=== PATIENT | female | born 2000 | race African-American/Black ===

== ENCOUNTER 2020-06-30 02:58 | Emergency (ER) | payer BC, SELFPAY ==
[2020-06-30 02:59] VITALS: BP 130/75; PULSE 71; RESP 16; TEMP 36.2; O2SAT 100; BMI 36.8
[2020-06-30] MEDS: Mag Hydrox/Al Hydrox/Simeth 30 ML UDC PO (03:33)
[2020-06-30 03:42] LABS: Absolute Lymphocyte Count 2.34 X10^3/uL (0.83-4.51); Absolute Neutrophil Count 4.6 X10^3/uL (2.0-7.7); Basophil# 0.05 X10^3/uL; Basophil% 0.6 % (0-1); Eosinophil# 0.24 X10^3/uL; Eosinophils% 3.1 % (0-5); Hematocrit 38.4 % (37-47); Hemoglobin 12.2 g/dL (12.0-15.0); Lymphocyte # 2.34 X10^3/ul (4.0); Mean Corp Hgb Conc 31.8 g/dL (32-36); Mean Corpuscular Hgb 29.3 pg (27.0-32.0); Mean Corpuscular Volume 92.1 fL (81-99); Mean Platelet Vol. 10.5 fl (6.2-12.0); Monocyte# 0.54 X10^3/uL; Monocyte% 6.9 % (0-10); NRBC Flagged by Analyzer 0 % (0-5); Neutrophil # 4.61 X10^3/uL (2.7-7.7); Platelet Count 250 K/mm3 (150-450); RBC Distribution Width CV 12.2 % (11.6-14.6); RBC Distribution Width SD 41.1 fl (35.1-43.9); Red Blood Count 4.17 M/mm3 (4.2-5.4); White Blood Count 7.8 K/mm3 (4.4-11.0)
[2020-06-30 03:50] LABS: Internal QC Validated? YES +Cl - CLEAR BKGD; Pregnancy, Serum, hCG Quali. NEGATIVE Negative
[2020-06-30 03:58] LABS: ALB/GLOB Ratio 0.8 RATIO (0.9-2.4); AST(SGOT) 10 U/L (15-37); Alanine Aminotransfer ALT/SGPT 16 U/L (13-56); Albumin, Serum 3.5 g/dL (3.2-5.0); Alkaline Phosphatase 60 U/L (45-117); Anion Gap 7 (5-15); BUN 11 mg/dL (7-18); BUN/Creat Ratio 15.4 RATIO (10-20); Calcium,Total 8.9 mg/dL (8.5-10.1); Chloride 105 mmol/L (98-107); Creatinine, Serum 0.72 mg/dL (0.55-1.02); EST Glomerular Filtration Rate 109 mL/min (>60); Est Glom Filt Rate - Afr Amer 132 mL/min (>60); Estimated Creatinine Clearance 88.78 ml/min; Globulin 4.2 g/dL (2.2-4.2); Glucose 91 mg/dL (74-106); Lipase 144 U/L (73-393); Potassium 3.8 mmol/L (3.5-5.1); Protein, Total 7.7 g/dL (6.4-8.2); Sodium Level 137 mmol/L (136-145)
--- NOTE | 2020-06-30 04:14 | ED.DCSUM_ITS ---
- ER Visit Summary Date of Service: 06/30/20 Chief Complaint: Abdominal pain History of Present Illness: The patient is a 20 F presenting with abdominal pain. She states this started at 1 AM, 2 hours prior to arrival. She started having epigastric abdominal pain. She states she took ibuprofen earlier and then started having pain in the epigastric area. She denies nausea, vomiting, diarrhea. Denies fever. Denies possibility of . Denies urinary complaints. Physical Examination: Vitals are stable. Patient is afebrile. Alert no acute distress. HEENT exam is unremarkable. Neck is supple. Lungs are clear and equal bilaterally. Heart is regular rate and rhythm. Abdomen is soft nontender nondistended. No guarding or rebound Extremities are unremarkable. Skin is warm and dry. Remainder of exam is unremarkable. Emergency Department Course and Treatment: Patient was given GI cocktail. CBC, chemistries unremarkable. Liver lipase normal. hCG negative. On reevaluation, patient is feeling improved and is resting comfortably. She is given prescription for Pepcid. Advised to follow-up with her primary care physician. Advised return to ED for worsening complaints. Disposition: Discharge home Impression: Epigastric abdominal pain, resolved This note was generated with [employer] dictation software. It may contain incorrect words, spelling, and punctuation that were not noted in review of the chart prior to signing ED Disposition - Plan for ED Patient: Instructions: ED Abdominal Pain Unkn Cause Fem Prescriptions: Famotidine [Pepcid] 20 mg PO BID #28 tab Prescription Printed Referrals: Raisa Pacheco MD [Primary Care Provider] -
== END 2020-06-30 04:26 | disposition home or self-care (01) ==
LOC: ED 04:18
PROVIDERS: Emergency Provider Emergency Medicine
DX: R10.13 Epigastric pain (principal); Z72.0 Tobacco use
CPT/HCPCS: 80053; 83690; 84703; 85025; 99282; A4216

== ENCOUNTER 2021-03-02 06:49 | Emergency (ER) | payer BC, SELFPAY ==
[2021-03-02 06:50] VITALS: BP 129/74; PULSE 63; RESP 18; TEMP 37.1; O2SAT 100; BMI 36.0
--- NOTE | 2021-03-02 06:55 | NURSING ---
NO OLD EKGS
--- NOTE | 2021-03-02 07:00 | EKG12_ITS ---
Test Reason : CP Blood Pressure : / mmHG Vent. Rate : 083 BPM Atrial Rate : 083 BPM P-R Int : 138 ms QRS Dur : 074 ms QT Int : 382 ms P-R-T Axes : -14 043 030 degrees QTc Int : 448 ms Normal sinus rhythm with sinus arrhythmia Nonspecific T wave abnormality Abnormal ECG Confirmed by WILLEM PAIGE, DANIELA ([id number]), proposal editor WILMAR LOPEZ ([id number]) on 03/08/2021 1:15:18 PM Referred By: BB Confirmed By:DANILEA BANGURA MD
--- NOTE | 2021-03-02 07:01 | EDS_ITS ---
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 Nonexertional.) Relieved By: Remaining Still (And sitting up) Associated Symptoms: Positive for Dyspnea (A little); Negative for Nausea, Vomiting, Diaphoresis, Cough, Fever, Lightheadedness and Palpitations Narrative Narrative: Patient sent here from urgent care where she went because of chest discomfort that started earlier this morning. She states she was having some back discomfort yesterday, as well as some throat pain with odynophagia, states that all of that is worse when her discomfort started in her chest this morning. She denies any fevers or chills or coughing. As above she states it is worse with lots of things but mainly with lying supine. She also felt some tingling in her right upper extremity yesterday and this morning. Prior Similar Symptoms: No Recent Illness/Hospitalization: No CVD Risk Factors: Negative for Hypertension, Diabetes, Hypercholesterolemia, Family History 1' </=55 and Smoking PE Risk Factors: Negative for Recent Travel/Surgery, Recent Immobilization, Prior DVT or PE, Cancer and OCP + Smoking + >/=35 PFSH PFSH Medical History Asthma Home Medications albuterol sulfate 2 puff INHALATION Q6H PRN 03/02/21 [History Last Taken Unknown] Allergy/AdvReac Type Severity Reaction Status Date / Time No Known Allergies Allergy Verified 03/02/21 06:54 Social History Smoking Status: Current some day smoker tobacco type: cigarettes ROS ROS ED Constitutional Constitutional ED: Denies chills or fever(s) Eyes Eyes: Denies change in vision or diplopia ENT ENT ED: Denies rhinorrhea or sore throat Cardiovascular Cardiovascular: Reports chest pain; Denies palpitations Respiratory/Chest Respiratory/Chest: Reports as per HPI and dyspnea; Denies cough Gastrointestinal Gastrointestinal: Denies abdominal pain, diarrhea, nausea or vomiting Genitourinary Genitourinary ED: Denies dysuria or hematuria Musculoskeletal Musculoskeletal: Denies back pain or neck pain Integumentary Denies abscess or rash Neurologic Neurologic: Reports as per HPI and paresthesias; Denies headache(s) or weakness Psychiatric Psychiatric: Denies anxiety or suicidal thoughts EXAM Physical Exam Const Vital Signs: 03/02/21 06:50 03/02/21 06:55 Temperature 98.7 F Temperature Source Temporal Pulse Rate 63 Respiratory Rate 18 Respiratory Effort Normal Non-Labored Blood Pressure 129/74 H Blood Pressure Mean 92 Pulse Ox 100 Oxygen Delivery Method Room Air Positive well nourished and well developed Constitutional Narrative: Well-appearing, conversive in full sentences. Does not objectively appear dyspneic. General Appearance ED: well developed and NAD HEENT Reports moist mucous membranes normocephalic and atraumatic Eyes PERRL and EOMs intact bilaterally Neck full ROM and supple Resp normal respiratory effort and clear to auscultation bilaterally Cardio regular rate, regular rhythm and no murmurs Cardio Narrative: Blood/4 symmetric radial pulses GI non-tender and non-distended Auscultation: normoactive bowel sounds Palpation: soft Back/Spine no CVA tenderness General Back: other FROM Extremity normal to inspection, no calf tenderness and no pedal edema General Extremety ED: Negative for edema, pulses abnormal or tenderness General Extremity: Negative for edema or pulses abnormal Neuro oriented x3, CN's II-XII intact bilaterally and no sensory deficits noted Sensorium / Orientation: awake and alert Motor Exam: strength 5/5 throughout Skin no rashes or lesions noted and no wounds Heart Score History: Slightly/Non-Suspicious ECG: Normal Age: </= 45 years Risk Factors: No Risk Factors Troponin: </= Normal Limit Score: 0 MDM MDM MDM Narrative Medical decision making narrative: With 6+ hours of continuous discomfort and a negative EKG and troponin, this makes acute coronary syndrome at this time very unlikely. Furthermore her PERC score is 0, ruling out acute pulmonary embolus and contacts, especially with her pulse at 63 and pulse ox at 100% this was unlikely. She was given a GI cocktail considering GI possibilities, it helped a little. She has no posterior oropharyngeal erythema, exudates, asymmetry, or cervical lymphadenopathy to suggest she has a bacterial or streptococcal infection in her throat, but she again complained of her throat feeling funny on the right side when she swallows even after the GI cocktail. Pleurisy is also in the differential diagnosis here. She will be discharged after getting Toradol 30 mg, she has an appointment after the weekend with her doctor, she can be reevaluated then we discussed reasons to return over the weekend. If the anti-inflammatories help, advised using them as needed for this discomfort. We discussed reasons to return. Lab Data Attestation: I reviewed the patient's lab results. Labs: Laboratory Results - last 24 hr 03/02/21 03/02/21 07:03 07:03 WBC 8.1 RBC 4.10 L Hgb 12.2 Hct 37.0 MCV 90.2 MCH 29.8 MCHC 33.0 RDW Std Deviation 42.1 RDW Coeff of Jesus 12.7 Plt Count 250 MPV 10.6 Immature Gran % (Auto) 0.200 Neut % (Auto) 62.4 Lymph % (Auto) 28.3 [place] % (Auto) 6.4 Eos % (Auto) 2.2 Baso % (Auto) 0.5 Absolute Neuts (auto) 5.0 Absolute Lymphs (auto) 2.29 Nucleated RBC % 0 Sodium 138 Potassium 3.6 Chloride 108 H Carbon Dioxide 24.0 Anion Gap 6 BUN 8 Creatinine 0.76 Estim Creat Clear Calc 83.40 Est GFR (MDRD) Af Amer 122 Est GFR (MDRD) Non-Af 101 BUN/Creatinine Ratio 10.5 Glucose 99 Calcium 9.0 Troponin I High Sens 5.2 Radiography Chest X-Ray - ED: 1 View, Read by ED Physician, Normal and No Acute Disease EKG Initial EKG: Attestation: I personally reviewed and interpreted this EKG as follows: Interpretation: Sinus Rhythm and No Acute Injury Pattern Discharge Plan Triage Chief Complaint: Chest Pain ED Provider: David Landaverde Dx/Rx/DC Orders Clinical Impression: Chest pain, unspecified Instructions: ED Chest Pain, Uncertain Cause Prescriptions: No Action albuterol sulfate 90 mcg/actuation Hfa Aerosol Inhaler 2 puff INHALATION Q6H PRN (Reason: breathing) RF: 0 Primary Care Provider: Raisa Pacheco Referrals: Raisa Pacheco MD [Primary Care Provider] - Keep Ben appointment Disposition Disposition: Home, Self Care
[2021-03-02 07:06] LABS: Absolute Lymphocyte Count 2.29 X10^3/uL (0.83-4.51); Basophil# 0.04 X10^3/uL; Basophil% 0.5 % (0-1); Eosinophil# 0.18 X10^3/uL; Eosinophils% 2.2 % (0-5); Hemoglobin 12.2 g/dL (12.0-15.0); Lymphocyte # 2.29 X10^3/ul (0.83-4.51); Lymphocyte % 28.3 % (19-41); Mean Corpuscular Hgb 29.8 pg (27.0-32.0); Mean Corpuscular Volume 90.2 fL (81-99); Mean Platelet Vol. 10.6 fl (6.2-12.0); Monocyte# 0.52 X10^3/uL; Monocyte% 6.4 % (0-10); NRBC Flagged by Analyzer 0 % (0-5); Neutrophil # 5.04 X10^3/uL (2.7-7.7); Neutrophil % 62.4 % (47-70); Platelet Count 250 K/mm3 (150-450); RBC Distribution Width CV 12.7 % (11.6-14.6); RBC Distribution Width SD 42.1 fl (35.1-43.9); White Blood Count 8.1 K/mm3 (4.4-11.0)
[2021-03-02] MEDS: Mag Hydrox/Al Hydrox/Simeth 30 ML UDC PO (07:06)
--- NOTE | 2021-03-02 07:10 | RAD_ITS ---
STUDY: X-RAY CHEST REASON FOR EXAM: Female, 21 years old. Chest pain TECHNIQUE: Single AP portable view of the chest. COMPARISON: None. FINDINGS: EKG leads overlie the chest The lungs are clear and expanded. There is no demonstrated pleural abnormality. Normal size heart. Normal mediastinum and andree. Normal visualized pulmonary arteries. Normal visualized aortic arch and descending thoracic aorta. Normal visualized thoracic spine. Normal visualized ribs, clavicles, and shoulders. There is no demonstrated abnormality of the visualized soft tissue structures of the upper abdomen. RAD/Chest 1 View (Portable) IMPRESSION: Normal x-ray examination of the chest. Electronically Signed: Shakeel Whitfield MD at 7:43 EDT , Service support ,
[2021-03-02 07:25] LABS: Anion Gap 6 (5-15); BUN 8 mg/dL (7-18); BUN/Creat Ratio 10.5 RATIO (10-20); Chloride 108 mmol/L (98-107); Creatinine, Serum 0.76 mg/dL (0.55-1.02); EST Glomerular Filtration Rate 101 mL/min (>60); Est Glom Filt Rate - Afr Amer 122 mL/min (>60); Glucose 99 mg/dL (74-106); Potassium 3.6 mmol/L (3.5-5.1); Sodium Level 138 mmol/L (136-145); Troponin-I HS 5.2 pg/mL (3.0-53.7)
[2021-03-02] MEDS: Ketorolac 30 MG/ML Syringe IV (07:46)
[2021-03-02 07:49] VITALS: BP 108/68; PULSE 58; RESP 14
== END 2021-03-02 07:52 | disposition home or self-care (01) ==
PROVIDERS: Emergency Provider Emergency Medicine; PCP Internal Medicine
DX: R07.9 Chest pain, unspecified (principal); R06.00 Dyspnea, unspecified; R07.0 Pain in throat; R13.10 Dysphagia, unspecified; R20.2 Paresthesia of skin; J45.909 Unspecified asthma, uncomplicated; F17.210 Nicotine dependence, cigarettes, uncomplicated
CPT/HCPCS: 71045; 80048; 84484; 85025; 93005; 96374; 99284; A4216

== ENCOUNTER 2022-10-20 14:57 | Emergency (ER) | payer BC, SELFPAY ==
[2022-10-20 14:59] VITALS: BP 137/80; PULSE 93; RESP 18; TEMP 36; O2SAT 100; BMI 36.6
--- NOTE | 2022-10-20 15:11 | EKG12_ITS ---
Test Reason : CP Blood Pressure : / mmHG Vent. Rate : 090 BPM Atrial Rate : 090 BPM P-R Int : 142 ms QRS Dur : 078 ms QT Int : 360 ms P-R-T Axes : 020 039 021 degrees QTc Int : 440 ms Normal sinus rhythm Nonspecific T wave abnormality Abnormal ECG Confirmed by AARON PAIGE, ONESIMO ([id number]), slot editor WILMAR LOPEZ ([id number]) on 10/21/2022 12:47:55 PM Referred By: Confirmed By:ONESIMO WALKER MD
--- NOTE | 2022-10-20 15:12 | ED.VIS.CHEST ---
HPI History of Present Illness Chief Complaint: Chest Pain Narrative Narrative: 22-year-old female with past medical history of asthma presenting with chest pain. She describes it as retrosternal. She states it is burning in nature and she has a history of acid reflux. She is not on any thing for acid reflux. She reports that she has been studying a lot last week in college and has not been eating well and notes that this burning sensation has been increasing. No nausea or vomiting. No chest pressure. No sharp pleuritic pain no pain with deep inspiration. No history of cardiac disease. PE Risk Factors: Negative for Recent Travel/Surgery, Recent Immobilization, Prior DVT or PE, Cancer or OCP + Smoking + >/=35 PFSH PFSH Medical History Asthma Home Medications albuterol sulfate 90 mcg/actuation aerosol inhaler 2 puff inhalation Q6H PRN breathing 03/02/21 [History Last Taken Unknown] omeprazole 20 mg capsule,delayed release 20 mg PO DAILY #30 CAPSULES 10/20/22 [Rx Last Taken Unknown] Allergy/AdvReac Type Severity Reaction Status Date / Time No Known Allergies Allergy Verified 10/20/22 14:58 Social History Smoking Status: Current some day smoker tobacco type: cigarettes ROS ROS ED Review of Systems ROS Unobtainable: Denies due to encephalopathy Constitutional Constitutional ED: Denies chills or fever(s) Eyes Eyes: Denies change in vision or diplopia ENT ENT ED: Denies rhinorrhea or sore throat Cardiovascular Cardiovascular: Reports as per HPI Respiratory/Chest Respiratory/Chest: Denies cough or dyspnea Gastrointestinal Gastrointestinal: Denies abdominal pain, nausea or vomiting Genitourinary Genitourinary ED: Denies dysuria Musculoskeletal Musculoskeletal: Denies arthralgias or back pain Integumentary Denies abscess or Abrasions Neurologic Neurologic: Denies headache(s) or paresthesias EXAM Physical Exam Const Vital Signs: 10/20/22 14:59 Temperature 96.8 F L Temperature Source Temporal Pulse Rate 93 Respiratory Rate 18 Blood Pressure 137/80 H Blood Pressure Mean 99 Pulse Ox 100 Oxygen Delivery Method Room Air Positive well nourished General Appearance ED: NAD HEENT Reports moist mucous membranes normocephalic Eyes PERRL and EOMs intact bilaterally Chest Wall inspection of chest normal and palpation of chest normal Resp normal respiratory effort and clear to auscultation bilaterally Cardio regular rate and regular rhythm Neuro oriented x3 and CN's II-XII intact bilaterally Sensorium / Orientation: awake and alert Skin no rashes or lesions noted MDM MDM MDM Narrative Medical decision making narrative: 21-year-old female with history of GERD that is untreated presenting with retrosternal burning and dyspepsia symptoms. Patient states has been eating poorly while studying this last week for tests. Low suspicion for ACS or PE. She is PERC negative. Will obtain EKG to ensure there is no dysrhythmia/ischemia. Chest x-ray will be obtained as well. Patient will be treated with GI cocktail. She will be reevaluated after this. EKG on my interpretation shows normal sinus rhythm with a ventricular rate of 90 bpm without sign of ischemic change or dysrhythmia. Chest x-ray on my interpretation shows no acute process. Radiologist interpretation agrees. After GI cocktail was given the patient felt much better. Given this I will start her on omeprazole outpatient. She is counseled to watch trigger foods that would upset her stomach. She is to follow-up with a PCP to ensure resolution. Impression: 1. Atypical chest pain 2. GERD Radiography Diagnostic Testing: Clinical Impression(s) from Imaging Studies Chest X-Ray 10/20/22 15:43 IMPRESSION: No radiographic evidence of acute cardiopulmonary disease. Electronically Signed: Gordon Guillory MD at 15:55 EDT Reading Location ID and State: [facility] / [place] , Service support , Discharge Plan Triage Chief Complaint: Chest Pain ED Provider: Breezy Castillo Dx/Rx/DC Orders Instructions: ED Chest Pain, Noncardiac, ED GERD (Adult) Prescriptions: New omeprazole 20 mg capsule,delayed release(DR/EC) 20 mg PO DAILY Qty: 30 0RF No Action albuterol sulfate 90 mcg/actuation Hfa Aerosol Inhaler 2 puff INHALATION Q6H PRN (Reason: breathing) Primary Care Provider: Raisa Pacheco Referrals: Raisa Pacheco MD [Primary Care Provider] - Disposition Disposition: Home, Self Care Discharge Date/Time: 10/20/22 16:08
[2022-10-20] MEDS: Mag Hydrox/Al Hydrox/Simeth 30 ML UDC PO (15:36)
--- NOTE | 2022-10-20 15:43 | RAD_ITS ---
EXAM: XR CHEST, 2 VIEWS CLINICAL INDICATION: chest pain TECHNIQUE: Frontal and lateral views of the chest. This report was created using [employer] report generation technology. COMPARISON: 03.02.21 FINDINGS: LUNGS AND PLEURAL SPACES: Unremarkable. No consolidation or edema. No pneumothorax. No effusion. HEART: Unremarkable. Cardiac silhouette not enlarged. MEDIASTINUM: Central airways and mediastinal contour are unremarkable. BONES/JOINTS: Unremarkable. SOFT TISSUES: Unremarkable. RAD/Chest PA and Lateral IMPRESSION: No radiographic evidence of acute cardiopulmonary disease. Electronically Signed: Gordon Guillory MD at 15:55 EDT ,
== END 2022-10-20 16:08 | disposition home or self-care (01) ==
PROVIDERS: Emergency Provider Student in an Organized Health Care Education/Training Program; PCP Internal Medicine; Visit Provider Student in an Organized Health Care Education/Training Program
DX: K21.9 Gastro-esophageal reflux disease without esophagitis (principal); R07.89 Other chest pain; J45.909 Unspecified asthma, uncomplicated; F17.210 Nicotine dependence, cigarettes, uncomplicated
CPT/HCPCS: 71046; 93005; 99282

== ENCOUNTER 2024-07-23 17:56 | Emergency (ER) | payer BC, SELFPAY ==
[2024-07-23 17:58] VITALS: BP 113/93; PULSE 117; RESP 16; TEMP 37.3; O2SAT 100; BMI 32.0
[2024-07-23 19:32] VITALS: BP 112/70; PULSE 100; RESP 15; TEMP 38.3; O2SAT 98
[2024-07-23 19:37] LABS: Absolute Lymphocyte Count 0.61 X10^3/uL (0.83-4.51); Absolute Neutrophil Count 9.2 X10^3/uL (2.0-7.7); Basophil# 0.02 X10^3/uL; Basophil% 0.2 % (0-1); Hematocrit 40.1 % (37-47); Hemoglobin 12.4 g/dL (12.0-15.0); Lymphocyte # 0.61 X10^3/ul (0.83-4.51); Mean Corp Hgb Conc 30.9 g/dL (32-36); Mean Corpuscular Hgb 26.4 pg (27.0-32.0); Mean Corpuscular Volume 85.3 fL (81-99); Mean Platelet Vol. 10.6 fl (6.2-12.0); Monocyte# 0.25 X10^3/uL; Monocyte% 2.5 % (0-10); NRBC Flagged by Analyzer 0 % (0-5); Neutrophil # 9.17 X10^3/uL (2.7-7.7); Neutrophil % 90.8 % (47-70); Platelet Count 260 K/mm3 (150-450); RBC Distribution Width CV 14.5 % (11.6-14.6); RBC Distribution Width SD 45.3 fl (35.1-43.9); White Blood Count 10.1 K/mm3 (4.4-11.0)
[2024-07-23] MEDS: Ondansetron 4 MG/2 ML Vial IV (19:37)
[2024-07-23] MEDS: Ketorolac 15 MG/ML Vial IV (19:37)
--- NOTE | 2024-07-23 19:37 | EDS_ITS ---
HPI <DANNY Rick - Last Filed: 07/23/24 22:17> History of Present Illness Chief Complaint: Nausea/Vomiting/Diarrhea Narrative Narrative: Patient presenting today with fevers, nausea, vomiting, and diarrhea that started last night/early this morning. She reports concerns for food poisoning and states that yesterday she ate at a [employer] potluck at school where food had been sitting out. She reports generalized abdominal pain, especially with vomiting. No previous history of abdominal surgeries. She went with her mom today to her PCPs office, mom does have a history of Graves' disease and became concerned that this could be related to patient's thyroid. Her PCP did not have any recent thyroid labs and because she could not rule this out, recommended that patient come to the emergency department for evaluation. Patient reports that she is healthy otherwise. She denies hematemesis, melena, hematochezia, and urinary symptoms. PFSH <DANNY Rick - Last Filed: 07/23/24 22:17> [facility] Medical History Asthma Home Medications ?Medication ?Instructions ?Recorded ?Last Taken ?Type albuterol sulfate 90 mcg/actuation 2 puff inhalation Q6H PRN breathing 03/02/21 Unknown History aerosol inhaler omeprazole 20 mg capsule,delayed 20 mg PO DAILY #30 CAPSULES 10/20/22 Unknown Rx release ciprofloxacin HCl 500 mg tablet 500 mg PO BID 4 days #8 tabs 07/23/24 Unknown Rx (Cipro) ondansetron 4 mg disintegrating 4 mg PO Q8H PRN PRN Nausea #10 tabs 07/23/24 Unknown Rx tablet Allergy/AdvReac Type Severity Reaction Status Date / Time No Known Allergies Allergy Verified 07/23/24 17:57 Social History Smoking Status: Current some day smoker tobacco type: cigarettes ROS <DANNY Rick - Last Filed: 07/23/24 22:17> ROS ED Constitutional Constitutional ED: Reports fever(s) Cardiovascular Cardiovascular: Denies chest pain Respiratory/Chest Respiratory/Chest: Denies cough or dyspnea Gastrointestinal Gastrointestinal: Reports abdominal pain, diarrhea, nausea and vomiting; Denies constipation or melena Genitourinary Genitourinary ED: Denies dysuria, hematuria or urinary urgency Musculoskeletal Musculoskeletal: Denies arthralgias or myalgias Integumentary Denies rash Neurologic Neurologic: Denies weakness EXAM <DANNY Rcik - Last Filed: 07/23/24 22:17> Physical Exam Const Vital Signs: 07/23/24 17:58 07/23/24 19:32 07/23/24 20:00 Temperature 99.2 F H 100.9 F H 101.6 F H Temperature Source Oral Oral Oral Pulse Rate 117 H 100 98 Respiratory Rate 16 15 16 Blood Pressure 113/93 H 112/70 108/66 Blood Pressure Mean 99 84 80 Pulse Ox 100 98 100 Oxygen Delivery Method Room Air Room Air Room Air 07/23/24 21:00 07/23/24 21:54 Temperature 99.9 F H Temperature Source Oral Pulse Rate 100 Respiratory Rate 15 Blood Pressure Blood Pressure Mean Pulse Ox 98 Oxygen Delivery Method Room Air Positive well nourished, well developed and no apparent distress General Appearance ED: well developed HEENT Reports normocephalic and head/scalp atraumatic Mouth ED: Yes moist mucous membranes normal Eyes PERRL and EOMs intact bilaterally Neck full ROM and supple Chest Wall inspection of chest normal Resp normal respiratory effort and clear to auscultation bilaterally Cardio regular rate and regular rhythm GI soft to palpation, non-tender, non-distended and no masses Back/Spine normal ROM and normal to inspection Extremity normal to inspection and full ROM Neuro oriented x3, CN's II-XII intact bilaterally, moves all extremities, no focal m otor deficits and no sensory deficits noted Sensorium / Orientation: awake and alert Psych mental status grossly normal and thought process normal Skin no rashes or lesions noted and no wounds <Dr. Abimael Castellanos DO - Last Filed: 07/24/24 00:27> Physical Exam Const Vital Signs: 07/23/24 17:58 07/23/24 19:32 07/23/24 20:00 Temperature 99.2 F H 100.9 F H 101.6 F H Temperature Source Oral Oral Oral Pulse Rate 117 H 100 98 Respiratory Rate 16 15 16 Blood Pressure 113/93 H 112/70 108/66 Blood Pressure Mean 99 84 80 Pulse Ox 100 98 100 Oxygen Delivery Method Room Air Room Air Room Air 07/23/24 21:00 07/23/24 21:54 Temperature 99.9 F H Temperature Source Oral Pulse Rate 100 Respiratory Rate 15 Blood Pressure Blood Pressure Mean Pulse Ox 98 Oxygen Delivery Method Room Air [facility] <DANNY Rick - Last Filed: 07/23/24 22:17> [facility] Narrative Medical decision making narrative: Patient presenting with nausea, vomiting, diarrhea that started last night. She did eat a [employer] buffet at school and has concerns for food poisoning. She also has concerns for thyroid storm given her mom's history of Graves' disease and saw her PCP today who was not able to rule this out. Patient has no personal history of thyroid disease. She is nontoxic-appearing. She is additionally slightly tachycardic and febrile. Patient given IV fluids, Toradol, Zofran and labs obtained. Her CBC is unremarkable, sodium is 134, potassium 3.4, no JONATHAN, no transaminitis. Her TSH is 0.199, T4 is normal at 1.33, free T3 slightly low at 1.6. Labs do not indicate thyroid storm. COVID/influenza/RSV is negative, chest x-ray negative. She does report improvement of her symptoms on reexamination. She is tolerating p.o. fluids. We will start her on Cipro due to concerns for food poisoning and fevers. She will be discharged home in stable condition. Lab Data Attestation: I reviewed the patient's lab results. Labs: Laboratory Results - last 24 hr 07/23/24 07/23/24 19:24 19:25 WBC 10.1 RBC 4.70 Hgb 12.4 Hct 40.1 MCV 85.3 MCH 26.4 L MCHC 30.9 L RDW Std Deviation 45.3 H RDW Coeff of Jesus 14.5 Plt Count 260 MPV 10.6 Immature Gran % (Auto) 0.500 Neut % (Auto) 90.8 H Lymph % (Auto) 6.0 L Hernando % (Auto) 2.5 Eos % (Auto) 0.0 Baso % (Auto) 0.2 Absolute Neuts (auto) 9.2 H Absolute Lymphs (auto) 0.61 L Nucleated RBC % 0 Sodium 134 L Potassium 3.4 L Chloride 104 Carbon Dioxide 23.0 Anion Gap 7 BUN 9 Creatinine 0.83 Estim Creat Clear Calc 93.33 Est GFR (MDRD) Af Amer 108 Est GFR (MDRD) Non-Af 89 BUN/Creatinine Ratio 10.9 Glucose 90 Calcium 8.9 Total Bilirubin 0.90 AST 19 ALT 16 Alkaline Phosphatase 63 Total Protein 8.6 H Albumin 3.6 Globulin 5.0 H Albumin/Globulin Ratio 0.7 L Lipase 24 TSH 0.199 L Free T4 1.33 Free T3 pg/dL 1.6 L Serum , Qual NEGATIVE Urine Color Yellow Urine Clarity Sl. Cloudy Urine pH 5.0 Ur Specific [place] 1.025 Urine Protein 30 H Urine Glucose (UA) Normal Urine Ketones 150 A* Urine Occult Blood 10 H Urine Nitrite Negative Urine Bilirubin 1 H Urine Urobilinogen 1 H Ur Leukocyte Esterase 100 H Urine RBC 0-5 SEEN Urine WBC 5-10 SEEN Ur Squamous Epith Cells 5-10 SEEN Urine Bacteria 1+ Urine Mucus 1+ Radiography X-Ray: Read by ED Physician Diagnostic Testing: Clinical Impression(s) from Imaging Studies Chest X-Ray 07/23/24 21:02 IMPRESSION: Normal x-ray examination of the chest. Electronically Signed: Mo Patel MD at 21:17 EST Reading Location ID and State: [facility] / [place] Tel , Service support , <Dr. Abimael Castellanos, DO - Last Filed: 07/24/24 00:27> [facility] Narrative Medical decision making narrative: Patient presenting with nausea, vomiting, diarrhea that started last night. She did eat a [employer] buffet at school and has concerns for food poisoning. She also has concerns for thyroid storm given her mom's history of Graves' disease a nd saw her PCP today who was not able to rule this out. Patient has no personal history of thyroid disease. She is nontoxic-appearing. She is additionally slightly tachycardic and febrile. Patient given IV fluids, Toradol, Zofran and labs obtained. Her CBC is unremarkable, sodium is 134, potassium 3.4, no JONATHAN, no transaminitis. Her TSH is 0.199, T4 is normal at 1.33, free T3 slightly low at 1.6. Labs do not indicate thyroid storm. COVID/influenza/RSV is negative, chest x-ray negative. She does report improvement of her symptoms on reexamination. She is tolerating p.o. fluids. We will start her on Cipro due to concerns for food poisoning and fevers. She will be discharged home in stable condition. I have personally performed a face to face assessment of the patient and have reviewed the [facility] Note. I performed a substantive portion of the visit including all aspects of the following. My nelson findings include: History is patient is an 7 had a school buffet last evening about 5 hours later developed diarrhea. She noted tachycardia today primary care was concerned about thyroid storm wrote her for some propranolol which she has not yet taken. Here in the department she was noted to be febrile. She describes the stool that is nonbloody and brown liquid. No mucus. Exam is tachycardic. The patient does however clinically appear well. The exam is rather nonfocal Medical Decison Making I do not feel her laboratory workup is consistent with thyroid storm. Her heart rate is down with antipyretics. She was unable to give us a stool specimen. We talked about whether or not to treat with antibiotics. Using shared decision making I can write her a short course of ciprofloxacin. Would recommend fever control and oral hydration. Follow-up as needed return if worsening History & Record Review Discussion w/independent historian: Patient and Family Lab Data Labs: Laboratory Results - last 24 hr 07/23/24 07/23/24 19:24 19:25 WBC 10.1 RBC 4.70 Hgb 12.4 Hct 40.1 MCV 85.3 MCH 26.4 L MCHC 30.9 L RDW Std Deviation 45.3 H RDW Coeff of Jesus 14.5 Plt Count 260 MPV 10.6 Immature Gran % (Auto) 0.500 Neut % (Auto) 90.8 H Lymph % (Auto) 6.0 L Hernando % (Auto) 2.5 Eos % (Auto) 0.0 Baso % (Auto) 0.2 Absolute Neuts (auto) 9.2 H Absolute Lymphs (auto) 0.61 L Nucleated RBC % 0 Sodium 134 L Potassium 3.4 L Chloride 104 Carbon Dioxide 23.0 Anion Gap 7 BUN 9 Creatinine 0.83 Estim Creat Clear Calc 93.33 Est GFR (MDRD) Af Amer 108 Est GFR (MDRD) Non-Af 89 BUN/Creatinine Ratio 10.9 Glucose 90 Calcium 8.9 Total Bilirubin 0.90 AST 19 ALT 16 Alkaline Phosphatase 63 Total Protein 8.6 H Albumin 3.6 Globulin 5.0 H Albumin/Globulin Ratio 0.7 L Lipase 24 TSH 0.199 L Free T4 1.33 Free T3 pg/dL 1.6 L Serum , Qual NEGATIVE Urine Color Yellow Urine Clarity Sl. Cloudy Urine pH 5.0 Ur Specific [place] 1.025 Urine Protein 30 H Urine Glucose (UA) Normal Urine Ketones 150 A* Urine Occult Blood 10 H Urine Nitrite Negative Urine Bilirubin 1 H Urine Urobilinogen 1 H Ur Leukocyte Esterase 100 H Urine RBC 0-5 SEEN Urine WBC 5-10 SEEN Ur Squamous Epith Cells 5-10 SEEN Urine Bacteria 1+ Urine Mucus 1+ Radiography Diagnostic Testing: Clinical Impression(s) from Imaging Studies Chest X-Ray 07/23/24 21:02 IMPRESSION: Normal x-ray examination of the chest. Electronically Signed: Mo Patel MD at 21:17 EST Reading Location ID and State: [address] [place] [address] Tel , Service support , Discharge Plan Triage Chief Complaint: Nausea/Vomiting/Diarrhea ED Midlevel Provider: Anjali Horn ED Provider: Abimael Castellanos Dx/Rx/DC Orders Clinical Impression: Food poisoning Instructions: ED Food Poisoning (Adult) Prescriptions: New ondansetron 4 mg tablet,disintegrating 4 mg PO Q8H PRN PRN (Reason: Nausea) Qty: 10 0RF ciprofloxacin HCl [Cipro] 500 mg tablet 500 mg PO BID 4 Days Qty: 8 0RF No Action albuterol sulfate 90 mcg/actuation Hfa Aerosol Inhaler 2 puff INHALATION Q6H PRN (Reason: breathing) omeprazole 20 mg capsule,delayed release(DR/EC) 20 mg PO DAILY Qty: 30 0RF Primary Care Provider: Raisa Pacheco Referrals: Raisa Pacheco MD [Primary Care Provider] - Activity Restrictions/Additional Instructions: Follow-up with your PCP and return for any other concerns. Print Language: Vietnamese Disposition Disposition: Home, Self Care Discharge Date/Time: 07/23/24 22:22
[2024-07-23 19:38] LABS: Color, Urine Yellow (Yellow); Glucose, Dipstick Normal (Normal); Leukocyte Esterase-Dipstick 100 /ul (Negative); Nitrite-Dipstick Negative (Negative); Occult Blood-Urine 10 /ul (Negative); Protein-Dipstick 30 mg/dl (Negative); Specific Gravity, Urine 1.025 (1.002-1.030); Urine Clarity Sl. Cloudy (Clear); Urine Urobilinogen 1 mg/dl (Normal)
[2024-07-23] MEDS: 0.9% Normal Saline (1000mL) 1,000 ML 999 ML IV (19:38)
[2024-07-23 19:41] LABS: Ketone-Dipstick 150 mg/dl (Negative); Urine Bilirubin Dipstick 1 mg/dL (Negative)
[2024-07-23 19:49] LABS: Internal QC Validated? YES +Cl - CLEAR BKGD; Pregnancy, Serum, hCG Quali. NEGATIVE Negative
[2024-07-23 19:50] LABS: Bacteria 1+ /hpf (None Seen); Mucous, Urine 1+ /hpf (<or=2+); Red Blood Cells-Urine 0-5 SEEN /hpf (0-5); Squamous Epithelial Cells - UA 5-10 SEEN /hpf (5-10); White Blood Cells 5-10 SEEN /hpf (0-5)
[2024-07-23 20:00] VITALS: BP 108/66; PULSE 98; RESP 16; TEMP 38.7; O2SAT 100
[2024-07-23 20:05] LABS: ALB/GLOB Ratio 0.7 RATIO (0.9-2.4); AST(SGOT) 19 U/L (15-37); Alanine Aminotransfer ALT/SGPT 16 U/L (13-56); Albumin, Serum 3.6 g/dL (3.2-5.0); Alkaline Phosphatase 63 U/L (45-117); Anion Gap 7 (5-15); BUN 9 mg/dL (7-18); BUN/Creat Ratio 10.9 RATIO (10-20); Calcium,Total 8.9 mg/dL (8.5-10.1); Chloride 104 mmol/L (98-107); Creatinine, Serum 0.83 mg/dL (0.55-1.02); EST Glomerular Filtration Rate 89 mL/min (>60); Est Glom Filt Rate - Afr Amer 108 mL/min (>60); Estimated Creatinine Clearance 93.33 ml/min; Glucose 90 mg/dL (74-106); Lipase 24 U/L (13-75); Potassium 3.4 mmol/L (3.5-5.1); Protein, Total 8.6 g/dL (6.4-8.2); Sodium Level 134 mmol/L (136-145); Thyroid Stim Hormone (TSH) 0.199 uIU/mL (0.358-3.740)
[2024-07-23 21:00] VITALS: PULSE 100; RESP 15; O2SAT 98
--- NOTE | 2024-07-23 21:02 | RAD_ITS ---
STUDY: X-RAY CHEST REASON FOR EXAM: Female, 24 years old. fever TECHNIQUE: AP portable COMPARISON: October 20, 2022 FINDINGS: The lungs are clear and expanded. There is no demonstrated pleural abnormality. Normal size heart. Normal mediastinum and andree. Normal visualized pulmonary arteries. Normal visualized aortic arch and descending thoracic aorta. Normal visualized thoracic spine. Normal visualized ribs, clavicles, and shoulders. There is no demonstrated abnormality of the visualized soft tissue structures of the upper abdomen. RAD/Chest 1 View (Portable) IMPRESSION: Normal x-ray examination of the chest. Electronically Signed: Mo Patel MD at 21:17 [facility] ,
[2024-07-23 21:15] LABS: Free T3 1.6 pg/mL (2.18-3.98); T4 Free Direct 1.33 ng/dL (0.76-1.46)
[2024-07-23] MEDS: Acetaminophen 325 MG Tablet 650 MG PO (21:20)
[2024-07-23 21:54] VITALS: TEMP 37.7
[2024-07-23] MEDS: Ciprofloxacin 500 MG Tablet PO (22:18)
== END 2024-07-23 22:22 | disposition home or self-care (01) ==
PROVIDERS: Physician Assistant; Emergency Provider Emergency Medicine; PCP Internal Medicine; Visit Provider Emergency Medicine
DX: A05.9 Bacterial foodborne intoxication, unspecified (principal); J45.909 Unspecified asthma, uncomplicated; F17.210 Nicotine dependence, cigarettes, uncomplicated
CPT/HCPCS: 71045; 80053; 81001; 83690; 84439; 84443; 84481; 84703; 85025; 87631; 96361; 96374; 96375; 99283; A4216; J2405

== ENCOUNTER 2024-07-26 23:12 | Emergency (ER) | payer BC, SELFPAY ==
[2024-07-26 23:13] VITALS: BP 108/65; PULSE 65; RESP 18; TEMP 36.4; O2SAT 100; BMI 32.3
[2024-07-26] MEDS: 0.9% Normal Saline (1000mL) 1,000 ML 999 ML IV (23:39)
[2024-07-26] MEDS: Dicyclomine 10 MG Capsule 20 MG PO (23:39)
[2024-07-26 23:50] LABS: Absolute Lymphocyte Count 2.75 X10^3/uL (0.83-4.51); Absolute Neutrophil Count 4.1 X10^3/uL (2.0-7.7); Basophil# 0.03 X10^3/uL; Basophil% 0.4 % (0-1); Eosinophil# 0.13 X10^3/uL; Eosinophils% 1.7 % (0-5); Hematocrit 33.1 % (37-47); Hemoglobin 10.7 g/dL (12.0-15.0); Lymphocyte # 2.75 X10^3/ul (0.83-4.51); Lymphocyte % 36.5 % (19-41); Mean Corp Hgb Conc 32.3 g/dL (32-36); Mean Corpuscular Hgb 27.3 pg (27.0-32.0); Mean Corpuscular Volume 84.4 fL (81-99); Mean Platelet Vol. 10.9 fl (6.2-12.0); Monocyte# 0.55 X10^3/uL; Monocyte% 7.3 % (0-10); NRBC Flagged by Analyzer 0 % (0-5); Neutrophil # 4.05 X10^3/uL (2.7-7.7); Neutrophil % 53.8 % (47-70); Platelet Count 266 K/mm3 (150-450); RBC Distribution Width CV 13.9 % (11.6-14.6); RBC Distribution Width SD 42.6 fl (35.1-43.9); Red Blood Count 3.92 M/mm3 (4.2-5.4); White Blood Count 7.5 K/mm3 (4.4-11.0)
[2024-07-27] LABS: Internal QC Validated? YES +Cl - CLEAR BKGD; Pregnancy, Serum, hCG Quali. NEGATIVE Negative
--- NOTE | 2024-07-27 | EX.ED.DYSGE1 ---
HPI History of Present Illness Chief Complaint: Abd Pain Narrative Narrative: Patient is a 24-year-old female with past medical history of asthma who presents to the emergency department with a chief complaint of abdominal pain. States that on Friday she was seen here and evaluated was diagnosed with food poisoning and was started on ciprofloxacin. States that she stated that her symptoms returned and she became concerned therefore she came here for further evaluation management. Patient states that she has been taking the ciprofloxacin. Patient denies any previous abdominal surgeries. Patient denies any nausea vomiting diarrhea. [facility] Medical History Asthma Home Medications ?Medication ?Instructions ?Recorded ?Last Taken ?Type albuterol sulfate 90 mcg/actuation 2 puff inhalation Q6H PRN breathing 03/02/21 Unknown History aerosol inhaler omeprazole 20 mg capsule,delayed 20 mg PO DAILY #30 CAPSULES 10/20/22 Unknown Rx release ciprofloxacin HCl 500 mg tablet 500 mg PO BID 4 days #8 tabs 07/23/24 Unknown Rx (Cipro) ondansetron 4 mg disintegrating 4 mg PO Q8H PRN PRN Nausea #10 tabs 07/23/24 Unknown Rx tablet dicyclomine 20 mg tablet 20 mg PO TID PRN abdominal pain 07/27/24 Unknown Rx #30 tabs ondansetron 4 mg disintegrating 4 mg PO Q6H PRN nausea and 07/27/24 Unknown Rx tablet vomiting #20 tabs potassium chloride 20 mEq oral 20 meq PO BID 5 days #30 ea 07/27/24 Unknown Rx packet Allergy/AdvReac Type Severity Reaction Status Date / Time No Known Allergies Allergy Verified 07/26/24 23:13 Social History Smoking Status: Former smoker ROS ROS ED ROS Narrative Constitutional: Denies fevers, chills, headachesdizziness Abdomen: Complains of abdominal discomfort as noted above denies any vomiting or diarrhea : Denies any urinary symptoms Neurological: Denies any numbness, weakness, tingling Musculoskeletal: Denies back pain Skin: Denies rashes or lesions EXAM Physical Exam Narrative Exam Narrative: General: Patient lying in bed rest comfortably did not appear to be in acute distress Head: Atraumatic, normocephalic Eyes: PERRL body, EOMI biotic no conjunctival injection noted Neck: Soft, supple, trachea midline Cardiovascular: Regular rate and rhythm no murmurs gallops rubs noted Respiratory: Clear to auscultation bilaterally Abdomen: Soft, nondistended, no tenderness to palpation, bowel sounds present x 4 Extremities: +5/5 strength noted in the bilateral lower extremities, radial pulses +2/4 in the right upper extremities Neurological: Patient following commands knew that she was at [facility] years 2023 Skin: Warm, dry, intact Const Vital Signs: 07/26/24 23:13 Temperature 97.6 F L Temperature Source Temporal Pulse Rate 65 Respiratory Rate 18 Blood Pressure 108/65 Blood Pressure Mean 79 Pulse Ox 100 Oxygen Delivery Method Room Air MDM MDM MDM Narrative Medical decision making narrative: Patient is a 24-year-old female who presents to the emergency department chief complaint of abdominal pain and concern as her symptoms returned from being diagnosed with food poisoning on Friday. Once again the patient's abdominal exam is benign and nonsurgical in nature. We will repeat blood work and reevaluate. On the differential diagnose includes Melamin to viral gastroenteritis, . Patient CBC reviewed and was largely unremarkable no evidence leukocytosis white blood count normal at 7.5, hemoglobin 10.7, platelet count was noted to be normal at 266. Patient sodium normal 138, potassium was low indicating hypokalemia she was given 40 mill equivalents of supplementation here in the emergency department and she will be given a prescription for potassium replacement for the next few days. Patient's creatinine was noted to be normal at 0.84, AST and ALT were 11 and 17 respectively with a normal total bilirubin of 0.40. Patient lipase normal at 50, test negative. On reevaluation of the patient she is feeling significantly improved she would like to go home at this point time. Patient will be given prescriptions for potassium, Bentyl, Zofran. She is encouraged to follow-up with her primary care physician in the outpatient setting and return with worsening symptoms or other concerns. She is agreeable this plan as well as family members at bedside all question concerns answered she was discharged home in stable condition. Lab Data Labs: Laboratory Results - last 24 hr 07/26/24 23:36 WBC 7.5 RBC 3.92 L Hgb 10.7 L Hct 33.1 L MCV 84.4 MCH 27.3 MCHC 32.3 RDW Std Deviation 42.6 RDW Coeff of Jesus 13.9 Plt Count 266 MPV 10.9 Immature Gran % (Auto) 0.300 Neut % (Auto) 53.8 Lymph % (Auto) 36.5 Bowie % (Auto) 7.3 Eos % (Auto) 1.7 Baso % (Auto) 0.4 Absolute Neuts (auto) 4.1 Absolute Lymphs (auto) 2.75 Nucleated RBC % 0 Sodium 138 Potassium 3.0 L Chloride 106 Carbon Dioxide 27.0 Anion Gap 5 BUN 5 L Creatinine 0.84 Estim Creat Clear Calc 92.68 Est GFR (MDRD) Af Amer 106 Est GFR (MDRD) Non-Af 87 BUN/Creatinine Ratio 5.9 L Glucose 91 Calcium 8.6 Total Bilirubin 0.40 AST 11 L ALT 17 Alkaline Phosphatase 50 Total Protein 7.6 Albumin 3.4 Globulin 4.2 Albumin/Globulin Ratio 0.8 L Lipase 50 Serum , Qual NEGATIVE Discharge Plan Triage Chief Complaint: Abd Pain ED Provider: Pablo Torres Dx/Rx/DC Orders Clinical Impression: Abdominal pain, Hypokalemia Prescriptions: New potassium chloride 20 mEq packet 20 meq PO BID 5 Days Qty: 30 0RF dicyclomine 20 mg tablet 20 mg PO TID PRN (Reason: abdominal pain) Qty: 30 0RF ondansetron 4 mg tablet,disintegrating 4 mg PO Q6H PRN (Reason: nausea and vomiting) Qty: 20 0RF No Action albuterol sulfate 90 mcg/actuation Hfa Aerosol Inhaler 2 puff INHALATION Q6H PRN (Reason: breathing) omeprazole 20 mg capsule,delayed release(DR/EC) 20 mg PO DAILY Qty: 30 0RF ondansetron 4 mg tablet,disintegrating 4 mg PO Q8H PRN PRN (Reason: Nausea) Qty: 10 0RF ciprofloxacin HCl [Cipro] 500 mg tablet 500 mg PO BID 4 Days Qty: 8 0RF Primary Care Provider: Raisa Pacheco Referrals: Raisa Pacheco MD [Primary Care Provider] - Activity Restrictions/Additional Instructions: Take potassium as prescribed. As well as the other medication sent to your pharmacy. Return with worsening symptoms or any concerns. Follow-up with your primary care physician. Eat a bland diet and advance as tolerated. Print Language: Hebrew Disposition Disposition: Home, Self Care
[2024-07-27 00:08] LABS: ALB/GLOB Ratio 0.8 RATIO (0.9-2.4); AST(SGOT) 11 U/L (15-37); Alanine Aminotransfer ALT/SGPT 17 U/L (13-56); Albumin, Serum 3.4 g/dL (3.2-5.0); Alkaline Phosphatase 50 U/L (45-117); Anion Gap 5 (5-15); BUN 5 mg/dL (7-18); BUN/Creat Ratio 5.9 RATIO (10-20); Calcium,Total 8.6 mg/dL (8.5-10.1); Chloride 106 mmol/L (98-107); Creatinine, Serum 0.84 mg/dL (0.55-1.02); EST Glomerular Filtration Rate 87 mL/min (>60); Est Glom Filt Rate - Afr Amer 106 mL/min (>60); Estimated Creatinine Clearance 92.68 ml/min; Globulin 4.2 g/dL (2.2-4.2); Glucose 91 mg/dL (74-106); Lipase 50 U/L (13-75); Protein, Total 7.6 g/dL (6.4-8.2); Sodium Level 138 mmol/L (136-145)
[2024-07-27] MEDS: Potassium Chloride Oral Soln 20 MEQ/15 ML UDC 40 MEQ PO (00:23)
[2024-07-27 00:55] VITALS: BP 112/79; PULSE 73; RESP 16; TEMP 36.6; O2SAT 100
== END 2024-07-27 00:56 | disposition home or self-care (01) ==
PROVIDERS: Emergency Provider Emergency Medicine; PCP Internal Medicine; Visit Provider Emergency Medicine
DX: A05.9 Bacterial foodborne intoxication, unspecified (principal); E87.6 Hypokalemia; Z87.891 Personal history of nicotine dependence; J45.909 Unspecified asthma, uncomplicated
CPT/HCPCS: 80053; 83690; 84703; 85025; 96360; 99284; A4216

== ENCOUNTER 2024-09-04 20:34 | Emergency (ER) | payer BC, SELFPAY ==
[2024-09-04 20:36] VITALS: BP 126/78; PULSE 73; RESP 18; TEMP 36.6; O2SAT 100; BMI 31.5
--- NOTE | 2024-09-04 21:22 | EDS_ITS ---
HPI HPI - GI History of Present Illness Chief Complaint: Abd Pain Informant: patient and parent Narrative Narrative: Patient is a 24-year-old female with history of hidradenitis suppurativa presenting with ongoing and worsening upper abdominal pain. She has been presumptively diagnosed with GERD and has been on pantoprazole from her primary care doctor for the past year or so. She notes that she had food poisoning a little over a month ago and since then has been having worsening of her epigastric pain. She is never seen GI. Has never had an endoscopy. States that she is compliant with her pantoprazole recently increased to 40 mg a day. She states the pain is getting so bad that she is now having tears. She describes it as intense burning in her epigastric region that radiates into her chest and slightly to her back. She states that it is worse at night when she lays down. She states is especially bad if she eats shortly before going to bed. She states she fasted today and did not relieve her symptoms. Came with her mother for further evaluation. Denies any recent change in bowel movements. Does report feeling little constipated. Denies any black or blood in her stool. Denies any associated nausea or vomiting. Denies any history of any abdominal surgeries. No other complaints or concerns at this time. [facility] Medical History Anemia GERD (gastroesophageal reflux disease) Asthma Home Medications ?Medication ?Instructions ?Recorded ?Last Taken ?Type omeprazole 20 mg capsule,delayed 20 mg PO DAILY #30 CA PSULES 10/20/22 Unknown Rx release ondansetron 4 mg disintegrating 4 mg PO Q8H PRN PRN Na usea #10 tabs 07/23/24 Unknown Rx tablet ondansetron 4 mg disintegrating 4 mg PO Q6H PRN nausea and 07/27/24 Unknown Rx tablet vomiting #20 tabs potassium chloride 20 mEq oral 20 meq PO BID 5 days #3 0 ea 07/27/24 Unknown Rx packet pantoprazole 40 mg tablet,delayed 40 mg PO BID 14 days #28 tabs 09/04/24 Unknown Rx release sucralfate 1 gram tablet (Carafate) 1 g PO Q6H 2 weeks #56 tabs 09/04/24 Unknown Rx Allergy/AdvReac Type Severity Reaction Status Date / Time No Known Allergies Allergy Verified 09/04/24 20:36 Family History no significant family his Social History Smoking Status: Never smoker ROS ROS ED Constitutional Constitutional ED: Denies chills or fever(s) Respiratory/Chest Respiratory/Chest: Denies cough or dyspnea Gastrointestinal Gastrointestinal: Reports abdominal pain; Denies diarrhea, nausea or vomiting Musculoskeletal Musculoskeletal: Denies arthralgias or myalgias Integumentary Denies rash Psychiatric Psychiatric: Denies anxiety EXAM Physical Exam Const Vital Signs: 09/04/24 20:36 09/04/24 22:36 09/04/24 23:23 Temperature 98 F 98.1 F Temperature Source Temporal Pulse Rate 73 74 56 L Respiratory Rate 18 16 16 Blood Pressure 126/78 H 120/83 H 113/68 Blood Pressure Mean 94 95 83 Pulse Ox 100 100 99 Oxygen Delivery Method Room Air Room Air Positive well nourished and well developed General Appearance ED: well developed and NAD; Negative for pallor HEENT normocephalic and atraumatic Neck supple Resp normal respiratory effort and clear to auscultation bilaterally Cardio regular rate, regular rhythm and no murmurs GI non-tender, non-distended and no masses GI Narrative: Negative Mcdonald sign Auscultation: normoactive bowel sounds Palpation: soft; Negative for tender, guarding or rigid Extremity full ROM General Extremety ED: Negative for edema General Extremity: Negative for edema Neuro Sensorium / Orientation: alert Motor Exam: Negative for general weakness Psych mental status grossly normal and thought process normal Skin General Skin Exam: Negative for jaundice or pallor MDM MDM MDM Narrative Medical decision making narrative: Patient is evaluated for ongoing upper abdominal pain that radiates to her chest. Vital signs are normal. She overall is well-appearing. She is not have a peritoneal surgical abdominal exam. She is a negative Mcdonald sign. I suspect this is more of gastritis/GERD/peptic ulcer disease. Differential also includes symptomatic anemia, pancreatitis, cholecystitis and choledocholithiasis. Lab work is obtained which shows mild anemia with hemoglobin 11.4 However this is actually improved from her hemoglobin on 07/26 which was 10.7. Low suspicion for any acute bleeding. White blood cell count is normal suspicion for acute infectious etiology. She is mildly hypokalemic potassium of 3.2. Kidney function is normal and she is normal BUN. Urine is negative. Given stable labs with normal liver enzymes I do not think advanced imaging is indicated at this time. Patient is given a GI cocktail and IV Pepcid with some improvement of her symptoms. Will start her on Carafate increase her pantoprazole. Counseled at length on low acid diet and will give information for close outpatient GI follow-up with ID think patient would benefit from GI referral and endoscopy. Patient and mother agreeable plan of care. Patient discharged home in stable condition. Is given return precautions such as developing fever, worsening abdominal pain or signs of GI bleeding. Lab Data Attestation: I reviewed the patient's lab results. Labs: Laboratory Results - last 24 hr 09/04/24 09/04/24 20:51 21:45 WBC 9.6 RBC 4.09 L Hgb 11.4 L Hct 34.7 L MCV 84.8 MCH 27.9 MCHC 32.9 RDW Std Deviation 43.1 RDW Coeff of Jesus 13.9 Plt Count 310 MPV 11.0 Immature Gran % (Auto) 0.300 Neut % (Auto) 71.9 H Lymph % (Auto) 21.5 [place] % (Auto) 4.4 Eos % (Auto) 1.4 Baso % (Auto) 0.5 Absolute Neuts (auto) 6.9 Absolute Lymphs (auto) 2.06 Nucleated RBC % 0 Sodium 136 Potassium 3.2 L Chloride 103 Carbon Dioxide 24.0 Anion Gap 9 BUN 5 L Creatinine 0.75 Estim Creat Clear Calc 102.39 Est GFR (MDRD) Af Amer 121 Est GFR (MDRD) Non-Af 100 BUN/Creatinine Ratio 6.7 L Glucose 77 Calcium 9.3 Total Bilirubin 0.60 AST 10 L ALT 13 Alkaline Phosphatase 66 Total Protein 8.2 Albumin 3.7 Globulin 4.5 H Albumin/Globulin Ratio 0.8 L Lipase 25 Urine Test Negative Discharge Plan Triage Chief Complaint: Abd Pain ED Provider: Mariana Domingo Dx/Rx/DC Orders Clinical Impression: Intermittent upper abdominal pain Instructions: ED Epigastric Pain Uncertain Cause Prescriptions: New pantoprazole 40 mg tablet,delayed release (DR/EC) 40 mg PO BID 14 Days Qty: 28 0RF sucralfate [Carafate] 1 gram tablet 1 g PO Q6H 14 Days Qty: 56 0RF No Action omeprazole 20 mg capsule,delayed release(DR/EC) 20 mg PO DAILY Qty: 30 0RF ondansetron 4 mg tablet,disintegrating 4 mg PO Q8H PRN PRN (Reason: Nausea) Qty: 10 0RF potassium chloride 20 mEq packet 20 meq PO BID 5 Days Qty: 30 0RF ondansetron 4 mg tablet,disintegrating 4 mg PO Q6H PRN (Reason: nausea and vomiting) Qty: 20 0RF Primary Care Provider: Raisa Pacheco Referrals: Raisa Pacheco MD [Primary Care Provider] - Gabriel Larios DO [Med Staff - Active Staff] - Activity Restrictions/Additional Instructions: Your lab work was overall stable today. I suspect you do have some type of inflammation of your stomach which could be a gastritis, ulcer or even a special type of bacterial infection called H. pylori. You been given information of follow-up with her GI specialist, Dr. Larios. Please call the office on Friday to arrange close outpatient follow-up. Let them know you are seen in the ER and the ER doctor wanted you seen quickly. In the meantime follow acid diet, take medication as prescribed and avoid eating late in the evening/before bedtime as we discussed. Print Language: [place] Disposition Disposition: Home, Self Care Discharge Date/Time: 09/04/24 23:32
[2024-09-04] MEDS: Mag Hydrox/Al Hydrox/Simeth 30 ML UDC PO (21:29)
[2024-09-04] MEDS: Famotidine 200 MG/20 ML MDV 20 MG in 0.9% Normal Saline (Pres. free 8 ML 300 MG IV (21:29)
[2024-09-04] MEDS: Lidocaine 2% Viscous15 ML UDC 15 ML PO (21:29)
[2024-09-04 21:37] LABS: Absolute Lymphocyte Count 2.06 X10^3/uL (0.83-4.51); Absolute Neutrophil Count 6.9 X10^3/uL (2.0-7.7); Basophil# 0.05 X10^3/uL; Basophil% 0.5 % (0-1); Eosinophil# 0.13 X10^3/uL; Eosinophils% 1.4 % (0-5); Hematocrit 34.7 % (37-47); Hemoglobin 11.4 g/dL (12.0-15.0); Lymphocyte # 2.06 X10^3/ul (0.83-4.51); Lymphocyte % 21.5 % (19-41); Mean Corp Hgb Conc 32.9 g/dL (32-36); Mean Corpuscular Hgb 27.9 pg (27.0-32.0); Mean Corpuscular Volume 84.8 fL (81-99); Monocyte# 0.42 X10^3/uL; Monocyte% 4.4 % (0-10); NRBC Flagged by Analyzer 0 % (0-5); Neutrophil # 6.91 X10^3/uL (2.7-7.7); Neutrophil % 71.9 % (47-70); Platelet Count 310 K/mm3 (150-450); RBC Distribution Width CV 13.9 % (11.6-14.6); RBC Distribution Width SD 43.1 fl (35.1-43.9); Red Blood Count 4.09 M/mm3 (4.2-5.4); White Blood Count 9.6 K/mm3 (4.4-11.0)
[2024-09-04 21:52] LABS: ALB/GLOB Ratio 0.8 RATIO (0.9-2.4); AST(SGOT) 10 U/L (15-37); Alanine Aminotransfer ALT/SGPT 13 U/L (13-56); Albumin, Serum 3.7 g/dL (3.2-5.0); Alkaline Phosphatase 66 U/L (45-117); Anion Gap 9 (5-15); BUN 5 mg/dL (7-18); BUN/Creat Ratio 6.7 RATIO (10-20); Calcium,Total 9.3 mg/dL (8.5-10.1); Chloride 103 mmol/L (98-107); Creatinine, Serum 0.75 mg/dL (0.55-1.02); EST Glomerular Filtration Rate 100 mL/min (>60); Est Glom Filt Rate - Afr Amer 121 mL/min (>60); Estimated Creatinine Clearance 102.39 ml/min; Globulin 4.5 g/dL (2.2-4.2); Glucose 77 mg/dL (74-106); Lipase 25 U/L (13-75); Potassium 3.2 mmol/L (3.5-5.1); Protein, Total 8.2 g/dL (6.4-8.2); Sodium Level 136 mmol/L (136-145)
[2024-09-04 22:16] LABS: Internal QC Validated? YES +Cl - CLEAR BKGD; Pregnancy, Urine Negative Negative
[2024-09-04 22:36] VITALS: BP 120/83; PULSE 74; RESP 16; O2SAT 100
[2024-09-04 23:23] VITALS: BP 113/68; PULSE 56; RESP 16; TEMP 36.7; O2SAT 99
== END 2024-09-04 23:32 | disposition home or self-care (01) ==
PROVIDERS: Emergency Provider Emergency Medicine; PCP Internal Medicine; Referring Provider Emergency Medicine; Visit Provider Emergency Medicine
DX: R10.13 Epigastric pain (principal); E87.6 Hypokalemia; D64.9 Anemia, unspecified; K21.9 Gastro-esophageal reflux disease without esophagitis; J45.909 Unspecified asthma, uncomplicated; Z79.899 Other long term (current) drug therapy
CPT/HCPCS: 80053; 81025; 83690; 85025; 96374; 99284; A4216

== ENCOUNTER 2024-11-26 11:25 | Day surgery (SDC) | payer BC, SELFPAY ==
--- NOTE | 2024-11-23 08:42 | PAT.ANESEVAL ---
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 When Was Last Pacemaker Check QUESTION #4 FULL TEXT: You/Your Family Experience fever (hyperthermia) with Anesthesia Last Oral Intake Last Oral intake: Last Oral Intake NPO since Meds taken in AM with sips of water? 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 Female Yes 11/22/24 14:27 HX of Motion Sickness No 11/22/24 14:27 HX of N/V After Surgery No 11/22/24 14:27 Non-Smoker Yes 11/22/24 14:27 Duration of Surgery greater No 11/22/24 14:27 than 60 minutes Number of Risk Factors 2 11/22/24 14:27 PONV Score Moderate Risk 11/22/24 14:27 Height & Weight Height & Weight: Anesthesia: Height & Weight Height 5 ft 09/04/24 20:36 Respiratory Assessment Respiratory Assessment - co supervisor grounds and landscape: Respiratory Tract Infection Hx - co supervisor grounds and landscape Hx Respiratory Tract Infection No 11/22/24 14:27 STOP Sleep Apnea STOP Sleep Apnea - co supervisor grounds and landscape: STOP Sleep Apnea - co supervisor grounds and landscape Hx Hypertension No 11/22/24 14:27 Hx Sleep Apnea No 11/22/24 14:27 CPAP BIPAP Do you snore loudly (louder No 11/22/24 14:27 than talking or can be heard Do you often feel tired/ No 11/22/24 14:27 fatigued/ sleepy during daytime? Has anyone observed you stop No 11/22/24 14:27 breathing during sleep? STOP Results Negative 11/22/24 14:27 QUESTION #5 FULL TEXT : Do you snore loudly (louder than talking or can be heard through closed doors)? 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 Specify any problems Hx of Preganancy in last 3 No 11/22/24 14:27 Months Nurse Filling Out Transfusion VCHRISTIN 11/22/24 14:27 & Questions: Date: 11/22/24 11/22/24 14:27 Time: 14:11/22/24 14:27 Patient unable to answer at this time (ie. 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 landscape: /Reproductive Hx- co supervisor grounds and landscape Hx Now No 11/22/24 14:27 Gestational Age (in weeks): EDC: Hx Hx Para Hx Section SAB No 11/22/24 14:27 COUNT INCLUDES THE [facility] Medical History (Updated 11/22/24 @ 14:27 by Marybeth Hernandez) Wears glasses Hidradenitis Gastric reflux Non-smoker Chest pain Anemia GERD (gastroesophageal reflux disease) Asthma Home Medications ?Medication ?Instructions ?Recorded ?Last Taken ?Type albuterol sulfate 90 mcg/actuation 2 puff inhalation Q4H PRN PRN 11/22/24 Unknown History aerosol inhaler shortness of breath or wheezing ergocalciferol (vitamin D2) 1,250 1,250 mcg PO .TWICE WEEKLY 11/22/24 Unknown History mcg (50,000 unit) capsule ferrous sulfate 325 mg (65 mg 325 mg PO DAILY 11/22/24 Unknown History iron) tablet magnesium 250 mg tablet 250 mg PO DAILY 11/22/24 Unknown History pantoprazole 40 mg tablet,delayed 40 mg PO DAILY 11/22/24 Unknown History release Allergy/AdvReac Type Severity Reaction Status Date / Time No Known Allergies Allergy Verified 11/22/24 14:19 Social History Smoking Status: Former smoker alcohol intake: never substance use type: does not use Audit: Pertinent Findings Pertinent Findings EKG Perinent findings: October 20, 2022. Normal sinus rhythm. Nonspecific T wave abnormality. Recommendation Anesthesia Recommendation Anesthesia recommendation: OPTIMIZED for anesthesia
[2024-11-26] VITALS (8 sets, daily range): BP systolic 96–120; BP diastolic 63–85; PULSE 50–85; RESP 14–18; TEMP 36.1–37.1; O2SAT 99–100; BMI 31.4
[2024-11-26 11:54] LABS: Internal QC Validated? YES +Cl - CLEAR BKGD
[2024-11-26 11:55] LABS: Pregnancy, Urine Negative Negative
[2024-11-26] MEDS: Lactated Ringers 1,000 ML 15 ML IV (12:00)
--- NOTE | 2024-11-26 12:13 | PRE.ANES_ITS ---
ASA Classification* ASA Classification ASA Classification: 1 Assessment & Plan Anesthesia* Anesthesia Assessment Anesthesia Assessment: Discussed sedation and/or anesthesia options, risks, benefits, and alternatives with patient/parents/legal guardian/POA. Questions invited. The patient/parents/legal guardian/POA seems to understand and agrees to proceed with anesthesia plan. Reviewed the physical assessment, medical history, allergy history and patient home medications list prior to surgery/procedure/anesthetic and documented any changes. Performed airway and anesthesia risk assessments. Anesthesia Type Anesthesia Type: MAC History Source History Obtained from:: Patient and Chart Anesthesia Focused Assessment* Temperature: 98.8 F Pulse Rate: 50 Blood Pressure: 107/70 Respiratory Rate: 17 Pulse Ox: 100 Oxygen Delivery Method: Room Air Airway Assessment Mouth opens: >3 cm Mallampati Score: I Teeth Condition: Intact Neck Range of motion (ROM): Full ROM Focused Labs Anesthesia Preop lab: CBC WBC 9.6 K/mm3 (4.4-11.0) 09/04/24 20:09/04/24 RBC 4.09 M/mm3 (4.2-5.4) L 09/04/24 20:09/04/24 Hgb 11.4 g/dL (12.0-15.0) L 09/04/24 20: 5 Hct 34.7 % (37-47) L 09/04/24:09/04/24 Plt Count 310 K/mm3 (150-450) 09/04/24 20:51 09/04/24 CHEMISTRY Potassium 3.2 mmol/L (3.5-5.1) L 09/04/24:09/04/24 Sodium 136 mmol/L (136-145) 09/04/24 20:09/04/24 BUN 5 mg/dL (7-18) L 09/04/24:09/04/24 Creatinine 0.75 mg/dL (0.55-1.02) 09/04/24 20:09/04/24 Glucose 77 mg/dL (74-106) 09/04/24 20:51 09/04/24 TSH 0.199 uIU/mL (0.358-3.740) L 07/23/24 19:25 COAG Urine Test Negative Negative 11/26/24 23:59 11/26/24 Pre-Assessment Diagnosis/Proposed Procedure Planned Operative Procedure(s): EGD Anesthesia History 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 When Was Last Pacemaker Check QUESTION #4 FULL TEXT: You/Your Family Experience fever (hyperthermia) with Anesthesia Last Oral Intake Last Oral intake: Last Oral Intake NPO since 00:00 11/26/24 12:01 Meds taken in AM with sips of No 11/26/24 12:01 water? 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 Female Yes 11/22/24 14:27 HX of Motion Sickness No 11/22/24 14:27 HX of N/V After Surgery No 11/22/24 14:27 Non-Smoker Yes 11/22/24 14:27 Duration of Surgery greater No 11/22/24 14:27 than 60 minutes Number of Risk Factors 2 11/22/24 14:27 PONV Score Moderate Risk 11/22/24 14:27 Height & Weight Height & Weight: Anesthesia: Height & Weight Height 5 ft 11/26/24 12:01 Weight: 73 kg 11/26/24 12:01 Body Mass Index (BMI) 31.4 11/26/24 12:01 Respiratory Assessment Respiratory Assessment - electrical maintenance worker: Respiratory Tract Infection Hx - electrical maintenance worker Hx Respiratory Tract Infection No 11/22/24 14:27 STOP Sleep Apnea STOP Sleep Apnea - electrical maintenance worker: STOP Sleep Apnea - electrical maintenance worker Hx Hypertension No 11/22/24 14:27 Hx Sleep Apnea No 11/22/24 14:27 CPAP BIPAP Do you snore loudly (louder No 11/22/24 14:27 than talking or can be heard Do you often feel tired/ No 11/22/24 14:27 fatigued/ sleepy during daytime? Has anyone observed you stop No 11/22/24 14:27 breathing during sleep? STOP Results Negative 11/22/24 14:27 QUESTION #5 FULL TEXT : Do you snore loudly (louder than talking or can be heard through closed doors)? 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 Specify any problems Hx of Preganancy in last 3 No 11/22/24 14:27 Months Nurse Filling Out Transfusion VCHRISTIN 11/22/24 14:27 & Questions: Date: 11/22/24 11/22/24 14:27 Time: 14:28 11/22/24 14:27 Patient unable to answer at this time (ie. confused, unrespo /Reproduction History /Reproductive History - electrical maintenance worker: /Reproductive Hx- electrical maintenance worker Hx Now No 11/22/24 14:27 Gestational Age (in weeks): EDC: Hx Hx Para Hx Section SAB No 11/22/24 14:27 Active Medications Active Medications: Current Medications Generic Name Dose Route Start Last Admin Trade Name Freq PRN Reason Stop Dose Admin Lactated Ringer's 1,000 mls @ 15 mls/hr 11/26/24 11:45 11/26/24 12:00 IV 15 mls/hr .Q48H CHANEL Administration PFSH Medical History Wears glasses Hidradenitis Gastric reflux Non-smoker Chest pain Anemia GERD (gastroesophageal reflux disease) Asthma Home Medications ?Medication ?Instructions ?Recorded ?Last Taken ?Type albuterol sulfate 90 mcg/actuation 2 puff inhalation Q 4H PRN PRN 11/22/24 Unknown History aerosol inhaler shortness of breath or wheez ing ergocalciferol (vitamin D2) 1,250 1,250 mcg PO .TWICE WEEKLY 11/22/24 Unknown History mcg (50,000 unit) capsule ferrous sulfate 325 mg (65 mg 325 mg PO DAILY 11/22/24 11/25/24 History iron) tablet magnesium 250 mg tablet 250 mg PO DAILY 11/22/24 History pantoprazole 40 mg tablet,delayed 40 mg PO DAILY 11/2211/25/24 History release Allergy/AdvReac Type Severity Reaction Status Date / Time No Known Allergies Allergy Verified 11/26/24 11:34 Social History Smoking Status: Former smoker alcohol intake: never substance use type: does not use Review of Systems (Anesthesia) ROS Narrative System reviewed and no additional complaints, except as documented.
--- NOTE | 2024-11-26 12:30 | EGD_PTH ---
PATIENT: BALDOMERO WOOD LOC: EN U#:[id number] AGE/SX: 24/F ROOM: RE11/26/[address]: Dr. Gabriel Larios DO : 2000 BED: DIS: 11/26/2024 SPEC #: [id number] RECD: 11/26/24 16:24 STATUS: BESSIE JAHAIRA #: [id number] TERESA: 11/26/24 12:[address]: Gabriel Larios DEPT: SURGICAL PATHOLOGY RECD BY: Oneyda Frank ENTERED: 11/29/24 07:16 SP TYPE: EGD BIOPSY LYN DR: Dr. Raisa Pacheco MD Tissues: A - Duodenum, NOS B - Esophagus, NOS Procedures: Surgery Specimen Level IV HEADER OPERATION: EGD and biopsy PRE-OP DIAGNOSIS: GERD and gastritis TISSUE SUBMITTED: A- Duodenum biopsy, B- Distal esophagus biopsy MICROSCOPIC DIAGNOSIS A. Small bowel, duodenum, biopsy: Normal villous architecture with mildly increased intraepithelial lymphocytes - see note. Oxyntic mucosa with mild chronic inflammation. Note: This pattern of injury is etiologically nonspecific?and the differential diagnosis includes sensitivity to gluten and non-gluten proteins, small intestinal bacterial overgrowth, stasis related changes, infection, protein calorie malnutrition, tropical sprue, and medication injury (NSAIDs, Olmesartan / Benicar, Mycophenolic acid, Idelalisib, for example). If celiac disease is a clinical concern, additional clinical studies, such as tTG-IgA, are recommended. B. Esophagus, distal, biopsy: Squamous mucosa with reactive changes. Columnar mucosa negative for goblet cell metaplasia. MICROSCOPIC DESCRIPTION Slides are reviewed. GROSS DESCRIPTION A. Received in formalin in a container labeled with the patient's name, date of , and duodenum biopsy are multiple ware-pink fragments of mucosal tissue measuring 0.9 x 0.7 x 0.3 cm in aggregate. Submitted in toto in A1. B. Received in formalin in a container labeled with the patient's name, date of , and distal esophagus biopsy are multiple ware-pink fragments of mucosal tissue measuring 0.6 x 0.6 x 0.2 cm in aggregate. Submitted in toto in B1. [facility] 11-29-2024 CPT:[id number]
--- NOTE | 2024-11-26 13:11 | HP.PCM_ITS ---
HPI - General General Date of Admission: 11/26/24 Date of Service: 11/26/24 Chief Complaint: GERD and Abdominal pain HPI Narrative BALDOMERO WOOD, is a 24 F who presents to the office today for establishment with [facility] for complaints of treatment failure of GERD and possible stomach ulcer. She had ER visits:09/04/24-atibzyd27 qd to omepr20 qd+sucralfate q6h+KCL; gastritis GERD; 07/27/24-abd pain, KCL+dicyclomine+ondansetron 07/23/24-food po isoning, cipro+ondansetron; c/o constant reflux, water brash. PMHx:asthma, hidradenitis supurative, anemia, hypothroid, Grave's, fmr smkr, no etoh. Today, she reports some occasional difficulty with swallowing. She mentions that at night, she struggles to swallow her own saliva when lying flat. She continues to have reflux and heartburn, worse at bedtime. She has adjusted her eating times so that her last meal is at least an hour or two before bed and she avoids spicy foods and red sauces. She describes the heartburn as midsternal and epigastric that goes straight through to her back. She also has some abdominal bloating but is unsure of cause. She reports previous bouts of constipation but has increased her fiber and fluid intake so that she moves them daily without straining. She denies difficulty chewing, excessive gas, lower abdominal pain, cramping, diarrhea, hematochezia, and melena. She reports taking pantoprazole in the AM and at bedtime. She states that she finished her sucralfate and ciprofloxacin treatments from the ER visits. [facility] Medical History Wears glasses Hidradenitis Gastric reflux Non-smoker Chest pain Anemia GERD (gastroesophageal reflux disease) Asthma Home Medications ?Medication ?Instructions ?Recorded ?Last Taken ?Type albuterol sulfate 90 mcg/actuation 2 puff inhalation Q 4H PRN PRN 11/22/24 Unknown History aerosol inhaler shortness of breath or wheez ing ergocalciferol (vitamin D2) 1,250 1,250 mcg PO .TWICE WEEKLY 11/22/24 Unknown History mcg (50,000 unit) capsule ferrous sulfate 325 mg (65 mg 325 mg PO DAILY 11/22/24 11/25/24 History iron) tablet magnesium 250 mg tablet 250 mg PO DAILY 11/22/24 History pantoprazole 40 mg tablet,delayed 40 mg PO DAILY 11/2211/25/24 History release Allergy/AdvReac Type Severity Reaction Status Date / Time No Known Allergies Allergy Verified 11/26/24 11:34 Social History Smoking Status: Former smoker alcohol intake: never substance use type: does not use ROS Constitutional Constitutional: Denies fatigue, fever(s), poor appetite, weight gain or weight loss Gastrointestinal Gastrointestinal: Denies belching, bloating, change in bowel habits, change in stool character, chewing difficulty, coffee ground emesis, constipation, cramping, diarrhea, dyspepsia, dysphagia, early satiety, excessive flatus, fecal incontinence, heartburn, hematemesis, hematochezia, hemorrhoids, loose stools, melena, nausea, odynophagia, rectal bleeding, tenesmus, vomiting or weight changes Vital Signs Vital Signs Vital Signs: 11/26/24 12:01 11/26/24 12:01 11/26/24 12:22 Temperature 98.8 F 98.8 F Temperature Source Temporal Pulse Rate 50 L 50 L Respiratory Rate 17 17 Respiratory Pattern Normal Blood Pressure 107/70 107/70 Blood Pressure Mean 82 Blood Pressure Source Monitor Blood Pressure Position Semi-Fowlers Blood Pressure Location Left Arm Pulse Ox 100 100 Oxygen Delivery Method Room Air Room Air Weight Weight: 160 lb 14.999 oz Body Mass Index (BMI) 31.4 Physical Exam Const alert, oriented x3, no apparent distress and healthy appearing General Appearance: cooperative GI normal to inspection, nondistended, normoactive bowel sounds, soft to palpation, non-tender and non-distended Percussion: normal to percussion Rectal Exam: deferred Results Lab / Micro Data Labs: Laboratory Results - last 24 hr 11/26/24 : Urine Test Negative Assessment & Plan Assessment/Plan (1) Gastritis: QUALIFIERS: Gastritis type: superficial Chronicity: acute Gastritis bleeding: without bleeding Qualified Code(s): K29.00 - Acute g astritis without bleeding (2) Chest pain, unspecified: (3) GERD (gastroesophageal reflux disease): QUALIFIERS: Esophagitis presence: esophagitis presence not specified Qualified Code(s): K21.9 - Gastro-esophageal reflux disease without esophagitis PLAN: Assessment and Plan Assessment and Plan (1) Gastritis: Status: Acute Qualifiers: Gastritis type: superficial Chronicity: acute Gastritis bleeding: without bleeding Qualified Code(s): K29.00 - Acute gastritis without bleeding (2) GERD (gastroesophageal reflux disease): Status: Chronic Qualifiers: Esophagitis presence: esophagitis presence not specified Qualified Code(s): K21.9 - Gastro-esophageal reflux disease without esophagitis Medications: New famotidine 40 mg PO QHS 30 tabs 3RF vonoprazan 10 mg PO QDAY 30 tabs 3RF Discontinued omeprazole Discontinued Reason: Pt no longer taking 20 mg PO DAILY 30 CAPSULES 0RF ondansetron Discontinued Reason: Order Completed 4 mg PO Q8H PRN PRN 10 tabs 0RF Nausea potassium chloride Discontinued Reason: Pt no longer taking 20 mEq PO BID 5 days 30 ea 0RF ondansetron Discontinued Reason: Pt no longer taking 4 mg PO Q6H PRN 20 tabs 0RF nausea and vomiting sucralfate (Carafate) Discontinued Reason: Order Completed 1 g PO Q6H 2 weeks 56 tabs 0RF Plan HARVEY WOOD, is a 24 F who presents to the office today for establishment with [facility] for complaints of treatment failure of GERD and possible stomach ulcer. Differential diagnoses include: PUD, GERD with treatment failure on omeprazole and pantoprazole, erosive esophagitis, gastritis. Discussed care plan with her and her mother. Enforced taking PPI 30 minutes before breakfast and dinner and making last meal 3 hours before bedtime. * continue pantoprazole 40mg PO BID until vonoprazan approved * famotidine 40mg QHS * vonoprazan 10mg PO daily * schedule EGD to investigate esophageal/gastric mucosa * office FU with test results
--- NOTE | 2024-11-26 13:30 | PCM.POST.ANE ---
Anesthesia: Postop Eval I Current Vital Signs Temperature: 97 F Pulse Rate: 81 Blood Pressure: 120/85 Respiratory Rate: 16 Pulse Ox: 100 Oxygen Delivery Method: Room Air Assessment Airway patent: Yes Spontaneous unlabored respirations: Yes Mental status: Awake and Calm nausea: No Vomiting: No Anesthesia Complication: No Fluid Hydration Crystalloid volume administer (ml): 500 Total IV fluid infused: 500 Progress Note Anesthesia document: Postop Eval 1 completed: Yes
--- NOTE | 2024-11-26 13:38 | OP.EGD_ITS ---
Patient Name: Chicho Ellsworth Procedure Date: 11/26/2024 1:15 PM Date of : 2000 Age: 24 Procedure: Upper GI endoscopy Indications: Epigastric abdominal pain, Heartburn Providers: Gabriel Larios DO Referring MD: Raisa Pacheco Medicines: Monitored Anesthesia Care Patient Profile: This is a 24 year old female. Refer to note in patient chart for documentation of history and physical. Patient has symptoms of acute epigastric abdominal pain, chronic chest pain, chronic dyspepsia, acute heartburn and chronic nausea. Complications: No immediate complications. Procedure: Pre-Anesthesia Assessment: - Prior to the procedure, a History and Physical was performed, and patient medications and allergies were reviewed. The patient is competent. The risks and benefits of the procedure and the sedation options and risks were discussed with the patient. All questions were answered and informed consent was obtained. Patient identification and proposed procedure were verified by the physician in the pre-procedure area. Mental Status Examination: alert and oriented. Airway Examination: normal oropharyngeal airway and neck mobility. Respiratory Examination: clear to auscultation. CV Examination: normal. Prophylactic Antibiotics: The patient does not require prophylactic antibiotics. Prior Anticoagulants: The patient has taken no anticoagulant or antiplatelet agents except for NSAID medication. ASA Grade Assessment: II - A patient with mild systemic disease. After reviewing the risks and benefits, the patient was deemed in satisfactory condition to undergo the procedure. The anesthesia plan was to use monitored anesthesia care (MAC). Immediately prior to administration of medications, the patient was re-assessed for adequacy to receive sedatives. The heart rate, respiratory rate, oxygen saturations, blood pressure, adequacy of pulmonary ventilation, and response to care were monitored throughout the procedure. The physical status of the patient was re-assessed after the procedure. After obtaining informed consent, the endoscope was passed under direct vision. Throughout the procedure, the patient's blood pressure, pulse, and oxygen saturations were monitored continuously. The Endoscope was introduced through the mouth, and advanced to the second part of duodenum. The upper GI endoscopy was accomplished without difficulty. The patient tolerated the procedure well. Scope In: 1:26:22 PM Scope Out: 1:29:53 PM Total Procedure Duration Time 0 hours 3 minutes 31 seconds Findings: Non-severe esophagitis with no bleeding was found 36 to 39 cm from the incisors. Biopsies were taken with a cold forceps for histology. Verification of patient identification for the specimen was done. Estimated blood loss was minimal. No gross lesions were noted in the entire examined stomach. Biopsies were taken with a cold forceps for histology. Verification of patient identification for the specimen was done. Estimated blood loss was minimal. Biopsies were taken with a cold forceps for Helicobacter pylori testing. Verification of patient identification for the specimen was done. Estimated blood loss was minimal. No gross lesions were noted in the entire examined duodenum. Biopsies were taken with a cold forceps for histology. Verification of patient identification for the specimen was done. Estimated blood loss was minimal. Impression: - Non-severe reflux esophagitis with no bleeding. Biopsied. - No gross lesions in the entire stomach. Biopsied. - No gross lesions in the entire examined duodenum. Biopsied. Recommendation: - Discharge patient to home. - Resume previous diet. - Continue present medications. - Await pathology results. Procedure Code(s): --- Professional --- 12025, Esophagogastroduodenoscopy, flexible, transoral; with biopsy, single or multiple CPT copyright 2021 [employer]. All rights reserved. The codes documented in this report are preliminary and upon port crane operator review may be revised to meet current compliance requirements. Gabriel Larios DO 11/26/2024 1:37:29 PM This report has been signed electronically. Number of Addenda: 0 Note Initiated On: 11/26/2024 1:15 PM
--- NOTE | 2024-11-26 13:38 | OP.CCLET_ITS ---
11/26/2024 Raisa Pacheco [address] [place] [address] Re : Upper GI endoscopy procedure for Chicho Ellsworth Dear Dr. Pacheco This procedure was performed on Tuesday, November 26, 2024. My impressions and recommendations are as follows: Impressions : - Non-severe reflux esophagitis with no bleeding. Biopsied. - No gross lesions in the entire stomach. Biopsied. - No gross lesions in the entire examined duodenum. Biopsied. Recommendations : - Discharge patient to home. - Resume previous diet. - Continue present medications. - Await pathology results. My findings are described in the full procedure note, which is enclosed. If I can be of further assistance, please feel free to contact me at . Sincerely, Gabriel Larios, 11/26/2024 1:37:29 PM This report has been signed electronically.
--- NOTE | 2024-11-26 16:36 | POSTOPAN2_ITS ---
Anesthesia Postop Eval I Sum Postop Eval Completion status Anesthesia document: Postop Eval 1 completed: Yes Anesthesia Postop Eval I Summary Anesthesia Postop Eval I Summary: Anesthesia Postop Eval I: Assessment Summary Airway patent Yes 11/26/24 13:31 [email or web address] Spontaneous unlabored Yes 11/26/24 13:31 CAMP [email or web address] respirations Mental status Awake,Calm 11/26/24 13:31 CAMP [email or web address] nausea No 11/26/24 13:31 [email or web address] [email or web address] Vomiting No 11/26/24 13:31 [email or web address] Anesthesia Postop Eval I: Fluid Summary Crystalloid volume administer 500 11/26/24 13:31 CAMP [email or web address].MDOT (ml) Colloids volume administered ( ml) Blood Product volume administered (ml) Total IV fluid infused 500 11/26/24 13:31 [email or web address] [email or web address] Anesthesia Postop Eval I: Summary Notes Anesthesia Complication No 11/26/24 13:31 CAMP [email or web address] Anesthesia Complication Comment: Post-operative progress note Anesthesia: Postop Eval II Evaluation Mental status: Awake and Calm Pain Level: 0 nausea: No Vomiting: No Complications Anesthesia Complication: No
--- NOTE | 2024-11-26 16:36 | PCM.POSTANE2 ---
Anesthesia Postop Eval I Sum Postop Eval Completion status Anesthesia document: Postop Eval 1 completed: Yes Anesthesia Postop Eval I Summary Anesthesia Postop Eval I Summary: Anesthesia Postop Eval I: Assessment Summary Airway patent Yes 11/26/24 13:31 SPENT GRAIN [email or web address].[email or web address] Spontaneous unlabored Yes 11/26/24 13:31 SPENT GRAIN DRYER.MDOT respirations Mental status Awake,Calm 11/26/24 13:31 SPENT GRAIN DRYER.MDOT nausea No 11/26/24 13:31 SPENT GRAIN DRYER.MDOT Vomiting No 11/26/24 13:31 SPENT GRAIN DRYER.MDOT Anesthesia Postop Eval I: Fluid Summary Crystalloid volume administer 500 11/26/24 13:31 SPENT GRAIN DRYER.MDOT (ml) Colloids volume administered ( ml) Blood Product volume administered (ml) Total IV fluid infused 500 11/26/24 13:31 SPENT GRAIN DRYER.MDOT Anesthesia Postop Eval I: Summary Notes Anesthesia Complication No 11/26/24 13:31 SPENT GRAIN [email or web address].MDOT Anesthesia Complication Comment: Post-operative progress note Anesthesia: Postop Eval II Evaluation Mental status: Awake and Calm Pain Level: 0 nausea: No Vomiting: No Complications Anesthesia Complication: No
== END 2024-11-26 14:24 | disposition home or self-care (01) ==
LOC: EN 11:26 → AC 11:31
PROVIDERS: Anesthesiology; PCP Internal Medicine; Referring Provider Internal Medicine; Visit Provider Internal Medicine Gastroenterology
PROC: 0DJ08ZZ Inspection of Upper Intestinal Tract, Via Natural or Artificial Opening Endoscopic (ICD-10-PCS; CPT 43235; principal; 2024-11-26 12:25)
DX: K21.00 Gastro-esophageal reflux disease with esophagitis, without bleeding (principal); K29.80 Duodenitis without bleeding; K29.01 Acute gastritis with bleeding; R07.9 Chest pain, unspecified; R14.0 Abdominal distension (gaseous); D64.9 Anemia, unspecified; J45.909 Unspecified asthma, uncomplicated; Z79.899 Other long term (current) drug therapy; Z87.891 Personal history of nicotine dependence
CPT/HCPCS: 43239; 81025; 88305

== ENCOUNTER 2025-03-02 19:25 | Emergency (ER) | payer MEDICAID, SELFPAY ==
[2025-03-02 19:26] VITALS: BP 126/84; PULSE 64; RESP 18; TEMP 36.8; O2SAT 100; BMI 30.9
--- NOTE | 2025-03-02 20:11 | EDS_ITS ---
HPI History of Present Illness Chief Complaint: Allergic Reaction Informant: patient Onset/Context/Timing Onset: Today Context: Sudden Onset Timing: Continuous Quality: Numbness, tingling Location: Tongue and lips Worsened by: Nothing Relieved by: Nothing Narrative Narrative: Patient presents with numbness and tingling to her tongue and lips that occurred tonight. Patient states she drank coffee with almond milk in it earlier today. Patient states that she recently had testing for allergies and was deemed to be allergic to peanuts. Patient denies any difficulty breathing or difficulty swallowing. Patient denies any hives. Patient denies any itching. Patient denies any sore throat. Patient took Benadryl prior to arrival which did not help. [facility] Medical History Wears glasses Hidradenitis Gastric reflux Non-smoker Chest pain Anemia GERD (gastroesophageal reflux disease) Asthma Home Medications ?Medication ?Instructions ?Recorded ?Last Taken ?Type albuterol sulfate 90 mcg/actuation 2 puff inhalation Q 4H PRN PRN 11/22/24 Unknown History aerosol inhaler shortness of breath or wheez ing ergocalciferol (vitamin D2) 1,250 1,250 mcg PO .TWICE WEEKLY 11/22/24 Unknown History mcg (50,000 unit) capsule ferrous sulfate 325 mg (65 mg 325 mg PO DAILY 11/22/24 11/25/24 History iron) tablet magnesium 250 mg tablet 250 mg PO DAILY 11/22/24 History pantoprazole 40 mg tablet,delayed 40 mg PO DAILY 11/2211/25/24 History release Allergy/AdvReac Type Severity Reaction Status Date / Time peanut Allergy PT UNSURE Verified 03/02/25 19:28 OF REACTION Social History Smoking Status: Former smoker alcohol intake: never substance use type: does not use ROS ROS ED Constitutional Constitutional ED: Denies chills or fever(s) Eyes Eyes: Denies blurry vision or change in vision ENT ENT ED: Denies rhinorrhea or sore throat Cardiovascular Cardiovascular: Denies chest pain or palpitations Respiratory/Chest Respiratory/Chest: Denies cough or dyspnea Gastrointestinal Gastrointestinal: Denies nausea or vomiting Genitourinary Genitourinary ED: Denies dysuria or hematuria Musculoskeletal Musculoskeletal: Denies back pain or neck pain Integumentary Denies abscess or rash Neurologic Neurologic: Denies headache(s) or weakness Allergic/Immunologic Allergic/Immunologic ED: Denies mouth swelling or urticaria EXAM Physical Exam Const Vital Signs: 03/02/25 19:26 03/02/25 20:26 03/02/25 22:14 Temperature 98.3 F Temperature Source Oral Pulse Rate 64 57 L Respiratory Rate 18 18 16 Blood Pressure 126/84 H 110/76 Blood Pressure Mean 98 87 Pulse Ox 100 Oxygen Delivery Method Room Air Positive well nourished and well developed Constitutional Narrative: BMI is 30.9. General Appearance ED: well developed and NAD HEENT Reports moist mucous membranes Neck supple and no JVD Resp normal respiratory effort and clear to auscultation bilaterally Cardio regular rate and regular rhythm GI non-tender Palpation: soft Neuro oriented x3, CN's II-XII intact bilaterally and no sensory deficits noted Sensorium / Orientation: alert Motor Exam: strength 5/5 throughout Psych mental status grossly normal MDM MDM MDM Narrative Medical decision making narrative: Patient was given a dose of prednisone here. Patient was observed in the emergency department. Patient had no further swelling. Patient was instructed to follow-up with her primary care physician in 5 to 7 days. Patient and family understood and were agreeable with the plan. All questions were answered. Discharge Plan Triage Chief Complaint: Allergic Reaction ED Provider: Ramin Ny Dx/Rx/DC Orders Clinical Impression: Allergic reaction to food Instructions: ED Food Allergy Prescriptions: No Action ergocalciferol (vitamin D2) 1,250 mcg (50,000 unit) capsule 1,250 mcg PO .TWICE WEEKLY ferrous sulfate 325 mg (65 mg iron) tablet 325 mg PO DAILY magnesium 250 mg tablet 250 mg PO DAILY albuterol sulfate 90 mcg/actuation HFA aerosol inhaler 2 puff INHALATION Q4H PRN PRN (Reason: shortness of breath or wheezing) pantoprazole 40 mg tablet,delayed release (DR/EC) 40 mg PO DAILY Primary Care Provider: Raisa Pacheco Referrals: Raisa Pacheco MD [Primary Care Provider] - 5-7 Days Print Language: Mont[place]erratian Disposition Disposition: Home, Self Care
[2025-03-02 20:26] VITALS: RESP 18
[2025-03-02 22:14] VITALS: BP 110/76; PULSE 57; RESP 16
[2025-03-02 23:06] VITALS: BP 104/69; PULSE 56; RESP 18; TEMP 36.8; O2SAT 99
== END 2025-03-02 23:07 | disposition home or self-care (01) ==
PROVIDERS: Emergency Provider Emergency Medicine; PCP Internal Medicine; Visit Provider Emergency Medicine
DX: T78.1XXA Other adverse food reactions, not elsewhere classified, initial encounter (principal); Z87.891 Personal history of nicotine dependence; K21.9 Gastro-esophageal reflux disease without esophagitis; Z79.899 Other long term (current) drug therapy
CPT/HCPCS: 99282

== ENCOUNTER 2025-04-14 23:55 | Emergency (ER) | payer MEDICAID, SELFPAY ==
[2025-04-14 23:56] VITALS: BP 122/83; PULSE 66; RESP 16; TEMP 37.1; O2SAT 100; BMI 32.7
--- NOTE | 2025-04-15 00:02 | EDS_ITS ---
HPI History of Present Illness Chief Complaint: General Illness Informant: patient Narrative Narrative: Patient is a 25-year-old female with past medical history of GERD as well as hidradenitis suppurativa. She states that this evening after eating a rice bowl for dinner she started having upper abdominal discomfort which radiated into her chest. She states that there is no associated nausea vomiting diaphoresis or shortness of breath. She denies any recent sick symptoms such as nasal congestion drainage cough. She states that it feels similar nature to her previous bouts of gastritis. She does admit to eating a large pizza yesterday and having extra caffeine use today. However as she is unsure if this was truly gastritis or another disease process she presents for evaluation [facility] Medical History Wears glasses Hidradenitis Gastric reflux Non-smoker Chest pain Anemia GERD (gastroesophageal reflux disease) Asthma Home Medications ?Medication ?Instructions ?Recorded ?Last Taken ?Type albuterol sulfate 90 mcg/actuation 2 puff inhalation Q 4H PRN PRN 11/22/24 Unknown History aerosol inhaler shortness of breath or wheez ing ergocalciferol (vitamin D2) 1,250 1,250 mcg PO .TWICE WEEKLY 11/22/24 Unknown History mcg (50,000 unit) capsule ferrous sulfate 325 mg (65 mg 325 mg PO DAILY 11/22/24 11/25/24 History iron) tablet pantoprazole 40 mg tablet,delayed 40 mg PO DAILY 11/2211/25/24 History release cetirizine 10 mg tablet 10 mg PO DAILY 04/15/25 Unkn own History epinephrine 0.3 mg/0.3 mL 0.3 ml IM PRN PRN anaphylaxi s 04/15/25 Unknown History injection, auto-injector Allergy/AdvReac Type Severity Reaction Status Date / Time peanut Allergy PT UNSURE Verified 04/14/25 23:57 OF REACTION Social History Smoking Status: Former smoker alcohol intake: never substance use type: does not use ROS ROS ED Constitutional Constitutional ED: Denies chills or fever(s) Eyes Eyes: Denies blurry vision or change in vision ENT ENT ED: Denies sore throat Cardiovascular Cardiovascular: Reports chest pain; Denies palpitations or racing heartbeat Respiratory/Chest Respiratory/Chest: Denies cough or dyspnea Gastrointestinal Gastrointestinal: Reports abdominal pain; Denies diarrhea, nausea or vomiting Genitourinary Genitourinary ED: Denies dysuria Musculoskeletal Musculoskeletal: Denies back pain or myalgias Integumentary Denies rash Neurologic Neurologic: Denies headache(s) Hematologic/Lymphatic Hematologic/Lymphatic: Denies easy bleeding or easy bruising EXAM Physical Exam Const Vital Signs: 04/14/25 23:56 04/15/25 00:20 04/15/25 00:20 Temperature 98.8 F Temperature Source Oral Pulse Rate 66 Respiratory Rate 16 Respiratory Effort Normal Normal Respiratory Pattern Normal Blood Pressure 122/83 H Blood Pressure Mean 96 Pulse Ox 100 Oxygen Delivery Method Room Air 04/15/25 01:01 Temperature 97.3 F L Temperature Source Pulse Rate 66 Respiratory Rate 14 Respiratory Effort Respiratory Pattern Blood Pressure 110/80 Blood Pressure Mean 90 Pulse Ox 100 Oxygen Delivery Method Positive well nourished and well developed General Appearance ED: well developed; Negative for pallor HEENT Reports moist mucous membranes HEENT Narrative: Normocephalic atraumatic No tongue or lip swelling no oral lesions no airway edema or compromise; no secondary findings to suggest infection in the posterior pharynx Eyes PERRL and EOMs intact bilaterally General Eye ED: Negative for scleral icterus Neck supple Neck Narrative: No nuchal rigidity or meningeal signs Chest Wall palpation of chest normal Chest Narrative: No bony deformity or subcutaneous emphysema noted Resp normal respiratory effort and clear to auscultation bilaterally Cardio regular rate and regular rhythm Rate: other Other Details: Heart is regular rate and rhythm without murmurs rubs or gallops Radial and carotid pulses are equal and symmetric No carotid bruit GI normal to inspection, nondistended, normoactive bowel sounds, non-tender, non- distended and no masses GI Narrative: No voluntary guarding no rigidity or pulsatile mass No peritoneal signs Negative Mcdonald sign Auscultation: normoactive bowel sounds Palpation: soft Back/Spine no CVA tenderness Extremity normal to inspection Extremity Narrative: No asymmetric edema no pitting edema negative Homans' sign bilaterally Neuro oriented x3, CN's II-XII intact bilaterally and no sensory deficits noted Sensorium / Orientation: alert Motor Exam: strength 5/5 throughout Psych mental status grossly normal Skin General Skin Exam: Negative for jaundice or pallor MDM MDM MDM Narrative Medical decision making narrative: Patient arrived to the ER with stable vitals. She reported vague upper abdominal/lower chest discomfort. She is low risk for cardiovascular disease. There is no pleuritic chest pain she is not tachycardic she does not have asymmetric leg swelling or pain with calf palpation going against DVT/PE. Breath sounds are clear throughout and she is not coughing or short of breath going against lung pathology such as pneumonia. Heart is regular rate and rhythm going against cardiac dysrhythmia or ACS. I discussed with patient performing an EKG as well as potential basic abdominal enzymes while treating her for gastritis. She states that she does not feel there is a need for blood work or EKG at this time and simply asked if we could treat with a GI cocktail. Therefore 1 was provided and we discussed that if there is no improvement then we will perform the workup. On reevaluation the patient reports that GI cocktail has resolved her pain completely. Vitals remained stable. Therefore do not feel there is need for further intervention or workup and she is otherwise safe for discharge History & Record Review Discussion w/independent historian: Patient Discharge Plan Triage Chief Complaint: General Illness Other Complaint: Chest Pain Itching ED Provider: Pablito Quach Dx/Rx/DC Orders Clinical Impression: Gastritis, History of hidradenitis suppurativa Instructions: ED Gastritis (Adult) Prescriptions: No Action ergocalciferol (vitamin D2) 1,250 mcg (50,000 unit) capsule 1,250 mcg PO .TWICE WEEKLY ferrous sulfate 325 mg (65 mg iron) tablet 325 mg PO DAILY albuterol sulfate 90 mcg/actuation HFA aerosol inhaler 2 puff INHALATION Q4H PRN PRN (Reason: shortness of breath or wheezing) pantoprazole 40 mg tablet,delayed release (DR/EC) 40 mg PO DAILY cetirizine 10 mg tablet 10 mg PO DAILY epinephrine 0.3 mg/0.3 mL auto-injector 0.3 ml IM PRN PRN (Reason: anaphylaxis) Primary Care Provider: Raisa Pacheco Referrals: Raisa Pacheco MD [Primary Care Provider] - Activity Restrictions/Additional Instructions: Please continue your pantoprazole as previously directed to help control any further bouts of GERD/gastritis. Return to the ER should you have any further concerns or worsening of symptoms Print Language: British Disposition Disposition: Home, Self Care Discharge Date/Time: 04/15/25 01:02
[2025-04-15] MEDS: Lidocaine 2% Viscous15 ML UDC 15 ML PO (00:20)
--- OUTSIDE RECORDS SUMMARY | 2025-04-15 00:41 | XMS RPT_ITS | CCD ---
Author Organization [facility] Care Team Providers Care Community Liaison Name Role Phone Ce Conner MD Primary Care Provider [phone] Ce Conner MD Primary Care Provider Renetta Pickering PA-C Unavailable Older FOUNDER.FREIGHT BREAKER, Afia Unavailable Jacquelyn Coelho PA-C Unavailable SRINIVAS LINDSAY Attending Unavaila CE Shabazz Primary Care Unavailable OLIVIA LINDSAY Primary Care Unavailable GAB VÁSQUEZ Attending Unavailable Dr. Ce Conner MD Primary Care Provider Dr. Mariana Domingo DO Attending Provider Dr. Mariana Domingo DO Referring Provider Dr. Mariana Domingo DO Emergency Provider Dr. Ce Conner MD Referring Provider Lula Yan Attending Provider Dr. Gabriel Larios DO Attending Provider Dr. Gabriel Larios DO Other Provider Dr. Ce Conner MD Primary Care Provider Dr. Ce Conner MD Referring Provider Lula Yan Attending Provider Dr. Ramin Ny DO Emergency Provider Ce Conner Referring Unavailable Ganta, Ce Primary Care Unavailable Lula Hood Attending Unavailable Ganta, Ce Primary Care Unavailable Ganta, Ce Referring Unavailable Lula Hood Attending Unavailable Friend, Gabriel Attending Unavailable Friend, Gabriel Consulting Unavailable Ganta, Ce Primary Care Unavailable Ganta, Ce Referring Unavailable Ganta, Ce Referring Unavailable Ganta, Ce Primary Care Unavailable Lula Hood Attending Unavailable Friend, Gabriel Attending Unavailable Ganta, Ce Primary Care Unavailable Ganta, Ec Referring Unavailable Ganta, Ce Primary Care Unavailable Pablo Torres Attending Unavailable Ganta, Ce Primary Care Unavailable Abimael Castellanos Attending Unavailable Ganta, Ce Primary Care Unavailable Ramin Ny Attending Unavailable Godman, Mariana Referring Unavailable GodmanMariana Attending Unavailable Ganta, Ce Primary Care Unavailable ROCIO LONDONO Attending Unavailable GANTA, CE Referring Unavailable GANTA, CE Primary Care Unavailable GANTA, CE Referring Unavailable GANTA, CE Primary Care Unavailable GANTA, CE Primary Care Unavailable GANTA, CE Attending Unavailable GANTA, CE Primary Care Unavailable GANTA, CE Attending Unavailable GANTA, CE Primary Care Unavailable GANTA, CE Referring Unavailable GANTA, CE Primary Care Unavailable HEAVEN MACIEL Attending Unavailable SELF Referring Unavailable GANTA, CE Primary Care Unavailable GANTA, CE Attending Unavailable GANTA, CE Primary Care Unavailable GANTA, CE Referring Unavailable GANTA, CE Primary Care Unavailable GANTA, CE Primary Care Unavailable GANTA, CE Primary Care Unavailable DENI ADAMS Attending Unavailable GANTA, CE Primary Care Unavailable GANTA, CE Primary Care Unavailable CARMEN BHAKTA Attending Unavailable GANTA, CE Attending Unavailable GANTA, CE Primary Care Unavailable Allergies Allergy Classification Reported Allergen(s) Allergy Type Date of Onset Reaction(s) Facility (2 sources) Seasonal allergy; Translations: [SEASONAL ALLERGIES] Propensity to adverse reactions (disorder) 4 [facility] Repository (1 source) peanut allergenic extract Drug Allergy 5 PT UNSURE OF REACTION [facility] (1 source) peanut allergenic extract Drug Allergy 5 [facility] Repository Medications Current Medications Medication Drug Class(es) Dates Sig (Normalized) Sig (Original) [id number] 200 actuat albuterol 0.09 mg/actuat metered dose inhaler (20 sources) beta2-Adrenergic Agonist Start: 11-22-2024 Albuterol Sulfate 90 mcg/actuation HFA aerosol inhaler Active 2 NMA INHALATION EVERY 4 HOURS NEEDED as needed for shortness of breath or wheezing November 22, 2024 12:00am Start: 03-02-2021 End: 09-04-2024 Albuterol Sulfate 90 mcg/act uation Hfa Aerosol Inhaler Discontinued 2 NMA INHALATION EVERY 6 HOURS as needed for breathing March 02, 2021 12:00am September 04, 2024 9:47pm Start: 03-02-2021 take 1 puff(s) by in halation every six hours Albuterol Sulfate Active 2 PUFF INHALATION EVERY 6 HOURS March 02, 2021 12:00am Start: 02-03-2021 End: 03-07-2025 take 2 puff(s) by inhalation every four hours as needed albuterol HFA (PROVENTIL HFA, VENTOLIN HFA) 90 mcg/actuation inhaler Indications: Mild intermittent asthma without complication (HCC) Inhale 2 puffs as instructed every 4 hours as needed. 1 each 4 03/07/2025 Active Comment on above: Inhale 2 Puffs as in structed every 4 hours as needed. aluminum hydroxide 40 mg/ml / magnesium hydroxide 40 mg/ml / simethicone 4 mg/ml oral suspension (2 sources) Start: 5 End: 5 take 10 mL by mouth at bedtime as needed aluminum-magnesium hydroxide-simethico ne 200-200-20 mg/5 mL suspension Take 10 mL by mouth between meals and at bedtime as needed for up to 7 days. 354 mL 10/07/2024 10/17/2024 Active benzonatate 100 mg oral capsule (3 sources) Non-narcotic Antitussive Start: 4 End: 4 take 1 capsule by mouth every eight hours as needed benzonatate (TESSALON PERLE) 100 mg capsule Take 1 capsule by mouth three times a day as needed for cough for up to 7 days. 21 capsule 0 02/04/2024 02/11/2024 Active cetirizine hydrochloride 10 mg oral tablet (2 sources) Histamine-1 Receptor Antagonist Start: take 1 tablet by mouth once daily cetirizine (ZYRTEC) 10 mg tablet Indications: Seasonal allergic rhinitis due to pollen Take 1 tablet by mouth once daily. 90 tablet 3 04/07/2025 Active Start: 04-24-2022 End: 05-01-2022 take 1 tablet by mouth once daily cetirizine (ZYRTEC) 10 mg tablet Take 1 tablet by mouth once daily for 7 days. 7 tablet 0 04/24/2022 05/01/2022 Active Comment on above: Take 1 tablet by estrella once daily for 7 days. doxycycline monohydrate 100 mg oral capsule (10 sources) Tetracycline-cla ss Drug Start: 09-13-2024 End: 12-12-2024 take 1 capsule by mouth twice daily doxycycline monohydrate (MONODOX) 100 mg capsule Indications: Hydradenitis Take 1 capsule by mouth two times a day. 60 capsule 2 09/13/2024 12/12/2024 Active Start: 04-02-2024 End: 07-01-2024 take 1 tablet by mouth twice daily doxycycline (VIBRA-TABS) 100 mg tablet Take 1 tablet by mouth two times a day. 60 tablet 2 04/02/2024 07/01/2024 Active [id number] 0.3 ml EPINEPHrine 1 mg/ml auto-injector (1 source) alpha-Adrenergic Agonist, beta-Adrenergic Agonist, Catecholamine Start: 04-07-2025 EPINEPHrine (EPIPEN 2-WILY) 0.3 mg/0.3 mL auto-injector Indications: anaphylaxis Inject 0.3 mL intramuscularly as needed (Inject in thigh as needed for anaphylaxis and call 911). GENERIC OKAY 2 each 3 04/07/2025 Active ergocalciferol 1.25 mg oral capsule (20 sources) Provitamin D2 Compound Start: 05-03-2024 End: 10-07-2024 take 1 capsule by mouth two times weekly, then take 1 capsule by mouth two times weekly, then take 1 capsule by mouth every week ergocalciferol 50,000 unit capsule (VITAMIN D2, DRISDOL) Indications: Vitamin D deficiency Take 1 capsule by mouth two times a week. TO BE TAKEN ORALLY DIRECTED. Take 1 tablet by mouth twice weekly [id number], then decrease to 1 tablet weekly. 24 capsule 2 10/07/2024 Active Start: 01-09-2023 End: 11-03-2023 take 1 capsule by mouth two times weekly, then take 1 capsule by mouth every week ergocalciferol 50,000 unit capsule (VITAMIN D2, DRISDOL) Indications: Vitamin D deficiency TAKE 1 CAPSULE BY MOUTH TWO TIMES A WEEK FOR ONE MONTH, THEN DECREASE TO 1 CAPSULE ONCE WEEKLY DIRECTED 16 capsule 2 01/09/2023 11/03/2023 Discontinued Start: 08-10-2021 End: 10-23-2022 take 1 capsule by mouth every week ergocalciferol 50,000 unit capsule (VITAMIN D2, DRISDOL) Indications: Vitamin D deficiency Take 1 capsule by mouth one time a week. 12 capsule 0 08/10/2021 10/23/2022 Discontinued (Discontinued by Patient) Comment on above: Take 1 capsule by mo uth one time a week. TAKE 1 CAPSULE BY MO UTH TWO TIMES A WEEK FOR ONE MONTH, THEN DECREASE TO 1 CAPSULE ONCE WEEKLY DIRECTED ferrous sulfate 325 mg oral tablet (20 sources) Start: 11-22-2024 take 1 tablet by mouth once daily Ferrous Sulfate 325 mg (65 mg iron) tablet Active 325 mg PO DAILY November 22, 2024 12:00am Start: 10-07-2024 End: 04-11-2025 take 1 tablet by mouth once daily ferrous sulfate 325 mg (65 mg iron) tablet Take 1 tablet by mouth once daily. 90 tablet 1 10/13/2024 04/11/2025 Active Start: 05-03-2024 End: 10-07-2024 take 1 tablet by mouth twice daily at mealtime ferrous sulfate 325 mg (65 mg iron) tablet Indications: Iron deficiency Take 1 tablet by mouth two times a day with meals. 60 tablet 5 05/03/2024 10/07/2024 Discontinued fluticasone propionate 0.05 mg/actuat metered dose nasal spray (1 source) Corticosteroid Start: 04-07-2025 take 2 spray(s) nasal route once daily fluticasone (FLONASE) 50 mcg/actuation nasal spray Indications: Seasonal allergic rhinitis due to pollen Use 2 sprays in each nostril once daily. 16 mL 3 04/07/2025 Active Magnesium (3 sources) Start: 11-22-2024 take 1 tablet by mouth once daily Magnesium 250 mg tablet Active 250 mg PO DAILY November 22, 2024 12:00am montelukast 10 mg oral tablet (20 sources) Leukotriene Receptor Antagonist Start: 12-17-2022 End: 03-07-2026 take 1 tablet by mouth once daily at bedtime montelukast (SINGULAIR) 10 mg tablet Take 1 tablet by mouth daily at bedtime. 90 tablet 3 03/07/2025 03/07/2026 Active Comment on above: Take 1 tablet by estrella th daily at bedtime. naproxen 500 mg oral tablet (5 sources) Nonsteroidal Anti-inflammatory Drug Start: 12-13-2021 End: 12-27-2021 take 1 tablet by mouth twice daily at mealtime naproxen (NAPROSYN) 500 mg tablet Take 1 tablet by mouth twice daily with meals for 14 days. Take with food. 28 tablet 0 12/13/2021 12/27/2021 Active Comment on above: Take 1 tablet by estrella twice daily with meals for 14 days. Take with food. pantoprazole 40 mg delayed release oral tablet (20 sources) Proton Pump Inhibitor Start: 09-04-2024 End: 11-22-2024 take 1 tablet by mouth twice daily Pantoprazole 40 mg tablet,delayed release (DR/EC) Discontinued 40 mg PO TWICE A DAY 28 14 0 September 04, 2024 1:00am November 22, 2024 2:22pm Start: 04-02-2024 End: 03-07-2025 take 1 tablet by mouth once daily pantoprazole DR (PROTONIX) 40 mg tablet Indications: Gastroesophageal reflux disease without esophagitis Take 1 tablet by mouth once daily. 90 tablet 1 03/07/2025 Active predniSONE 20 mg oral tablet (1 source) Start: 04-24-2022 End: 04-29-2022 take 2 tablets by mouth once daily predniSONE (DELTASONE) 20 mg tablet Take 2 tablets by mouth once daily for 5 days. 10 tablet 0 04/24/2022 04/29/2022 Active Comment on above: Take 2 tablets by mo ut once daily for 5 days. sulfamethoxazole 800 mg / trimethoprim 160 mg oral tablet (5 sources) Dihydrofolate Reductase Inhibitor Antibacterial, Sulfonamide Antimicrobial Start: 01-03-2025 End: 03-07-2025 take 1 tablet by mouth every twelve hours sulfamethoxazole- trimethoprim (BACTRIM DS) 800-160 mg per tablet Indications: Hydradenitis Take 1 tablet by mouth every 12 hours. 03/07/2025 Active Completed/Discontinued Medications Medication Drug Class(es) Dates Sig (Normalized) Sig (Original) Budesonide / formoterol (6 sources) Corticosteroid, beta2-Adrenergic Agonist Start: 10-13-2024 End: 03-07-2025 take 12 puff(s) by inhalation once daily as needed budesonide-formoter ol (SYMBICORT) 80-4.5 mcg/actuation inhaler 1-2 puffs every 4 hours as needed for cough, wheezing, chest tightness or shortness of breath. Use with spacer. Rinse mouth out after use. Maximum of 12 puffs per day 1 Each 10/13/2024 03/07/2025 Discontinued (Course of therapy completed) Start: 10-13-2024 take 12 puff(s) by inhalation once daily as needed budesonide-formoterol (SYMBICORT) 80-4.5 mcg/actuation inhaler 1-2 puffs every 4 hours as needed for cough, wheezing, chest tightness or shortness of breath. Use with spacer. Rinse mouth out after use. Maximum of 12 puffs per day 1 Each 10/13/2024 Active ciprofloxacin 500 mg oral tablet (3 sources) Quinolone Antimicrobial Start: 07-23-2024 End: 09-04-2024 take 1 tablet by mouth twice daily Ciprofloxacin Hcl (Cipro) 500 mg tablet Discontinued 500 mg PO TWICE A DAY 8 4 0 July 23, 2024 1:00am September 04, 2024 9:47pm clindamycin 300 mg oral capsule (20 sources) Lincosamide Antibacterial Start: 09-07-2021 End: 10-23-2022 Clindamycin Phosphate (CLEOCIN T) 1 % lotion APPLY A THIN LAYER TO AFFECTED AREA TWICE A DAY THEN NEEDED 0 09/07/2021 10/23/2022 Discontinued (Discontinued by Patient) Start: 09-07-2021 End: 10-23-2022 take 1 capsule by mouth twice daily clindamycin (CLEOCIN) 300 mg capsule Take 300 mg by mouth twice daily. 0 09/07/2021 10/23/2022 Discontinued (Discontinued by Patient) Comment on above: Take 300 mg by mouth twice daily. APPLY A THIN LAYER T O AFFECTED AREA TWICE A DAY THEN NEEDED dicyclomine hydrochloride 20 mg oral tablet (3 sources) Anticholinergic Start: 07-27-20 End: 09-04-19 take 1 tablet by mouth three times daily as needed for pain Dicyclomine 20 mg tablet Discontinued 20 mg PO THREE TIMES A DAY as needed for abdominal pain July 27, 2024 1:49am September 04, 2024 9:47pm DULoxetine 20 mg delayed release oral capsule (5 sources) Serotonin and Norepinephrine Reuptake Inhibitor Start: 11-20-19 End: 03-07-20 take 1 capsule by mouth once daily DULoxetine (CYMBALTA) 20 mg capsule Indications: Anxiety and depression Take 1 capsule by mouth once daily. 30 capsule 2 11/19/2024 03/07/2025 Discontinued (Course of therapy completed) famotidine 40 mg oral tablet (20 sources) Histamine-2 Receptor Antagonist Start: 10-01-19 End: 11-23-19 take 1 tablet by mouth at bedtime Famotidine 40 mg tablet Discontinued 40 mg PO AT BEDTIME 31 10October 01, 2024 1:00am November 22, 2024 2:19pm Start: 02-18-2024 End: 11-19-2024 take 1 tablet by mouth once daily at bedtime famotidine (PEPCID) 20 mg tablet Take 1 tablet by mouth daily at bedtime. 90 tablet 1 02/18/2024 11/19/2024 Discontinued (Discontinued by Patient) omeprazole 40 mg delayed release oral capsule (20 sources) Proton Pump Inhibitor Start: 02-18-2024 End: 04-26-2024 take 1 capsule by mouth once daily omeprazole (PRILOSEC) 40 mg capsule Take 1 capsule by mouth once daily. 90 capsule 1 02/18/2024 04/26/2024 Discontinued Start: 10-20-2022 End: 10-01-2024 take 1 capsule by mouth once daily Omeprazole 20 mg capsule,delayed release(DR/EC) Discontinued 20 mg PO DAILY October 20, 2022 12:00am October 01, 2024 8:51am Comment on above: Take 20 mg by mouth once daily. Take 1 capsule by [facility] once daily. ondansetron 4 mg disintegrating oral tablet (6 sources) Serotonin-3 Receptor Antagonist Start: 07-27-20 End: 10-01-19 take 1 tablet by mouth every six hours as needed for nausea and vomiting Ondansetron 4 mg tablet,disintegratin g Discontinued 4 mg PO EVERY 6 HOURS as needed for nausea and vomiting July 27, 2024 1:00am October 01, 2024 8:52am Start: 07-23-2024 End: 10-01-2024 take 1 tablet by mouth every eight hours as needed for nausea Ondansetron 4 mg tablet,disintegrating Discontinued 4 mg PO EVERY 8 HOURS NEEDED as needed for Nausea July 23, 2024 1:00am October 01, 2024 8:52am penicillin v potassium 500 mg oral tablet (8 sources) Start: 05-28-2024 End: 11-19-2024 penicillin V potassium 500 mg tablet Take 500 mg by mouth. 05/28/2024 11/19/2024 Discontinued (Course of therapy completed) potassium chloride 20 meq powder for oral solution (3 sources) Start: 07-27-2024 End: 10-01-2024 take 20 mEq by mouth twice daily Potassium Chloride 20 mEq packet Discontinued 20 meq PO TWICE A DAY 30 5 July 27, 2024 1:00am October 01, 2024 8:52am propranolol hydrochloride 40 mg oral tablet (8 sources) beta-Adrenergic Keturah Start: 07-23-2024 End: 11-19-2024 take 1 tablet by mouth three times daily propranolol (INDERAL) 40 mg tablet Indications: Tremors of nervous system , Weight loss , Palpitations Take 1 tablet by mouth three times a day. 90 tablet 1 07/23/2024 11/19/2024 Discontinued (Course of therapy completed) rifAMPin 300 mg oral capsule (14 sources) Rifamycin Antibacterial Start: 09-07-2021 End: 10-23-2022 take 2 capsules by mouth once daily rifAMPin (RIFADIN) 300 mg capsule Take 2 capsules by mouth once daily. 60 capsule 5 03/12/2022 10/23/2022 Discontinued (Discontinued by Patient) Comment on above: TAKE TWO BY MOUTH EV ASAD MORNING Take 2 capsules by m outh once daily. sucralfate 1000 mg oral tablet (7 sources) Aluminum Complex Start: 09-04-2024 End: 11-19-2024 take 1 tablet by mouth every six hours Sucralfate (Carafate) 1 gram tablet Discontinued 1 g PO EVERY 6 HOURS 56 14 0 September 05, 2024 12:30am October 01, 2024 8:52am tretinoin 1 mg/ml topical cream (19 sources) Retinoid Start: 04-02-2024 End: 03-07-2025 tretinoin (RETIN-A) 0.1 % cream Apply to affected area daily at bedtime. 45 g 1 04/02/2024 03/07/2025 Discontinued (Course of therapy completed) Vonoprazan 10 mg tablet (3 sources) Start: 10-01-2024 End: 11-22-2024 take 1 tablet by mouth once daily Vonoprazan 10 mg tablet Discontinued 10 mg PO daily 30 October 01, 2024 1:00am November 22, 2024 2:20pm Start: 10-01-2024 End: 11-22-2024 take 1 tablet by mouth once daily Vonoprazan 10 mg tablet Discontinued 10 mg PO daily October 01, 2024 1:00am November 22, 2024 2:20pm Problems Active Problems Problem Classification Problem Date Documented Da te Episodic/Chronic Allergic reactions (12 sources) Adverse reaction to food; Translations: [Other adverse food reactions, not elsewhere classified, initial encounter] Onset: 5 10-13-2024 Episodic Anxiety disorders (2 sources) Mixed anxiety and depressive disorder; Translations: [Anxiety disorder, unspecified] Onset: 5 11-19-2024 Chronic Asthma (11 sources) Asthma; Translations: [Unspecified asthma, uncomplicated] Onset: Chronic Deficiency and other anemia (2 sources) Iron deficiency anemia; Translations: [Iron deficiency anemia, unspecified] 04-02-2024 Episodic Deficiency and other anemia (2 sources) Anemia; Translations: [Anemia, unspecified] 09-13-2024 Episodic Diseases of white blood cells (1 source) Leukocytosis; Translations: [Elevated white blood cell count, unspecified] 02-18-2024 Chronic Esophageal disorders (20 sources) Gastroesophageal reflux disease without esophagitis; Translations: [Gastro-esophageal reflux disease without esophagitis] Onset: Chronic Fluid and electrolyte disorders (3 sources) Hypokalemia; Translations: [Hypokalemia] 08-04-2024 Episodic Gastritis and duodenitis (13 sources) Gastritis; Translations: [Gastritis, unspecified, without bleeding] Onset: 5 10-01-2024 Episodic Genitourinary symptoms and ill-defined conditions (3 sources) Increased frequency of urination; Translations: [Frequency of micturition] Episodic Immunizations and screening for infectious disease (1 source) Encounter for immunization; Translations: [Encounter for immunization] Onset: Episodic Malaise and fatigue (1 source) Fatigue; Translations: [Other fatigue] 11-03-2023 Episodic Menstrual disorders (1 source) Dysmenorrhea; Translations: [Dysmenorrhea, unspecified] 11-03-2023 Chronic Mood disorders (1 source) Mood disorders; Translations: [Anxiety and depression] Onset: Nonmalignant breast conditions (4 sources) Pain of breast; Translations: [Mastodynia] 02-18-2024 Episodic Nutritional deficiencies (7 sources) Vitamin D deficiency; Translations: [Vitamin D deficiency, unspecified] Onset: 4 04-02-2024 Chronic Other aftercare (1 source) Other terminal makeup operator (current) drug therapy; Translations: [Other nursing home (current) drug therapy] Onset: Episodic Other disorders of stomach and duodenum (1 source) Indigestion; Translations: [Functional dyspepsia] 09-13-2024 Episodic Other female genital disorders (1 source) Vaginal discharge; Translations: [Other specified noninflammatory disorders of vagina] Episodic Other gastrointestinal disorders (1 source) Constipation; Translations: [Constipation, unspecified] 11-03-2023 Episodic Other gastrointestinal disorders (1 source) Abdominal bloating; Translations: [Abdominal distension (gaseous)] 11-03-2023 Episodic Other lower respiratory disease (1 source) Snoring; Translations: [Snoring] 11-03-2023 Episodic Other nervous system disorders (1 source) Tremor; Translations: [Tremor, unspecified] 07-23-2024 Episodic Other nutritional; endocrine; and metabolic disorders (1 source) Obesity; Translations: [Obesity, unspecified] Chronic Other nutritional; endocrine; and metabolic disorders (1 source) Hypomagnesemia; Translations: [Hypomagnesemia] 11-19-2024 Chronic Other nutritional; endocrine; and metabolic disorders (1 source) Hypomagnesemia; Translations: [Hypomagnesemia] Onset: 5 Chronic Other nutritional; endocrine; and metabolic disorders (1 source) Weight gain; Translations: [Abnormal weight gain] 11-03-2023 Episodic Other nutritional; endocrine; and metabolic disorders (1 source) Weight loss; Translations: [Abnormal weight loss] 07-23-2024 Episodic Other nutritional; endocrine; and metabolic disorders (1 source) History of Graves' disease; Translations: [Personal history of other endocrine, nutritional and metabolic disease] 09-13-2024 Episodic Other screening for suspected conditions (not mental disorders or infectious disease) (1 source) Cancer cervix screening status; Translations: [Encounter for screening for malignant neoplasm of cervix] Episodic Other skin disorders (1 source) Eruption; Translations: [Rash and other nonspecific skin eruption] Episodic Other skin disorders (3 sources) Cystic acne; Translations: [Acne vulgaris] 04-02-2024 Episodic Other skin disorders (3 sources) Hidradenitis suppurativa; Translations: [Hidradenitis suppurativa] Onset: 8 Episodic Other skin disorders (2 sources) Acne vulgaris; Translations: [Acne vulgaris] Onset: 5 Episodic Other upper respiratory disease (20 sources) Allergic rhinitis; Translations: [Allergic rhinitis, unspecified] Onset: 3 12-04-2017 Chronic Other upper respiratory disease (1 source) Allergic rhinitis due to pollen; Translations: [Allergic rhinitis due to pollen] 04-07-2025 Chronic Other upper respiratory disease (1 source) Chronic rhinitis; Translations: [Chronic rhinitis] 04-07-2025 Chronic Other upper respiratory disease (1 source) Chronic rhinitis; Translations: [Chronic rhinitis] Onset: 5 Chronic Other upper respiratory disease (1 source) Allergic rhinitis due to pollen; Translations: [Seasonal allergic rhinitis due to pollen] Onset: 8 Chronic Other upper respiratory infections (3 sources) Viral upper respiratory tract infection; Translations: [Acute upper respiratory infection, unspecified] Onset: 5 02-04-2024 Episodic Residual codes; unclassified (1 source) Obstructive sleep apnea syndrome; Translations: [Obstructive sleep apnea (adult) (pediatric)] 03-07-2025 Chronic Residual codes; unclassified (1 source) Obstructive sleep apnea (adult) (pediatric); Translations: [Obstructive sleep apnea syndrome] Onset: Chronic Residual codes; unclassified (1 source) Insomnia; Translations: [Insomnia, unspecified] 11-03-2023 Episodic Spondylosis; intervertebral disc disorders; other back problems (1 source) Low back pain; Translations: [Bilateral low back pain without sciatica, unspecified chronicity] Episodic Thyroid disorders (2 sources) Hyperthyroidism; Translations: [Thyrotoxicosis, unspecified without thyrotoxic crisis or storm] Onset: 09-13-2024 Chronic Viral infection (1 source) Disease caused by 2019-nCoV; Translations: [COVID-19] Episodic Past or Other Problems Problem Classification Problem Date Documented Da te Episodic/Chronic Abdominal pain (10 sources) Left lower quadrant pain; Translations: [Left lower quadrant pain] Onset: 07-23-2024 11-03-2023 Episodic Cardiac dysrhythmias (2 sources) Palpitations; Translations: [Palpitations] Onset: 07-23-2024 07-23-2024 Episodic Deficiency and other anemia (1 source) Anemia, unspecified; Translations: [Anemia, unspecified type] Onset: 10-04-2024 Episodic Deficiency and other anemia (1 source) Iron deficiency anemia, unspecified; Translations: [Iron deficiency anemia, unspecified iron deficiency anemia type] Onset: 04-29-2024 Episodic Fever of unknown origin (2 sources) Fever with chills; Translations: [Fever, unspecified] Onset: 07-23-2024 07-23-2024 Episodic Intestinal infection (5 sources) Food poisoning; Translations: [Bacterial foodborne intoxication, unspecified] Onset: 07-23-2024 07-23-2024 Episodic Nausea and vomiting (2 sources) Nausea; Translations: [Nausea] Onset: 08-14-2024 02-18-2024 Episodic Nonspecific chest pain (8 sources) Chest pain; Translations: [Chest pain, unspecified] Onset: 12-08-2024 03-02-2021 Episodic Nutritional deficiencies (4 sources) Iron deficiency; Translations: [Iron deficiency] Onset: 10-04-2024 05-03-2024 Episodic Other disorders of stomach and duodenum (1 source) Functional dyspepsia; Translations: [Indigestion] Onset: 10-04-2024 Episodic Other nervous system disorders (1 source) Tremor, unspecified; Translations: [Tremors of nervous system] Onset: 07-23-2024 Episodic Other nutritional; endocrine; and metabolic disorders (1 source) Abnormal weight loss; Translations: [Weight loss] Onset: 07-23-2024 Episodic Other skin disorders (20 sources) Hidradenitis; Translations: [Hidradenitis suppurativa] Onset: 12-04-2017 12-04-2017 Episodic Other skin disorders (20 sources) Acne; Translations: [Other acne] Onset: 12-04-2017 12-04-2017 Episodic Screening and history of mental health and substance abuse codes (5 sources) Patient encounter status; Translations: [Encounter for screening for depression] Onset: 11-19-2024 11-19-2024 Episodic Results Test Name Value Interpretation Reference Range Facility ALLERGEN SKIN TEST-FOODon FOOD ALLERGEN PERCUTANEOUS SKIN TESTING Mean Wheal & Flare Diameter ( mm) Patient has been identified by name and date of : Yes . Skin test applied by : Radha Rosenberg Interpreted By: Dr. Rocio Londono D.O. * Clinical significant reactions are regarded as a wheal diameter greater than or equal to 3 mm with a flare diameter greater or equal to 6mm. ALLERGENS: Control Wheal Flare Negative: 50% GLYCERIN/50% cocas; P: W = 0 mm F = 3 mm HISTAMINE, POSITIVE CONTROL (HISTAMINE BASE 6MG/ML) P: W = 7 mm F = 20 mm ALLERGENS: LEGUME Time applied: 905* Time read: 920 Peanut 1:20 P: W = 5 mm F = 9 mm ALLERGENS: OTHER Time applied: 905 Time read: 920 Cinnamon 1:20 P: W = 0 mm F = 3 mm [facility] ALLERGEN SKIN TEST-INHALANT 40on 04-07-2025 INHALANT 40 PERCUTANEOUS & INTRADERMAL TESTING/ Mean Wheal & Flare Diameter (mm) Patient has been identified by name and date of : Yes . Skin test applied by : Radha Rosenberg Interpreted By: Dr. Rocio Londono D.O. * Clinical significant reactions are regarded as a wheal diameter greater than or equal to 3 mm with a flare diameter greater or equal to 6mm. ALLERGENS Time applied: 905 Time read: 920 Negative Control: 50%Glycerin/50%Cocas P: W = 0mm F = 0 mm Cat Hair 10,000 BAU/ml P: W = 0 mm F = 0 mm UF Dog 1:650 P: W = 0 mm F = 0 mm Cockroach Mix 1:20 P: W = 0 mm F = 3 mm Mite Df 10,000 AU/ml P: W = 3 mm F = 10 mm Mite Dp 10,000AU/ml P: W = 4 mm F = 10 mm Alternaria Alternata 1:20 P: W = 4 mm F = 10 mm Aspergillus Fumigatus 1:20 P: W = 0 mm F = 0 mm Cladosporium sphearospermum 1:20 P: W = 0 mm F = 0 mm Epicoccum Nigrum 1:10 P: W = 6 mm F = 10 mm Fusarium Solani 1:40 P: W = 0 mm F = 5 mm Bipolaris Sorokiniana 1:20 P: W = 0 mm F = 4 mm Penicillium Mix 1:20 P: W = 0 mm F = 4 mm Jeff, White 1:20 P: W = 6 mm F = 10 mm Beech, [place]ican 1:20 P: W = 9 mm F = 18 mm Birch Mix 1:20 P: W = 11 mm F = 25 mm Maple Mix 1:20 P: W = 4 mm F = 20 mm [place] ,Eastern 1:20 P: W = 4 mm F = 10 mm Burnet, Shagbark 1:20 P: W = 9 mm F = 17 mm [place] Tree, Red 1:20 P: W = 3 mm F = 6 mm [place], Red 1:20 P: W = 12 mm F = 20 mm Se[place], [place]ican/Eastern 1:20 P: W = 0 mm F = 0 mm [place] Pollen, Black 1:20 P: W = 6 mm F = 10 mm [place], Black 1:20 P: W = 0 mm F = 0 mm Bermuda Grass 10,000 BAU/ml P : W = 3 mm F = 10 mm [place], Blue/Rosemary 100,000 BAU/ml P: W = 15 mm F = 20 mm Fescue, [place]rett 100,000 BAU/ml P: W = 12 mm F = 20 mm Jonathan Grass 1:20 P: W = 0 mm F = 10 mm Orchard Grass 100,000 BAU/ml P: W = 11 mm F = 23 mm Perennial [place], 100,000 BAU/ml P: W = 11 mm F = 25 mm Adam 100,000 BAU/ml P: W = 10 mm F = 20 mm Cocklebur 1:20 P: W = 4 mm F = 7 mm Arbela, sheep 1:20 P: W = 3 mm F = 6 mm Plantain, Malawian 1:20 P: W = 0 mm F = 3 mm Lambs Quarters 1:20 P: W = 3 mm F = 6 mm Cisneros Elder, Burweed 1:20 P: W = 0 mm F = 5 mm Mugwort, Common 1:20 P: W = 0 mm F = 5 mm Pigweed, Rough 1:20 P: W = 3 mm F = 7 mm Ragweed, Mix 1:20 P: W = 0 mm F = 3 mm HISTAMINE, positive control(Histamine base 6mg/ml) P: W = 7 mm F = 20 mm INTRADERMAL MIXES Negative Control - HSA ID: W = 0 mm F= 0 mm Cat Hair 100 BAU/ml ID: W = 0 mm F= 0 mm Ragweed Mix, 1:500 ID: W = 12 mm F= 35 mm [facility] CNOVon 04-07-2025 CNOV Office Visit ([facility] ) CHICHO WOOD ([id number]) 2000 F Date Time Provider Department 04/07/25 8:30 AM ROCIO LONDONO [facility] During your visit today, we recorded the following information about you: Temperature Pulse Respiration Blood pressure 97.6 degrees 56/minute 16/minute 106/74 Weight Height 73 kg 1.524 m Rocio Londono DO 04/07/2025 11:23 AM Signed ALLERGY AND IMMUNOLOGY CONSULT 04/07/2025 Recording using [employer] software for draft documentation of the visit was discussed with the patient/authorized scheduling representative; all questions welcomed and answered. Patient/authorized scheduling representative agreed to proceed Patient Name: Chicho Wood PRIMARY CARE PHYSICIAN: Ce Conner MD REASON FOR CONSULT: Concern for tree nut allergy REQUESTING PHYSICIAN: Ce Conner MD My final recommendations will be communicated to the requesting health care provider by way of the shared medical record for internal providers or letter via the [employer] for external providers. CHIEF COMPLAINT: Tingling sensation in throat after [employer] latte with almond milk HISTORY OF PRESENT ILLNESS: The patient is a 25-year-old female with a history of GERD and mild asthma, presenting for evaluation of a possible tree nut allergy. Approximately one month ago, the patient experienced a tingling and numbing sensation in her throat after consuming a drink containing almond milk, brown sugar syrup, and cinnamon powder from [employer]. She had previously consumed all these ingredients without issues. The sensation persisted for over 8 hours. She sought medical attention at a clinic and was referred to the ER, where she was monitored for potential throat swelling and given a liquid medication, she cannot recall the name of medication. She denies any prior episodes of throat tingling, as well as any full-body rash, dyspnea, emesis, lip, eye, or tongue swelling, or lightheadedness during this incident. She has since avoided almond milk and tree nuts and has not experienced similar symptoms. She denies issues with other tree nuts, including cashews, pistachios, walnuts, pecans, and hazelnuts, and has consumed peanut products without issues, though she does not like peanuts. However, it has been several months since her last peanut exposure. A recent food panel showed a peanut IgE level of 0.53, with all other tree nuts and foods negative. She has avoided all tree nuts and peanut products since episode and would like to verify that she does not have a peanut allergy as well. She reports seasonal allergies, particularly during the spring to summer transition, with symptoms not well-controlled by as needed OTC medications. She has mild asthma, primarily triggered by outdoor allergens such as tree pollen and grass, and uses an albuterol inhaler as needed for wheezing. She denies frequent use of inhalers, oral steroids, or recent ER visits for asthma exacerbations. She also reports GERD and experiences throat irritation when eating certain foods, such as bananas and apples, despite taking medications for her gastrointestinal issues. She denies issues with egg, cow milk, or soy products. She lives in a home with both solid surfaces and carpet, with a forced air heating and AC system. She has used nasal sprays in the past with minimal relief of nasal symptoms but cannot recall the name of the nasal spray. PAST MEDICAL HISTORY Diagnosis Date Asthma ([facility]) ACTIVE PROBLEM LIST Allergic Rhinitis Hydradenitis Other Acne PAST SURGICAL HISTORY Procedure Laterality Date NONE FAMILY HISTORY Problem Relation Age of Onset Asthma Mother Allergic Rhinitis Mother Thyroid Mother Hypertension Mother Eczema Father Allergic Rhinitis Father Hyperlipidemia Father Allergic Rhinitis Brother Asthma Maternal Grandmother Allergic Rhinitis Maternal Grandmother Kidney Disease Maternal Grandmother Hypertension Maternal Grandmother Thyroid Maternal Grandmother Allergic Rhinitis Maternal Grandfather Kidney Disease Maternal Grandfather failure Allergic Rhinitis Paternal Grandmother Hyperlipidemia Paternal Grandmother Allergic Rhinitis Paternal Grandfather Hyperlipidemia Paternal Grandfather SOCIAL HISTORY[1] Patient Entered Data ALLERGIES: ALLERGIES Allergen Reactions Seasonal Allergies Unknown CURRENT OUTPATIENT MEDICATIONS: albuterol HFA (PROVENTIL HFA, VENTOLIN HFA) 90 mcg/actuation inhaler Inhale 2 puffs as instructed every 4 hours as needed. montelukast (SINGULAIR) 10 mg tablet Take 1 tablet by mouth daily at bedtime. pantoprazole DR (PROTONIX) 40 mg tablet Take 1 tablet by mouth once daily. sulfamethoxazole-trime thoprim (BACTRIM DS) 800-160 mg per tablet Take 1 tablet by mouth every 12 hours. ferrous sulfate 325 mg (65 mg iron) tablet Take 1 tablet by mouth o (more content not included)... Normal [facility] Panel InformationOrdered By: Radha Rosenberg on 04-07-2025 [facility] CNOVon 03-07-2025 CNOV Office Visit ([facility] ) CHICHO WOOD ([id number]) 2000 F Date Time Provider Department 03/07/25 2:20 PM CE CONNER During your visit today, we recorded the following information about you: Pulse Respiration Blood pressure Weight 68/minute 12/minute 116/78 72.6 kg Ce Conner MD 03/07/2025 3:09 PM Signed We discussed your peanut allergy and possible tree nut allergy: - Your recent blood work showed an allergy to peanuts. You experienced throat tingling and numbness after consuming almond milk, which led to an ER visit. Although peanuts and tree nuts are different, you may need further testing to determine if you have a tree nut allergy. - I recommend scheduling an appointment with an ball maker for comprehensive allergy testing, including tree nuts. We discussed your hidradenitis suppurativa (HS): - You are currently on sulfamethoxazole (Bactrim) twice daily, which has helped reduce flare-ups. Please continue taking this medication as prescribed. - You are on the waitlist for laser surgery with your current provider. Unfortunately, the wait time may exceed a year due to limited availability. If your symptoms worsen or you need additional support, let me know. We discussed your vitamin deficiencies: - Your recent blood work showed low levels of vitamin D and vitamin A. I recommend taking: - Vitamin D (5,000 IU) with vitamin K daily after a meal to improve absorption. You can purchase this over the counter. - Fish oil supplements, which may help with inflammation and improve vitamin D absorption. - You are already taking iron supplements. Continue these as directed. We discussed your sleep concerns: - You reported difficulty falling and staying asleep, inconsistent work schedules, and feeling exhausted during the day. You also have a family history of sleep apnea. - I recommend a home sleep study to evaluate for obstructive sleep apnea. This will help us determine if further treatment is needed. Additional instructions: - Take your vitamin D, fish oil, and other medications (including Bactrim) together after dinner to help establish a routine and improve adherence. - Follow up with an ball maker for allergy testing and with your accreditation specialist as needed for HS management. Please let me know if you have any new or worsening symptoms or if you need assistance scheduling appointments. Ce Conner MD 03/07/2025 5:36 PM Signed Reason for Visit Follow up HPI Chicho Wood is a 25-year-old female presenting for evaluation of a potential tree nut allergy, management of hidradenitis suppurativa (HS), and sleep disturbances. Chicho recently underwent a RAST food panel to evaluate for celiac disease, which returned normal results except for a positive peanut allergy. Following the test, she consumed a coffee with almond milk at work and experienced a tingling and numb sensation in her throat and part of her tongue, which persisted for hours. She sought medical attention at a clinic and was referred to the ER, where she was advised to undergo further testing for tree nut allergies. She expresses anxiety about this potential allergy, noting she has never had issues with almonds before. She also reports ongoing issues with HS, describing her condition as severe. She is currently on a waitlist for laser surgery, which she has been on for approximately 6 months. She is taking sulfamethoxazole (Bactrim) BID, which has reduced the frequency of flare-ups. Chicho reports difficulty maintaining a consistent sleep schedule due to her variable work hours at [employer]. She struggles with both falling asleep and staying asleep, often waking multiple times during the night. Despite varying sleep durations, she frequently feels exhausted during the day. She notes a cessation of snoring in recent years, which was previously observed by family members. She has a family history of obstructive sleep apnea, with her mother and two aunts affected. She reports a significant weight loss from 178 lbs to 160 lbs, attributing this to a lack of appetite and irregular eating habits, often consuming only one meal a day with snacks. She denies intentional dieting but mentions her mother's influence on her eating habits. She is currently taking [id number] iron supplements but often forgets to take her vitamin D supplements. Recent lab results indicate low levels of vitamin D and vitamin A. Social History Tobacco Use Smoking status: Former Types: Cigarettes Smokeless tobacco: Never Vaping Use Vaping status: Former Substance Use Topics Alcohol use: No Drug use: No Past medical history, appointments, medications, allergies reviewed. Pertinent Lab/Diagnostic Studies are reviewed and discussed today Current Outpatient Medications: ferrous sulfate 325 mg (65 mg iron) tablet (more content not included)... Normal [facility] CNOVon 03-02-2025 CNOV Office Visit ([facility]) CHICHO WOOD ([id number]) 2000 F Date Time Provider Department 03/02/25 7:15 PM CARMEN BHAKTA [facility] During your visit today, we recorded the following information about you: Carmen Bhakta PA 03/02/2025 7:20 PM Signed 25-year-old female presents for possible allergic reaction. Patient drank a latte at [employer] today that had almond milk in it and she felt a little bit of a tingling sensation in her throat. Symptoms are still present. She states that she did allergy test recently and did have an allergy to possibly peanuts. She has tolerated peanuts and almonds in the past. She denies any difficulty breathing or swallowing. No throat swelling. No tightness in the throat. No chest pain or shortness of breath. No vomiting or diarrhea. Airway is intact on exam. At this time, due to tingling, I did recommend evaluation in the emergency room. Patient is in no acute distress,, but would possibly benefit from some monitoring. Patient declines EMS, her mom will take her to the ER now. Allergies As of Date: 03/02/2025 Noted Allergy Reaction SEASONAL ALLERGIES 11/03/2023 16 - Unknown Date Reviewed: 02/16/2025 Reviewed by: Manda Lora MA - Fully Assessed Primary Visit Diagnosis:Allergic reaction, initial encounter [T78.40XA] Prescriptions as of 03/02/2025 - sulfamethoxazole-trime thoprim (BACTRIM DS) 800-160 mg per tablet Take 1 tablet by mouth every 12 hours. - pantoprazole DR (PROTONIX) 40 mg tablet Take 1 tablet by mouth once daily. - DULoxetine (CYMBALTA) 20 mg capsule Take 1 capsule by mouth once daily. - ferrous sulfate 325 mg (65 mg iron) tablet Take 1 tablet by mouth once daily. - budesonide-formoterol (SYMBICORT) 80-4.5 mcg/actuation inhaler 1-2 puffs every 4 hours as needed for cough, wheezing, chest tightness or shortness of breath. Use with spacer. Rinse mouth out after use. Maximum of 12 puffs per day - ergocalciferol 50,000 unit capsule (VITAMIN D2, DRISDOL) Take 1 capsule by mouth two times a week. TO BE TAKEN ORALLY DIRECTED. Take 1 tablet by mouth twice weekly [id number], then decrease to 1 tablet weekly. - tretinoin (RETIN-A) 0.1 % cream Apply to affected area daily at bedtime. - montelukast (SINGULAIR) 10 mg tablet Take 1 tablet by mouth daily at bedtime. - albuterol HFA (PROVENTIL HFA, VENTOLIN HFA) 90 mcg/actuation inhaler Inhale 2 Puffs as instructed every 4 hours as needed. Problem List As Of Date 03/02/2025 Noted Resolved Allergic rhinitis [J30.9] 12/21/2012 Hydradenitis [L73.2] 12/04/2017 Other acne [L70.8] 12/04/2017 Encounter Status:Closed by CARMEN BHAKTA on 03/02/25 [facility] Emergency Department Summary on 03-02-2025 Emergency Department Summary [facility] Medical Records Department [address] [place] [id number] Emergency Department Summary 03/02/25 MR#: [id number] Acct: [id number] Name: CHICHO WOOD Rep #: [id number] : 2000 25 From: Raimn Ny DO PCP: Dr. Ce Conner MD Status:DEP ER Location: ED HPI History of Present Illness Chief Complaint: Allergic Reaction Informant: patient Onset/Context/Timing Onset: Today Context: Sudden Onset Timing: Continuous Quality: Numbness, tingling Location: Tongue and lips Worsened by: Nothing Relieved by: Nothing Narrative Narrative: Patient presents with numbness and tingling to her tongue and lips that occurred tonight. Patient states she drank coffee with almond milk in it earlier today. Patient states that she recently had testing for allergies and was deemed to be allergic to peanuts. Patient denies any difficulty breathing or difficulty swallowing. Patient denies any hives. Patient denies any itching. Patient denies any sore throat. Patient took Benadryl prior to arrival which did not help. [facility] Medical History Wears glasses Hidradenitis Gastric reflux Non-smoker Chest pain Anemia GERD (gastroesophageal reflux disease) Asthma Home Medications ???Medication ???Instructions ???Recorded ???Last Taken ???Type albuterol sulfate 90 mcg/actuation 2 puff inhalation Q4H PRN PRN Unknown History aerosol inhaler shortness of breath or wheezing ergocalciferol (vitamin D2) 1,250 1,250 mcg PO .TWICE WEEKLY Unknown History mcg (50,000 unit) capsule ferrous sulfate 325 mg (65 mg 325 mg PO DAILY 11/22/24 11/25/24 History iron) tablet magnesium 250 mg tablet 250 mg PO DAILY 11/22/24 11/25/24 History pantoprazole 40 mg tablet,delayed 40 mg PO DAILY 11/22/24 11/25/24 History release Allergy/AdvReac Type Severity Reaction Status Date / Time peanut Allergy PT UNSURE Verified 03/02/25 19:28 OF REACTION Social History Smoking Status: Former smoker alcohol intake: never substance use type: does not use ROS ROS ED Constitutional Constitutional ED: Denies chills or fever(s) Eyes Eyes: Denies blurry vision or change in vision ENT ENT ED: Denies rhinorrhea or sore throat Cardiovascular Cardiovascular: Denies chest pain or palpitations Respiratory/Chest Respiratory/Chest: Denies cough or dyspnea Gastrointestinal Gastrointestinal: Denies nausea or vomiting Genitourinary Genitourinary ED: Denies dysuria or hematuria Musculoskeletal Musculoskeletal: Denies back pain or neck pain Integumentary Denies abscess or rash Neurologic Neurologic: Denies headache(s) or weakness Allergic/Immunologic Allergic/Immunologic ED: Denies mouth swelling or urticaria EXAM Physical Exam Const Vital Signs: 03/02/25 19:26 03/02/25 20:26 03/02/25 22:14 Temperature 98.3 F Temperature Source Oral Pulse Rate 64 57 L Respiratory Rate 18 18 16 Blood Pressure 126/84 H 110/76 Blood Pressure Mean 98 87 Pulse Ox 100 Oxygen Delivery Method Room Air Positive well nourished and well developed Constitutional Narrative: BMI is 30.9. General Appearance ED: well developed and NAD HEENT Reports moist mucous membranes Neck supple and no JVD Resp normal respiratory effort and clear to auscultation bilaterally Cardio regular rate and regular rhythm GI non-tender Palpation: soft Neuro oriented x3, CN's II-XII intact bilaterally and no sensory deficits noted Sensorium / Orientation: alert Motor Exam: strength 5/5 throughout Psych mental status grossly normal MDM MDM MDM Narrative Medical decision making narrative: Patient was given a dose of prednisone here. Patient was observed in the emergency department. Patient had no further swelling. Patient was instructed to follow-up with her primary care physician in 5 to 7 days. Patient and family understood and were agreeable with the plan. All questions were answered. Discharge Plan Triage Chief Complaint: Allergic Reaction ED Provider: Ramin Ny Dx/Rx/DC Orders Clinical Impression: Allergic reaction to food Instructions: ED Food Allergy Prescriptions: No Action ergocalciferol (vitamin D2) 1,250 mcg (50,000 unit) capsule 1,250 mcg PO .TWICE WEEKLY ferrous sulfate 325 mg (65 mg iron) tablet 325 mg PO DAILY magnesium 250 mg tablet 250 mg PO DAILY albuterol sulfate 90 mcg/actuation HFA aerosol inhaler 2 puff INHALATION Q4H PRN PRN (Reason: shortness of breath or wheezing) pantoprazole 40 mg tablet,delayed release (DR/EC) 40 mg PO DAILY Primary Care Provider: Ce Conner Referrals: Ce Conner MD [Primary Care Provider] - (more content not included)... Normal [facility] 25(OH)D3 [facility] 2024 25-hydroxyvitamin D3 [Mass/Vol] 17.8 ng/mL Low 31.0-80.0 [facility] Comment on above: Order Comment: Speci men Type: BLOOD SPECIMEN Ordering Facility: [facility] Address: [address] [place] [address] Result Comment: Clas sification of 25 [place] Vitamin D status: Deficiency/Insufficiency: < or = 30 ng/ml. Sufficiency/Optimal Levels: 31-80 ng/mL Toxicity: > 100 ng/mL. Test performed by chemiluminescent immunoassay. Performed By: #### 2 4323-8, 1987-12, 2132-04 #### [facility] CLIA [id number] [address] ALLERGEN FOOD PANEL RL1on [place] IgE Qn (S) <0.35 Normal <0.35 [facility] Comment on above: Order Comment: Speci men Type: BLOOD SPECIMENOrdering Facility: External Submitter Address: , , Performed By: #### L [id number] ####[facility] LABIA [id number] [address] [place] IgE RAST class (S) Class 0 Normal Class 0 [facility] Comment on above: Order Comment: Speci men Type: BLOOD SPECIMENOrdering Facility: External Submitter Address: , , Performed By: #### L [id number] ####[facility] LABCLIA [id number] [address] [place] IgE Qn (S) <0.35 Normal <0.35 [facility] Comment on above: Order Comment: Speci men Type: BLOOD SPECIMENOrdering Facility: External Submitter Address: , , Performed By: #### L [id number] ####[facility] LABCLIA [id number] [place] [id number] [facility] [place] IgE RAST class (S) Class 0 Normal Class 0 [facility] Comment on above: Order Comment: Speci men Type: BLOOD SPECIMENOrdering Facility: External Submitter Address: , , Performed By: #### L [id number] ####[facility] LABCLIA [id number] [address] Cow milk IgE Qn (S) <0.35 Normal <0.35 [facility] Comment on above: Order Comment: Speci men Type: BLOOD SPECIMENOrdering Facility: External Submitter Address: , , Performed By: #### L [id number] ####[facility] LABCLIA [id number] [address], [place] [id number] [place] [address] Cow milk IgE RAST class (S) Class 0 Normal Class 0 [facility] Comment on above: Order Comment: Speci men Type: BLOOD SPECIMENOrdering Facility: External Submitter Address: , , Performed By: #### L [id number] ####[facility] LABCLIA [id number] [address], [address] Egg white IgE Qn (S) <0.35 Normal <0.35 [facility] Comment on above: Order Comment: Speci men Type: BLOOD SPECIMENOrdering Facility: External Submitter Address: , , Performed By: #### L [id number] ####[facility] LABCLIA [id number] [address], [place] [address] [place] [address] Egg white IgE RAST class (S) Class 0 Normal Class 0 [facility] Comment on above: Order Comment: Speci men Type: BLOOD SPECIMENOrdering Facility: External Submitter Address: , , Performed By: #### L [id number] ####[facility] LABCLIA [id number] [address] [place] [address] [facility] Gluten IgE Qn (S) <0.35 Normal <0.35 [facility] Comment on above: Order Comment: Speci men Type: BLOOD SPECIMENOrdering Facility: External Submitter Address: , , Performed By: #### L [id number] ####[facility] LABCLIA [id number] [address] [place] [address] [facility] Gluten IgE RAST class (S) Class 0 Normal Class 0 [facility] Comment on above: Order Comment: Speci men Type: BLOOD SPECIMENOrdering Facility: External Submitter Address: , , Performed By: #### L [id number] ####[facility] LABCLIA [id number] [address], [address] Oat IgE Qn (S) <0.35 Normal <0.35 [facility] Comment on above: Order Comment: Speci men Type: BLOOD SPECIMENOrdering Facility: External Submitter Address: , , Performed By: #### L [id number] ####[facility] LABCLIA [id number] [address], [place] [address] [place] [address] Oat IgE RAST class (S) Class 0 Normal Class 0 [facility] Comment on above: Order Comment: Speci men Type: BLOOD SPECIMENOrdering Facility: External Submitter Address: , , Performed By: #### L [id number] ####[facility] LABCLIA [id number] [address], [address] Meeker IgE Qn (S) <0.35 Normal <0.35 [facility] Comment on above: Order Comment: Speci men Type: BLOOD SPECIMENOrdering Facility: External Submitter Address: , , Performed By: #### L [id number] ####[facility] LABCLIA [id number] [address], [address] Meeker IgE RAST class (S) Class 0 Normal Class 0 [facility] Comment on above: Order Comment: Speci men Type: BLOOD SPECIMENOrdering Facility: External Submitter Address: , , Performed By: #### L [id number] ####[facility] LABCLIA [id number] [address], [address] Peanut IgE Qn (S) 0.53 kU/l High <0.10 [facility] Comment on above: Order Comment: Speci men Type: BLOOD SPECIMENOrdering Facility: External Submitter Address: , , Performed By: #### L [id number] ####[facility] LABCLIA [id number] [address] [place] [address] [facility] Peanut IgE RAST class (S) Class 1 Abnormal Class 0 [facility] Comment on above: Order Comment: Speci men Type: BLOOD SPECIMENOrdering Facility: External Submitter Address: , , Performed By: #### L [id number] ####[facility] LABCLIA [id number] [facility] [address] [place] [address] [facility] Pork IgE Qn (S) <0.35 Normal <0.35 [facility] Comment on above: Order Comment: Speci men Type: BLOOD SPECIMENOrdering Facility: External Submitter Address: , , Performed By: #### L [id number] ####[facility] LABCLIA [id number] [address], [place] [id number] [place] [address] [place] Pork IgE RAST class (S) Class 0 Normal Class 0 [facility] Comment on above: Order Comment: Speci men Type: BLOOD SPECIMENOrdering Facility: External Submitter Address: , , Performed By: #### L [id number] ####[facility] LABCLIA [id number] [address] [facility] [address], [address] Potato IgE Qn (S) <0.35 Normal <0.35 [facility] Comment on above: Order Comment: Speci men Type: BLOOD SPECIMENOrdering Facility: External Submitter Address: , , Performed By: #### L [id number] ####[facility] LABCLIA [id number] [facility] [address] [place] [address] [facility] Potato IgE RAST class (S) Class 0 Normal Class 0 [facility] Comment on above: Order Comment: Speci men Type: BLOOD SPECIMENOrdering Facility: External Submitter Address: , , Performed By: #### L [id number] ####[facility] LABCLIA [id number] [address] [facility] [address] [place] [address] [facility] Rice IgE Qn (S) <0.35 Normal <0.35 [facility] Comment on above: Order Comment: Speci men Type: BLOOD SPECIMENOrdering Facility: External Submitter Address: , , Performed By: #### L [id number] ####[facility] LABCLIA [id number] [address] [place] [address] [facility] Rice IgE RAST class (S) Class 0 Normal Class 0 [facility] Comment on above: Order Comment: Speci men Type: BLOOD SPECIMENOrdering Facility: External Submitter Address: , , Performed By: #### L [id number] ####[facility] LABIA [id number] [address], [address] [place]a IgE Qn (S) <0.35 Normal <0.35 [facility] Comment on above: Order Comment: Speci men Type: BLOOD SPECIMENOrdering Facility: External Submitter Address: , , Performed By: #### L [id number] ####[facility] LABIA [id number] [address], [place] [address] [place] [address] [place] IgE RAST class (S) Class 0 Normal Class 0 [facility] Comment on above: Order Comment: Speci men Type: BLOOD SPECIMENOrdering Facility: External Submitter Address: , , Performed By: #### L [id number] ####[facility] LABIA [id number] [address] [place] [address] [facility] Soybean IgE Qn (S) <0.35 Normal <0.35 [facility] Comment on above: Order Comment: Speci men Type: BLOOD SPECIMENOrdering Facility: External Submitter Address: , , Performed By: #### L [id number] ####[facility] LABIA [id number] [address] [place] [address] [facility] Soybean IgE RAST class (S) Class 0 Normal Class 0 [facility] Comment on above: Order Comment: Speci men Type: BLOOD SPECIMENOrdering Facility: External Submitter Address: , , Performed By: #### L [id number] ####[facility] LABCLIA [id number] [address], [address] Tomato IgE Qn (S) <0.35 Normal <0.35 [facility] Comment on above: Order Comment: Speci men Type: BLOOD SPECIMENOrdering Facility: External Submitter Address: , , Performed By: #### L [id number] ####[facility] LABCLIA [id number] [address], [address] [place] Tomato IgE RAST class (S) Class 0 Normal Class 0 [facility] Comment on above: Order Comment: Speci men Type: BLOOD SPECIMENOrdering Facility: External Submitter Address: , , Performed By: #### L [id number] ####[facility] LABCLIA [id number] [address] [place] Wheat IgE Qn (S) <0.35 Normal <0.35 [facility] Comment on above: Order Comment: Speci men Type: BLOOD SPECIMENOrdering Facility: External Submitter Address: , , Performed By: #### L [id number] ####[facility] LABCLIA [id number] [address] OF [facility] Wheat IgE RAST class (S) Class 0 Normal Class 0 [facility] Comment on above: Order Comment: Speci men Type: BLOOD SPECIMENOrdering Facility: External Submitter Address: , , Performed By: #### L [id number] ####[facility] LABCLIA [id number] [place] [id number] [facility] ALLERGEN FOOD PANEL RL2on Banana IgE Qn (S) <0.35 Normal <0.35 [facility] Comment on above: Order Comment: Speci men Type: BLOOD SPECIMEN Ordering Facility: [facility] Address: [address] [place] [address] Performed By: #### 2 4323-03, 2132-04 #### [facility] CLIA [id number] [address] [facility] Banana IgE RAST class (S) Class 0 Normal Class 0 [facility] Comment on above: Order Comment: Speci men Type: BLOOD SPECIMEN Ordering Facility: [facility] Address: [address] [place] [address] Performed By: #### 2 4323-03, 2132-04 #### [facility] CLIA [id number] [address] [place] Beef IgE Qn (S) <0.35 Normal <0.35 [facility] Comment on above: Order Comment: Speci men Type: BLOOD SPECIMEN Ordering Facility: [facility] Address: [address] [place] [address] Performed By: #### 2 4323-03, 2132-04 #### [facility] CLIA [id number] [address] Beef IgE RAST class (S) Class 0 Normal Class 0 [facility] Comment on above: Order Comment: Speci men Type: BLOOD SPECIMEN Ordering Facility: [facility] Address: [address] [place] [address] Performed By: #### 2 4323-03, 2132-04 #### [facility] CLIA [id number] [address] [place] [address] [place] Cheese cheddar type IgE Qn (S) <0.35 Normal <0.35 [facility] Comment on above: Order Comment: Speci men Type: BLOOD SPECIMEN Ordering Facility: [facility] Address: [address] [place] [address] Performed By: #### 2 4323-03, 2132-04 #### [facility] CLIA [id number] [address] [place] [address] [place] Cheese cheddar type IgE RAST class (S) Class 0 Normal Class 0 [facility] Comment on above: Order Comment: Speci men Type: BLOOD SPECIMEN Ordering Facility: [facility] Address: [address] [place] [id number] Performed By: #### 2 4323-03, 2132-04 #### [facility] CLIA [id number] [address] Chicken meat IgE Qn (S) <0.35 Normal <0.[address] [facility] Comment on above: Order Comment: Speci men Type: BLOOD SPECIMEN Ordering Facility: [facility] Address: [address] [place] [address] Performed By: #### 2 4323-03, 2132-04 #### [facility] CLIA [id number] [address] Chicken meat IgE RAST class (S) Class 0 Normal Class 0 [facility] Comment on above: Order Comment: Speci men Type: BLOOD SPECIMEN Ordering Facility: [facility] Address: [address] [place] [address] Performed By: #### 2 4323-03, 2132-04 #### [facility] CLIA [id number] [address] OF [facility] YEAST CLASS Class 0 Normal Class 0 [facility] Comment on above: Order Comment: Speci men Type: BLOOD SPECIMEN Ordering Facility: [facility] Address: [address] [place] [address] Performed By: #### 2 4323-03, 2132-04 #### [facility] CLIA [id number] [address] YEAST IGE <0.35 Normal <0.35 [facility] Comment on above: Order Comment: Speci men Type: BLOOD SPECIMEN Ordering Facility: [facility] Address: [address] [place], [place] [address] Performed By: #### 2 4323-03, 2132-04 #### [facility] CLIA [id number] [address] CELIAC SCREENon 03-01-2025 GLIAD DEAMIDATED IGA QUAL Negative Normal Negative, Test not Indicated [facility] Comment on above: Order Comment: Shruthi pyle Type: BLOOD SPECIMEN Ordering Facility: [facility] Address: [address] [place] [address] Result Comment: This is used as an aid in diagnosis of celiac disease. Clinical correlation is required. The following results were obtained with an [employer]ite Gliadin IgA JANE Gliadin. Gliadin IgA values obtained with different manufacturers' assay methods may not be used interchangeably. The magnitude of the reported IgA levels cannot be correlated to an endpoint titer. Performed By: #### 2 43210-09, 2132-04 #### [facility] CLIA [id number] [address] [place] [address] Gliadin peptide IgA Qn (S) 5 Units Normal <20 [facility] Comment on above: Order Comment: Shruthi pyle Type: BLOOD SPECIMEN Ordering Facility: [facility] Address: [address] [place] [address] Performed By: #### 2 4323-03, 2132-04 #### [facility] CLIA [id number] [address] INTERPRETATION No serological evidence of celiac disease, however, if celiac disease is clinically suspected and patient is not on gluten-free diet, histological diagnosis may be considered. HLA testing may help with risk assessment. Normal [facility] Comment on above: Order Comment: Shruthi pyle Type: BLOOD SPECIMEN Ordering Facility: [facility] Address: [address] [place] [address] Performed By: #### 2 43238, 2132-04 #### [facility] CLIA [id number] [address] TRANSGLUTAMINASE IGA ABS INTERPRETATION Negative Normal Negative [facility] Comment on above: Order Comment: Shruthi pyle Type: BLOOD SPECIMEN Ordering Facility: [facility] Address: [address] [place] [address] Result Comment: The following results were obtained with [employer] R h-tTG IgA JANE.???R h-tTG IgA values obtained with different manufacturers' assay methods may not be used interchangeably. The magnitude of the reported IgA levels cannot be corelated to an endpoint???concentration. This is used as an aid in diagnosis of celiac disease. Clinical correlation is required. Performed By: #### 2 4323-03, 2132-04 #### [employer] [facility] CLIA [id number] 1 [place] [address] [place] tTG IgA Qn (S) <2 Normal <4 [facility] Comment on above: Order Comment: Speci men Type: BLOOD SPECIMEN Ordering Facility: [facility] Address: [address] [place] [address] Performed By: #### 2 4323-03, 2132-04 #### [employer] [facility] CLIA [id number] 1 [place] [address] [place] CRP SerPl-mCncon 03-01-2025 CRP [Mass/Vol] mg/L Normal <0.9 [facility] Comment on above: Order Comment: Speci men Type: BLOOD SPECIMEN Ordering Facility: [facility] Address: [address] [place] [address] Performed By: #### 2 4323-03, 2132-04 #### [employer] [facility] CLIA [id number] 1 [place] [address] [place] IgA SerPl-mCncon 03-01-2025 IgA [Mass/Vol] 342 mg/dL Normal 70-400 [facility] Comment on above: Order Comment: Speci men Type: BLOOD SPECIMEN Ordering Facility: [facility] Address: [address] [place] [address] Performed By: #### 2 4323-03, 2132-04 #### [facility] CLIA [id number] 1 [place] [address] [place] Vit A SerPl-mCncon Retinol [Mass/Vol] 0.27 mg/L Low 0.30-1.20 [facility] Comment on above: Order Comment: Shruthi pyle Type: BLOOD SPECIMENOrdering Facility: External Submitter Address: , , Result Comment: This test was developed, and its performance characteristics determined by the [facility] Department of Pathology and Laboratory Medicine. It has not been cleared or approved by the FDA. The [facility] Department of Pathology and Laboratory Medicine is regulated under CLIA as qualified to perform high-complexity testing. This test is used for clinical purposes. It should not be regarded as investigational or for research. Performed By: #### 2 923-1 ####[facility] LABCLIA [id number] [place] [address] [place] Vit B12 [facility] 29-2 025 Cobalamin (Vitamin B12) [Mass/Vol] 638 pg/mL Normal 232-1245 [facility] Comment on above: Order Comment: Shruthi pyle Type: BLOOD SPECIMEN Ordering Facility: [facility] Address: [address] [place] [address] Performed By: #### 2 4323-8, 1987-12, 2132-04 #### [facility] CLIA [id number] [address] [place] CNOVon 02-16-2025 CNOV Office Visit ([facility]) CHICHO WOOD ([id number]) 2000 F Date Time Provider Department 02/16/25 6:15 PM DENI ADAMS During your visit today, we recorded the following information about you: Temperature Pulse Respiration Blood pressure 99.6 degrees 77/minute 18/minute 110/82 Weight 71.3 kg Deni Adams MD 02/16/2025 6:34 PM Signed [facility] Subjective Chicho Wood is a 25 year old female. Patient presents with: Sore Throat: X 2 days Patient presents with sore throat for 3 days. She is also developing rhinorrhea and cough. She has felt hot and cold but had no overt fevers. Denies nausea, vomiting, diarrhea. She has taken nothing for symptoms. She has a history of seasonal allergies. Sore Throat Review of Systems HENT: Positive for sore throat. Objective BP 110/82 Pulse 77 Temp 37.6 ?C (99.6 ?F) Resp 18 Wt 71.3 kg (157 lb 3 oz) LMP 10/22/2024 (Exact Date) SpO2 99% BMI 30.70 kg/m? Physical Exam Constitutional: General: She is not in acute distress. HENT: Right Ear: Tympanic membrane and ear canal normal. Left Ear: Tympanic membrane and ear canal normal. Nose: Congestion present. Right Sinus: No maxillary sinus tenderness or frontal sinus tenderness. Left Sinus: No maxillary sinus tenderness or frontal sinus tenderness. Mouth/Throat: Mouth: Mucous membranes are moist. Pharynx: Posterior oropharyngeal erythema present. No oropharyngeal exudate. Eyes: Extraocular Movements: Extraocular movements intact. Conjunctiva/sclera: Conjunctivae normal. Pupils: Pupils are equal, round, and reactive to light. Cardiovascular: Rate and Rhythm: Normal rate and regular rhythm. Heart sounds: No murmur heard. Pulmonary: Effort: No respiratory distress. Breath sounds: No wheezing, rhonchi or rales. Musculoskeletal: Cervical back: Neck supple. Lymphadenopathy: Cervical: No cervical adenopathy. Neurological: Mental Status: She is alert. {ASSESSMENT/PLAN: 1. Sore throat - ICD9: 462, ICD10: J02.9 - STREP A MOLECULAR (POC) - negative - suspect viral URI - Supportive care treatment with rest, cold medicine, and analgesia. - Viral URI contagiousness recommendations: avoid exposure to others until fever free for 24 hours without fever reducing medication. An additional 5 days of limiting contact can include covering coughs/masking, social distance, and hand hygiene. Deni Adams MD Differential Diagnoses - viral URI is more likely for the following reason(s): suggested by HANDP - seasonal allergies - streptococcal pharyngitis is less likely for the following reason(s): laboratory studies not suggestive Procedures Allergies As of Date: 02/16/2025 Noted Allergy Reaction SEASONAL ALLERGIES 11/03/2023 16 - Unknown Date Reviewed: 02/16/2025 Reviewed by: Manda Lora MA - Fully Assessed Reason for Visit: Sore Throat [200] Cmt: X 2 days Primary Visit Diagnosis:Sore throat [J02.9] Order(s):STREP A MOLECULAR (POC) [3326523] Order #: [id number] #:[id number] Prescriptions as of 02/16/2025 - sulfamethoxazole-trime thoprim (BACTRIM DS) 800-160 mg per tablet Take 1 tablet by mouth every 12 hours. - pantoprazole DR (PROTONIX) 40 mg tablet Take 1 tablet by mouth once daily. - DULoxetine (CYMBALTA) 20 mg capsule Take 1 capsule by mouth once daily. - ferrous sulfate 325 mg (65 mg iron) tablet Take 1 tablet by mouth once daily. - budesonide-formoterol (SYMBICORT) 80-4.5 mcg/actuation inhaler 1-2 puffs every 4 hours as needed for cough, wheezing, chest tightness or shortness of breath. Use with spacer. Rinse mouth out after use. Maximum of 12 puffs per day - ergocalciferol 50,000 unit capsule (VITAMIN D2, DRISDOL) Take 1 capsule by mouth two times a week. TO BE TAKEN ORALLY DIRECTED. Take 1 tablet by mouth twice weekly q3ehroz, then decrease to 1 tablet weekly. - tretinoin (RETIN-A) 0.1 % cream Apply to affected area daily at bedtime. - montelukast (SINGULAIR) 10 mg tablet Take 1 tablet by mouth daily at bedtime. - albuterol HFA (PROVENTIL HFA, VENTOLIN HFA) 90 mcg/actuation inhaler Inhale 2 Puffs as instructed every 4 hours as needed. Problem List As Of Date 02/16/2025 Noted Resolved Allergic rhinitis [J30.9] 12/21/2012 Hydradenitis [L73.2] 12/04/2017 Other acne [L70.8] 12/04/2017 Level of Service: OFFICE/OUTPATIENT ESTABLISHED LOW [facility] 20 MIN [70996] Letter Text Encounter Status:Closed by DENI ADAMS on 02/16/25 Normal [facility] STREP A MOLECULAR (POC)on Procedural Control Valid [facility] Strep A (POCT) Negative Negative [facility] Gastroenterology Visit Repor ton 02-07-2025 Gastroenterology Visit Report [facility] [address] [place] [address] OFFICE VISIT Date of Service: 02/07/25 MR#: [id number] Acct: [id number] Name: CHICHO WOOD Rep #: [id number] : 2000 Provider: BURTON estevez Age/Sex: 25/F Location[facility] Status: Signed Intake Vital Signs 11/26/24 12:01 Height 5 ft Intake Visit Reasons: DISCUSS MEDICATION PANTOPROZOLE Allergies No Known Allergies Allergy (Verified 02/07/25 15:42) Medications ???Medication ???Instructions ???Recorded ???Confirmed ???Type albuterol sulfate 90 mcg/actuation 2 puff inhalation Q4H PRN PRN 02/07/25 History aerosol inhaler shortness of breath or wheezing ergocalciferol (vitamin D2) 1,250 1,250 mcg PO .TWICE WEEKLY 02/07/25 History mcg (50,000 unit) capsule ferrous sulfate 325 mg (65 mg 325 mg PO DAILY 11/22/24 02/07/25 History iron) tablet magnesium 250 mg tablet 250 mg PO DAILY 11/22/24 02/07/25 History pantoprazole 40 mg tablet,delayed 40 mg PO DAILY 11/22/24 02/07/25 History release PFSH Medical History Wears glasses Hidradenitis Gastric reflux Non-smoker Chest pain Anemia GERD (gastroesophageal reflux disease) Asthma Social History Smoking Status: Former smoker alcohol intake: never substance use type: does not use HPI HPI Details: CHICHO WOOD, is a 25 F who presents to the office today for FU. PMHx:asthma, hidradenitis suppurative, anemia, hypothyroid, Grave's, former smoker, no etoh. 10.01.24 OV establishment with [facility] for complaints of treatment failure of GERD and possible stomach ulcer. She had ER visits:09/04/24-pantopr4 0 qd to omepr20 qd+sucralfate q6h+KCL; gastritis GERD; -abd pain, KCL+dicyclomine+ondans etron 07/23/24-food poisoning, cipro+ondansetron; c/o constant reflux, water brash. Today, she reports some occasional difficulty with swallowing. She mentions that at night, she struggles to swallow her own saliva when lying flat. She continues to have reflux and heartburn, worse at bedtime. She has adjusted her eating times so that her last meal is at least an hour or two before bed and she avoids spicy foods and red sauces. She describes the heartburn as midsternal and epigastric that goes straight through to her back. She also has some abdominal bloating but is unsure of cause. She reports previous bouts of constipation but has increased her fiber and fluid intake so that she moves them daily without straining. She denies difficulty chewing, excessive gas, lower abdominal pain, cramping, diarrhea, hematochezia, and melena. She reports taking pantoprazole in the AM and at bedtime. She states that she finished her sucralfate and ciprofloxacin treatments from the ER visits. Differential diagnoses include: PUD, GERD with treatment failure on omeprazole and pantoprazole, erosive esophagitis, gastritis. Discussed care plan with her and her mother. Enforced taking PPI 30 minutes before breakfast and dinner and making last meal 3 hours before bedtime. Continue pantoprazole 40mg PO BID, take famotidine 40mg QHS; schedule EGD to investigate esophageal/gastric mucosa. 11.26.24 EGD: - Non-severe reflux esophagitis with no bleeding. Biopsied.- No gross lesions in the entire stomach. Biopsied.- No gross lesions in the entire examined duodenum. Biopsied. PATHOLOGY Small bowel biopsy: Normal villous architecture with mildly increased intraepithelial lymphocytes - recommended celiac work-up. Oxyntic mucosa with mild chronic inflammation. Esophagus biopsy: Squamous mucosa with reactive changes. Columnar mucosa negative for goblet cell metaplasia. 12.28.24 OV Reports heartburn is much improved. Continues taking PPI and H2a as prescribed. Discussed pathology report with her and her mother. Reviewed testing for food allergies and celiac disease. Discussed gluten avoidance and gluten-free options. 02.07.25 OV Reports continued improvement to HB symptoms while taking pantoprazole 40mg daily. She states that if she does eat 30minutes after taking the PPI, she will have worsening symptoms. She has been working hard to eliminate gluten from her diet, but does notice if she misses a food ingredient and accidentally ingests gluten, she will get bloated and have abdominal pains. She has tried multiple times to get celiac labs drawn at [facility] satellite lab, but they tell her that have not received our orders via fax. ROS Const Constitutional: Positive for fatigue; No fever(s) or weight change ENT ENT: Positive for difficulty swallowing Gastro GI: Positive for abdominal pain, bloating, difficulty swallowing and excessive flatus; No belching, change in bowel habits, change in stool character, coffee ground (more content not included)... Normal [facility] BLOOD TB SCREENon 01-17-2025 M. tuberculosis tuberculin stim IFN-g Ql (Bld) Negative Normal [facility] Comment on above: Order Comment: Speci men Type: BLOOD SPECIMEN Ordering Facility: [facility] Address: [facility] [place] [address] Performed By: #### 3 05227, #### [facility] CLIA [id number] [address] [place] [address] [place] MITOGEN MINUS NIL >9.99 Normal >=0.50 [facility] Comment on above: Order Comment: Speci men Type: BLOOD SPECIMEN Ordering Facility: [facility] Address: [place] [address] Performed By: #### 3 227, #### [facility] CLIA [id number] [address] [place] [address] [place] TB GAMMA INTERPRETATION Infection with M . tuberculosis complex is unlikely. If latent tuberculosis infection is highly suspected, a negative result does not rule out the infection. Specimens from immunocompromised patients and those <5 years of age may show false negative results. In case of a contact investigation, please repeat 8-12 weeks after a known exposure. Normal [facility] Comment on above: Order Comment: Speci men Type: BLOOD SPECIMEN Ordering Facility: [facility] Address: [address] [place] [address] Performed By: #### 3 522-02, 1987-12, #### [facility] CLIA [id number] [address] [place] [address] [place] TB NIL 0.01 IU/mL Normal <=8.00 [facility] Comment on above: Order Comment: Speci men Type: BLOOD SPECIMEN Ordering Facility: [facility] Address: [address] [place] [address] Performed By: #### 3 522-02, 1987-12, #### [facility] CLIA [id number] [address] [place] [address] [place] TB1 AG MINUS NIL 0.00 IU/mL Normal <0.35 [facility] Comment on above: Order Comment: Speci men Type: BLOOD SPECIMEN Ordering Facility: [facility] Address: [address] [place] [address] Performed By: #### 3 522-02, 1987-12, #### [facility] CLIA [id number] [address] [place] [address] [place] TB2 AG MINUS NIL 0.00 IU/mL Normal <0.35 [facility] Comment on above: Order Comment: Speci men Type: BLOOD SPECIMEN Ordering Facility: [facility] Address: [address] [place] [address] Performed By: #### 3 22, 1987-12, #### [facility] CLIA [id number] [address] [id number] [address] [place] Basic metabolic 2000 panelon 01-17-2025 Anion gap [Moles/Vol] 14 mmol/L Normal 8-[address] [facility] Comment on above: Order Comment: Speci men Type: BLOOD SPECIMENOrdering Facility: [facility] Address: [address] [place] [address] Performed By: #### 2 4320-, 1987-12, 54101-1, 76046-9 ####[facility] [id number] [address] [address] [place] Calcium [Mass/Vol] 9.4 mg/dL Normal 8.5-10.2 [facility] Comment on above: Order Comment: Speci men Type: BLOOD SPECIMENOrdering Facility: [facility] Address: [address] [place] [address] Performed By: #### 2 4320-, 1987-12, , ####[facility] [id number] [place] [id number] [place] Chloride [Moles/Vol] 103 mmol/L Normal 98-107 [facility] Comment on above: Order Comment: Speci men Type: BLOOD SPECIMENOrdering Facility: [facility] Address: [address] [place] [address] Performed By: #### 2 4320-2, 1987-12, 22517-5, 98920-8 ####[facility] [id number] [address] [address] [place] CO2 [Moles/Vol] 20 mmol/L Low 22-30 [facility] Comment on above: Order Comment: Speci men Type: BLOOD SPECIMENOrdering Facility: [facility] Address: [address] [place] [address] Performed By: #### 2 4320-2, 1987-12, 12726-8, 71865-7 ####[facility] [id number] [address] [address] [place] Creatinine [Mass/Vol] 0.71 mg/dL Normal 0.58-0.[address] [facility] Comment on above: Order Comment: Shruthi pyle Type: BLOOD SPECIMENOrdering Facility: [facility] Address: [address], [place] [address] Performed By: #### 2 4320-, 1987-12, , ####[facility] [id number] [address] [address] [place] Creatinine and Glomerular filtration rate.predicted panel (S/P/Bld) 120 mL/min/1.73m??? Normal >=60 [facility] Comment on above: Order Comment: Shruthi pyle Type: BLOOD SPECIMENOrdering Facility: [facility] Address: [facility] [address], [place] [address] Result Comment: Daylin mated Glomerular Filtration Rate (eGFR) is calculated using the 2020 CKD-EPI creatinine equation. This equation utilizes serum creatinine, sex, and age as parameters. The creatinine assay has traceable calibration to isotope dilution-mass spectrometry. Refer to KDIGO guidelines for clinical interpretation. In patients with unstable renal function, e.g. those with acute kidney injury, the eGFR may not accurately reflect actual GFR. Performed By: #### 2 4320-, 1987-12, , ####[facility] [id number] [address] [address] [place] Glucose [Mass/Vol] 86 mg/dL Normal 74-99 [facility] Comment on above: Order Comment: Shruthi pyle Type: BLOOD SPECIMENOrdering Facility: [facility] Address: [address], [place] [address] Result Comment: The [place] Diabetes Association (ADA) provides guidance for cutoff values for fasting glucose and random glucose. The ADA defines fasting as no caloric intake for at least 8 hours. Fasting plasma glucose results between 100 to 125 mg/dL indicate increased risk for diabetes (prediabetes). Fasting plasma glucose results greater than or equal to 126 mg/dL meet the criteria for diagnosis of diabetes. In the absence of unequivocal hyperglycemia, results should be confirmed by repeat testing. In a patient with classic symptoms of hyperglycemia or hyperglycemic crisis, random plasma glucose results greater than or equal to 200 mg/dL meet the criteria for diagnosis of diabetes. Reference: Standards of Medical Care in Diabetes 2016, [place] [employer] Association. Diabetes Care. 2016.39(Suppl 1). Performed By: #### 2 4320-09, 1987-12, , ####[facility] [id number] [address] [address] [place] Potassium [Moles/Vol] 3.9 mmol/L Normal 3.7-5.[address] [facility] Comment on above: Order Comment: Speci men Type: BLOOD SPECIMENOrdering Facility: [facility] Address: [address] [place] [address] Performed By: #### 2 4320-09, 1987-12, , ####[facility] [id number] [address] [address] [place] Sodium [Moles/Vol] 137 mmol/L Normal 136-144 [facility] Comment on above: Order Comment: Speci men Type: BLOOD SPECIMENOrdering Facility: [facility] Address: [address] [place] [address] Performed By: #### 2 4320-09, 1987-12, , ####[facility] [id number] [address] [address] [place] Urea nitrogen [Mass/Vol] 10 mg/dL Normal 7-21 [facility] Comment on above: Order Comment: Speci men Type: BLOOD SPECIMENOrdering Facility: [facility] Address: [address] [place] [address] Performed By: #### 2 4320-09, 1987-12, , ####[facility]IA [id number] [place] [address] [place] CBC W Auto Differential pane l (Bld)on 01-17-2025 Basophils (Bld) [#/Vol] 0.08 10*3/uL Normal <0.11 [facility] Comment on above: Order Comment: Speci men Type: BLOOD SPECIMEN Ordering Facility: [facility] Address: [address] [place] [address] Performed By: #### 3 227, 1987-12, #### [facility] CLIA [id number] [address] [place] [address] [place] Basophils/100 WBC (Bld) 0.9 % Normal [facility] Comment on above: Order Comment: Speci men Type: BLOOD SPECIMEN Ordering Facility: [facility] Address: [address] [place] [address] Performed By: #### 3 7, 1987-12, #### [facility] CLIA [id number] [address] [place] [address] [place] Differential cell count method Nom (Bld) Auto Normal [facility] Comment on above: Order Comment: Speci men Type: BLOOD SPECIMEN Ordering Facility: [facility] Address: [address] [place] [address] Performed By: #### 3 227, 1987-12, #### [facility] CLIA [id number] [address] [place] [address] [place] Eosinophils (Bld) [#/Vol] 0.20 10*3/uL Normal <0.46 [facility] Comment on above: Order Comment: Speci men Type: BLOOD SPECIMEN Ordering Facility: [facility] Address: [address] [place] [address] Performed By: #### 3 227, 1987-12, #### [facility] CLIA [id number] [address] [address] [place] Eosinophils/100 WBC (Bld) 2.2 % Normal [facility] Comment on above: Order Comment: Speci men Type: BLOOD SPECIMEN Ordering Facility: [facility] Address: [address] [place] [address] Performed By: #### 3 7, 1987-12, #### [facility] CLIA [id number] [address] [address] [place] Erythrocyte distribution width (RBC) [Ratio] 14.3 % Normal 11.5-15.0 [facility] Comment on above: Order Comment: Speci men Type: BLOOD SPECIMEN Ordering Facility: [facility] Address: [address] [place] [address] Performed By: #### 3 522-02, 1987-12, #### [facility] CLIA [id number] [address] [place] [address] [place] Hematocrit (Bld) [Volume fraction] 36.4 % Normal 36.0-46.0 [facility] Comment on above: Order Comment: Speci men Type: BLOOD SPECIMEN Ordering Facility: [facility] Address: [address] [place] [address] Performed By: #### 3 522-02, 1987-12, #### [facility] CLIA [id number] [address] [place] [address] [place] Hemoglobin (Bld) [Mass/Vol] 11.3 g/dL Low 11.5-15.5 [facility] Comment on above: Order Comment: Speci men Type: BLOOD SPECIMEN Ordering Facility: [facility] Address: [address] [place] [address] Performed By: #### 3 227, 1987-12, #### [facility] CLIA [id number] [address] [address] [place] Immature granulocytes (Bld) [#/Vol] 0.08 10*3/uL Normal <0.10 [facility] Comment on above: Order Comment: Speci men Type: BLOOD SPECIMEN Ordering Facility: [facility] Address: [address] [place] [address] Performed By: #### 3 227, 1987-12, #### [facility] CLIA [id number] [address] [address] [place] Immature granulocytes/100 WBC (Bld) 0.9 % Normal [facility] Comment on above: Order Comment: Speci men Type: BLOOD SPECIMEN Ordering Facility: [facility] Address: [address] [place] [address] Performed By: #### 3 227, 1987-12, #### [facility] CLIA [id number] [address] [address] [place] Lymphocytes (Bld) [#/Vol] 2.08 10*3/uL Normal 1.00-4.00 [facility] Comment on above: Order Comment: Speci men Type: BLOOD SPECIMEN Ordering Facility: [facility] Address: [address] [place], [place] [address] [address] Performed By: #### 3 22, 1987-12, #### [facility] CLIA [id number] [address] [address] [place] Lymphocytes/100 WBC (Bld) 23.0 % Normal [facility] Comment on above: Order Comment: Speci men Type: BLOOD SPECIMEN Ordering Facility: [facility] Address: [address] [place] [address] Performed By: #### 3 05227, 1987-12, #### [facility] CLIA [id number] [address] [place] [address] [place] MCH (RBC) [Entitic mass] 26.3 pg Normal 26.0-34.0 [facility] Comment on above: Order Comment: Speci men Type: BLOOD SPECIMEN Ordering Facility: [facility] Address: [address] [place] [address] Performed By: #### 3 7, 1987-12, #### [facility] CLIA [id number] [address] [place] [address] [place] MCHC (RBC) [Mass/Vol] 31.0 g/dL Normal 30.5-36.[address] [facility] Comment on above: Order Comment: Speci men Type: BLOOD SPECIMEN Ordering Facility: [facility] Address: [address] [place] [address] Performed By: #### 3 522-02, 1987-12, #### [facility] CLIA [id number] [address] [place] [address] [place] MCV (RBC) [Entitic vol] 84.8 fL Normal 80.0-100.[address] [facility] Comment on above: Order Comment: Speci men Type: BLOOD SPECIMEN Ordering Facility: [facility] Address: [address] [place] [address] Performed By: #### 3 522-02, 1987-12, #### [facility] CLIA [id number] [address] [place] [address] [place] Monocytes (Bld) [#/Vol] 0.44 10*3/uL Normal <0.87 [facility] Comment on above: Order Comment: Speci men Type: BLOOD SPECIMEN Ordering Facility: [facility] Address: [address] [place] [address] Performed By: #### 3 227, 1987-12, #### [facility] CLIA [id number] [address] [address] [place] Monocytes/100 WBC (Bld) 4.9 % Normal [facility] Comment on above: Order Comment: Speci men Type: BLOOD SPECIMEN Ordering Facility: [facility] Address: [address] [place] [address] Performed By: #### 3 7, 1987-12, #### [facility] CLIA [id number] [address] [address] [place] Neutrophils (Bld) [#/Vol] 6.15 10*3/uL Normal 1.45-7.50 [facility] Comment on above: Order Comment: Speci men Type: BLOOD SPECIMEN Ordering Facility: [facility] Address: [address] [place] [address] Performed By: #### 3 522-02, 1987-12, #### [facility] CLIA [id number] [address] [address] [place] Neutrophils/100 WBC (Bld) 68.1 % Normal [facility] Comment on above: Order Comment: Speci men Type: BLOOD SPECIMEN [facility]ing Facility: [facility] Address: [address] [place] [address] Performed By: #### 3 227, 1987-12, #### [facility] CLIA [id number] [address] [address] [place] Nucleated RBC (Bld) [#/Vol] 10*3/uL Normal <0.01 [facility] Comment on above: Order Comment: Speci men Type: BLOOD SPECIMEN Ordering Facility: [facility] Address: [address] [place], [place] [address] Performed By: #### 3 05227, 1987-12, #### [facility] CLIA [id number] [address] [place] [address] [place] Nucleated RBC/100 WBC (Bld) [Ratio] 0.0 /100 WBC Normal [facility] Comment on above: Order Comment: Speci men Type: BLOOD SPECIMEN Ordering Facility: [facility] Address: [address] [place] [address] Performed By: #### 3 0522-7, 1987-12, #### [facility] CLIA [id number] [address] [place] [address] [place] Platelet mean volume (Bld) [Entitic vol] 11.5 fL Normal 9.0-12.7 [facility] Comment on above: Order Comment: Speci men Type: BLOOD SPECIMEN Ordering Facility: [facility] Address: [address] [place] [address] Performed By: #### 3 05227, 1987-12, #### [facility] CLIA [id number] [address] [place], [place] [address] [place] Platelets (Bld) [#/Vol] 349 10*3/uL Normal 150-400 [facility] Comment on above: Order Comment: Speci men Type: BLOOD SPECIMEN Ordering Facility: [facility] Address: [address] [place] [address] Performed By: #### 3 05227, 1987-12, #### [facility] CLIA [id number] [address] [place] [address] [place] RBC (Bld) [#/Vol] 4.29 10*6/uL Normal 3.90-5.20 [facility] Comment on above: Order Comment: Speci men Type: BLOOD SPECIMEN Ordering Facility: [facility] Address: [address] [place] [address] Performed By: #### 3 0522-7, 1987-12, #### [facility] CLIA [id number] [address] [address] [place] WBC (Bld) [#/Vol] 9.03 10*3/uL Normal 3.70-11.00 [facility] Comment on above: Order Comment: Speci men Type: BLOOD SPECIMEN Ordering Facility: [facility] Address: [facility] [place] [address] Performed By: #### 3 0522-7, 1987-12, #### [facility] CLIA [id number] [address] [place] [id number] [place] CRP SerPl HS-mCncon 01-18-20 CRP High sensitivity method [Mass/Vol] 5.3 mg/L High <3.1 [facility] Comment on above: Order Comment: Speci men Type: BLOOD SPECIMENOrdering Facility: [facility] Address: [facility] [address], [place] [id number] Result Comment: hsCR P < 1.0 mg/L, relative risk is low hsCRP 1.0-3.0 mg/L, relative risk is average hsCRP > 3.0 mg/L, relative risk is high Reference: Lux TA, Denise GA, Armen RW, et al. Markers of Inflammation and Cardiovascular Disease. Application to Clinical and Public Health Practice. A Statement for Healthcare Professionals from the Centers for Disease Control and Prevention and the [place] [employer]. Circulation 2003;107:499-511. Performed By: #### 2 432-2, 1987-12, , ####[facility] [id number] [address] [address] [place] CRP SerPl-mCncon 01-17-2025 CRP [Mass/Vol] 0.6 mg/dL Normal <0.9 [facility] Comment on above: Order Comment: Speci men Type: BLOOD SPECIMENOrdering Facility: [facility] Address: [facility] [address] [place] [id number] Performed By: #### 2 4320-09, 1987-12, , ####[facility] [id number] [place] [address] [place] ESR Westergren method (Bld) [Velocity]on 01-17-2025 ESR (Bld) [Velocity] 48 mm/h High 0-[address] [facility] Comment on above: Order Comment: Speci edenilson Type: BLOOD SPECIMEN Ordering Facility: [facility] Address: [address] [place] [address] Performed By: #### 3 0522-7, 1987-12, #### [facility] CLIA [id number] [address] [place] [address] [place] HBV DNA Qn (S)on 01-17-2025 HBV DNA SHERMAN+probe Ql Not detected Normal Not detected [facility] Comment on above: Order Comment: Shruthi pyle Type: BLOOD SPECIMEN [facility]ing Facility: [facility] Address: [address] [place] [address] Performed By: #### 2 8, 1987-12, 2132-04 #### [facility] CLIA [id number] [address] [place] [facility] HBV surface Ab Ql (S)on 01-02 HBV surface Ab Qn (S) 13.12 mIU/mL Normal [facility] Comment on above: Order Comment: Shruthi pyle Type: BLOOD SPECIMEN Ordering Facility: [facility] Address: [address] [place] [address] Result Comment: <8 m IU/mL: No serological evidence of immunity to Hepatitis B Virus. >/= 8 to <12 mIU/mL: No serological evidence of immunity to Hepatitis B Virus. >/= 12 mIU/mL: Consistent with serological evidence of immunity to Hepatitis B Virus. Performed By: #### 2 4328, 1987-12, 2132-04 #### [facility] CLIA [id number] [address] [place] HBV surface Ab Ser Qlon 01-02 HBV surface Ab Ql (S) Positive Normal [facility] Comment on above: Order Comment: Speci edenilson Type: BLOOD SPECIMEN Ordering Facility: [facility] Address: [address] [place] [address] Result Comment: Cons istent with serological evidence of immunity to Hepatitis B Virus. Performed By: #### 2 4328, 1987-12, 2132-04 #### [facility] CLIA [id number] [address] [place] HBV surface Ag Ser Qlon 01-02 HBV surface Ag Ql (S) Negative Normal Negative [facility] Comment on above: Order Comment: Shruthi pyle Type: BLOOD SPECIMEN Ordering Facility: [facility] Address: [address] [place] [address] Performed By: #### 2 4328, 1987-12, 2132-04 #### [facility] CLIA [id number] [address] [place] HCV Ab Ser Qlon 01-17-2025 HCV Ab Ql (S) Negative Normal Negative [facility] Comment on above: Order Comment: Shruthi pyle Type: BLOOD SPECIMEN Ordering Facility: [facility] Address: [facility] [address], [place] [address] Result Comment: The result suggests no evidence of infection with Hepatitis C virus. Should recent infection be suspected, repeat testing may be considered 4-6 weeks after this draw. Performed By: #### 3 05227, 1987-12, #### [facility] CLIA [id number] [address] [place], [place] [address] [address] [place] Hepatic function 2000 panelo n 01-17-2025 Albumin [Mass/Vol] 4.3 g/dL Normal 3.9-4.9 [facility] Comment on above: Order Comment: Shruthi pyle Type: BLOOD SPECIMENOrdering Facility: [facility] Address: [address], [place] [address] Performed By: #### 2 43208-05, 1987-12, 02085-9, ####[facility] [id number] [address] [address] [place] ALP [Catalytic activity/Vol] 68 U/L Normal 34-123 [facility] Comment on above: Order Comment: Speci men Type: BLOOD SPECIMENOrdering Facility: [facility] Address: [address] [place], [place] [address] [address] Performed By: #### 2 4320-, 1987-12, 37305-2, ####[facility]IA [id number] [address] [address] [place] ALT [Catalytic activity/Vol] 10 U/L Normal 7-38 [facility] Comment on above: Order Comment: Speci men Type: BLOOD SPECIMENOrdering Facility: [facility] Address: [address] [place], [place] [address] [address] Performed By: #### 2 4320-09, 1987-12, 41322-9, ####[facility] LABIA [id number] [address] [address] [place] AST [Catalytic activity/Vol] 16 U/L Normal 13-35 [facility] Comment on above: Order Comment: Speci men Type: BLOOD SPECIMENOrdering Facility: [facility] Address: [facility] [place] [address] Performed By: #### 2 4320-09, 1987-12, 65405-9, ####[facility] LABIA [id number] [address] [address] [place] Bilirubin [Mass/Vol] 0.3 mg/dL Normal 0.2-1.3 [facility] Comment on above: Order Comment: Speci men Type: BLOOD SPECIMENOrdering Facility: [facility] Address: [address] [place], [place] [address] [address] Performed By: #### 2 4320-09, 1987-12, 51845-6, 20914-3 ####[facility] LABCLIA [id number] [address] [address] [place] Bilirubin.conjugated [Mass/Vol] 0.1 mg/dL Normal <0.3 [facility] Comment on above: Order Comment: Speci men Type: BLOOD SPECIMENOrdering Facility: [facility] Address: [address] [place] [address] Performed By: #### 2 432-2, 1987-12, 86730-9, 83520-6 ####[facility] LABIA [id number] [address] [address] [place] Protein [Mass/Vol] 8.4 g/dL High 6.3-8.0 [facility] Comment on above: Order Comment: Speci men Type: BLOOD SPECIMENOrdering Facility: [facility] Address: [address] [place], [place] [address] [id number] Performed By: #### 2 43208-05, 1987-12, , ####[facility] LABIA [id number] [address] [address] [place] Gastroenterology Visit Repor ton 12-28-2024 Gastroenterology Visit Report [facility] [address] [place] [address] OFFICE VISIT Date of Service: 12/28/24 MR#: [id number] Acct: [id number] Name: CHICHO WOOD Rep #: [id number] : 2000 Provider: BURTON estevez Age/Sex: 24/F Location: [email or web address] Status: Signed Intake Vital Signs 11/26/24 12:01 Height 5 ft Intake Visit Reasons: FU Chief Complaint: f/u ER, GERD Allergies No Known Allergies Allergy (Verified 12/28/24 14:42) Medications ???Medication ???Instructions ???Recorded ???Confirmed ???Type albuterol sulfate 90 mcg/actuation 2 puff inhalation Q4H PRN PRN 12/28/24 History aerosol inhaler shortness of breath or wheezing ergocalciferol (vitamin D2) 1,250 1,250 mcg PO .TWICE WEEKLY 12/28/24 History mcg (50,000 unit) capsule ferrous sulfate 325 mg (65 mg 325 mg PO DAILY 11/22/24 12/28/24 History iron) tablet magnesium 250 mg tablet 250 mg PO DAILY 11/22/24 12/28/24 History pantoprazole 40 mg tablet,delayed 40 mg PO DAILY 11/22/24 12/28/24 History release Nurse's Note: Patient is here for a ER f/u. She was having a lot of issues with her stomach and was being treated for a stomach ulcer. Then she had a upper scope the 26 of November. She states her symptoms with her gut aren't as intense. Has some soreness and issues with the arm her IV was in. No nausea, vomiting. Wondering if she should be taking pantoprazole nursing home or if she should switch to something else. Has not had results yet. [facility] Medical History Wears glasses Hidradenitis Gastric reflux Non-smoker Chest pain Anemia GERD (gastroesophageal reflux disease) Asthma Social History Smoking Status: Former smoker alcohol intake: never substance use type: does not use HPI HPI Chief Complaint: f/u ER, GERD Details: CHICHO WOOD, is a 24 F who presents to the office today for FU. PMHx:asthma, hidradenitis supurative, anemia, hypothyroid, Grave's, fmr smkr, no etoh. 10.01.24 OV establishment with [facility] for complaints of treatment failure of GERD and possible stomach ulcer. She had ER visits:09/04/24-pantopr4 0 qd to omepr20 qd+sucralfate q6h+KCL; gastritis GERD; 07/27/24-abd pain, KCL+dicyclomine+ondans etron 07/23/24-food poisoning, cipro+ondansetron; c/o constant reflux, water brash. Today, she reports some occasional difficulty with swallowing. She mentions that at night, she struggles to swallow her own saliva when lying flat. She continues to have reflux and heartburn, worse at bedtime. She has adjusted her eating times so that her last meal is at least an hour or two before bed and she avoids spicy foods and red sauces. She describes the heartburn as midsternal and epigastric that goes straight through to her back. She also has some abdominal bloating but is unsure of cause. She reports previous bouts of constipation but has increased her fiber and fluid intake so that she moves them daily without straining. She denies difficulty chewing, excessive gas, lower abdominal pain, cramping, diarrhea, hematochezia, and melena. She reports taking pantoprazole in the AM and at bedtime. She states that she finished her sucralfate and ciprofloxacin treatments from the ER visits. Differential diagnoses include: PUD, GERD with treatment failure on omeprazole and pantoprazole, erosive esophagitis, gastritis. Discussed care plan with her and her mother. Enforced taking PPI 30 minutes before breakfast and dinner and making last meal 3 hours before bedtime. Continue pantoprazole 40mg PO BID, take famotidine 40mg QHS; schedule EGD to investigate esophageal/gastric mucosa. 11.26.24 EGD: - Non-severe reflux esophagitis with no bleeding. Biopsied.- No gross lesions in the entire stomach. Biopsied.- No gross lesions in the entire examined duodenum. Biopsied. PATHOLOGY Small bowel biopsy: Normal villous architecture with mildly increased intraepithelial lymphocytes - recommended celiac work-up. Oxyntic mucosa with mild chronic inflammation. Esophagus biopsy: Squamous mucosa with reactive changes. Columnar mucosa negative for goblet cell metaplasia. 12.28.24 OV Reports heartburn is much improved. Continues taking PPI and H2a as prescribed. Discussed pathology report with her and her mother. Reviewed testing for food allergies and celiac disease. Discussed gluten avoidance and gluten-free options. ROS Const Constitutional: Positive for headache(s); No chills, fatigue, fever(s) or weight change Eyes Eyes: No blurry vision or change in vision ENT ENT: Positive for headache(s) and difficulty swallowing; No abnormal hearing Resp Respiratory: No cough Cardio Cardiology: No chest pain at rest, chest pain with exertion or leg pain with (more content not included)... Normal [facility] EGD Reporton 11-26-2024 EGD Report [facility] Medical Records Department [address] [place] [address] EGD Report MR#: [id number] Acct: [id number] Name: CHICHO WOOD Rep #: [id number] : 2000 24 From: Gabriel Larios DO PCP: Dr. Ce Conner MD Status:REG [facility] Patient Name: Chicho Wood Procedure Date: 11/26/2024 1:15 PM Date of : 2000 Age: 24 Procedure: Upper GI endoscopy Indications: Epigastric abdominal pain, Heartburn Providers: Gabriel Larios DO Referring MD: Ce Conner Medicines: Monitored Anesthesia Care Patient Profile: This is a 24 year old female. Refer to note in patient chart for documentation of history and physical. Patient has symptoms of acute epigastric abdominal pain, chronic chest pain, chronic dyspepsia, acute heartburn and chronic nausea. Complications: No immediate complications. Procedure: Pre-Anesthesia Assessment: - Prior to the procedure, a History and Physical was performed, and patient medications and allergies were reviewed. The patient is competent. The risks and benefits of the procedure and the sedation options and risks were discussed with the patient. All questions were answered and informed consent was obtained. Patient identification and proposed procedure were verified by the physician in the pre-procedure area. Mental Status Examination: alert and oriented. Airway Examination: normal oropharyngeal airway and neck mobility. Respiratory Examination: clear to auscultation. CV Examination: normal. Prophylactic Antibiotics: The patient does not require prophylactic antibiotics. Prior Anticoagulants: The patient has taken no anticoagulant or antiplatelet agents except for NSAID medication. ASA Grade Assessment: II - A patient with mild systemic disease. After reviewing the risks and benefits, the patient was deemed in satisfactory condition to undergo the procedure. The anesthesia plan was to use monitored anesthesia care (MAC). Immediately prior to administration of medications, the patient was re-assessed for adequacy to receive sedatives. The heart rate, respiratory rate, oxygen saturations, blood pressure, adequacy of pulmonary ventilation, and response to care were monitored throughout the procedure. The physical status of the patient was re-assessed after the procedure. After obtaining informed consent, the endoscope was passed under direct vision. Throughout the procedure, the patient's blood pressure, pulse, and oxygen saturations were monitored continuously. The Endoscope was introduced through the mouth, and advanced to the second part of duodenum. The upper GI endoscopy was accomplished without difficulty. The patient tolerated the procedure well. Scope In: 1:26:22 PM Scope Out: 1:29:53 PM Total Procedure Duration Time 0 hours 3 minutes 31 seconds Findings: Non-severe esophagitis with no bleeding was found 36 to 39 cm from the incisors. Biopsies were taken with a cold forceps for histology. Verification of patient identification for the specimen was done. Estimated blood loss was minimal. No gross lesions were noted in the entire examined stomach. Biopsies were taken with a cold forceps for histology. Verification of patient identification for the specimen was done. Estimated blood loss was minimal. Biopsies were taken with a cold forceps for Helicobacter pylori testing. Verification of patient identification for the specimen was done. Estimated blood loss was minimal. No gross lesions were noted in the entire examined duodenum. Biopsies were taken with a cold forceps for histology. Verification of patient identification for the specimen was done. Estimated blood loss was minimal. Impression: - Non-severe reflux esophagitis with no bleeding. Biopsied. - No gross lesions in the entire stomach. Biopsied. - No gross lesions in the entire examined duodenum. Biopsied. Recommendation: - Discharge patient to home. - Resume previous diet. - Continue present medications. - Await pathology results. Procedure Code(s): --- Professional --- 10012, Esophagogastroduodenos copy, flexible, transoral; with biopsy, single or multiple CPT copyright 2021 [employer]. All rights reserved. The codes documented in this report are preliminary and upon medical records coder review may be revised to meet current compliance requirements. Gabriel Larios DO 11/26/2024 1:37:29 PM This report has been signed electronically. Number of Addenda: 0 Note Initiated On: 11/26/2024 1:15 PM 11/26/24 1337 Date Gabriel Larios DO Cosigner Signature: Date (if indicated) CC: Dr. Ce Conner MD; Gabriel aLrios DO Date Dictated: 11/26/24 1315 Date Transcribed: Gum Machine Operator: PATSY Signed [facility] MR/POSTOP.ANEon 11-26-2024 MR/POSTOP.[facility] Medical Records Department [address] [place] [address] Anesthesia Postop Eval I 11/26/24 1330 MR#: [id number] Acct: [id number] Name: CHICHO WOOD Rep #: [id number] : 2000 From: Renny Paiz PCP: Dr. Ce Conner MD Status:REG [facility] Y Race: AA Location: [place] [address] Anesthesia: Postop Eval I Current Vital Signs Temperature: 97 F Pulse Rate: 81 Blood Pressure: 120/85 Respiratory Rate: 16 Pulse Ox: 100 Oxygen Delivery Method: Room Air Assessment Airway patent: Yes Spontaneous unlabored respirations: Yes Mental status: Awake and Calm nausea: No Vomiting: No Anesthesia Complication: No Fluid Hydration Crystalloid volume administer (ml): 500 Total IV fluid infused: 500 Progress Note Anesthesia document: Postop Eval 1 completed: Yes 11/26/241330 Date Renny Murdock Signature: Date CC: Signed [facility] MR/[id number] 11-26-2024 [facility] Medical Records Department [address] [place] [address] Anesthesia Postop Eval II 11/26/24 1636 MR#: [id number] Acct: [id number] Name: CHICHO WOOD Rep #: [id number] : 2000 From: Naif Chandra MD PCP: Dr. Ce Conner MD Status:DEP [facility] Y Race: AA Location: [place] Anesthesia Postop Eval I Sum Postop Eval Completion status Anesthesia document: Postop Eval 1 completed: Yes Anesthesia Postop Eval I Summary Anesthesia Postop Eval I Summary: Anesthesia Postop Eval I: Assessment Summary Airway patent Yes 11/26/24 13:31 [employer].MDOT Spontaneous unlabored Yes 11/26/24 13:31 [employer].MDOT respirations Mental status Awake,Calm 11/26/24 13:31 [employer].MDOT nausea No 11/26/24 13:31 [employer].MDOT Vomiting No 11/26/24 13:31 [employer].MDOT Anesthesia Postop Eval I: Fluid Summary Crystalloid volume administer 500 11/26/24 13:31 [employer]EL [employer].MDOT (ml) Colloids volume administered ( ml) Blood Product volume administered (ml) Total IV fluid infused 500 11/26/24 13:31 [employer].MDOT Anesthesia Postop Eval I: Summary Notes Anesthesia Complication No 11/26/24 13:31 [employer].MDOT Anesthesia Complication Comment: Post-operative progress note Anesthesia: Postop Eval II Evaluation Mental status: Awake and Calm Pain Level: 0 nausea: No Vomiting: No Complications Anesthesia Complication: No 11/26/24 1636 Date Naif Chandra MD Cosigner Signature: Date CC: Signed Normal [facility] ,Urineon 11-26-2024 Beta HCG ( test) Ql (U) Negative Normal [facility] Comment on above: Result Comment: Very dilute urine specimens, as indicated by a low specific gravity, may not contain scheduling representative levels of hCG. If is still suspected, a first morning urine specimen should be collected 48 hours later and tested. Performed By: #### L 400.7600 ####[facility] [address] [place], [address] Surgery Specimen Level Antonio 11-26-2024 Surgery Specimen Level IV ---- Patient Age/Sex Location Account Attending Physician ---- CHICHO WOOD EN [id number] Gabriel Larios DO ---- Specimen: [id number] Received: 11/26/24 Status: BESSIE Muniz Num: [id number] Spec Type: EGD BIOPSY Subm Dr: Gabriel Larios DO HEADER OPERATION: EGD and biopsy PRE-OP DIAGNOSIS: GERD and gastritis TISSUE SUBMITTED: A- Duodenum biopsy, B- Distal esophagus biopsy ---- MICROSCOPIC DIAGNOSIS A. Small bowel, duodenum, biopsy: Normal villous architecture with mildly increased intraepithelial lymphocytes - see note. Oxyntic mucosa with mild chronic inflammation. Note: This pattern of injury is etiologically nonspecific???and the differential diagnosis includes sensitivity to gluten and non-gluten proteins, small intestinal bacterial overgrowth, stasis related changes, infection, protein calorie malnutrition, tropical sprue, and medication injury (NSAIDs, Olmesartan / Benicar, Mycophenolic acid, Idelalisib, for example). If celiac disease is a clinical concern, additional clinical studies, such as tTG-IgA, are recommended. B. Esophagus, distal, biopsy: Squamous mucosa with reactive changes. Columnar mucosa negative for goblet cell metaplasia. MICROSCOPIC DESCRIPTION Slides are reviewed. GROSS DESCRIPTION A. Received in formalin in a container labeled with the patient's name, date of , and duodenum biopsy are multiple ware-pink fragments of mucosal tissue measuring 0.9 x 0.7 x 0.3 cm in aggregate. Submitted in toto in A1. B. Received in formalin in a container labeled with the patient's name, date of , and distal esophagus biopsy are multiple ware-pink fragments of mucosal tissue measuring 0.6 x 0.6 x 0.2 cm in aggregate. Submitted in toto in B1. [facility] 11-29-2024 [facility]:[id number] ---- Patient Age/Sex Location Account Attending Physician ---- CHICHO WOOD / EN [id number] Gabriel Friend, DO ---- Signed (signature on file) Dr. Keeley Will MD 12/03/24 1742 ---- Normal [facility] Comment on above: Performed By: #### P SUIV ####[facility] [address] [place], [place], [id number] Urine testOrdered By: George Saldana on 11-26-2024 HCG ( test) Ql (U) Negative [facility] Comment on above: Very dilute urine sp ecimens, as indicated by a low specificgravity, may not contain scheduling representative levels of hCG. If is still suspected, a first morning urinespecimen should be collected 48 hours later and tested. MR/PATMeg 11-23-2024 MR/PAT.[facility] Medical Records Department [address] [place] [address] PAT - Anesthesia 11/23/24 0842 MR#: [id number] Acct: [id number] Name: CHICHO WOOD Rep #: [id number] : 2000 From: Naif Chandra MD PCP: Dr. 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 When Was Last Pacemaker Check QUESTION #4 FULL TEXT: You/Your Family Experience fever (hyperthermia) with Anesthesia Last Oral Intake Last Oral intake: Last Oral Intake NPO since Meds taken in AM with sips of water? Meds patient instructed to take am of surgery PONV PONV - master pilot: PONV - master pilot Female Yes 11/22/24 14:27 HX of Motion Sickness No 11/22/24 14:27 HX of N/V After Surgery No 11/22/24 14:27 Non-Smoker Yes 11/22/24 14:27 Duration of Surgery greater No 11/22/24 14:27 than 60 minutes Number of Risk Factors 2 11/22/24 14:27 PONV Score Moderate Risk 11/22/24 14:27 Height Weight Height Weight: Anesthesia: Height Weight Height 5 ft 09/04/24 20:36 Respiratory Assessment Respiratory Assessment - master pilot: Respiratory Tract Infection Hx - master pilot Hx Respiratory Tract Infection No 11/22/24 14:27 STOP Sleep Apnea STOP Sleep Apnea - master pilot: STOP Sleep Apnea - master pilot Hx Hypertension No 11/22/24 14:27 Hx Sleep Apnea No 11/22/24 14:27 CPAP BIPAP Do you snore loudly (louder No 11/22/24 14:27 than talking or can be heard Do you often feel tired/ No 11/22/24 14:27 fatigued/ sleepy during daytime? Has anyone observed you stop No 11/22/24 14:27 breathing during sleep? STOP Results Negative 11/22/24 14:27 QUESTION #5 FULL TEXT : Do you snore loudly (louder than talking or can be heard through closed doors)? 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 Specify any problems Hx of Preganancy in last 3 No 11/22/24 14:27 Months Nurse Filling Out Transfusion VCHRISTIN 11/22/24 14:27 Questions: Date: 11/22/24 11/22/24 14:27 Time: 14:11/22/24 14:27 Patient unable to answer at this time (ie. confused, unrespo /Reproduction History /Reproductive History - master pilot: /Reproductive Hx- master pilot Hx Now No 11/22/24 14:27 Gestational Age (in weeks): EDC: Hx Hx Para Hx Section SAB No 11/22/24 14:27 [facility] Medical History (Updated 11/22/24 @ 14:27 by Marybeth Hernandez) Wears glasses Hidradenitis Gastric reflux Non-smoker Chest pain Anemia GERD (gastroesophageal reflux disease) Asthma Home Medications ???Medication ???Instructions ???Recorded ???Last Taken ???Type albuterol sulfate 90 mcg/actuation 2 puff inhalation Q4H PRN PRN Unknown History aerosol inhaler shortness of breath or wheezing ergocalciferol (vitamin D2) 1,250 1,250 mcg PO .TWICE WEEKLY Unknown History mcg (50,000 unit) capsule ferrous sulfate 325 mg (65 mg 325 mg PO DAILY 11/22/24 Unknown H istory iron) tablet magnesium 250 mg tablet 250 mg PO DAILY 11/22/24 Unknown H istory pantoprazole 40 mg tablet,delayed 40 mg PO DAILY 11/22/24 Unknown H istory release Allergy/AdvReac Type Severity Reaction Status Date / Time No Known Allergies Allergy Verified 11/22/24 14:19 Social History (Reviewed 02 (more content not included)... Normal [facility] CBC W Auto Differential pane l (Bld)on 11-19-2024 Basophils (Bld) [#/Vol] 0.1 10*3/uL [facility] Basophils/100 WBC (Bld) 1.1 % C [facility] Differential cell count method Nom (Bld) Auto [facility] Eosinophils (Bld) [#/Vol] 0.18 10*3/uL [facility] Eosinophils/100 WBC (Bld) 1.9 % [facility] Erythrocyte distribution width (RBC) [Ratio] 13.5 % 11.5 - 15.0 % [facility] Hematocrit (Bld) [Volume fraction] 34.7 % Low 36.0 - 46.0 % [facility] Hemoglobin (Bld) [Mass/Vol] 10.9 g/dL Low 11.5 - 15.5 g/dL [facility] Immature granulocytes (Bld) [#/Vol] 0.03 10*3/uL [facility] Immature granulocytes/100 WBC (Bld) 0.3 % [facility] Interpretation and review of laboratory results Abnormal [facility] Lymphocytes (Bld) [#/Vol] 1.98 10*3/uL [facility] Lymphocytes/100 WBC (Bld) 20.9 % [facility] MCH (RBC) [Entitic mass] 26.6 pg 26. 0 - 34.0 pg [facility] MCHC (RBC) [Mass/Vol] 31.4 g/dL 30.5 - 36.0 g/dL [facility] MCV (RBC) [Entitic vol] 84.6 fL 80.0 - 100.0 fL [facility] Monocytes (Bld) [#/Vol] 0.49 10*3/uL [facility] Monocytes/100 WBC (Bld) 5.2 % C [facility] Neutrophils (Bld) [#/Vol] 6.69 10*3/uL [facility] Neutrophils/100 WBC (Bld) 70.6 % [facility] Nucleated RBC (Bld) [#/Vol] [facility] Nucleated RBC/100 WBC (Bld) [Ratio] 0 % /100 WBC [facility] Platelet mean volume (Bld) [Entitic vol] 11.2 fL 9.0 - 12.7 fL [facility] Platelets (Bld) [#/Vol] 323 10*3/uL [facility] RBC (Bld) [#/Vol] 4.1 10*6/uL 3.90 - 5.2 0 m/uL [facility] WBC (Bld) [#/Vol] 9.47 10*3/uL [facility] Basophils (Bld) [#/Vol] 0.10 10*3/uL Normal <0.11 [facility] Comment on above: Order Comment: Speci men Type: BLOOD SPECIMEN Ordering Facility: [facility] Address: [address] [place] [address] Performed By: #### 3 0522-7, 1987-12, #### [facility] CLIA [id number] [address] [place] [address] [place] Basophils/100 WBC (Bld) 1.1 % Normal C [facility] Comment on above: Order Comment: Speci men Type: BLOOD SPECIMEN Ordering Facility: [facility] Address: [place] [address] Performed By: #### 3 05227, 1987-12, #### [facility] CLIA [id number] [address] [place] [address] [place] Differential cell count method Nom (Bld) Auto Normal [facility] Comment on above: Order Comment: Speci men Type: BLOOD SPECIMEN Ordering Facility: [facility] Address: [address] [place] [address] Performed By: #### 3 0522-7, 1987-12, #### [facility] CLIA [id number] [address] [place] [address] [place] Eosinophils (Bld) [#/Vol] 0.18 10*3/uL Normal <0.46 [facility] Comment on above: Order Comment: Speci men Type: BLOOD SPECIMEN Ordering Facility: [facility] Address: [address] [place] [address] Performed By: #### 3 0522-7, 1987-12, #### [facility] CLIA [id number] [address] [place] [address] [place] Eosinophils/100 WBC (Bld) 1.9 % Normal [facility] Comment on above: Order Comment: Speci men Type: BLOOD SPECIMEN Ordering Facility: [facility] Address: [facility] [place] [address] Performed By: #### 3 0522-7, 1987-12, #### [facility] CLIA [id number] [address] [place] [address] [place] Erythrocyte distribution width (RBC) [Ratio] 13.5 % Normal 11.5-15.0 [facility] Comment on above: Order Comment: Speci men Type: BLOOD SPECIMEN Ordering Facility: [facility] Address: [facility] [place] [address] Performed By: #### 3 05227, 1987-12, #### [facility] CLIA [id number] [address] [place] [address] [place] Hematocrit (Bld) [Volume fraction] 34.7 % Low 36.0-46.0 [facility] Comment on above: Order Comment: Speci men Type: BLOOD SPECIMEN Ordering Facility: [facility] Address: [facility] [place] [address] Performed By: #### 3 0522-7, 1987-12, #### [facility] CLIA [id number] [address] [place], [place] [id number] [place] Hemoglobin (Bld) [Mass/Vol] 10.9 g/dL Low 11.5-15.5 [facility] Comment on above: Order Comment: Speci men Type: BLOOD SPECIMEN Ordering Facility: [facility] Address: [facility] [place] [address] Performed By: #### 3 522-02, 1987-12, #### [facility] CLIA [id number] [address] [address] [place] Immature granulocytes (Bld) [#/Vol] 0.03 10*3/uL Normal <0.10 [facility] Comment on above: Order Comment: Speci men Type: BLOOD SPECIMEN Ordering Facility: [facility] Address: [facility] [place] [address] Performed By: #### 3 522-02, 1987-12, #### [facility] CLIA [id number] [address] [place] [address] [place] Immature granulocytes/100 WBC (Bld) 0.3 % Normal [facility] Comment on above: Order Comment: Speci men Type: BLOOD SPECIMEN Ordering Facility: [facility] Address: [facility] [place] [address] Performed By: #### 3 522-02, 1987-12, #### [facility] CLIA [id number] [address] [place] [address] [place] Lymphocytes (Bld) [#/Vol] 1.98 10*3/uL Normal 1.00-4.00 [facility] Comment on above: Order Comment: Speci men Type: BLOOD SPECIMEN Ordering Facility: [facility] Address: [facility] [place] [address] Performed By: #### 3 522-02, 1987-12, #### [facility] CLIA [id number] [address] [place] [address] [place] Lymphocytes/100 WBC (Bld) 20.9 % Normal [facility] Comment on above: Order Comment: Speci men Type: BLOOD SPECIMEN Ordering Facility: [facility] Address: [facility] [place] [address] Performed By: #### 3 522-02, #### [facility] CLIA [id number] [address] [place] [address] [place] MCH (RBC) [Entitic mass] 26.6 pg Normal 26.0-34.0 [facility] Comment on above: Order Comment: Speci men Type: BLOOD SPECIMEN Ordering Facility: [facility] Address: [facility] [place] [address] Performed By: #### 3 7, 1987-12, #### [facility] CLIA [id number] [address] [place] [address] [place] MCHC (RBC) [Mass/Vol] 31.4 g/dL Normal 30.5-36.[address] [facility] Comment on above: Order Comment: Speci men Type: BLOOD SPECIMEN Ordering Facility: [facility] Address: [facility] [place] [address] Performed By: #### 3 22, #### [facility] CLIA [id number] [address] [place] [address] [place] MCV (RBC) [Entitic vol] 84.6 fL Normal 80.0-100.[address] [facility] Comment on above: Order Comment: Speci men Type: BLOOD SPECIMEN Ordering Facility: [facility] Address: [facility] [place] [address] Performed By: #### 3 227, #### [facility] CLIA [id number] [address] [place] [address] [place] Monocytes (Bld) [#/Vol] 0.49 10*3/uL Normal <0.87 [facility] Comment on above: Order Comment: Speci men Type: BLOOD SPECIMEN Ordering Facility: [facility] Address: [facility] [place] [address] Performed By: #### 3 5217, 1987-12, #### [facility] CLIA [id number] [address] [address] [place] Monocytes/100 WBC (Bld) 5.2 % Normal [facility] Comment on above: Order Comment: Speci men Type: BLOOD SPECIMEN Ordering Facility: [facility] Address: [facility] [place] [address] Performed By: #### 3 522-02, 1987-12, #### [facility] CLIA [id number] [address] [address] [place] Neutrophils (Bld) [#/Vol] 6.69 10*3/uL Normal 1.45-7.50 [facility] Comment on above: Order Comment: Speci men Type: BLOOD SPECIMEN [facility]ing Facility: [facility] Address: [facility] [place] [address] Performed By: #### 3 227, 1987-12, #### [facility] CLIA [id number] [address] [place] [address] [place] Neutrophils/100 WBC (Bld) 70.6 % Normal [facility] Comment on above: Order Comment: Speci men Type: BLOOD SPECIMEN Ordering Facility: [facility] Address: [facility] [place] [address] Performed By: #### 3 7, 1987-12, #### [facility] CLIA [id number] [address] [address] [place] Nucleated RBC (Bld) [#/Vol] 10*3/uL Normal <0.01 [facility] Comment on above: Order Comment: Speci men Type: BLOOD SPECIMEN Ordering Facility: [facility] Address: [facility] [place] [address] Performed By: #### 3 0522, 1987-12, #### [facility] CLIA [id number] [address] [address] [place] Nucleated RBC/100 WBC (Bld) [Ratio] 0.0 /100 WBC Normal [facility] Comment on above: Order Comment: Speci men Type: BLOOD SPECIMEN Ordering Facility: [facility] Address: [facility] [place] [address] Performed By: #### 3 522-02, 1987-12, #### [facility] CLIA [id number] [address] [address] [place] Platelet mean volume (Bld) [Entitic vol] 11.2 fL Normal 9.0-12.7 [facility] Comment on above: Order Comment: Speci men Type: BLOOD SPECIMEN Ordering Facility: [facility] Address: [facility] [place] [address] Performed By: #### 3 522-02, 1987-12, #### [facility] CLIA [id number] [address] [place] [id number] [place] Platelets (Bld) [#/Vol] 323 10*3/uL Normal 150-400 [facility] Comment on above: Order Comment: Speci men Type: BLOOD SPECIMEN Ordering Facility: [facility] Address: [facility] [place] [address] Performed By: #### 3 522-02, 1987-12, #### [facility] CLIA [id number] [address] [address] [place] RBC (Bld) [#/Vol] 4.10 10*6/uL Normal 3.90-5.20 [facility] Comment on above: Order Comment: Speci men Type: BLOOD SPECIMEN Ordering Facility: [facility] Address: [facility] [place] [address] Performed By: #### 3 522-02, 1987-12, #### [facility] CLIA [id number] [address] [place] [id number] [place] WBC (Bld) [#/Vol] 9.47 10*3/uL Normal 3.70-11.00 [facility] Comment on above: Order Comment: Speci men Type: BLOOD SPECIMEN [facility]ing Facility: [facility] Address: [address] [place] [address] Performed By: #### 3 0522-7, 1987-12, #### [facility] CLIA [id number] [address] [place] [id number] [place] CNOVon 11-19-2024 CNOV Office Visit (INTMWS ) CHICHO WOOD ([id number]) 2000 F Date Time Provider Department 11/19/24 1:20 PM CE CONNER INTMWS During your visit today, we recorded the following information about you: Pulse Respiration Blood pressure Weight 65/minute 16/minute 97/65 72.8 kg Last Period 10/22/24 Ce Conner MD 11/19/2024 2:07 PM Signed We discussed your anemia and vitamin deficiencies: - You are mildly anemic, which may be contributing to your fatigue. Please continue incorporating iron-rich foods like spinach and salmon into your diet. If you prefer not to take iron pills, you can try an hloh-pwk-wuwypjd iron syrup. Take it with food to improve absorption. - Your vitamin D levels are very low. Please switch to taking 2,000 IU of vitamin D daily as a supplement. Take it with food for better absorption. - You may also try magnesium glycinate (available over the counter) to help with energy, focus, and sleep. This preparation is gentler on the stomach compared to other forms of magnesium. We discussed your hiatal hernia and reflux: - Continue taking pantoprazole as prescribed. I have sent in a refill for six months. You can take it as a 30-day or 90-day supply, depending on your preference. - Avoid greasy foods and pork, as they may worsen your symptoms. A plant-based diet with vegetables, fruits, chicken, and fish is recommended. Your current diet, including rice bowls with vegetables and light cheese, sounds appropriate. We discussed your hidradenitis suppurativa (HS) and skin concerns: - Your HS symptoms, including drainage and pain, are likely due to inflammation. I recommend scheduling an appointment with a accreditation specialist to address your HS and acne. [facility] or [facility] in [place] are options. If they require a referral, let us know, and we will send it. - For pain management, you can take Tylenol (1,000 mg twice daily) as needed. Avoid NSAIDs like Motrin, as they may worsen your reflux. - Keep using bandages for drainage as needed. We discussed your anxiety and fatigue: - Anxiety and stress may be contributing to your symptoms, including HS flares. If you are open to it, I recommend trying Cymbalta, which can help with anxiety, depression, and some types of pain. Start with a small dose and take it in the morning or evening, depending on how it affects you. If it does not help or causes side effects, you can stop it. - Continue your current efforts to manage stress, including maintaining a healthy diet and journaling. Follow-up and next steps: - You have an upper endoscopy scheduled for the . Please follow up with the nurse practitioner who prescribed pantoprazole to confirm whether you should continue it long-term. - Consider checking your magnesium levels if fatigue persists, though you can safely take magnesium glycinate even if your levels are normal. - Focus on scheduling a dermatology appointment to address your HS and acne. This is a nelson step in managing your symptoms. Please let me know if you have any questions or if your symptoms worsen. Ce Conner MD 11/19/2024 4:21 PM Signed Reason for Visit Follow up. JEFF Valentino is a 24-year-old female, with a history of hidradenitis suppurativa, GERD, and iron deficiency anemia, presenting for follow-up. Chicho reports severe hidradenitis suppurativa flare-ups since the start of the semester, which she attributes to increased stress from returning to school after a gap year and working two jobs. She experiences painful flare-ups under her arms, groin, and occasionally in the crease of her back, which have become so severe that they affect her mobility and ability to attend in-person classes. She notes that the drainage from the affected areas has worsened, necessitating the use of bandages every night, which has led to skin discoloration. She has not seen her accreditation specialist, Dr. Ibanez, in a while due to difficulty scheduling appointments. She also reports experiencing hormonal acne, particularly around her menstrual cycle, and is considering contraceptive pills to manage it. She has been trying to manage her symptoms through dietary changes, including eliminating certain foods and keeping a food journal since September, but has not noticed significant improvement. Chicho reports fatigue, poor focus, and disrupted sleep patterns, including waking up in the middle of the night and waking up very early after going to bed late. She has been taking vitamin D supplements irregularly, sometimes once a week instead of the prescribed twice a week, and has not been taking her iron supplements due to a dislike of taking multiple pills. She has been trying to incorporate iron-rich foods into her diet instead. She also reports experiencing anxiety and is considering medication for it. (more content not included)... Normal [facility] [Mass/Vol] 2.0 mg/dL Normal 1.7-2.3 [facility] Comment on above: Order Comment: Speci men Type: BLOOD SPECIMEN [facility]ing Facility: [facility] Address: [address] [place] [address] Performed By: #### 3 0522-7, 1987-12, 59318-9 #### [facility] CLIA [id number] [address] [place] [address] [place] CNOVon 10-13-2024 CNOV Office Visit (ALLMED ) CHICHO WOOD ([id number]) 2000 F Date Time Provider Department 10/13/24 1:15 PM HEAVEN MACIEL ALLMED During your visit today, we recorded the following information about you: Pulse Blood pressure Weight 63/minute 112/75 73 kg Steph Crandall, JACLYN 10/16/2024 8:17 PM Signed Patient states that she noticed that when she ingests dairy she feels like she needs to clear her throat more. Patient also states that she believes she has seasonal allergies, but that it happens every time that the seasons change. Patient also reports skin flare ups, she believes that this could either be related to food or stress. Patient has hidradenitis and GERD. Heaven Maciel MD 10/16/2024 8:17 PM Signed ASSESSMENT/PLAN: -Adverse reaction food: Patient was reassured that her symptoms are not consistent with IgE-mediated food allergies. She should continue to follow-up with gastroenterology for management of her GERD. She should continue to follow-up with dermatology for management of hidradenitis suppurativa. -Chronic rhinitis, investigation into allergic component of her symptoms: Depending on patient's preference, allergy skin tests may be completed to inhalant allergens at a future visit. Start fluticasone nasal spray/generic Flonase 2 sprays to each nostril once daily The patient may also take utdh-wcj-isczyfu loratidine (Claritin) 10 mg, cetirizine (Zyrtec) 10 mg, levocetirizine (xyzal) 5 mg OR fexofenadine (Bell) 180 mg once daily as needed for itching, sneezing or runny nose. She may use laqp-nof-rgxynkh olopatadine eyedrops as needed -Intermittent asthma: Start Symbicort 80-4.5 1 to 2 puffs every 4 hours as needed. Use with spacer and rinse mouth out after use. Maximum of 12 puffs/day. AeroChamber spacer provided at today's visit and proper use was reviewed with the patient. - Discussed medication dosage, usage, side effects, and goals of treatment in detail. - Follow-up at patient's convenience for the completion of allergy skin tests to inhalant allergens (20 or 34) and spirometry- patient will return sooner should new symptoms or problems arise. Heaven Maciel MD Allergy AND Immunology _ This is a consultation requested by Ce Conner MD for an allergy and immunology evaluation. My final recommendations will be communicated back to the requesting healthcare provider(s) by way of shared medical record or via [place] mail. Chicho Wood is a 24 year old female who presents for further evaluation of possible food allergies. She complains of frequent heartburn symptoms which awaken her from sleep. Takes famotidine 20 mg at bedtime. Recently started Protonix 40 mg daily. To have an EGD completed under the supervision of gastroenterology. She is concerned that food allergies may be contributing to her symptoms. Notes thickened secretions and increased GERD symptoms associated with cows milk ingestion. Has a history of hidradenitis suppurativa for which she sees dermatology. Questions whether or not allergies may be contributing to this skin condition. Complains of nasal congestion, sneezing, rhinorrhea and itching and watery eyes. Associated symptoms include facial pressure. Symptoms are perennial with exacerbation in the spring and fall. Symptoms have been present for several years but have worsened since she moved 1 year ago. Dust exposure is a trigger for symptoms. Had allergy testing completed in childhood. No prior subcutaneous allergy immunotherapy. History of intermittent asthma. Primary triggers are exercise and upper respiratory infection. Notes occasional wheezing, chest tightness and shortness of breath. Last used albuterol for acute symptoms 1 month ago. Previously on Singulair. Denies prior use of a daily controller inhaler. Last treated with systemic steroids for an asthma exacerbation as a child. Denies emergency room visits or hospitalizations for asthma. REVIEW OF SYSTEMS: All other review of systems negative except for those listed above. PAST MEDICAL HISTORY Diagnosis Date Asthma MEDICATIONS: aluminum-magnesium hydroxide-simethicone 200-200-20 mg/5 mL suspension Take 10 mL by mouth between meals and at bedtime as needed for up to 7 days. ferrous sulfate 325 mg (65 mg iron) tablet Take 1 tablet by mouth once daily. ergocalciferol 50,000 unit capsule (VITAMIN D2, DRISDOL) Take 1 capsule by mouth two times a week. TO BE TAKEN ORALLY DIRECTED. Take 1 tablet by mouth twice weekly [id number], then decrease to 1 tablet weekly. sucralfate (CARAFATE) 1 gram tablet Take 1 g by mouth every 6 hours. For 2 weeks doxycycline monohydrate (MONODOX) 100 mg capsule Take 1 capsule by mouth two times a day. penicillin V potassium 500 mg tablet Take 500 mg by mouth. (Patient not taking: Reported on (more content not included)... Normal [facility] Basic metabolic 2000 panelon 10-07-2024 Anion gap [Moles/Vol] 11 mmol/L Normal 8-15 [facility] Comment on above: Order Comment: Speci edenilson Type: BLOOD SPECIMEN Ordering Facility: [facility] Address: [address] [place] [address] Performed By: #### 2 4321-2, 3040-3 #### [facility] CLIA [id number] 1 [place] [address] [place] Calcium [Mass/Vol] 9.2 mg/dL Normal 8.5-10.2 [facility] Comment on above: Order Comment: Shruthi pyle Type: BLOOD SPECIMEN Ordering Facility: [facility] Address: [address] [place] [address] Performed By: #### 2 4321-2, 3040-3 #### [facility] CLIA [id number] 1 [place] [address] [place] Chloride [Moles/Vol] 102 mmol/L Normal 98-107 [facility] Comment on above: Order Comment: Iselai edenilson Type: BLOOD SPECIMEN Ordering Facility: [facility] Address: [facility] [place] [address] Performed By: #### 2 4321-2, 3040-3 #### [facility] CLIA [id number] 1 [place] [address] [place] CO2 [Moles/Vol] 24 mmol/L Normal 22-30 [facility] Comment on above: Order Comment: Speci men Type: BLOOD SPECIMEN Ordering Facility: [facility] Address: [address] [place] [address] Performed By: #### 2 4321-2, 3040-3 #### [facility] CLIA [id number] [address] STATES OF [facility] Creatinine [Mass/Vol] 0.70 mg/dL Normal 0.58-0.96 [facility] Comment on above: Order Comment: Speci men Type: BLOOD SPECIMEN Ordering Facility: [facility] Address: [address] [place] [address] Performed By: #### 2 4321-2, 0-3 #### [facility] CLIA [id number] [address] Creatinine and Glomerular filtration rate.predicted panel (S/P/Bld) 123 mL/min/1.73m??? Normal >=60 [facility] Comment on above: Order Comment: Speci men Type: BLOOD SPECIMEN Ordering Facility: [facility] Address: [address] [place] [address] Result Comment: Daylin mated Glomerular Filtration Rate (eGFR) is calculated using the 2020 CKD-EPI creatinine equation. This equation utilizes serum creatinine, sex, and age as parameters. The creatinine assay has traceable calibration to isotope dilution-mass spectrometry. Refer to KDIGO guidelines for clinical interpretation. In patients with unstable renal function, e.g. those with acute kidney injury, the eGFR may not accurately reflect actual GFR. Performed By: #### 2 4321-2, 3040-3 #### [facility] CLIA [id number] [address] [place] Glucose [Mass/Vol] 93 mg/dL Normal 74-99 [facility] Comment on above: Order Comment: Speci men Type: BLOOD SPECIMEN Ordering Facility: [facility] Address: [address] [place] [address] Result Comment: The [place] Diabetes Association (ADA) provides guidance for cutoff values for fasting glucose and random glucose. The ADA defines fasting as no caloric intake for at least 8 hours. Fasting plasma glucose results between 100 to 125 mg/dL indicate increased risk for diabetes (prediabetes). Fasting plasma glucose results greater than or equal to 126 mg/dL meet the criteria for diagnosis of diabetes. In the absence of unequivocal hyperglycemia, results should be confirmed by repeat testing. In a patient with classic symptoms of hyperglycemia or hyperglycemic crisis, random plasma glucose results greater than or equal to 200 mg/dL meet the criteria for diagnosis of diabetes. Reference: Standards of Medical Care in Diabetes 2016, [place] Diabetes Association. Diabetes Care. 2016.39(Suppl 1). Performed By: #### 2 4321-2, 3040-3 #### [facility] CLIA [id number] 1 [place] [address] [place] Potassium [Moles/Vol] 3.9 mmol/L Normal 3.7-5.1 [facility] Comment on above: Order Comment: Shruthi pyle Type: BLOOD SPECIMEN Ordering Facility: [facility] Address: [address] [place] [address] Performed By: #### 2 4320-2, 3039-3 #### [facility] CLIA [id number] [address] [place] [address] [place] [facility] Sodium [Moles/Vol] 137 mmol/L Normal 136-144 [facility] Comment on above: Order Comment: Shruthi pyle Type: BLOOD SPECIMEN Ordering Facility: [facility] Address: [address] [place] [address] Performed By: #### 2 4320-2, 0-3 #### [facility] CLIA [id number] [address] [place] [address] [place] Urea nitrogen [Mass/Vol] 7 mg/dL Normal 7-21 [facility] Comment on above: Order Comment: Shruthi pyle Type: BLOOD SPECIMEN Ordering Facility: [facility] Address: [address] [place] [address] Performed By: #### 2 4321-2, 3040-3 #### [facility] CLIA [id number] 1 [place] [address] [place] CBC W Auto Differential pane l (Bld)on 10-07-2024 Basophils (Bld) [#/Vol] 0.04 10*3/uL Normal <0.11 [facility] Comment on above: Order Comment: Speci men Type: BLOOD SPECIMEN Ordering Facility: [facility] Address: [address] [place] [address] Performed By: #### 5 7021-8 #### [facility] CLIA [id number] [address] [place] Basophils/100 WBC (Bld) 0.5 % Normal [facility] Comment on above: Order Comment: Speci men Type: BLOOD SPECIMEN Ordering Facility: [facility] Address: [address] [place] [address] Performed By: #### 5 7021-8 #### [facility] CLIA [id number] [address] OF [facility] Differential cell count method Nom (Bld) Auto Normal [facility] Comment on above: Order Comment: Speci men Type: BLOOD SPECIMEN Ordering Facility: [facility] Address: [address] [place] [address] Performed By: #### 5 7021-8 #### [facility] CLIA [id number] [address] [place] Eosinophils (Bld) [#/Vol] 0.32 10*3/uL Normal <0.46 [facility] Comment on above: Order Comment: Speci men Type: BLOOD SPECIMEN Ordering Facility: [facility] Address: [address] [place] [address] Performed By: #### 5 7021-8 #### [facility] CLIA [id number] [address] [place] Eosinophils/100 WBC (Bld) 4.0 % Normal [facility] Comment on above: Order Comment: Speci men Type: BLOOD SPECIMEN Ordering Facility: [facility] Address: [address] [place] [address] Performed By: #### 5 7021-8 #### [facility] CLIA [id number] [address] OF [facility] Erythrocyte distribution width (RBC) [Ratio] 13.7 % Normal 11.5-15.0 [facility] Comment on above: Order Comment: Speci men Type: BLOOD SPECIMEN Ordering Facility: [facility] Address: [address] [place] [address] Performed By: #### 5 7021-8 #### [facility] CLIA [id number] [address] [place] Hematocrit (Bld) [Volume fraction] 34.0 % Low 36.0-46.0 [facility] Comment on above: Order Comment: Speci men Type: BLOOD SPECIMEN Ordering Facility: [facility] Address: [address] [place] [address] Performed By: #### 5 7021-8 #### [facility] CLIA [id number] [address] [place] Hemoglobin (Bld) [Mass/Vol] 10.9 g/dL Low 11.5-15.5 [facility] Comment on above: Order Comment: Speci men Type: BLOOD SPECIMEN Ordering Facility: [facility] Address: [address] [place] [address] Performed By: #### 5 7021-8 #### [facility] CLIA [id number] [address] OF [facility] Immature granulocytes (Bld) [#/Vol] 0.03 10*3/uL Normal <0.10 [facility] Comment on above: Order Comment: Speci men Type: BLOOD SPECIMEN Ordering Facility: [facility] Address: [address] [place] [address] Performed By: #### 5 7021-8 #### [facility] CLIA [id number] [address] Immature granulocytes/100 WBC (Bld) 0.4 % Normal [facility] Comment on above: Order Comment: Speci men Type: BLOOD SPECIMEN Ordering Facility: [facility] Address: [address] [place] [address] Performed By: #### 5 7021-8 #### [facility] CLIA [id number] [address] Lymphocytes (Bld) [#/Vol] 2.16 10*3/uL Normal 1.00-4.00 [facility] Comment on above: Order Comment: Speci men Type: BLOOD SPECIMEN Ordering Facility: [facility] Address: [address] [place] [address] Performed By: #### 5 7021-8 #### [facility] CLIA [id number] [address] Lymphocytes/100 WBC (Bld) 27.1 % Normal [facility] Comment on above: Order Comment: Speci men Type: BLOOD SPECIMEN Ordering Facility: [facility] Address: [address] [place] [address] Performed By: #### 5 7021-8 #### [facility] CLIA [id number] [address] MCH (RBC) [Entitic mass] 27.5 pg Normal 26.0-34.0 [facility] Comment on above: Order Comment: Speci men Type: BLOOD SPECIMEN Ordering Facility: [facility] Address: [address] [place] [address] Performed By: #### 5 7021-8 #### [facility] CLIA [id number] [address] MCHC (RBC) [Mass/Vol] 32.1 g/dL Normal 30.5-36.0 [facility] Comment on above: Order Comment: Speci men Type: BLOOD SPECIMEN Ordering Facility: [facility] Address: [address] [place] [address] Performed By: #### 5 7021-8 #### [facility] CLIA [id number] [address] MCV (RBC) [Entitic vol] 85.6 fL Normal 80.0-100.0 [facility] Comment on above: Order Comment: Speci men Type: BLOOD SPECIMEN Ordering Facility: [facility] Address: [address] [place] [address] Performed By: #### 5 7021-8 #### [facility] CLIA [id number] [address] [place] Monocytes (Bld) [#/Vol] 0.40 10*3/uL Normal <0.87 [facility] Comment on above: Order Comment: Speci men Type: BLOOD SPECIMEN Ordering Facility: [facility] Address: [address] [place] [address] Performed By: #### 5 7021-8 #### [facility] CLIA [id number] [address] [place] Monocytes/100 WBC (Bld) 5.0 % Normal [facility] Comment on above: Order Comment: Speci men Type: BLOOD SPECIMEN Ordering Facility: [facility] Address: [address] [place] [address] Performed By: #### 5 7021-8 #### [facility] CLIA [id number] [address] [place] Neutrophils (Bld) [#/Vol] 5.02 10*3/uL Normal 1.45-7.50 [facility] Comment on above: Order Comment: Speci men Type: BLOOD SPECIMEN Ordering Facility: [facility] Address: [address] [place] [address] Performed By: #### 5 7021-8 #### [facility] CLIA [id number] [address] [place] Neutrophils/100 WBC (Bld) 63.0 % Normal [facility] Comment on above: Order Comment: Speci men Type: BLOOD SPECIMEN Ordering Facility: [facility] Address: [address] [place] [address] Performed By: #### 5 7021-8 #### [facility] CLIA [id number] 1 [place] [address] [place] Nucleated RBC (Bld) [#/Vol] 10*3/uL Normal <0.01 [facility] Comment on above: Order Comment: Speci men Type: BLOOD SPECIMEN Ordering Facility: [facility] Address: [address] [place] [address] Performed By: #### 5 7021-8 #### [facility] CLIA [id number] [address] [place] Nucleated RBC/100 WBC (Bld) [Ratio] 0.0 /[address] [facility] Comment on above: Order Comment: Speci men Type: BLOOD SPECIMEN Ordering Facility: [facility] Address: [address] [place] [address] Performed By: #### 5 7021-8 #### [facility] CLIA [id number] [address] [place] Platelet mean volume (Bld) [Entitic vol] 10.5 fL Normal 9.0-12.7 [facility] Comment on above: Order Comment: Speci men Type: BLOOD SPECIMEN Ordering Facility: [facility] Address: [address] [place] [address] Performed By: #### 5 7021-8 #### [facility] CLIA [id number] [address] [place] Platelets (Bld) [#/Vol] 274 10*3/uL Normal 150-400 [facility] Comment on above: Order Comment: Speci men Type: BLOOD SPECIMEN Ordering Facility: [facility] Address: [address] [place] [address] Performed By: #### 5 7021-8 #### [facility] CLIA [id number] [address] [place] RBC (Bld) [#/Vol] 3.97 10*6/uL Normal 3.90-5.20 [facility] Comment on above: Order Comment: Speci men Type: BLOOD SPECIMEN Ordering Facility: [facility] Address: [address] [place] [address] Performed By: #### 5 7021-8 #### [facility] CLIA [id number] 1 [place] [address] [place] WBC (Bld) [#/Vol] 7.97 10*3/uL Normal 3.70-11.00 [facility] Comment on above: Order Comment: Speci men Type: BLOOD SPECIMEN Ordering Facility: [facility] Address: [address] [place] [id number] Performed By: #### 5 7021-8 #### [facility] CLIA [id number] [address] [place] ECG COMPLETEon 10-07-2024 ECG COMPLETE Ventricular Rate : 5 6 BPM Atrial Rate : 56 BPM P-R Interval : 146 ms QRS Duration : 82 ms Q-T Interval : 430 ms QTC Calculation(Bazett) : 414 ms Calculated P Yolyn : 14 degrees Calculated R Yolyn : 42 degrees Calculated T Yolyn : 21 degrees SINUS BRADYCARDIA WITH SINUS ARRHYTHMIA NONSPECIFIC T WAVE ABNORMALITY ABNORMAL ECG NO PREVIOUS ECGS AVAILABLE Confirmed by MD LINDSAY CAROL ([id number]) on 10/07/2024 11:11:22 AM NAME : CHICHO WOOD PID : [id number] : 2000 Gender : Female Race : ORD : [id number] Procedure Date : Oct 07 2024 06:10:39 Edit Date : Oct 07 2024 11:11:24 Diagnosis: SINUS BRADYCARDIA WITH SINUS ARRHYTHMIA NONSPECIFIC T WAVE ABNORMALITY ABNORMAL ECG NO PREVIOUS ECGS AVAILABLE Confirmed by MD LINDSAY CAROL ([id number]) on 10/07/2024 11:11:22 AM Test Reason : Chest Pain Location : 4 : [facility] Overread By : MD LINDSAY CAROL Edited By : MD LINDSAY CAROL Referred By : , Acquired by : MERLIN VALE [facility] ED PROV NOTEon 10-07-2024 ED PROV NOTE HNO ID: [id number] Author: SRINIVAS LINDSAY MD Service: Emergency Medicine Author Type: Physician Type: ED Provider Notes Filed: 10/07/2024 11:40 Note Text: The patient presents to the Emergency Department with intermittent burning in her chest. She is scheduled to see miter cutter for endoscopy in November, but reports here today because she seemed to be getting more symptomatic. She denies any hemoptysis, shortness of breath, abdominal pain, melena, or hematochezia. She also denies any dysuria or hematuria. The patient presents with stable vital signs and a room air pulse ox of 90%. She is afebrile. She is alert nontoxic-appearing. She appears to be well-hydrated. There is an S1-S2 with a regular rate and rhythm. Her lung murray are clear, respirations are unlabored. Her chest wall is nontender with no subcutaneous air or flail. Her abdomen has active bowel sounds. It is nondistended. It is soft and nontender without rebound or guarding. She has a nonfocal exam with neurovascular status intact. Patient had laboratory studies ordered through triage. Her CBC was essentially within normal limits as well as her BMP, and serial high-sensitivity troponins. Her EKG is a sinus rhythm with noes of acuteischemic changes. I added on a lipase which was normal. She received milk magnesia and viscous lidocaine orally. This improves her symptoms. She will be discharged in stable condition with instructions to take a PPI and to return to the emergency department if worse. She has also been advised to avoid eating 2 hours before bedtime and elevating her head while sleeping. In addition, she has been advised to let her gastroenterology office know that if there is a cancellation, she is welcome to be seen at an earlier date. She will be discharged in stable condition. SRINIVAS LINDSAY 10/07/[address] [facility] ED PROV NOTE HNO ID: [id number] Author: SRINIVAS LINDSAY MD Service: Emergency Medicine Author Type: Physician Type: ED Provider Notes Filed: 10/09/2024 14:57 Note Text: ED Provider Note Patient Name: Chicho Wood : 2000 SERVICE DATE: 10/07/24 History Patient presents with: Abdominal Pain: Pt has been getting treated for GERD and r/o ulcer for the last couple of months. Pt is to have a scope in November, in the meantime it is being maintained by meds. Pt went to [facility] today d/t the burning sensation in her chest that radiated to her back HPI The patient is a 24-year-old female with a past medical history of asthma and GERD presenting to the emergency department for evaluation of burning sensation in her chest/abdomen. The patient states this started yesterday for a few hours. She went to [facility] and was referred here for further evaluation. She states that the burning sensation was into her chest. She denies any chest pain, pleuritic chest pain, shortness of breath, paresthesias, or radiating symptoms. She denies any nausea or vomiting. She states that she is already on PPI at home and has an endoscopy scheduled in November. She has no previous history of gastric ulcers or alcohol use. Currently, she endorses burning. She denies any abdominal pain, vomiting, dysuria, or hematuria. PAST MEDICAL HISTORY Diagnosis Date Asthma PAST SURGICAL HISTORY Procedure Laterality Date NONE FAMILY HISTORY Problem Relation Age of Onset Thyroid Mother Hypertension Mother Hyperlipidemia Father Kidney Disease Maternal Grandmother Hypertension Maternal Grandmother Thyroid Maternal Grandmother Kidney Disease Maternal Grandfather failure Hyperlipidemia Paternal Grandmother Hyperlipidemia Paternal Grandfather Social History Tobacco Use Smoking status: Former Types: Cigarettes Smokeless tobacco: Never Vaping Use Vaping status: Former Substance and Sexual Activity Alcohol use: No Drug use: No Sexual activity: Never ALLERGIES Allergen Reactions Seasonal Allergies Unknown Review of Systems Constitutional: Negative for chills and fever. Respiratory: Negative for cough and shortness of breath. Cardiovascular: Negative for chest pain and leg swelling. Gastrointestinal: Negative for abdominal pain, nausea and vomiting. Neurological: Negative for syncope, weakness and headaches. Physical Exam Vitals [10/07/24 0604] BP Pulse Temp Temp src Resp SpO2 Weight Height 104/75 61 36.7 ?C (98.1 ?F) Oral 18 99 % 73 kg (161 lb) 1.524 m (5') Physical Exam Vitals and nursing note reviewed. Constitutional: General: She is not in acute distress. Appearance: Normal appearance. She is not ill-appearing. HENT: Head: Normocephalic and atraumatic. Nose: Nose normal. No congestion or rhinorrhea. Eyes: General: Right eye: No discharge. Left eye: No discharge. Extraocular Movements: Extraocular movements intact. Pupils: Pupils are equal, round, and reactive to light. Cardiovascular: Rate and Rhythm: Normal rate and regular rhythm. Pulses: Normal pulses. Heart sounds: Normal heart sounds. No murmur heard. No gallop. Pulmonary: Effort: Pulmonary effort is normal. No respiratory distress. Breath sounds: No stridor. No wheezing. Abdominal: General: Abdomen is flat. There is no distension. Palpations: Abdomen is soft. Tenderness: There is no abdominal tenderness. Musculoskeletal: General: Normal range of motion. Right lower leg: No edema. Left lower leg: No edema. Skin: General: Skin is warm. Coloration: Skin is not jaundiced or pale. Neurological: Mental Status: She is alert and oriented to person, place, and time. Mental status is at baseline. Psychiatric: Mood and Affect: Mood normal. Behavior: Behavior normal. Diagnostic Testing ED Labs Ordered and Reviewed COMPLETE BLOOD COUNT AND DIFFERENTIAL - Abnormal; Notable for the following components: Result Value Ref Range Hemoglobin 10.9 (*) 11.5 - 15.5 g/dL Hematocrit 34.0 (*) 36.0 - 46.0 % All other components within normal limits BASIC METABOLIC PANEL - Normal HIGH SENSITIVITY TROPONIN T (INITIAL) - Normal HIGH SENSITIVITY TROPONIN T (SECOND) - Normal Procedures ED Course / Clinical Impression Clinical Impressions as of 10/07/24 1145 Gastroesophageal reflux disease, unspecified whether esophagitis present MDM / Disposition / Plan The patient is a 24-year-old female presenting to the emergency department for evaluation of a burning sensation in her chest and abdomen. She is well-appearing and is hemodynamically stable. Her cardiopulmonary exa is s unremarkable. Her abdomen soft, nontender, and nondistended. Her pulses are equal and symmetric in all 4 extremities. She has no lower extremity edema or asymmetric calf swelling or tenderness concerning for DVT. The patient is currently PERC negative making it less likely that a PE (more content not included)... Normal [facility] ED Provider Progress Noteon 10-07-2024 Md Pediatric Allergist Authentication Interface Message Text Chief Complaint Patient presents with Chest Pain HPI 24 year old female presenting with her mother for chest pain. 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 Describes it as a burning sensation in stomach and central chest. No shortness of breath or fevers. Mom reports has GI history, going to get scoped soon. Currently taking Pepcid and Prilosec. BP 104/58 (Patient Position: Sitting) Pulse 53 Temp 36.3 C (97.3 F) Resp 16 Wt 73.1 kg SpO2 100% Physical exam: General alert, well appearing, no acute distress, Cardiovascular RRR, no murmur, Chest clear lungs, nonlabored, and Neurologic AAO X 3 Assessment/Plan: 24 year old female with chest pain. Seems more GI in nature than cardiac. EKG done here shows sinus bradycardia otherwise no acute changes. Mom present here in ED and willing to drive her across street at [facility] ED. I spoke with Dr. Arguelles there to give ED to ED report. After medical screening exam was performed it was determined that the patient does not have an emergency medical condition but does require transport by Car (with family/friend) to receive further care at [facility]SH. Gab Vásquez DO Pediatric Emergency Medicine 10/07/2024 5:19 AM Normal [facility] HIGH SENSITIVITY TROPONIN T (INITIAL)on 10-07-2024 Troponin T.cardiac High sensitivity method [Mass/Vol] <6 Normal <12 [facility] Comment on above: Order Comment: Shruthi pyle Type: BLOOD SPECIMEN Ordering Facility: [facility] Address: [address] [place] [address] Performed By: #### L [id number] #### [facility] CLIA [id number] [address] OF [facility] HIGH SENSITIVITY TROPONIN T (SECOND)on 10-07-2024 Troponin T.cardiac High sensitivity method [Mass/Vol] <6 Normal <12 [facility] Comment on above: Order Comment: Shruthi pyle Type: BLOOD SPECIMEN Ordering Facility: [facility] Address: [address] [place] [address] Performed By: #### L [id number] #### [facility] [facility] CLIA [id number] 1 [place] [address] [place] Lipase SerPl-cCncon 10-08-19 25 Lipase [Catalytic activity/Vol] 30 U/L Normal 16-61 [facility] Comment on above: Order Comment: Shruthi pyle Type: BLOOD SPECIMEN Ordering Facility: [facility] Address: [address] [place] [address] Performed By: #### 2 4321-2, 3040-3 #### [facility] CLIA [id number] 1 [place] [address] [place] 25(OH)D3 SerPl-mCncon 2024 25-hydroxyvitamin D3 [Mass/Vol] 14.3 ng/mL Low 31.0-80.0 [facility] [place] Comment on above: Order Comment: Shruthi pyle Type: BLOOD SPECIMEN Ordering Facility: [facility] Address: [address], [place] [address] Result Comment: Clas sification of 25 [place] Vitamin D status: Deficiency/Insufficiency: < or = 30 ng/ml. Sufficiency/Optimal Levels: 31-80 ng/mL Toxicity: > 100 ng/mL. Test performed by chemiluminescent immunoassay. Performed By: #### 3 0522-7, 1987-12, 95700-3 #### [facility] CLIA [id number] [address] [facility] [place] [address] [place] CBC W Auto Differential pane l (Bld)on 10-04-2024 Basophils (Bld) [#/Vol] 0.07 10*3/uL Normal <0.11 [facility] [place] Comment on above: Order Comment: Shruthi pyle Type: BLOOD SPECIMEN Ordering Facility: [facility] Address: [address] [place] [address] Performed By: #### 2 4323-03, 2132-04 #### [employer] CLIA [id number] [address] STATES OF [facility] Basophils/100 WBC (Bld) 0.8 % Normal C [facility] Comment on above: Order Comment: Shruthi pyle Type: BLOOD SPECIMEN Ordering Facility: [facility] Address: [address] [place] [address] Performed By: #### 2 4323-03, 2132-04 #### [facility] CLIA [id number] [address] [place] Differential cell count method Nom (Bld) Auto Normal [facility] [place] Comment on above: Order Comment: Shruthi men Type: BLOOD SPECIMEN Ordering Facility: [facility] Address: [address] [place] [address] Performed By: #### 2 8, 2132-04 #### [facility] CLIA [id number] [address] [place] Eosinophils (Bld) [#/Vol] 0.23 10*3/uL Normal <0.46 [facility] [place] Comment on above: Order Comment: Speci men Type: BLOOD SPECIMEN Ordering Facility: [facility] Address: [address] [place] [address] Performed By: #### 2 4323-03, 2132-04 #### [facility] CLIA [id number] [address] [place] Eosinophils/100 WBC (Bld) 2.5 % Normal [facility] [place] Comment on above: Order Comment: Speci men Type: BLOOD SPECIMEN Ordering Facility: [facility] Address: [address] [place] [address] Performed By: #### 2 4323-03, 2132-04 #### [facility] CLIA [id number] [address] [place] Erythrocyte distribution width (RBC) [Ratio] 14.1 % Normal 11.5-15.0 [facility] [place] Comment on above: Order Comment: Speci men Type: BLOOD SPECIMEN Ordering Facility: [facility] Address: [address] [place] [address] Performed By: #### 2 4323-03, 2132-04 #### [facility] CLIA [id number] [address] [place] Hematocrit (Bld) [Volume fraction] 38.0 % Normal 36.0-46.0 [facility] [place] Comment on above: Order Comment: Speci men Type: BLOOD SPECIMEN Ordering Facility: [facility] Address: [address] [place] [address] Performed By: #### 2 4323-03, 2132-04 #### [facility] CLIA [id number] [address] [place] Hemoglobin (Bld) [Mass/Vol] 11.6 g/dL Normal 11.5-15.5 [facility] [place] Comment on above: Order Comment: Speci men Type: BLOOD SPECIMEN Ordering Facility: [facility] Address: [address] [place] [address] Performed By: #### 2 4323-03, 2132-04 #### [employer] [facility] CLIA [id number] 1 [place] [address] [place] Immature granulocytes (Bld) [#/Vol] 0.03 10*3/uL Normal <0.10 [facility] [place] Comment on above: Order Comment: Speci men Type: BLOOD SPECIMEN Ordering Facility: [facility] Address: [address] [place] [address] Performed By: #### 2 4323-03, 2132-04 #### [employer] CLIA [id number] 1 [place] [address] [place] Immature granulocytes/100 WBC (Bld) 0.3 % Normal [facility] [place] Comment on above: Order Comment: Speci men Type: BLOOD SPECIMEN Ordering Facility: [facility] Address: [address] [place] [address] Performed By: #### 2 4323-03, 2132-04 #### [employer] [facility] CLIA [id number] 1 [place] [address] [place] Lymphocytes (Bld) [#/Vol] 1.80 10*3/uL Normal 1.00-4.00 [facility] [place] Comment on above: Order Comment: Speci men Type: BLOOD SPECIMEN Ordering Facility: [facility] Address: [address] [place] [address] Performed By: #### 2 4323-03, 2132-04 #### [facility] CLIA [id number] 1 [place] [address] [place] Lymphocytes/100 WBC (Bld) 19.6 % Normal [facility] [place] Comment on above: Order Comment: Speci men Type: BLOOD SPECIMEN Ordering Facility: [facility] Address: [address] [place] [address] Performed By: #### 2 4323-03, 2132-04 #### [facility] CLIA [id number] [address] STATES [facility] MCH (RBC) [Entitic mass] 26.9 pg Normal 26.0-34.0 [facility] [place] Comment on above: Order Comment: Speci men Type: BLOOD SPECIMEN Ordering Facility: [facility] Address: [address] [place] [address] Performed By: #### 2 4323-03, 2132-04 #### [facility] CLIA [id number] [address] MCHC (RBC) [Mass/Vol] 30.5 g/dL Normal 30.5-36.[address] [facility] Comment on above: Order Comment: Speci men Type: BLOOD SPECIMEN Ordering Facility: [facility] Address: [address] [place] [address] Performed By: #### 2 4323-03, 2132-04 #### [facility] CLIA [id number] [address] MCV (RBC) [Entitic vol] 88.0 fL Normal 80.0-100.[address] [facility] Comment on above: Order Comment: Speci men Type: BLOOD SPECIMEN Ordering Facility: [facility] Address: [address] [place] [address] Performed By: #### 2 4323-03, 2132-04 #### [facility] CLIA [id number] [address] Monocytes (Bld) [#/Vol] 0.66 10*3/uL Normal <0.87 [facility] [place] Comment on above: Order Comment: Speci men Type: BLOOD SPECIMEN Ordering Facility: [facility] Address: [address] [place] [address] Performed By: #### 2 4323-03, 2132-04 #### [facility] CLIA [id number] [address] Monocytes/100 WBC (Bld) 7.2 % Normal C [facility] Comment on above: Order Comment: Speci men Type: BLOOD SPECIMEN Ordering Facility: [facility] Address: [address] [place] [address] Performed By: #### 2 4323-03, 2132-04 #### [facility] CLIA [id number] 1 [place] [address] [place] Neutrophils (Bld) [#/Vol] 6.38 10*3/uL Normal 1.45-7.50 [facility] [place] Comment on above: Order Comment: Speci men Type: BLOOD SPECIMEN Ordering Facility: [facility] Address: [address] [place] [address] Performed By: #### 2 4323-03, 2132-04 #### [employer] [facility] CLIA [id number] 1 [place] [address] [place] Neutrophils/100 WBC (Bld) 69.6 % Normal [facility] [place] Comment on above: Order Comment: Speci men Type: BLOOD SPECIMEN Ordering Facility: [facility] Address: [address] [place] [address] Performed By: #### 2 4323-03, 2132-04 #### [facility] CLIA [id number] 1 [place] [address] [place] Nucleated RBC (Bld) [#/Vol] 10*3/uL Normal <0.01 [facility] [place] Comment on above: Order Comment: Speci men Type: BLOOD SPECIMEN Ordering Facility: [facility] Address: [address] [place] [address] Performed By: #### 2 4323-03, 2132-04 #### [facility] CLIA [id number] 1 [place] [address] [place] Nucleated RBC/100 WBC (Bld) [Ratio] 0.0 /100 WBC Normal [facility] [place] Comment on above: Order Comment: Speci men Type: BLOOD SPECIMEN Ordering Facility: [facility] Address: [address] [place] [address] Performed By: #### 2 4323-03, 2132-04 #### [facility] CLIA [id number] [address] [place] Platelet mean volume (Bld) [Entitic vol] 11.6 fL Normal 9.0-12.7 [facility] [place] Comment on above: Order Comment: Speci men Type: BLOOD SPECIMEN Ordering Facility: [facility] Address: [address] [place] [address] Performed By: #### 2 4323-03, 2132-04 #### [facility] CLIA [id number] [address] [place] Platelets (Bld) [#/Vol] 332 10*3/uL Normal 150-400 [facility] [place] Comment on above: Order Comment: Speci men Type: BLOOD SPECIMEN Ordering Facility: [facility] Address: [address] [place] [address] Performed By: #### 2 4323-03, 2132-04 #### [facility] CLIA [id number] [address] [place] RBC (Bld) [#/Vol] 4.32 10*6/uL Normal 3.90-5.20 [facility] Comment on above: Order Comment: Speci men Type: BLOOD SPECIMEN Ordering Facility: [facility] Address: [address] [place], [place] [address] Performed By: #### 2 4323-03, 2132-04 #### [facility] CLIA [id number] 1 [place] [address] [place] WBC (Bld) [#/Vol] 9.17 10*3/uL Normal 3.70-11.00 [facility] Comment on above: Order Comment: Speci men Type: BLOOD SPECIMEN Ordering Facility: [facility] Address: [address] [place] [address] Performed By: #### 2 4323-03, 2132-04 #### [facility] CLIA [id number] 1 [place] [address] [place] CRP SerPl-mCncon 10-04-2024 CRP [Mass/Vol] 2.5 mg/dL High <0.9 [facility] [place] Comment on above: Order Comment: Speci men Type: BLOOD SPECIMEN Ordering Facility: [facility] Address: [address] [place] [address] Performed By: #### 2 4323-03, 2132-04 #### [facility] CLIA [id number] [address] [place] Comprehensive metabolic 2000 panelon 10-04-2024 Albumin [Mass/Vol] 4.4 g/dL Normal 3.9-4.9 [facility] Comment on above: Order Comment: Speci men Type: BLOOD SPECIMEN Ordering Facility: [facility] Address: [address] [place] [address] Performed By: #### 2 4323-03, 2132-04 #### [facility] CLIA [id number] 1 [place] [address] [place] ALP [Catalytic activity/Vol] 84 U/L Normal 34-123 [facility] [place] Comment on above: Order Comment: Speci men Type: BLOOD SPECIMEN Ordering Facility: [facility] Address: [address] [place] [address] Performed By: #### 2 4323-03, 2132-04 #### [facility] CLIA [id number] [address] [place] ALT With P-5'-P [Catalytic activity/Vol] 7 U/L Normal 7-38 [facility] Comment on above: Order Comment: Speci men Type: BLOOD SPECIMEN Ordering Facility: [facility] Address: [address] [place] [address] Performed By: #### 2 8, 2132-04 #### [facility] CLIA [id number] [address] [place] [address] [place] Anion gap [Moles/Vol] 13 mmol/L Normal 8-[address] [facility] Comment on above: Order Comment: Speci men Type: BLOOD SPECIMEN Ordering Facility: [facility] Address: [address] [place] [address] Performed By: #### 2 4323-03, 2132-04 #### [facility] CLIA [id number] 1 [place] [address] [place] AST With P-5'-P [Catalytic activity/Vol] 13 U/L Normal 13-35 [facility] Comment on above: Order Comment: Speci men Type: BLOOD SPECIMEN Ordering Facility: [facility] Address: [address] [place] [address] Performed By: #### 2 4323-03, 2132-04 #### [facility] CLIA [id number] [address] [place] [address] [place] Bilirubin [Mass/Vol] 0.3 mg/dL Normal 0.2-1.3 [facility] Comment on above: Order Comment: Speci men Type: BLOOD SPECIMEN Ordering Facility: [facility] Address: [address] [place] [address] Performed By: #### 2 4323-03, 2132-04 #### [facility] CLIA [id number] 1 [place] [address] [place] Calcium [Mass/Vol] 9.5 mg/dL Normal 8.5-10.2 [facility] Comment on above: Order Comment: Speci men Type: BLOOD SPECIMEN Ordering Facility: [facility] Address: [address] [place] [address] Performed By: #### 2 4323-03, 2132-04 #### [facility] CLIA [id number] 1 [place] [address] [place] Chloride [Moles/Vol] 101 mmol/L Normal 98-107 [facility] Comment on above: Order Comment: Speci men Type: BLOOD SPECIMEN Ordering Facility: [facility] Address: [address] [place] [address] Performed By: #### 2 4323-03, 2132-04 #### [facility] CLIA [id number] 1 [place] [address] [place] CO2 [Moles/Vol] 24 mmol/L Normal 22-30 [facility] Comment on above: Order Comment: Speci men Type: BLOOD SPECIMEN Ordering Facility: [facility] Address: [address] [place] [address] Performed By: #### 2 4323-03, 2132-04 #### [employer] [facility] CLIA [id number] 1 [place] [address] [place] Creatinine [Mass/Vol] 0.78 mg/dL Normal 0.58-0.[address] [facility] Comment on above: Order Comment: Speci men Type: BLOOD SPECIMEN Ordering Facility: [facility] Address: [address] [place] [address] Performed By: #### 2 4323-03, 2132-04 #### [employer] [facility] CLIA [id number] 1 [place] [address] [place] Creatinine and Glomerular filtration rate.predicted panel (S/P/Bld) 108 mL/min/1.73m??? Normal >=60 [facility] Comment on above: Order Comment: Speci men Type: BLOOD SPECIMEN Ordering Facility: [facility] Address: [address] [place] [address] Result Comment: Daylin mated Glomerular Filtration Rate (eGFR) is calculated using the 2020 CKD-EPI creatinine equation. This equation utilizes serum creatinine, sex, and age as parameters. The creatinine assay has traceable calibration to isotope dilution-mass spectrometry. Refer to KDIGO guidelines for clinical interpretation. In patients with unstable renal function, e.g. those with acute kidney injury, the eGFR may not accurately reflect actual GFR. Performed By: #### 2 43238, 2132-04 #### [facility] CLIA [id number] 1 [place] [address] [place] Glucose [Mass/Vol] 101 mg/dL High 74-99 [facility] Comment on above: Order Comment: Speckojo pyle Type: BLOOD SPECIMEN Ordering Facility: [facility] Address: [address] [place] [address] Result Comment: The [place] Diabetes Association (ADA) provides guidance for cutoff values for fasting glucose and random glucose. The ADA defines fasting as no caloric intake for at least 8 hours. Fasting plasma glucose results between 100 to 125 mg/dL indicate increased risk for diabetes (prediabetes). Fasting plasma glucose results greater than or equal to 126 mg/dL meet the criteria for diagnosis of diabetes. In the absence of unequivocal hyperglycemia, results should be confirmed by repeat testing. In a patient with classic symptoms of hyperglycemia or hyperglycemic crisis, random plasma glucose results greater than or equal to 200 mg/dL meet the criteria for diagnosis of diabetes. Reference: Standards of Medical Care in Diabetes 2016, [place] [employer] Association. Diabetes Care. 2016.39(Suppl 1). Performed By: #### 2 4323-03, 2132-04 #### [employer] [facility] CLIA [id number] 1 [place] [address] [place] Potassium [Moles/Vol] 4.2 mmol/L Normal 3.7-5.[address] [facility] Comment on above: Order Comment: Shruthi pyle Type: BLOOD SPECIMEN Ordering Facility: [facility] Address: [address] [place] [address] Performed By: #### 2 4323-03, 2132-04 #### [facility] CLIA [id number] 1 [place] [address] [place] Protein [Mass/Vol] 8.4 g/dL High 6.3-8.0 [facility] Comment on above: Order Comment: Shruthi pyle Type: BLOOD SPECIMEN Ordering Facility: [facility] Address: [address] [place], [place] [address] Performed By: #### 2 4323-03, 2132-04 #### [facility] CLIA [id number] 1 [place] [address] [place] Sodium [Moles/Vol] 138 mmol/L Normal 136-144 [facility] Comment on above: Order Comment: Speci men Type: BLOOD SPECIMEN Ordering Facility: [facility] Address: [address] [place] [address] Performed By: #### 2 4323-8, 1987-12, 2132-04 #### [facility] CLIA [id number] 1 [place] [address] [place] Urea nitrogen [Mass/Vol] 5 mg/dL Low 7-21 [facility] Comment on above: Order Comment: Speci men Type: BLOOD SPECIMEN Ordering Facility: [facility] Address: [address] [place] [address] Performed By: #### 2 4328, 1987-12, 2132-04 #### [facility] CLIA [id number] 1 [place] [address] [place] ESR Westergren method (Bld) [Velocity]on 10-04-2024 ESR (Bld) [Velocity] 63 mm/h High 0-20 [facility] Comment on above: Order Comment: Speci men Type: BLOOD SPECIMEN Ordering Facility: [facility] Address: [address] [place] [address] Performed By: #### 2 4328, 1987-12, 2132-04 #### [facility] CLIA [id number] 1 [place] [address] [place] Ferritin SerPl-mCncon 2024 Ferritin [Mass/Vol] 30.3 ng/mL Normal 14.7-205.1 [facility] Comment on above: Order Comment: Speci men Type: BLOOD SPECIMEN Ordering Facility: [facility] Address: [address] [place] [address] Performed By: #### 3 0522-7, 1987-12, 02935-4 #### [facility] CLIA [id number] [address] [place], [place] [address] [place] [address] [place] H. pylori IgG IA Qlon 2024 H. PYLORI IGG, QUAL Negative Normal Negative [facility] Comment on above: Order Comment: Speci men Type: BLOOD SPECIMEN Ordering Facility: [facility] Address: [address] [place], [place] [address] [address] Result Comment: Matt ot exclude H. pylori infection if the specimen collected 3-4 weeks after onset of symptoms. Performed By: #### 3 227, 1987-12, #### [facility] CLIA [id number] [address] [place] [address] [place] Iron and Iron binding capaci ty panelon 10-04-2024 Iron [Mass/Vol] 20 ug/dL Low 41-186 [facility] Comment on above: Order Comment: Speci men Type: BLOOD SPECIMEN Ordering Facility: [facility] Address: [facility] [place] [address] Performed By: #### 3 7, 1987-12, #### [facility] CLIA [id number] [facility] [place] [address] [place] Iron binding capacity [Mass/Vol] 331 ug/dL Normal 232-386 [facility] Comment on above: Order Comment: Speci men Type: BLOOD SPECIMEN Ordering Facility: [facility] Address: [facility] [place] [address] Performed By: #### 3 227, 1987-12, #### [facility] CLIA [id number] [address] [place] [address] [place] Iron saturation [Mass fraction] 6.0 % Low 15.0-57.0 [facility] Comment on above: Order Comment: Speci men Type: BLOOD SPECIMEN [facility]ing Facility[facility] Address: [facility] [place] [address] Performed By: #### 3 227, 1987-12, #### [facility] CLIA [id number] [address] [place] [id number] [place] T4 Free SerPl-mCncon 025 Free T4 [Mass/Vol] 1.0 ng/dL Normal 0.9-1.7 [facility] Comment on above: Order Comment: Shruthi pyle Type: BLOOD SPECIMEN Ordering Facility: [facility] Address: [address] [place] [address] Performed By: #### 3 0522-7, 1987-12, 14288-9 #### [facility] CLIA [id number] [address] [place] [address] [place] THYROGLOBULIN ANTIBODYon Thyroglobulin Ab Qn [IU]/mL Normal <4.0 [facility] Comment on above: Order Comment: Shruthi pyle Type: BLOOD SPECIMEN Ordering Facility: [facility] Address: [address] [place] [address] Result Comment: The Thyroglobulin Antibody test was performed using the [employer] DXI paramagnetic particle chemiluminescent immunoassay method. Results obtained with different assay methods or kits cannot be used interchangeably. Performed By: #### 2 4323-8, 1987-12, 2132-04 #### [employer] [facility] CLIA [id number] [address] [place] THYROID PEROXIDASE ANTIBODYo n 10-04-2024 TPO Ab Qn [IU]/mL Normal <5.6 [facility] Comment on above: Order Comment: Shruthi pyle Type: BLOOD SPECIMEN Ordering Facility: [facility] Address: [address] [place] [address] Result Comment: Thyr oid Peroxidase Antibody test is used as an aid in diagnosis of autoimmune thyroid disease. Clinical correlation is required. Performed By: #### 2 4323-8, 2132-04 #### [facility] CLIA [id number] [address] [place] [address] [place] TSH SerPl-aCncon 10-04-2024 TSH Qn 0.892 m[IU]/L Normal 0.270-4.200 [facility] Comment on above: Order Comment: Shruthi pyle Type: BLOOD SPECIMEN Ordering Facility: [facility] Address: [address], [place] [address] Result Comment: If t he patient is , TSH reference range varies by gestational period: First Trimester (weeks 9-12): 0.180-2.990 mIU/L Second Trimester: 0.110-3.980 mIU/L Third Trimester: 0.480-4.710 mIU/L Rodney Vasquez et al. A Practical Approach for the Verifications and Determination of Site- and Trimester-Specific Reference Intervals for Thyroid Function tests in . Thyroid, 2019:29:3:412-420. Armen Paz, et al. 2017 Guidelines of the [place] [employer] for the Diagnosis and Management of Thyroid Disease during and the . Thyroid, 2017:27:3:315-389. Performed By: #### 3 0522-7, 1987-, 02503-9 #### [facility] CLIA [id number] [address] [place] [address] [place] Urinalysis complete panel (U )on 10-04-2024 Bacteria LM.HPF (Urine sed) [#/Area] Negative Normal Negative [facility] Comment on above: Order Comment: Speci men Type: URINE SPECIMENOrdering Facility: [facility] Address: [address] [place] [address] Performed By: #### 2 4356-8 ####[facility] LABCLIA [id number] [place] [address] [place] Bilirubin Ql (U) Negative Normal Negative [facility] Comment on above: Order Comment: Speci men Type: URINE SPECIMENOrdering Facility: [facility] Address: [address] [place] [address] Performed By: #### 2 4356-8 ####[facility] LABCLIA [id number] [place] [address] [place] Clarity (Unsp spec) Clear Normal Clear [facility] Comment on above: Order Comment: Speci men Type: URINE SPECIMENOrdering Facility: [facility] Address: [address] [place] [address] Performed By: #### 2 4356-8 ####[facility] LABCLIA [id number] [place] [address] [place] Color (U) Yellow Normal Yellow [facility] Comment on above: Order Comment: Speci men Type: URINE SPECIMENOrdering Facility: [facility] Address: [address] [place] [address] Performed By: #### 2 4356-8 ####[facility] LABCLIA [id number] [address], [place] [address] [place] Epithelial cells LM.HPF (Urine sed) [#/Area] None Seen Normal [facility] Comment on above: Order Comment: Speci men Type: URINE SPECIMENOrdering Facility: [facility] Address: [address] [place] [address] Performed By: #### 2 4356-8 ####[facility] LABCLIA [id number] [address] [place] Glucose Test strip (U) [Mass/Vol] Negative Normal Negative [facility] Comment on above: Order Comment: Speci men Type: URINE SPECIMENOrdering Facility: [facility] Address: [address] [place] [address] Performed By: #### 2 4356-8 ####[facility] LABCLIA [id number] [place] [address] [place] Hemoglobin Ql (U) Negative Normal Negative [facility] Comment on above: Order Comment: Speci men Type: URINE SPECIMENOrdering Facility: [facility] Address: [address] [place] [address] Performed By: #### 2 4356-8 ####[facility] LABCLIA [id number] [address], [facility] [place] Hyaline casts (Urine sed) [#/Area] 1-3 /LPF Abnormal 0 /LPF [facility] Comment on above: Order Comment: Speci men Type: URINE SPECIMENOrdering Facility: [facility] Address: [address] [place] [address] Performed By: #### 2 4356-8 ####[facility] LABCLIA [id number] [address] [place] [address] [place] Ketones Ql (U) Negative Normal Negative [facility] Comment on above: Order Comment: Speci men Type: URINE SPECIMENOrdering Facility: [facility] Address: [address] [place] [address] Performed By: #### 2 4356-8 ####[facility] LABCLIA [id number] [place] [address] [place] Leukocyte esterase Test strip Ql (U) Trace Abnormal Negative [facility] Comment on above: Order Comment: Speci men Type: URINE SPECIMENOrdering Facility: [facility] Address: [address] [place] [address] Performed By: #### 2 4356-8 ####[facility] LABCLIA [id number] [place] [id number] [place] Nitrite Ql (U) Negative Normal Negative [facility] Comment on above: Order Comment: Speci men Type: URINE SPECIMENOrdering Facility: [facility] Address: [address] [place] [address] Performed By: #### 2 4356-8 ####[facility] LABCLIA [id number] [place] [id number] [place] pH (U) 7.0 [pH] Normal <8.5 [facility] Comment on above: Order Comment: Speci men Type: URINE SPECIMENOrdering Facility: [facility] Address: [address] [place] [address] Performed By: #### 2 4356-8 ####[facility] LABCLIA [id number] [address], [facility] [place] Protein (U) [Mass/Vol] Negative Normal Negative [facility] Comment on above: Order Comment: Speci men Type: URINE SPECIMENOrdering Facility: [facility] Address: [address] [place] [address] Performed By: #### 2 4356-8 ####[facility] LABIA [id number] [place] [address] [place] RBC LM.HPF (Urine sed) [#/Area] 0-2 /HPF Normal 0-2 /HPF [facility] Comment on above: Order Comment: Speci men Type: URINE SPECIMENOrdering Facility: [facility] Address: [address] [place] [address] Performed By: #### 2 4356-8 ####[facility] [id number] [place] [address] [place] Specific gravity (U) [Rel density] 1.006 Normal 1.005-1.030 [facility] Comment on above: Order Comment: Speci men Type: URINE SPECIMENOrdering Facility: [facility] Address: [address] [place] [address] Performed By: #### 2 4356-8 ####[facility] [id number] [place] [address] [place] Urobilinogen Ql (U) 0.2 EU/dL Normal 0.2-1.0 EU/dL [facility] Comment on above: Order Comment: Speci men Type: URINE SPECIMENOrdering Facility: [facility] Address: [address] [place] [address] Performed By: #### 2 4356-8 ####[facility] [id number] [place] [address] [place] WBC LM.HPF (Urine sed) [#/Area] 0-5 /HPF Normal 0-5 /HPF [facility] Comment on above: Order Comment: Speci men Type: URINE SPECIMENOrdering Facility: [facility] Address: [address] [place], [place] [address] [id number] Performed By: #### 2 4356-8 ####[facility] LABCLIA [id number] [facility] ERMonty [id number] [place], [place] [id number] [place] Vit B12 SerPl-mCncon 025 Cobalamin (Vitamin B12) [Mass/Vol] 608 pg/mL Normal 232-1245 [facility] Comment on above: Order Comment: Speci men Type: BLOOD SPECIMEN Ordering Facility: [facility] Address: [address] [place], [place] [address] [address] Performed By: #### 2 4323-8, 1987-12, 2132-04 #### [facility] CLIA [id number] [address] [place] [id number] [facility] Gastroenterology Visit Repor ton 10-01-2024 Gastroenterology Visit Report [facility] Gastroenterology [address] [facility] [place] [id number] OFFICE VISIT Date of Service: 10/01/24 MR#: [id number] Acct: [id number] Name: CHICHO WOOD Rep #: [id number] : 2000 Provider: BURTON estevez Age/Sex: 24/F Location[facility] Status: Signed Intake Vital Signs 09/04/24 20:36 Height 5 ft Intake Visit Reasons: POSSIBLE ULCER Chief Complaint: f/u ER, GERD Application Integration Specialist Required: No Accompanied by: Mother Is patient in pain?: No Allergies No Known Allergies Allergy (Verified 09/04/24 20:36) Post menopausal: No Patient : No Have you fallen in the past year?: Yes Nurse's Note: OV 10.01.24 Pt here for f/u from ER and to establish care with [facility]. Pt reports having GERD sx for years and has been taking pantoprazole 40mg. No prior hx of EGD or colonoscopy. Denies bloody stools, n/v/d/c. Denies alcohol and drug use. Finished taking carafate and states she feels it did help. Continues pantoprazole daily. [facility] Medical History (Updated 10/01/24 @ 09:01 by BURTON Boateng) Anemia GERD (gastroesophageal reflux disease) Asthma Social History Smoking Status: Never smoker alcohol intake: never substance use type: does not use HPI HPI Chief Complaint: f/u ER, GERD Details: CHICHO WOOD, is a 24 F who presents to the office today for establishment with [facility] for complaints of treatment failure of GERD and possible stomach ulcer. She had ER visits:09/04/24-pantopr4 0 qd to omepr20 qd+sucralfate q6h+KCL; gastritis GERD; 07/27/24-abd pain, KCL+dicyclomine+ondans etron 07/23/24-food poisoning, cipro+ondansetron; c/o constant reflux, water brash. PMHx:asthma, hidradenitis supurative, anemia, hypothroid, Grave's, fmr smkr, no etoh. Today, she reports some occasional difficulty with swallowing. She mentions that at night, she struggles to swallow her own saliva when lying flat. She continues to have reflux and heartburn, worse at bedtime. She has adjusted her eating times so that her last meal is at least an hour or two before bed and she avoids spicy foods and red sauces. She describes the heartburn as midsternal and epigastric that goes straight through to her back. She also has some abdominal bloating but is unsure of cause. She reports previous bouts of constipation but has increased her fiber and fluid intake so that she moves them daily without straining. She denies difficulty chewing, excessive gas, lower abdominal pain, cramping, diarrhea, hematochezia, and melena. She reports taking pantoprazole in the AM and at bedtime. She states that she finished her sucralfate and ciprofloxacin treatments from the ER visits. ROS Const Constitutional: Positive for fatigue; No fever(s) or weight change ENT ENT: Positive for difficulty swallowing Gastro GI: Positive for abdominal pain, bloating, heartburn, difficulty swallowing and excessive flatus; No belching, change in bowel habits, change in stool character, coffee ground emesis, constipation, cramping, diarrhea, feeling full early, incontinent of stools, Vomiting blood/hematemesis, Blood in stool, loose stools, Black,tarry stools, nausea/dyspepsia, pain with swallowing, vomiting or other Musc Musculoskeletal: No joint pain Skin Skin: No yellowing of the eye or itchy eyes Psych Psychiatric: No anxiety and No depression Endo Endocrine: Positive for fatigue; No weight change Aller/Imm Allergy/Immunologic: No itchy eyes Cricket/Lymp Hematologic/Lymphatic: No easy bleeding or easy bruising Exam Const General: cooperative, healthy appearing, comfortable and no acute distress Nutritional Appearance: average body habitus Orientation: alert and oriented x3 HENMT Head: normal to inspection Ears: hearing grossly normal bilaterally Nose: external nose normal Face and sinus: normal facial exam and face symmetric Eyes General: appearance normal, both eyes and all related structures Sclera: sclerae normal Neck Neck: normal visual inspection and full ROM Chest Chest palpation inspection: normal inspection of the chest Resp Effort Inspection: normal respiratory effort, able to speak in complete sentences and symmetric chest movement GI Inspection: normal to inspection Auscultation: normal bowel sounds Palpation: soft and no hepatosplenomegaly Skin General: no rashes or lesions noted Neuro General: patient alert, patient oriented x3 and moves all extremities Cognition: normal cognition Speech: speech normal Gait: normal gait Extrem General: full ROM Psych Appearance: well kempt Mental Status: mental status grossly normal Assessment and Plan Assessment and Plan (1) Gastritis: Status: Acute Qualifiers: Gastritis type: superficial Chronicity: acute Gastritis bleeding: without bl (more content not included)... [facility] (INTM[facility] ) CHICHO WOOD ([id number]) 2000 F Date Time Provider Department 09/13/24 4:00 PM CE CONNER INTMWS During your visit today, we recorded the following information about you: Temperature Pulse Respiration Blood pressure 98.7 degrees 83/minute 16/minute 99/66 Weight Last Period 73.8 kg 08/26/24 Ce Conner MD 09/13/2024 5:41 PM Signed Reason for Visit Patient presents with: ER F/U: [facility] 07/23/24- N/V AND diarrhea, [facility] 07/27/24 abdominal pain; [facility] 09/04/24 abdominal pain Chicho Wood is a 24 year old female who presents here today for Above Complaints.. 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 She had fullness in the face and difficulty breathing, has a h/o asthma and used to have allergies before. A couple nights ago she had tight ness in the chest area. Her family moved recently near the [employer], since then she has developed cystic acne She has constant reflux, feels burn in her chest, water brash, she feels like food is coming up the symptoms are getting worse. She was increased from Prilosec at 20 mg to 40 mg and now in the 40 is not working well for her. 07/23/24: yesterday was the last day of work, and school, went for [employer] office green party, she ate a lot of food, vegetarian egg roll, sweet and sour meat balls, fruits. She was vomited a couple times and diarrhea. She has lose watery diarrhea. Mother almost going away and her mother reported that she has been having a little tremor for the past 2 or 3 months, patient is reporting 20 pound weight loss over the past 6 months and she is not trying to lose weight. She also has severe regurgitation and palpitations when she eats which is making her afraid to eat, she noticed she is having palpitations on and off and finds it hard to go up the stairs. Today her blood pressure is normal but her pulse is 132 and she has a fever of 100.2 dehydration with 2 episodes of diarrhea and some vomiting should not give a pulse rate of 132. This along with the tremors which are very fine and mother's history of Graves' disease diagnosis at the age of 25 is very concerning for her to have or would be developing some kind of a thyroid storm. Initially we wanted to do the workup here but we looked at the time and we are past 515 today, I do not think patient would be able to go and get her blood work done downstairs and we were not able to get the EKG so we decided to send her to the ER. 09/13/24: A couple weeks ago she was in the ER, for abdominal pain, dcd on Carafate, she took it for a week now, feel better but she still has burning in the night in the chest and the back. She was referred to GI. On the protonix currently along with the carafate. Notes increased eruptions of her HS with the carafate. Needs egd but was not able to get in with Dr Larios. Discussed basic foundations of health. No problem-specific Assessment AND Plan notes found for this encounter. PAST MEDICAL HISTORY Diagnosis Date Asthma PAST SURGICAL HISTORY Procedure Laterality Date NONE FAMILY HISTORY Problem Relation Age of Onset Thyroid Mother Hypertension Mother Hyperlipidemia Father Kidney Disease Maternal Grandmother Hypertension Maternal Grandmother Thyroid Maternal Grandmother Kidney Disease Maternal Grandfather failure Hyperlipidemia Paternal Grandmother Hyperlipidemia Paternal Grandfather Social History Tobacco Use Smoking status: Former Types: Cigarettes Smokeless tobacco: Never Vaping Use Vaping status: Former Substance Use Topics Alcohol use: No Drug use: No Past medical history, appointments, medications, allergies reviewed. Pertinent Lab/Diagnostic Studies are reviewed and discussed today Current Outpatient Medications: sucralfate (CARAFATE) [address] (PROTONIX) 40 mg tablet tretinoin (RETIN-A) 0.1 % cream albuterol HFA (PROVENTIL HFA, VENTOLIN HFA) 90 mcg/actuation inhaler penicillin V potassium 500 mg tablet propranolol (INDERAL) 40 mg tablet ergocalciferol 50,000 unit capsule (VITAMIN D2, DRISDOL) ferrous sulfate 325 mg (65 mg iron) tablet famotidine (PEPCID) 20 mg tablet montelukast (SINGULAIR) 10 mg tablet Review of Systems CONSTITUTIONAL: No fevers, chills night sweats, unintended weight loss CARDIOVASCULAR: No chest pain, dyspnea, palpitations, orthopnea, PND, ankle edema. PULM: No dyspnea, unexplained cough. GI: No dysphagia/odynophagia, problematic reflux, constipation, diarrhea, changes in stool habits, hematochezia, melena. : No new urinary complaints, including dysuria, (more content not included)... Normal [facility] Absolute lymphocyte countOrd ered By: Mariana Domingo on 09-04-2024 Lymphocytes Auto (Unsp spec) [#/Vol] 2.06 10*3/uL 0.83-4.51 [facility] Absolute neutrophil countOrd ered By: Mariana Domingo on 09-04-2024 Neutrophils (Bld) [#/Vol] 6.9 10*3/uL 2.0-7.7 [facility] Albumin to globulin ratioOrd ered By: Mariana Domingo on 09-04-2024 Albumin/Globulin [Mass ratio] 0.8 {ratio} Low 0.9-2.4 [facility] Automated lymphocyte count a s percentage of total leukocytesOrdered By: Mariana Domingo on 09-04-2024 Lymphocytes/100 WBC Auto (Unsp spec) 21.5 % 19-41 [facility] Basophil percentageOrdered B y: Mariana Domingo on 09-04-2024 Basophils/100 WBC (Bld) 0.5 % 0-1 [facility] Bilirubin, totalOrdered By: Mariana Domingo on 09-04-2024 Bilirubin [Mass/Vol] 0.60 mg/dL 0.20-1.00 [facility] [place] [facility] Comment on above: For patients on eltr ombopag therapy, use of Dimension Saxon TBIL is not recommended. Blood urea nitrogen (BUN)/cr eatinine ratioOrdered By: Mariana Domingo on 09-04-2024 Urea nitrogen/Creatinine [Mass ratio] 6.7 mg/mg Low 10-20 [facility] CBC W/Diff, Automatedon Absolute Lymph 2.06 X10 3/uL Normal 0.83-4.51 [facility] Comment on above: Performed By: #### L 100.0100, L501.2450, L500.4050 ####[facility] [address] [place], [place], [id number] Absolute Neut 6.9 X10 3/uL Normal 2.0-7.7 [facility] Comment on above: Performed By: #### L 100.0100, L501.2450, L500.4050 ####[facility] [address] [place], [address] Basophils/100 WBC (Bld) 0.5 % Normal 0-1 [facility] Comment on above: Performed By: #### L 100.0100, L501.2450, L500.4050 ####[facility] [address] [place], [address] Eosinophils/100 WBC (Bld) 1.4 % Normal 0-5 [facility] Comment on above: Performed By: #### L 100.0100, L501.2450, L500.4050 ####[facility] [address] [place], [address] Erythrocyte distribution width (RBC) [Ratio] 13.9 % Normal 11.6-14.6 [facility] Comment on above: Performed By: #### L 100.0100, L501.2450, L500.4050 ####[facility] [address] [place], [address] Hematocrit (Bld) [Volume fraction] 34.7 % Low 37-47 [facility] Comment on above: Performed By: #### L 100.0100, L501.2450, L500.4050 ####[facility] [address] [place], [address] Hemoglobin (Bld) [Mass/Vol] 11.4 g/dL Low 12.0-15.0 [facility] Comment on above: Performed By: #### L 100.0100, L501.2450, L500.4050 ####[facility] [address] [place], [address] IG% 0.300 Normal 0.0-0.9 [facility] Comment on above: Result Comment: IG% - Immature Granulocytes (promyelocytes, myelocytes and metamyelocytes) > 1% indicates that a LEFT SHIFT is Present. Performed By: #### L 100.0100, L501.2450, L500.4050 ####[facility] [address] [place], [address] Lymphocytes/100 WBC (Bld) 21.5 % Normal 19-41 [facility] Comment on above: Performed By: #### L 100.0100, L501.2450, L500.4050 ####[facility] [address] [place], [address] MCH (RBC) [Entitic mass] 27.9 pg Normal 27.0-32.0 [facility] Comment on above: Performed By: #### L 100.0100, L501.2450, L500.4050 ####[facility] [address] [place], [address] MCHC (RBC) [Mass/Vol] 32.9 g/dL Normal 32-36 [facility] Comment on above: Performed By: #### L 100.0100, L501.2450, L500.4050 ####[facility] [address] [place], [address] MCV (RBC) [Entitic vol] 84.8 fL Normal 81-99 [facility] Comment on above: Performed By: #### L 100.0100, L501.2450, L500.4050 ####[facility] [address] [place], [address] Monocytes/100 WBC (Bld) 4.4 % Normal 0-10 [facility] Comment on above: Performed By: #### L 100.0100, L501.2450, L500.4050 ####[facility] [address] [place], [address] Neutrophils/100 WBC (Bld) 71.9 % High 47-70 [facility] Comment on above: Performed By: #### L 100.0100, L501.2450, L500.4050 ####[facility] [address] [place], [address] Nucleated RBC (Bld) [#/Vol] 0 10*3/uL Normal 0-5 [facility] Comment on above: Performed By: #### L 100.0100, L501.2450, L500.4050 ####[facility] [address] [place], [address] Platelet mean volume (Bld) [Entitic vol] 11.0 fL Normal 6.2-12.0 [facility] Comment on above: Performed By: #### L 100.0100, L501.2450, L500.4050 ####[facility] [address] [place], [address] Platelets (Bld) [#/Vol] 310 10*3/uL Normal 150-450 [facility] Comment on above: Performed By: #### L 100.0100, L501.2450, L500.4050 ####[facility] [address] [place], [address] RBC (Bld) [#/Vol] 4.09 10*6/uL Low 4.2-5.4 [facility] Comment on above: Performed By: #### L 100.0100, L501.2450, L500.4050 ####[facility] [address] [place], [address] RDW SD 43.1 fl Normal 35.1-43.9 [facility] Comment on above: Performed By: #### L 100.0100, L501.2450, L500.4050 ####[facility] [address] [place], [address] WBC (Bld) [#/Vol] 9.6 10*3/uL Normal 4.4-11.0 [facility] Comment on above: Performed By: #### L 100.0100, L501.2450, L500.4050 ####[facility] [address] [place], [address] Carbon dioxide measurementOr dered By: Mariana Domingo on 09-04-2024 CO2 [Moles/Vol] 24.0 mmol/L 21.0-32.0 [facility] Chloride measurementOrdered By: Mariana Domingo on 09-04-2024 Chloride [Moles/Vol] 103 mmol/L 98-107 [facility] Comprehensive Metabolic Prof ilon 09-04-2024 Albumin [Mass/Vol] 3.7 g/dL Normal 3.2-5.0 [facility] Comment on above: Performed By: #### L 100.0100, L501.2450, L500.4050 ####[facility] [address] [place], [address] Albumin/Globulin [Mass ratio] 0.8 {ratio} Low 0.9-2.4 [facility] Comment on above: Performed By: #### L 100.0100, L501.2450, L500.4050 ####[facility] [address] [place], [address] ALK P 66 U/L Normal 45-117 [facility] Comment on above: Performed By: #### L 100.0100, L501.2450, L500.4050 ####[facility] [address] [place], [address] ALT [Catalytic activity/Vol] 13 U/L Normal 13-56 [facility] Comment on above: Performed By: #### L 100.0100, L501.2450, L500.4050 ####[facility] [address] [place], [address] AST [Catalytic activity/Vol] 10 U/L Low 15-37 [facility] Comment on above: Performed By: #### L 100.0100, L501.2450, L500.4050 ####[facility] [address] [place], [address] Bilirubin [Mass/Vol] 0.60 mg/dL Normal 0.20-1.00 [facility] Comment on above: Result Comment: For patients on eltrombopag therapy, use of Dimension Saxon TBIL is not recommended. Performed By: #### L 100.0100, L501.2450, L500.4050 ####[facility] [address] [place], [address] BUN/CRE 6.7 RATIO Low 10-20 [facility] Comment on above: Performed By: #### L 100.0100, L501.2450, L500.4050 ####[facility] [address] [place], [address] CA,Total 9.3 mg/dL Normal 8.5-10.1 [facility] Comment on above: Performed By: #### L 100.0100, L501.2450, L500.4050 ####[facility] [address] [place], [address] Chloride [Moles/Vol] 103 mmol/L Normal 98-107 [facility] Comment on above: Performed By: #### L 100.0100, L501.2450, L500.4050 ####[facility] [address] [place], [address] CO2 [Moles/Vol] 24.0 mmol/L Normal 21.0-32.0 [facility] Comment on above: Performed By: #### L 100.0100, L501.2450, L500.4050 ####[facility] [address] [place], [address] Creatinine [Mass/Vol] 0.75 mg/dL Normal 0.55-1.02 [facility] Comment on above: Result Comment: The validity of the calculated GFR GFRAA in patients over 70 years has not been determined. Clinical correlation is essential. Performed By: #### L 100.0100, L501.2450, L500.4050 ####[facility] [address] [place], [address] ECRCL 102.39 ml/min Normal [facility] Comment on above: Performed By: #### L 100.0100, L501.2450, L500.4050 ####[facility] [address] [place], [address] EST GFR - AA 121 mL/min Normal >60 [facility] Comment on above: Result Comment: Afri can [place] GFR Calc Performed By: #### L 100.0100, L501.2450, L500.4050 ####[facility] [address] [place], [address] GAP 9 Normal 5-15 [facility] Comment on above: Performed By: #### L 100.0100, L501.2450, L500.4050 ####[facility] [address] [place], [address] GFR/1.73 sq M.predicted among non-blacks MDRD (S/P/Bld) [Vol rate/Area] 100 mL/min/{1.73_m2} Normal >60 [facility] Comment on above: Result Comment: Non- GFR Calc Performed By: #### L 100.0100, L501.2450, L500.4050 ####[facility] [address] [place], [address] Globulin (S) [Mass/Vol] 4.5 g/dL High 2.2-4.2 [facility] Comment on above: Performed By: #### L 100.0100, L501.2450, L500.4050 ####[facility] [address] [place], [address] Glucose [Mass/Vol] 77 mg/dL Normal 74-106 [facility] Comment on above: Performed By: #### L 100.0100, L501.2450, L500.4050 ####[facility] [address] [place], [address] Potassium [Moles/Vol] 3.2 mmol/L Low 3.5-5.1 [facility] Comment on above: Performed By: #### L 100.0100, L501.2450, L500.4050 ####[facility] [address] [place], [address] Sodium [Moles/Vol] 136 mmol/L Normal 136-145 [facility] Comment on above: Performed By: #### L 100.0100, L501.2450, L500.4050 ####[facility] [address] [place], [address] T PROT 8.2 g/dL Normal 6.4-8.2 [facility] Comment on above: Performed By: #### L 100.0100, L501.2450, L500.4050 ####[facility] [address] [place], [address] Urea nitrogen [Mass/Vol] 5 mg/dL Low 7-18 [facility] Comment on above: Performed By: #### L 100.0100, L501.2450, L500.4050 ####[facility] [address] [place], [address] Emergency Department Summary on 09-04-2024 Emergency Department Summary [facility] Medical Records Department [address] [place] [address] Emergency Department Summary 09/04/24 MR#: [id number] Acct: [id number] Name: CHICHO WOOD Rep #: [id number] : 2000 24 From: Mariana Domingo DO PCP: Dr. Ce Conner MD Status:DEP ER Location: ED HPI HPI - GI History of Present Illness Chief Complaint: Abd Pain Informant: patient and parent Narrative Narrative: Patient is a 24-year-old female with history of hidradenitis suppurativa presenting with ongoing and worsening upper abdominal pain. She has been presumptively diagnosed with GERD and has been on pantoprazole from her primary care doctor for the past year or so. She notes that she had food poisoning a little over a month ago and since then has been having worsening of her epigastric pain. She is never seen GI. Has never had an endoscopy. States that she is compliant with her pantoprazole recently increased to 40 mg a day. She states the pain is getting so bad that she is now having tears. She describes it as intense burning in her epigastric region that radiates into her chest and slightly to her back. She states that it is worse at night when she lays down. She states is especially bad if she eats shortly before going to bed. She states she fasted today and did not relieve her symptoms. Came with her mother for further evaluation. Denies any recent change in bowel movements. Does report feeling little constipated. Denies any black or blood in her stool. Denies any associated nausea or vomiting. Denies any history of any abdominal surgeries. No other complaints or concerns at this time. [facility] Medical History Anemia GERD (gastroesophageal reflux disease) Asthma Home Medications ???Medication ???Instructions ???Recorded ???Last Taken ???Type omeprazole 20 mg capsule,delayed 20 mg PO DAILY #30 CAPSULES Unknown Rx release ondansetron 4 mg disintegrating 4 mg PO Q8H PRN PRN Nausea #10 tab s 07/23/24 Unknown Rx tablet ondansetron 4 mg disintegrating 4 mg PO Q6H PRN nausea and 4 Unknown Rx tablet vomiting #20 tabs potassium chloride 20 mEq oral 20 meq PO BID 5 days #30 ea Unknown Rx packet pantoprazole 40 mg tablet,delayed 40 mg PO BID 14 days #28 tabs 08/28 Unknown Rx release sucralfate 1 gram tablet (Carafate) 1 g PO Q6H 2 weeks #56 tabs 08/28 Unknown Rx Allergy/AdvReac Type Severity Reaction Status Date / Time No Known Allergies Allergy Verified 09/04/24 20:36 Family History no significant family his Social History Smoking Status: Never smoker ROS ROS ED Constitutional Constitutional ED: Denies chills or fever(s) Respiratory/Chest Respiratory/Chest: Denies cough or dyspnea Gastrointestinal Gastrointestinal: Reports abdominal pain; Denies diarrhea, nausea or vomiting Musculoskeletal Musculoskeletal: Denies arthralgias or myalgias Integumentary Denies rash Psychiatric Psychiatric: Denies anxiety EXAM Physical Exam Const Vital Signs: 09/04/24 20:36 09/04/24 22:36 09/04/24 23:23 Temperature 98 F 98.1 F Temperature Source Temporal Pulse Rate 73 74 56 L Respiratory Rate 18 16 16 Blood Pressure 126/78 H 120/83 H 113/68 Blood Pressure Mean 94 95 83 Pulse Ox 100 100 99 Oxygen Delivery Method Room Air Room Air Positive well nourished and well developed General Appearance ED: well developed and NAD; Negative for pallor HEENT normocephalic and atraumatic Neck supple Resp normal respiratory effort and clear to auscultation bilaterally Cardio regular rate, regular rhythm and no murmurs GI non-tender, non-distended and no masses GI Narrative: Negative Mcdonald sign Auscultation: normoactive bowel sounds Palpation: soft; Negative for tender, guarding or rigid Extremity full ROM General Extremety ED: Negative for edema General Extremity: Negative for edema Neuro Sensorium / Orientation: alert Motor Exam: Negative for general weakness Psych mental status grossly normal and thought process normal Skin General Skin Exam: Negative for jaundice or pallor MDM MDM MDM Narrative Medical decision making narrative: Patient is evaluated for ongoing upper abdominal pain that radiates to her chest. Vital signs are normal. She overall is well-appearing. She is not have a peritoneal surgical abdominal exam. She is a negative Mcdonald sign. I suspect this is more of gastritis/GERD/peptic ulcer disease. Differential also includes symptomatic anemia, pancreatitis, cholecystitis and choledocholithiasis. Lab work is obtained which shows mild anemia with hemoglobin 11.4 However this is actually improved from her hemo (more content not included)... Normal [facility] Eosinophil percentageOrdered By: Mariana Domingo on 09-04-2024 Eosinophils/100 WBC (Bld) 1.4 % 0-5 [facility] Erythrocyte distribution wid th ratioOrdered By: Mariana Domingo on 09-04-2024 Erythrocyte distribution width (RBC) [Ratio] 13.9 % 11.6-14.6 [facility] Erythrocyte distribution wid th standard deviationOrdered By: Mariana Domingo on 09-04-2024 Erythrocyte distribution width (RBC) [Ratio] 43.1 fl 35.1-43.9 [facility] Glomerular filtration rate ( GFR) estimationOrdered By: Mariana Domingo on 09-04-2024 GFR/1.73 sq M.predicted among non-blacks MDRD (S/P/Bld) [Vol rate/Area] 100 mL/min/{1.73_m2} >60 [facility] Comment on above: Non- GFR Calc Glucose measurementOrdered B y: Mariana Domingo on 09-04-2024 Glucose [Mass/Vol] 77 mg/dL 74-106 [facility] Hematocrit Auto (Bld) [Volum e fraction]Ordered By: Mariana Domingo on 09-04-2024 Hematocrit (Bld) [Volume fraction] 34.7 % Low 37-47 [facility] Hemoglobin measurementOrdere d By: Mariana Domingo on 09-04-2024 Hemoglobin (Bld) [Mass/Vol] 11.4 g/dL Low 12.0-15.0 [facility] Immature granulocytes/100 WB C Auto (Bld)Ordered By: Mariana Domingo on 09-04-2024 Immature granulocytes/100 WBC (Bld) 0.300 % 0.0-0.9 [facility] Comment on above: IG% - Immature Granu locytes (promyelocytes, myelocytes and metamyelocytes) > 1% indicates that a LEFT SHIFT is Present. Laboratory - Chemistry and C hemistry - challengeOrdered By: Mariana Domingo on 09-04-2024 AST [Catalytic activity/Vol] 10 U/L Low 15-37 [facility] Lipaseon 09-04-2024 Lipase [Catalytic activity/Vol] 25 U/L Normal 13-75 [facility] Comment on above: Result Comment: Rubens can note: LIPASE revised reference range effective 22. New Lipase methodology. Expected to produce lower values than the previous assay method. NEW Reference Range: 13 - 75 U/L Performed By: #### L 100.0100, L501.2450, L500.4050 ####[facility] [address] [place], [address] Lipase measurementOrdered By : Mariana Domingo on 09-04-2024 Lipase [Catalytic activity/Vol] 25 U/L 13-75 [facility] Comment on above: Please note:LIPASE r evised reference range effective 22. New Lipase methodology. Expected to produce lower values than the previous assay method. NEW Reference Range: 13 - 75 U/L MCV (mean corpuscular volume ) determinationOrdered By: Mariana Domingo on 09-04-2024 MCV (RBC) [Entitic vol] 84.8 fL 81-99 [facility] Mean corpuscular hemoglobin (MCH) determinationOrdered By: Mariana Domingo on 09-04-2024 MCH (RBC) [Entitic mass] 27.9 pg 27.0-32.0 [facility] Mean corpuscular hemoglobin concentration (MCHC) determinationOrdered By: Mariana Domingo on 09-04-2024 MCHC (RBC) [Mass/Vol] 32.9 g/dL 32-36 [facility] Mean platelet volume determi nationOrdered By: Mariana Domingo on 09-04-2024 Platelet mean volume (Bld) [Entitic vol] 11.0 fL 6.2-12.0 [facility] Monocyte percentageOrdered B y: Mariana Domingo on 09-04-2024 Monocytes/100 WBC (Bld) 4.4 % 0-10 [facility] Neutrophil percentageOrdered By: Mariana Domingo on 09-04-2024 Neutrophils/100 WBC (Bld) 71.9 % High 47-70 [facility] Nucleated red blood cell per centageOrdered By: Mariana Domingo on 09-04-2024 Nucleated RBC/100 WBC (Bld) [Ratio] 0 % 0-5 [facility] Platelet countOrdered By: Jorge Domingo on 09-04-2024 Platelets (Bld) [#/Vol] 310 10*3/uL 150-450 [facility] Potassium measurementOrdered By: Mariana Domingo on 09-04-2024 Potassium [Moles/Vol] 3.2 mmol/L Low 3.5-5.1 [facility] ,Urineon 09-04-2024 Beta HCG ( test) Ql (U) Negative Normal [facility] Comment on above: Result Comment: Very dilute urine specimens, as indicated by a low specific gravity, may not contain scheduling representative levels of hCG. If is still suspected, a first morning urine specimen should be collected 48 hours later and tested. Performed By: #### L 400.7600 #### [facility] [address] [place], [address] RBC Auto (Bld) [#/Vol]Ordere d By: Mariana Domingo on 09-04-2024 RBC (Bld) [#/Vol] 4.09 10*6/uL Low 4.2-5.4 [facility] Serum anion gap measurementO rdered By: Mariana Domingo on 09-04-2024 Anion gap [Moles/Vol] 9 mmol/L 5-15 [facility] Serum globulin measurementOr dered By: Mariana Domingo on 09-04-2024 Globulin (S) [Mass/Vol] 4.5 g/dL High 2.2-4.2 [facility] Serum or plasma alanine leigh otransferase (ALT) measurementOrdered By: Mariana Domingo on 09-04-2024 ALT [Catalytic activity/Vol] 13 U/L 13-56 [facility] Serum or plasma albumin rodolfo urement (mass/volume)Ordered By: Mariana Domingo on 09-04-2024 Albumin [Mass/Vol] 3.7 g/dL 3.2-5.0 [facility] Serum or plasma alkaline leonel sphatase measurementOrdered By: Mariana Domingo on 09-04-2024 ALP [Catalytic activity/Vol] 66 U/L 45-117 [facility] Serum or plasma calcium rodolfo urement (mass/volume)Ordered By: Mariana Domingo on 09-04-2024 Calcium [Mass/Vol] 9.3 mg/dL 8.5-10.1 [facility] Serum or plasma creatinine m easurement (mass/volume)Ordered By: Mariana Domingo on 09-04-2024 Creatinine [Mass/Vol] 0.75 mg/dL 0.55-1.02 [facility] Comment on above: The validity of the calculated GFR & GFRAA in patients over 70 years has not been determined. Clinical correlation is essential. Serum or plasma urea nitroge n measurement (mass/volume)Ordered By: Mariana Domingo on 09-04-2024 Urea nitrogen [Mass/Vol] 5 mg/dL Low 7-18 [facility] Sodium levelOrdered By: Emilee Domingo on 09-04-2024 Sodium [Moles/Vol] 136 mmol/L 136-145 [facility] Total proteinOrdered By: Ninoska Domingo on 09-04-2024 Protein [Mass/Vol] 8.2 g/dL 6.4-8.2 [facility] Urine testOrdered By: Mariana Domingo on 09-04-2024 HCG ( test) Ql (U) Negative [facility] Comment on above: Very dilute urine sp ecimens, as indicated by a low specificgravity, may not contain scheduling representative levels of hCG. If is still suspected, a first morning urinespecimen should be collected 48 hours later and tested. White blood cell (WBC) count Ordered By: Mariana Domingo on 09-04-2024 WBC (Bld) [#/Vol] 9.6 10*3/uL 4.4-11.0 [facility] CNPNon 08-11-2024 CNPN Telephone ([employer]) CHICHO WOOD ([id number]) 2000 F Date Time Provider Department 08/11/24 HEAVEN MACIEL ALLMED During your visit today, we recorded the following information about you: Heaven Maciel MD 08/11/2024 1:26 PM Signed [facility] allergy clerical pool: Please try to add patient on for a storm and FeNO prior to her appt with me tomorrow at 3 pm. (Orders previously placed.) MD Dereje Centeno Eve 08/11/2024 1:46 PM Signed LVM to call back and schedule testing. PSS: [facility] does not have any openings, but the [place] [facility] has availability for tomorrow prior to appointment. Thanks Fanny Farnsworth 08/13/2024 7:52 AM Signed Patient no showed appointment with Dr. Maciel so all of this can be scheduled together when she reschedules. Allergies As of Date: 08/11/2024 Noted Allergy Reaction SEASONAL ALLERGIES 11/03/2023 16 - Unknown Date Reviewed: 07/23/2024 Reviewed by: Le Montenegro LPN - Fully Assessed Reason for Visit: Appointment [186] Prescriptions as of 10/09/2024 - aluminum-magnesium hydroxide-simethicone 200-200-20 mg/5 mL suspension Take 10 mL by mouth between meals and at bedtime as needed for up to 7 days. - ferrous sulfate 325 mg (65 mg iron) tablet Take 1 tablet by mouth once daily. - ergocalciferol 50,000 unit capsule (VITAMIN D2, DRISDOL) Take 1 capsule by mouth two times a week. TO BE TAKEN ORALLY DIRECTED. Take 1 tablet by mouth twice weekly [id number], then decrease to 1 tablet weekly. - sucralfate (CARAFATE) 1 gram tablet Take 1 g by mouth every 6 hours. For 2 weeks - doxycycline monohydrate (MONODOX) 100 mg capsule Take 1 capsule by mouth two times a day. - penicillin V potassium 500 mg tablet Take 500 mg by mouth. - propranolol (INDERAL) 40 mg tablet Take 1 tablet by mouth three times a day. - pantoprazole DR (PROTONIX) 40 mg tablet TAKE 1 TABLET BY MOUTH DAILY BEFORE BREAKFAST ON EMPTY STOMACH, 1/2 HR BEFORE MEAL. - tretinoin (RETIN-A) 0.1 % cream Apply to affected area daily at bedtime. - famotidine (PEPCID) 20 mg tablet Take 1 tablet by mouth daily at bedtime. - montelukast (SINGULAIR) 10 mg tablet Take 1 tablet by mouth daily at bedtime. - albuterol HFA (PROVENTIL HFA, VENTOLIN HFA) 90 mcg/actuation inhaler Inhale 2 Puffs as instructed every 4 hours as needed. Problem List As Of Date 08/11/2024 Noted Resolved Allergic rhinitis [J30.9] 12/21/2012 Hydradenitis [L73.2] 12/04/2017 Other acne [L70.8] 12/04/2017 Encounter Status:Closed by HEAVEN MACIEL on 10/09/24 Normal [facility] Metabolic [facility] laurent 07-27-2024 Albumin [Mass/Vol] 3.4 g/dL Normal 3.2-5.0 [facility] Comment on above: Performed By: #### L 100.0100, L501.2450, L700.6800, L500.4050 ####[facility] [address] [place], [address] Albumin/Globulin [Mass ratio] 0.8 {ratio} Low 0.9-2.4 [facility] Comment on above: Performed By: #### L 100.0100, L501.2450, L700.6800, L500.4050 ####[facility] [address] [place], [address] ALK P 50 U/L Normal 45-117 [facility] Comment on above: Performed By: #### L 100.0100, L501.2450, L700.6800, L500.4050 ####[facility] [address] [place], [address] ALT [Catalytic activity/Vol] 17 U/L Normal 13-56 [facility] Comment on above: Performed By: #### L 100.0100, L501.2450, L700.6800, L500.4050 ####[facility] [address] [place], [address] AST [Catalytic activity/Vol] 11 U/L Low 15-37 [facility] Comment on above: Performed By: #### L 100.0100, L501.2450, L700.6800, L500.4050 ####[facility] [address] [place], [address] Bilirubin [Mass/Vol] 0.40 mg/dL Normal 0.20-1.00 [facility] Comment on above: Result Comment: For patients on eltrombopag therapy, use of Dimension Saxon TBIL is not recommended. Performed By: #### L 100.0100, L501.2450, L700.6800, L500.4050 ####[facility] [address] [place], [address] BUN/CRE 5.9 RATIO Low 10-20 [facility] Comment on above: Performed By: #### L 100.0100, L501.2450, L700.6800, L500.4050 ####[facility] [address] [place], [address] CA,Total 8.6 mg/dL Normal 8.5-10.1 [facility] Comment on above: Performed By: #### L 100.0100, L501.2450, L700.6800, L500.4050 ####[facility] [address] [place], [address] Chloride [Moles/Vol] 106 mmol/L Normal 98-107 [facility] Comment on above: Performed By: #### L 100.0100, L501.2450, L700.6800, L500.4050 ####[facility] [address] [place], [address] CO2 [Moles/Vol] 27.0 mmol/L Normal 21.0-32.0 [facility] Comment on above: Performed By: #### L 100.0100, L501.2450, L700.6800, L500.4050 ####[facility] [address] [place], [address] Creatinine [Mass/Vol] 0.84 mg/dL Normal 0.55-1.02 [facility] Comment on above: Result Comment: The validity of the calculated GFR GFRAA in patients over 70 years has not been determined. Clinical correlation is essential. Performed By: #### L 100.0100, L501.2450, L700.6800, L500.4050 ####[facility] [address] [place], [address] ECRCL 92.68 ml/min Normal [facility] Comment on above: Performed By: #### L 100.0100, L501.2450, L700.6800, L500.4050 ####[facility] [address] [place], [address] EST GFR - AA 106 mL/min Normal >60 [facility] Comment on above: Result Comment: Afri can [place] GFR Calc Performed By: #### L 100.0100, L501.2450, L700.6800, L500.4050 ####[facility] [address] [place], [address] GAP 5 Normal 5-15 [facility] Comment on above: Performed By: #### L 100.0100, L501.2450, L700.6800, L500.4050 ####[facility] [address] [place], [address] GFR/1.73 sq M.predicted among non-blacks MDRD (S/P/Bld) [Vol rate/Area] 87 mL/min/{1.73_m2} Normal >60 [facility] Comment on above: Result Comment: Non- GFR Calc Performed By: #### L 100.0100, L501.2450, L700.6800, L500.4050 ####[facility] [address] [place], [address] Globulin (S) [Mass/Vol] 4.2 g/dL Normal 2.2-4.2 [facility] Comment on above: Performed By: #### L 100.0100, L501.2450, L700.6800, L500.4050 ####[facility] [address] [place], [address] Glucose [Mass/Vol] 91 mg/dL Normal 74-106 [facility] Comment on above: Performed By: #### L 100.0100, L501.2450, L700.6800, L500.4050 ####[facility] [address] [place], [address] Potassium [Moles/Vol] 3.0 mmol/L Low 3.5-5.1 [facility] Comment on above: Performed By: #### L 100.0100, L501.2450, L700.6800, L500.4050 ####[facility] [address] [place], [address] Sodium [Moles/Vol] 138 mmol/L Normal 136-145 [facility] Comment on above: Performed By: #### L 100.0100, L501.2450, L700.6800, L500.4050 ####[facility] [address] [place], [address] T PROT 7.6 g/dL Normal 6.4-8.2 [facility] Comment on above: Performed By: #### L 100.0100, L501.2450, L700.6800, L500.4050 ####[facility] [address] [place], [address] Urea nitrogen [Mass/Vol] 5 mg/dL Low 7-18 [facility] Comment on above: Performed By: #### L 100.0100, L501.2450, L700.6800, L500.4050 ####[facility] [address] [place], [address] Emergency Department Summary on 07-27-2024 Emergency Department Summary [facility] Medical Records Department [address] [place] [address] Emergency Department Summary 07/27/24 MR#: [id number] Acct: [id number] Name: CHICHO WOOD Rep #: [id number] : 2000 24 From: Pablo Torres DO PCP: Dr. Ce Conner MD Status:REG ER Location: ED HPI History of Present Illness Chief Complaint: Abd Pain Narrative Narrative: Patient is a 24-year-old female with past medical history of asthma who presents to the emergency department with a chief complaint of abdominal pain. States that on Friday she was seen here and evaluated was diagnosed with food poisoning and was started on ciprofloxacin. States that she stated that her symptoms returned and she became concerned therefore she came here for further evaluation management. Patient states that she has been taking the ciprofloxacin. Patient denies any previous abdominal surgeries. Patient denies any nausea vomiting diarrhea. [facility] Medical History Asthma Home Medications ???Medication ???Instructions ???Recorded ???Last Taken ???Type albuterol sulfate 90 mcg/actuation 2 puff inhalation Q6H PRN breathing 03/02/21 Unknown History aerosol inhaler omeprazole 20 mg capsule,delayed 20 mg PO DAILY #30 CAPSULES 10/20/22 Unknown Rx release ciprofloxacin HCl 500 mg tablet 500 mg PO BID 4 days #8 tabs 07/23/24 Unknown Rx (Cipro) ondansetron 4 mg disintegrating 4 mg PO Q8H PRN PRN Nausea #10 tabs 07/23/24 Unknown Rx tablet dicyclomine 20 mg tablet 20 mg PO TID PRN abdominal pain 07/27/24 Unknown Rx #30 tabs ondansetron 4 mg disintegrating 4 mg PO Q6H PRN nausea and 07/27/24 Unknown Rx tablet vomiting #20 tabs potassium chloride 20 mEq oral 20 meq PO BID 5 days #30 ea 07/27/24 Unknown Rx packet Allergy/AdvReac Type Severity Reaction Status Date / Time No Known Allergies Allergy Verified 07/26/24 23:13 Social History Smoking Status: Former smoker ROS ROS ED ROS Narrative Constitutional: Denies fevers, chills, headachesdizziness Abdomen: Complains of abdominal discomfort as noted above denies any vomiting or diarrhea : Denies any urinary symptoms Neurological: Denies any numbness, weakness, tingling Musculoskeletal: Denies back pain Skin: Denies rashes or lesions EXAM Physical Exam Narrative Exam Narrative: General: Patient lying in bed rest comfortably did not appear to be in acute distress Head: Atraumatic, normocephalic Eyes: PERRL body, EOMI biotic no conjunctival injection noted Neck: Soft, supple, trachea midline Cardiovascular: Regular rate and rhythm no murmurs gallops rubs noted Respiratory: Clear to auscultation bilaterally Abdomen: Soft, nondistended, no tenderness to palpation, bowel sounds present x 4 Extremities: +5/5 strength noted in the bilateral lower extremities, radial pulses +2/4 in the right upper extremities Neurological: Patient following commands knew that she was at [facility] years 2023 Skin: Warm, dry, intact Const Vital Signs: 07/26/24 23:13 Temperature 97.6 F L Temperature Source Temporal Pulse Rate 65 Respiratory Rate 18 Blood Pressure 108/65 Blood Pressure Mean 79 Pulse Ox 100 Oxygen Delivery Method Room Air MDM MDM MDM Narrative Medical decision making narrative: Patient is a 24-year-old female who presents to the emergency department chief complaint of abdominal pain and concern as her symptoms returned from being diagnosed with food poisoning on Friday. Once again the patient's abdominal exam is benign and nonsurgical in nature. We will repeat blood work and reevaluate. On the differential diagnose includes Melamin to viral gastroenteritis, . Patient CBC reviewed and was largely unremarkable no evidence leukocytosis white blood count normal at 7.5, hemoglobin 10.7, platelet count was noted to be normal at 266. Patient sodium normal 138, potassium was low indicating hypokalemia she was given 40 mill equivalents of supplementation here in the emergency department and she will be given a prescription for potassium replacement for the next few days. Patient's creatinine was noted to be normal at 0.84, AST and ALT were 11 and 17 respectively with a normal total bilirubin of 0.40. Patient lipase normal at 50, test negative. On reevaluation of the patient she is feeling significantly improved she would like to go home at this point time. Patient will be given prescriptions for potassium, Bentyl, Zofran. She is encouraged to follow-up with her primary care physician in the outpatient setting and return with worsening symptoms or other concerns. She is agreeable this plan as well as family members at bedside all question concerns (more content not included)... Normal [facility] Lipaseon 07-27-2024 Lipase [Catalytic activity/Vol] 50 U/L Normal 13-75 [facility] Comment on above: Result Comment: Rubens can note: LIPASE revised reference range effective 22. New Lipase methodology. Expected to produce lower values than the previous assay method. NEW Reference Range: 13 - 75 U/L Performed By: #### L 100.0100, L501.2450, L700.6800, L500.4050 ####[facility] [address] [place], [place], [id number] ,Serum,hCG Quali.on 07-27-2024 HCG, SERUM QUAL Negative Normal [facility] Comment on above: Performed By: #### L 100.0100, L501.2450, L700.6800, L500.4050 ####[facility] [address] [place], [address] CBC W/Diff, Automatedon - Absolute Lymph 2.75 X10 3/uL Normal 0.83-4.51 [facility] Comment on above: Performed By: #### L 100.0100, L501.2450, L700.6800, L500.4050 ####[facility] [address] [place], [address] Absolute Neut 4.1 X10 3/uL Normal 2.0-7.7 [facility] Comment on above: Performed By: #### L 100.0100, L501.2450, L700.6800, L500.4050 ####[facility] [address] [place], [address] Basophils/100 WBC (Bld) 0.4 % Normal 0-1 [facility] Comment on above: Performed By: #### L 100.0100, L501.2450, L700.6800, L500.4050 ####[facility] [address] [place], [address] Eosinophils/100 WBC (Bld) 1.7 % Normal 0-5 [facility] Comment on above: Performed By: #### L 100.0100, L501.2450, L700.6800, L500.4050 ####[facility] [address] [place], [address] Erythrocyte distribution width (RBC) [Ratio] 13.9 % Normal 11.6-14.6 [facility] Comment on above: Performed By: #### L 100.0100, L501.2450, L700.6800, L500.4050 ####[facility] [address] [place], [address] Hematocrit (Bld) [Volume fraction] 33.1 % Low 37-47 [facility] Comment on above: Performed By: #### L 100.0100, L501.2450, L700.6800, L500.4050 ####[facility] [address] [place], [address] Hemoglobin (Bld) [Mass/Vol] 10.7 g/dL Low 12.0-15.0 [facility] Comment on above: Performed By: #### L 100.0100, L501.2450, L700.6800, L500.4050 ####[facility] [address] [place], [address] IG% 0.300 Normal 0.0-0.9 [facility] Comment on above: Result Comment: IG% - Immature Granulocytes (promyelocytes, myelocytes and metamyelocytes) > 1% indicates that a LEFT SHIFT is Present. Performed By: #### L 100.0100, L501.2450, L700.6800, L500.4050 ####[facility] [address] [place], [address] Lymphocytes/100 WBC (Bld) 36.5 % Normal 19-41 [facility] Comment on above: Performed By: #### L 100.0100, L501.2450, L700.6800, L500.4050 ####[facility] [address] [place], [address] MCH (RBC) [Entitic mass] 27.3 pg Normal 27.0-32.0 [facility] Comment on above: Performed By: #### L 100.0100, L501.2450, L700.6800, L500.4050 ####[facility] [address] [place], [address] MCHC (RBC) [Mass/Vol] 32.3 g/dL Normal 32-36 [facility] Comment on above: Performed By: #### L 100.0100, L501.2450, L700.6800, L500.4050 ####[facility] [address] [place], [address] MCV (RBC) [Entitic vol] 84.4 fL Normal 81-99 [facility] Comment on above: Performed By: #### L 100.0100, L501.2450, L700.6800, L500.4050 ####[facility] [address] [place], [address] Monocytes/100 WBC (Bld) 7.3 % Normal 0-10 [facility] Comment on above: Performed By: #### L 100.0100, L501.2450, L700.6800, L500.4050 ####[facility] [address] [place], [address] Neutrophils/100 WBC (Bld) 53.8 % Normal 47-70 [facility] Comment on above: Performed By: #### L 100.0100, L501.2450, L700.6800, L500.4050 ####[facility] [address] [place], [address] Nucleated RBC (Bld) [#/Vol] 0 10*3/uL Normal 0-5 [facility] Comment on above: Performed By: #### L 100.0100, L501.2450, L700.6800, L500.4050 ####[facility] [address] [place], [address] Platelet mean volume (Bld) [Entitic vol] 10.9 fL Normal 6.2-12.0 [facility] Comment on above: Performed By: #### L 100.0100, L501.2450, L700.6800, L500.4050 ####[facility] [address] [place], [address] Platelets (Bld) [#/Vol] 266 10*3/uL Normal 150-450 [facility] Comment on above: Performed By: #### L 100.0100, L501.2450, L700.6800, L500.4050 ####[facility] [address] [place], [address] RBC (Bld) [#/Vol] 3.92 10*6/uL Low 4.2-5.4 [facility] Comment on above: Performed By: #### L 100.0100, L501.2450, L700.6800, L500.4050 ####[facility] [address] [place], [address] RDW SD 42.6 fl Normal 35.1-43.9 [facility] Comment on above: Performed By: #### L 100.0100, L501.2450, L700.6800, L500.4050 ####[facility] [address] [place], [address] WBC (Bld) [#/Vol] 7.5 10*3/uL Normal 4.4-11.0 [facility] Comment on above: Performed By: #### L 100.0100, L501.2450, L700.6800, L500.4050 ####[facility] [address] [place], [address] CBC W/Diff, Automatedon 12-2 0-4 Absolute Lymph 0.61 X10 3/uL Low 0.83-4.51 [facility] Comment on above: Performed By: #### L 500.4050, L700.6800, L501.2450, L100.0100, L501.9520 #### [facility] [address] [place], [address] Absolute Neut 9.2 X10 3/uL High 2.0-7.7 [facility] Comment on above: Performed By: #### L 500.4050, L700.6800, L501.2450, L100.0100, L501.9520 #### [facility] [address] [place], [address] Basophils/100 WBC (Bld) 0.2 % Normal 0-1 [facility] Comment on above: Performed By: #### L 500.4050, L700.6800, L501.2450, L100.0100, L501.9520 #### [facility] [address] [place], [address] Eosinophils/100 WBC (Bld) 0.0 % Normal 0-5 [facility] Comment on above: Performed By: #### L 500.4050, L700.6800, L501.2450, L100.0100, L501.9520 #### [facility] [address] [place], [address] Erythrocyte distribution width (RBC) [Ratio] 14.5 % Normal 11.6-14.6 [facility] Comment on above: Performed By: #### L 500.4050, L700.6800, L501.2450, L100.0100, L501.9520 #### [facility] [address] [place], [address] Hematocrit (Bld) [Volume fraction] 40.1 % Normal 37-47 [facility] Comment on above: Performed By: #### L 500.4050, L700.6800, L501.2450, L100.0100, L501.9520 #### [facility] [address] [place], [address] Hemoglobin (Bld) [Mass/Vol] 12.4 g/dL Normal 12.0-15.0 [facility] Comment on above: Performed By: #### L 500.4050, L700.6800, L501.2450, L100.0100, L501.9520 #### [facility] [address] [place], [address] IG% 0.500 Normal 0.0-0.9 [facility] Comment on above: Result Comment: IG% - Immature Granulocytes (promyelocytes, myelocytes and metamyelocytes) > 1% indicates that a LEFT SHIFT is Present. Performed By: #### L 500.4050, L700.6800, L501.2450, L100.0100, L501.9520 #### [facility] [address] [place], [address] Lymphocytes/100 WBC (Bld) 6.0 % Low 19-41 [facility] Comment on above: Performed By: #### L 500.4050, L700.6800, L501.2450, L100.0100, L501.9520 #### [facility] [address] [place], [address] MCH (RBC) [Entitic mass] 26.4 pg Low 27.0-32.0 [facility] Comment on above: Performed By: #### L 500.4050, L700.6800, L501.2450, L100.0100, L501.9520 #### [facility] [address] [place], [address] MCHC (RBC) [Mass/Vol] 30.9 g/dL Low 32-36 [facility] Comment on above: Performed By: #### L 500.4050, L700.6800, L501.2450, L100.0100, L501.9520 #### [facility] [address] [place], [address] MCV (RBC) [Entitic vol] 85.3 fL Normal 81-99 [facility] Comment on above: Performed By: #### L 500.4050, L700.6800, L501.2450, L100.0100, L501.9520 #### [facility] [address] [place], [address] Monocytes/100 WBC (Bld) 2.5 % Normal 0-10 [facility] Comment on above: Performed By: #### L 500.4050, L700.6800, L501.2450, L100.0100, L501.9520 #### [facility] [address] [place], [address] Neutrophils/100 WBC (Bld) 90.8 % High 47-70 [facility] Comment on above: Performed By: #### L 500.4050, L700.6800, L501.2450, L100.0100, L501.9520 #### [facility] [address] [place], [address] Nucleated RBC (Bld) [#/Vol] 0 10*3/uL Normal 0-5 [facility] Comment on above: Performed By: #### L 500.4050, L700.6800, L501.2450, L100.0100, L501.9520 #### [facility] [address] [place], [address] Platelet mean volume (Bld) [Entitic vol] 10.6 fL Normal 6.2-12.0 [facility] Comment on above: Performed By: #### L 500.4050, L700.6800, L501.2450, L100.0100, L501.9520 #### [facility] [address] [place], [address] Platelets (Bld) [#/Vol] 260 10*3/uL Normal 150-450 [facility] Comment on above: Performed By: #### L 500.4050, L700.6800, L501.2450, L100.0100, L501.9520 #### [facility] [address] [place], [address] RBC (Bld) [#/Vol] 4.70 10*6/uL Normal 4.2-5.4 [facility] Comment on above: Performed By: #### L 500.4050, L700.6800, L501.2450, L100.0100, L501.9520 #### [facility] [address] [place], [address] RDW SD 45.3 fl High 35.1-43.9 [facility] Comment on above: Performed By: #### L 500.4050, L700.6800, L501.2450, L100.0100, L501.9520 #### [facility] [address] [place], [address] WBC (Bld) [#/Vol] 10.1 10*3/uL Normal 4.4-11.0 [facility] Comment on above: Performed By: #### L 500.4050, L700.6800, L501.2450, L100.0100, L501.9520 #### [facility] [address] [place], [address] CNOVon 07-23-2024 CNOV Office Visit (INTMWS ) CHICHO WOOD ([id number]) 2000 F Date Time Provider Department 07/23/24 4:20 PM CE CONNER INTASHU During your visit today, we recorded the following information about you: Temperature Pulse Blood pressure Weight 100.2 degrees 132/minute 102/78 74.7 kg Ce Conner MD 07/23/2024 5:34 PM Signed Reason for Visit Patient presents with: Abdominal Pain: Lower abdominal 1 day, pressure, n/v Chicho Vazquez Jodee is a 24 year old female who presents here today for Above Complaints.. 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 She had fullness in the face and difficulty breathing, has a h/o asthma and used to have allergies before. A couple nights ago she had tight ness in the chest area. Her family moved recently near the [employer], since then she has developed cystic acne She has constant reflux, feels burn in her chest, water brash, she feels like food is coming up the symptoms are getting worse. She was increased from Prilosec at 20 mg to 40 mg and now in the 40 is not working well for her. 07/23/24: yesterday was the last day of work, and school, went for [employer] office green party, she ate a lot of food, vegetarian egg roll, sweet and sour meat balls, fruits. She was vomited a couple times and diarrhea. She has lose watery diarrhea. Mother almost going away and her mother reported that she has been having a little tremor for the past 2 or 3 months, patient is reporting 20 pound weight loss over the past 6 months and she is not trying to lose weight. She also has severe regurgitation and palpitations when she eats which is making her afraid to eat, she noticed she is having palpitations on and off and finds it hard to go up the stairs. Today her blood pressure is normal but her pulse is 132 and she has a fever of 100.2 dehydration with 2 episodes of diarrhea and some vomiting should not give a pulse rate of 132. This along with the tremors which are very fine and mother's history of Graves' disease diagnosis at the age of 26 is very concerning for her to have or would be developing some kind of a thyroid storm. Initially we wanted to do the workup here but we looked at the time and we are past 515 today, I do not think patient would be able to go and get her blood work done downstairs and we were not able to get the EKG so we decided to send her to the ER. No problem-specific Assessment AND Plan notes found for this encounter. PAST MEDICAL HISTORY Diagnosis Date Asthma PAST SURGICAL HISTORY Procedure Laterality Date NONE FAMILY HISTORY Problem Relation Age of Onset Thyroid Mother Hypertension Mother Hyperlipidemia Father Kidney Disease Maternal Grandmother Hypertension Maternal Grandmother Thyroid Maternal Grandmother Kidney Disease Maternal Grandfather failure Hyperlipidemia Paternal Grandmother Hyperlipidemia Paternal Grandfather Social History Tobacco Use Smoking status: Former Types: Cigarettes Smokeless tobacco: Never Vaping Use Vaping status: Former Substance Use Topics Alcohol use: No Drug use: No Past medical history, appointments, medications, allergies reviewed. Pertinent Lab/Diagnostic Studies are reviewed and discussed today Current Outpatient Medications: penicillin V potassium 500 mg tablet ferrous sulfate 325 mg (65 mg iron) tablet pantoprazole DR (PROTONIX) 40 mg tablet tretinoin (RETIN-A) 0.1 % cream albuterol HFA (PROVENTIL HFA, VENTOLIN HFA) 90 mcg/actuation inhaler ergocalciferol 50,000 unit capsule (VITAMIN D2, DRISDOL) famotidine (PEPCID) 20 mg tablet montelukast (SINGULAIR) 10 mg tablet Review of Systems CONSTITUTIONAL: No fevers, chills night sweats, unintended weight loss CARDIOVASCULAR: No chest pain, dyspnea, palpitations, orthopnea, PND, ankle edema. PULM: No dyspnea, unexplained cough. GI: No dysphagia/odynophagia, problematic reflux, constipation, diarrhea, changes in stool habits, hematochezia, melena. : No new urinary complaints, including dysuria, gross hematuria or pyuria. NEURO: No new balance problems, peripheral weakness/paresthesias or numbness of concern. Physical Exam BP 102/78 (BP Site: Left Arm) Pulse (!) 132 Temp 37.9 ?C (100.2 ?F) Wt 74.7 kg (164 lb 9.6 oz) LMP 12/13/2021 SpO2 99% BMI 32.15 kg/m? General appearance: Well appearing, alert, in no acute distress, well nourished. Skin: lower part of the face is filled with acne which is cystic Head: Normocephalic, no masses, lesions, tenderness or abnormalities Eyes: Anicteric sclera. Pupils are equally round and reactive to light. Extr (more content not included)... Normal [facility] Chest 1 View (Portable)on Chest 1 View (Portable) [facility] Imaging Services [address], [place] [id number] Chest 1 View (Portable) MR#: [id number] Acct: [id number] Name: CHICHO WOOD Rep #: [id number] : 2000 F 24 From: Mo Patel MD PCP: Dr. Ce Conner MD Status: REG ER Study: Chest 1 View (Portable) Date of Exam: 07/23/24 Exam# [id number] Ordering Dr: Abimael Castellanos [place] [id number] STUDY: X-RAY CHEST REASON FOR EXAM: Female, 24 years old. fever TECHNIQUE: AP portable COMPARISON: October 20, 2022 FINDINGS: The lungs are clear and expanded. There is no demonstrated pleural abnormality. Normal size heart. Normal mediastinum and andree. Normal visualized pulmonary arteries. Normal visualized aortic arch and descending thoracic aorta. Normal visualized thoracic spine. Normal visualized ribs, clavicles, and shoulders. There is no demonstrated abnormality of the visualized soft tissue structures of the upper abdomen. RAD/Chest 1 View (Portable) IMPRESSION: Normal x-ray examination of the chest. Electronically Signed: Mo Patel MD at 21:17 [facility] Reading Location ID and State: [address] [place] [address] Tel , Service support , CC: Dr. Ce Conner MD; Dr. 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 [place], [place], [id number] Albumin/Globulin [Mass ratio] 0.7 {ratio} Low 0.9-2.4 [facility] Comment on above: Performed By: #### L 500.4050, L700.6800, L501.2450, L100.0100, L501.9520 #### [facility] [address] [place], [address] ALK P 63 U/L Normal 45-117 [facility] Comment on above: Performed By: #### L 500.4050, L700.6800, L501.2450, L100.0100, L501.9520 #### [facility] [address] [place], [address] ALT [Catalytic activity/Vol] 16 U/L Normal 13-56 [facility] Comment on above: Performed By: #### L 500.4050, L700.6800, L501.2450, L100.0100, L501.9520 #### [facility] [address] [place], [address] AST [Catalytic activity/Vol] 19 U/L Normal 15-37 [facility] Comment on above: Performed By: #### L 500.4050, L700.6800, L501.2450, L100.0100, L501.9520 #### [facility] [address] [place], [address] Bilirubin [Mass/Vol] 0.90 mg/dL Normal 0.20-1.00 [facility] Comment on above: Result Comment: For patients on eltrombopag therapy, use of Dimension Saxon TBIL is not recommended. Performed By: #### L 500.4050, L700.6800, L501.2450, L100.0100, L501.9520 #### [facility] [address] [place], [address] BUN/CRE 10.9 RATIO Normal 10-20 [facility] Comment on above: Performed By: #### L 500.4050, L700.6800, L501.2450, L100.0100, L501.9520 #### [facility] [address] [place], [address] CA,Total 8.9 mg/dL Normal 8.5-10.1 [facility] Comment on above: Performed By: #### L 500.4050, L700.6800, L501.2450, L100.0100, L501.9520 #### [facility] [address] [place], [address] Chloride [Moles/Vol] 104 mmol/L Normal 98-107 [facility] Comment on above: Performed By: #### L 500.4050, L700.6800, L501.2450, L100.0100, L501.9520 #### [facility] [address] [place], [address] CO2 [Moles/Vol] 23.0 mmol/L Normal 21.0-32.0 [facility] Comment on above: Performed By: #### L 500.4050, L700.6800, L501.2450, L100.0100, L501.9520 #### [facility] [address] [place], [address] Creatinine [Mass/Vol] 0.83 mg/dL Normal 0.55-1.02 [facility] Comment on above: Result Comment: The validity of the calculated GFR GFRAA in patients over 70 years has not been determined. Clinical correlation is essential. Performed By: #### L 500.4050, L700.6800, L501.2450, L100.0100, L501.9520 #### [facility] [address] [place], [address] ECRCL 93.33 ml/min Normal [facility] Comment on above: Performed By: #### L 500.4050, L700.6800, L501.2450, L100.0100, L501.9520 #### [facility] [address] [place], [address] EST GFR - AA 108 mL/min Normal >60 [facility] Comment on above: Result Comment: Afri can [place] GFR Calc Performed By: #### L 500.4050, L700.6800, L501.2450, L100.0100, L501.9520 #### [facility] [address] [place], [address] GAP 7 Normal 5-15 [facility] Comment on above: Performed By: #### L 500.4050, L700.6800, L501.2450, L100.0100, L501.9520 #### [facility] [address] [place], [address] GFR/1.73 sq M.predicted among non-blacks MDRD (S/P/Bld) [Vol rate/Area] 89 mL/min/{1.73_m2} Normal >60 [facility] Comment on above: Result Comment: Non- GFR Calc Performed By: #### L 500.4050, L700.6800, L501.2450, L100.0100, L501.9520 #### [facility] [address] [place], [address] Globulin (S) [Mass/Vol] 5.0 g/dL High 2.2-4.2 [facility] Comment on above: Performed By: #### L 500.4050, L700.6800, L501.2450, L100.0100, L501.9520 #### [facility] [address] [place], [address] Glucose [Mass/Vol] 90 mg/dL Normal 74-106 [facility] Comment on above: Performed By: #### L 500.4050, L700.6800, L501.2450, L100.0100, L501.9520 #### [facility] [address] [place], [address] Potassium [Moles/Vol] 3.4 mmol/L Low 3.5-5.1 [facility] Comment on above: Performed By: #### L 500.4050, L700.6800, L501.2450, L100.0100, L501.9520 #### [facility] [address], [address] Sodium [Moles/Vol] 134 mmol/L Low 136-145 [facility] Comment on above: Performed By: #### L 500.4050, L700.6800, L501.2450, L100.0100, L501.9520 #### [facility] [address] [place], [address] T PROT 8.6 g/dL High 6.4-8.2 [facility] Comment on above: Performed By: #### L 500.4050, L700.6800, L501.2450, L100.0100, L501.9520 #### [facility] [address] [place], [address] Urea nitrogen [Mass/Vol] 9 mg/dL Normal 7-18 [facility] Comment on above: Performed By: #### L 500.4050, L700.6800, L501.2450, L100.0100, L501.9520 #### [facility] [address] [place], [address] Emergency Department Summary on 07-23-2024 Emergency Department Summary [facility] Medical Records Department [address] [place] [address] Emergency Department Summary 07/23/24 MR#: [id number] Acct: [id number] Name: CHICHO WOOD Rep #: [id number] : 2000 24 From: Anjali DELGADO PCP: Dr. Ce Conner MD Status:DEP ER Location: ED HPI History of Present Illness Chief Complaint: Nausea/Vomiting/Diarrh ea Narrative Narrative: Patient presenting today with fevers, nausea, vomiting, and diarrhea that started last night/early this morning. She reports concerns for food poisoning and states that yesterday she ate at a [employer] potluck at school where food had been sitting out. She reports generalized abdominal pain, especially with vomiting. No previous history of abdominal surgeries. She went with her mom today to her PCPs office, mom does have a history of Graves' disease and became concerned that this could be related to patient's thyroid. Her PCP did not have any recent thyroid labs and because she could not rule this out, recommended that patient come to the emergency department for evaluation. Patient reports that she is healthy otherwise. She denies hematemesis, melena, hematochezia, and urinary symptoms. [facility] Medical History Asthma Home Medications ???Medication ???Instructions ???Recorded ???Last Taken ???Type albuterol sulfate 90 mcg/actuation 2 puff inhalation Q6H PRN breathing 03/02/21 Unknown History aerosol inhaler omeprazole 20 mg capsule,delayed 20 mg PO DAILY #30 CAPSULES 10/20/22 Unknown Rx release ciprofloxacin HCl 500 mg tablet 500 mg PO BID 4 days #8 tabs 07/23/24 Unknown Rx (Cipro) ondansetron 4 mg disintegrating 4 mg PO Q8H PRN PRN Nausea #10 tabs 07/23/24 Unknown Rx tablet Allergy/AdvReac Type Severity Reaction Status Date / Time No Known Allergies Allergy Verified 07/23/24 17:57 Social History Smoking Status: Current some day smoker tobacco type: cigarettes ROS ROS ED Constitutional Constitutional ED: Reports fever(s) Cardiovascular Cardiovascular: Denies chest pain Respiratory/Chest Respiratory/Chest: Denies cough or dyspnea Gastrointestinal Gastrointestinal: Reports abdominal pain, diarrhea, nausea and vomiting; Denies constipation or melena Genitourinary Genitourinary ED: Denies dysuria, hematuria or urinary urgency Musculoskeletal Musculoskeletal: Denies arthralgias or myalgias Integumentary Denies rash Neurologic Neurologic: Denies weakness EXAM Physical Exam Const Vital Signs: 07/23/24 17:58 07/23/24 19:32 07/23/24 20:00 Temperature 99.2 F H 100.9 F H 101.6 F H Temperature Source Oral Oral Oral Pulse Rate 117 H 100 98 Respiratory Rate 16 15 16 Blood Pressure 113/93 H 112/70 108/66 Blood Pressure Mean 99 84 80 Pulse Ox 100 98 100 Oxygen Delivery Method Room Air Room Air Room Air 07/23/24 21:00 07/23/24 21:54 Temperature 99.9 F H Temperature Source Oral Pulse Rate 100 Respiratory Rate 15 Blood Pressure Blood Pressure Mean Pulse Ox 98 Oxygen Delivery Method Room Air Positive well nourished, well developed and no apparent distress General Appearance ED: well developed HEENT Reports normocephalic and head/scalp atraumatic Mouth ED: Yes moist mucous membranes normal Eyes PERRL and EOMs intact bilaterally Neck full ROM and supple Chest Wall inspection of chest normal Resp normal respiratory effort and clear to auscultation bilaterally Cardio regular rate and regular rhythm GI soft to palpation, non-tender, non-distended and no masses Back/Spine normal ROM and normal to inspection Extremity normal to inspection and full ROM Neuro oriented x3, CN's II-XII intact bilaterally, moves all extremities, no focal motor deficits and no sensory deficits noted Sensorium / Orientation: awake and alert Psych mental status grossly normal and thought process normal Skin no rashes or lesions noted and no wounds Physical Exam Const Vital Signs: 07/23/24 17:58 07/23/24 19:32 07/23/24 20:00 Temperature 99.2 F H 100.9 F H 101.6 F H Temperature Source Oral Oral Oral Pulse Rate 117 H 100 98 Respiratory Rate 16 15 16 Blood Pressure 113/93 H 112/70 108/66 Blood Pressure Mean 99 84 80 Pulse Ox 100 98 100 Oxygen Delivery Method Room Air Room Air Room Air 07/23/24 21:00 07/23/24 21:54 Temperature 99.9 F H Temperature Source Oral Pulse Rate 100 Respiratory Rate 15 Blood Pressure Blood Pressure Mean Pulse Ox 98 Oxygen Delivery Method Room Air MDM MDM MDM Narrative Medical decision making narrative: Patient presenting with migel (more content not included)... Normal [facility] Free T3on 07-23-2024 Free T3 [Mass/Vol] 1.6 pg/mL Low 2.18-3.98 [facility] Comment on above: Performed By: #### L 506.0400, L501.30858 #### [facility] [address] [place], [address] Lipaseon 07-23-2024 Lipase [Catalytic activity/Vol] 24 U/L Normal 13-75 [facility] Comment on above: Result Comment: Rubens can note: LIPASE revised reference range effective 22. New Lipase methodology. Expected to produce lower values than the previous assay method. NEW Reference Range: 13 - 75 U/L Performed By: #### L 500.4050, L700.6800, L501.2450, L100.0100, L501.9520 #### [facility] [address] [place], [address] M100.678on 07-23-2024 M100.678 Pending SARS-CoV-2 (COVID 19) Negative INFLUENZA A Negative INFLUENZA B Negative RSV PCR Negative Normal [facility] Comment on above: Performed By: #### M 100.678 ####[facility] [address] [facility] [place], [address] ,Serum,hCG Quali.on 07-23-2024 HCG, SERUM QUAL Negative Normal [facility] Comment on above: Performed By: #### L 500.4050, L700.6800, L501.2450, L100.0100, L501.9520 #### [facility] [address] [place], [address] T4 Free Directon 07-23-2024 T4 FREE DIRECT 1.33 ng/dL Normal 0.76-1.46 [facility] Comment on above: Performed By: #### L 506.0400, L501.29608 #### [facility] [address] [place], [address] Thyroid Stim Hormone (TSH)on 07-23-2024 TSH 0.199 uIU/mL Low 0.358-3.740 [facility] Comment on above: Performed By: #### L 500.4050, L700.6800, L501.2450, L100.0100, L501.9520 ####[facility] [address] [place], [address] Urinalysis, Completeon 07-23 BACTERIA 1+ /hpf Normal None Seen [facility] Comment on above: Order Comment: CRITI MEKA VALUE [facility] TO [facility]07/23/241941 Yessica Lollo.RESULTS READ BACK BY SAME.CLEAN CATCH Performed By: #### L 400.0001 ####[facility] [address] [place], [address] EPI,SQUAMOUS 5-10 SEEN Normal 5-10 [facility] Comment on above: Order Comment: CRITI MEKA VALUE CALLED TO [facility]121941 Yessica Lollo.RESULTS READ BACK BY SAME.CLEAN CATCH Performed By: #### L 400.0001 ####[facility] [address] [place], [address] Mucus Ql (Urine sed) 1+ /hpf Normal [facility] Comment on above: Order Comment: CRITI MEKA VALUE CALLED TO [facility]121941 Yessica Lollo.RESULTS READ BACK BY SAME.CLEAN CATCH Performed By: #### L 400.0001 ####[facility] [address] [place], [address] RBC 0-5 SEEN Normal 0-5 [facility] Comment on above: Order Comment: CRITI MEKA VALUE CALLED TO [facility]121941 Yessica Lollo.RESULTS READ BACK BY SAME.CLEAN CATCH Performed By: #### L 400.0001 ####[facility] [address] [place], [address] WBC 5-10 SEEN Normal 0-5 [facility] Comment on above: Order Comment: CRITI MEKA VALUE CALLED TO [facility]07/23/241941 Yessica Lollo.RESULTS READ BACK BY SAME.CLEAN CATCH Performed By: #### L 400.0001 ####[facility] [address] [place], [address] BLOOD TB SCREENon 06-28-2024 M. tuberculosis tuberculin stim IFN-g Ql (Bld) Negative Normal [facility] Comment on above: Order Comment: Shruthi pyle Type: BLOOD SPECIMEN Ordering Facility: [facility] Address: [address] [place] [address] Performed By: #### 3 227, 1987-12, #### [facility] CLIA [id number] [address] [place] [address] [place] MITOGEN MINUS NIL 9.37 IU/mL Normal >=0.50 [facility] Comment on above: Order Comment: Shruthi pyle Type: BLOOD SPECIMEN Ordering Facility: [facility] Address: [address] [place], [place] [address] [address] Performed By: #### 3 227, 1987-12, #### [facility] CLIA [id number] [address] [place], [place] [address] [place] TB GAMMA INTERPRETATION Infection with M . tuberculosis complex is unlikely. If latent tuberculosis infection is highly suspected, a negative result does not rule out the infection. Specimens from immunocompromised patients and those <5 years of age may show false negative results. In case of a contact investigation, please repeat 8-12 weeks after a known exposure. Normal [facility] Comment on above: Order Comment: Shruthi pyle Type: BLOOD SPECIMEN Ordering Facility: [facility] Address: [facility] [place] [address] Performed By: #### 3 227, 1987-12, #### [facility] CLIA [id number] [address] [place], [place] [address] [place] TB NIL 0.02 IU/mL Normal <=8.00 [facility] Comment on above: Order Comment: Shruthi pyle Type: BLOOD SPECIMEN Ordering Facility: [facility] Address: [address] [place] [address] Performed By: #### 3 0522-7, 1987-12, #### [facility] CLIA [id number] [address] [place] [address] [place] TB1 AG MINUS NIL 0.00 IU/mL Normal <0.35 [facility] Comment on above: Order Comment: Speci men Type: BLOOD SPECIMEN Ordering Facility: [facility] Address: [address] [place] [address] Performed By: #### 3 0522-7, 1987-12, #### [facility] CLIA [id number] [address] [place] [address] [place] TB2 AG MINUS NIL 0.00 IU/mL Normal <0.35 [facility] Comment on above: Order Comment: Speci men Type: BLOOD SPECIMEN Ordering Facility: [facility] Address: [address] [place] [address] Performed By: #### 3 05227, 1987-12, #### [facility] CLIA [id number] [address] [place] [address] [place] CBC W Auto Differential pane l (Bld)on 06-28-2024 Basophils (Bld) [#/Vol] 0.07 10*3/uL Normal <0.11 [facility] Comment on above: Order Comment: Speci men Type: BLOOD SPECIMEN Ordering Facility: [facility] Address: [address] [place] [address] Performed By: #### 2 4323-8, 1987-12, 2132-04 #### [facility] CLIA [id number] [address] [place] [address] [place] Basophils/100 WBC (Bld) 0.8 % Normal [facility] Comment on above: Order Comment: Speci men Type: BLOOD SPECIMEN Ordering Facility: [facility] Address: [address] [place] [address] Performed By: #### 2 4323-03, 1987-12, 2132-04 #### [facility] CLIA [id number] [address] [place] Differential cell count method Nom (Bld) Auto Normal [facility] Comment on above: Order Comment: Speci men Type: BLOOD SPECIMEN Ordering Facility: [facility] Address: [address] [place] [address] Performed By: #### 2 4323-03, 2132-04 #### [facility] CLIA [id number] [address] [place] [address] [place] Eosinophils (Bld) [#/Vol] 0.13 10*3/uL Normal <0.46 [facility] Comment on above: Order Comment: Speci men Type: BLOOD SPECIMEN Ordering Facility: [facility] Address: [address] [place] [address] Performed By: #### 2 4323-03, 2132-04 #### [employer] [facility] CLIA [id number] [address] [place] Eosinophils/100 WBC (Bld) 1.4 % Normal [facility] Comment on above: Order Comment: Speci men Type: BLOOD SPECIMEN Ordering Facility: [facility] Address: [address] [place] [address] Performed By: #### 2 4323-03, 2132-04 #### [facility] CLIA [id number] [address] [place] Erythrocyte distribution width (RBC) [Ratio] 14.6 % Normal 11.5-15.0 [facility] Comment on above: Order Comment: Speci men Type: BLOOD SPECIMEN Ordering Facility: [facility] Address: [address] [place] [address] Performed By: #### 2 4323-03, 1987-12, 2132-04 #### [facility] CLIA [id number] [address] [place] Hematocrit (Bld) [Volume fraction] 38.3 % Normal 36.0-46.0 [facility] Comment on above: Order Comment: Speci men Type: BLOOD SPECIMEN Ordering Facility: [facility] Address: [address] [place] [address] Performed By: #### 2 4323-03, 2132-04 #### [facility] CLIA [id number] [address] [place] [address] [place] Hemoglobin (Bld) [Mass/Vol] 12.0 g/dL Normal 11.5-15.5 [facility] Comment on above: Order Comment: Speci men Type: BLOOD SPECIMEN Ordering Facility: [facility] Address: [address] [place] [address] Performed By: #### 2 4323-03, 2132-04 #### [employer] [facility] CLIA [id number] [address] [place] [address] [place] Immature granulocytes (Bld) [#/Vol] 0.05 10*3/uL Normal <0.10 [facility] Comment on above: Order Comment: Speci men Type: BLOOD SPECIMEN Ordering Facility: [facility] Address: [address] [place] [address] Performed By: #### 2 4323-03, 2132-04 #### [facility] CLIA [id number] [address] [place] [address] [place] Immature granulocytes/100 WBC (Bld) 0.6 % Normal [facility] Comment on above: Order Comment: Speci men Type: BLOOD SPECIMEN Ordering Facility: [facility] Address: [address] [place] [address] Performed By: #### 2 4323-03, 2132-04 #### [facility] CLIA [id number] [address] [place] [address] [place] Lymphocytes (Bld) [#/Vol] 2.08 10*3/uL Normal 1.00-4.00 [facility] Comment on above: Order Comment: Speci men Type: BLOOD SPECIMEN Ordering Facility: [facility] Address: [address] [place] [address] Performed By: #### 2 4323-03, 2132-04 #### [facility] CLIA [id number] [address] Lymphocytes/100 WBC (Bld) 23.1 % Normal [facility] Comment on above: Order Comment: Speci men Type: BLOOD SPECIMEN Ordering Facility: [facility] Address: [address] [place] [address] Performed By: #### 2 4323-03, 2132-04 #### [facility] CLIA [id number] [address] [place] MCH (RBC) [Entitic mass] 27.1 pg Normal 26.0-34.0 [facility] Comment on above: Order Comment: Speci men Type: BLOOD SPECIMEN Ordering Facility: [facility] Address: [address] [place] [address] Performed By: #### 2 4323-03, 2132-04 #### [facility] CLIA [id number] [address] MCHC (RBC) [Mass/Vol] 31.3 g/dL Normal 30.5-36.[address] [facility] Comment on above: Order Comment: Speci men Type: BLOOD SPECIMEN Ordering Facility: [facility] Address: [address] [place] [address] Performed By: #### 2 4323-03, 2132-04 #### [facility] CLIA [id number] [address] [place] MCV (RBC) [Entitic vol] 86.7 fL Normal 80.0-100.[address] [facility] Comment on above: Order Comment: Speci men Type: BLOOD SPECIMEN Ordering Facility: [facility] Address: [address] [place] [address] Performed By: #### 2 4323-03, 2132-04 #### [facility] CLIA [id number] [address] [place] [address] [place] Monocytes (Bld) [#/Vol] 0.45 10*3/uL Normal <0.87 [facility] Comment on above: Order Comment: Speci men Type: BLOOD SPECIMEN Ordering Facility: [facility] Address: [address] [place] [address] Performed By: #### 2 4323-03, 2132-04 #### [facility] CLIA [id number] [address] [place] Monocytes/100 WBC (Bld) 5.0 % Normal [facility] Comment on above: Order Comment: Speci men Type: BLOOD SPECIMEN Ordering Facility: [facility] Address: [address] [place] [address] Performed By: #### 2 4323-03, 2132-04 #### [facility] CLIA [id number] [address] [place] [address] [place] Neutrophils (Bld) [#/Vol] 6.23 10*3/uL Normal 1.45-7.50 [facility] Comment on above: Order Comment: Speci men Type: BLOOD SPECIMEN Ordering Facility: [facility] Address: [address] [place] [address] Performed By: #### 2 4323-03, 2132-04 #### [facility] CLIA [id number] [address] [place] Neutrophils/100 WBC (Bld) 69.1 % Normal [facility] Comment on above: Order Comment: Speci men Type: BLOOD SPECIMEN Ordering Facility: [facility] Address: [address] [place] [address] Performed By: #### 2 4323-03, 2132-04 #### [facility] CLIA [id number] [address] [place] [address] [place] Nucleated RBC (Bld) [#/Vol] 10*3/uL Normal <0.01 [facility] Comment on above: Order Comment: Speci men Type: BLOOD SPECIMEN Ordering Facility: [facility] Address: [address] [place] [address] Performed By: #### 2 4323-03, 1987-12, 2132-04 #### [employer] [facility] CLIA [id number] [address] [place] [address] [place] Nucleated RBC/100 WBC (Bld) [Ratio] 0.0 /100 WBC Normal [facility] Comment on above: Order Comment: Speci men Type: BLOOD SPECIMEN Ordering Facility: [facility] Address: [address] [place] [address] Performed By: #### 2 4323-03, 2132-04 #### [facility] CLIA [id number] [address] [place] [address] [place] Platelet mean volume (Bld) [Entitic vol] 11.2 fL Normal 9.0-12.7 [facility] Comment on above: Order Comment: Speci men Type: BLOOD SPECIMEN Ordering Facility: [facility] Address: [address] [place] [address] Performed By: #### 2 4323-03, 2132-04 #### [facility] CLIA [id number] [address] [place] [address] [place] Platelets (Bld) [#/Vol] 297 10*3/uL Normal 150-400 [facility] Comment on above: Order Comment: Speci men Type: BLOOD SPECIMEN Ordering Facility: [facility] Address: [address] [place] [address] Performed By: #### 2 4323-03, 1987-12, 2132-04 #### [employer] [facility] CLIA [id number] 1 [place] [address] [place] RBC (Bld) [#/Vol] 4.42 10*6/uL Normal 3.90-5.20 [facility] Comment on above: Order Comment: Speci men Type: BLOOD SPECIMEN Ordering Facility: [facility] Address: [address] [place] [address] Performed By: #### 2 4328, 1987-12, 2132-04 #### [facility] CLIA [id number] 1 [place] [address] [place] WBC (Bld) [#/Vol] 9.01 10*3/uL Normal 3.70-11.00 [facility] Comment on above: Order Comment: Speci men Type: BLOOD SPECIMEN Ordering Facility: [facility] Address: [address] [place] [address] Performed By: #### 2 4328, 1987-12, 2132-04 #### [facility] CLIA [id number] [address] CRP SerPl HS-mCncon 06-28-20 CRP High sensitivity method [Mass/Vol] 2.4 mg/L Normal <3.1 [facility] Comment on above: Order Comment: Speci men Type: BLOOD SPECIMEN Ordering Facility: [facility] Address: [address], [place] [address] Result Comment: hsCR P < 1.0 mg/L, relative risk is low hsCRP 1.0-3.0 mg/L, relative risk is average hsCRP > 3.0 mg/L, relative risk is high Reference: Lux TA, Denise GA, Armen RW, et al. Markers of Inflammation and Cardiovascular Disease. Application to Clinical and Public Health Practice. A Statement for Healthcare Professionals from the Centers for Disease Control and Prevention and the [place] [employer]. Circulation 2003;107:499-511. Performed By: #### 3 227, 1987-12, #### [facility] CLIA [id number] [address] [place], [place] [address] [place] [address] [place] CRP SerPl-mCncon 06-28-2024 CRP [Mass/Vol] mg/L Normal <0.9 [facility] Comment on above: Order Comment: Speci men Type: BLOOD SPECIMEN Ordering Facility: [facility] Address: [address], [place] [address] Performed By: #### 3 05227, 1987-12, #### [facility] CLIA [id number] [address] [facility] [id number] [id number] [place] ESR Westergren method (Bld) [Velocity]on 06-28-2024 ESR (Bld) [Velocity] 37 mm/h High 0-[address] [facility] Comment on above: Order Comment: Speci men Type: BLOOD SPECIMEN Ordering Facility: [facility] Address: [address] [place] [address] Performed By: #### 2 4323-03, 2132-04 #### [employer] [facility] CLIA [id number] 1 [place] [address] [place] HBV core Ab Ser Qlon 024 HBV core Ab Ql (S) Negative Normal Negative [facility] Comment on above: Order Comment: Speci men Type: BLOOD SPECIMEN Ordering Facility: [facility] Address: [address] [place] [address] Result Comment: No e vidence of current or past infection with Hepatitis B virus. Should recent infection be suspected, repeat testing may be considered 3-4 weeks after this draw. Performed By: #### 2 4323-03, 2132-04 #### [employer] [facility] CLIA [id number] [address] [place] HBV surface Ab Ql (S)on 06-05 HBV surface Ab Qn (S) 16.19 mIU/mL Normal C [facility] Comment on above: Order Comment: Speci men Type: BLOOD SPECIMEN Ordering Facility: [facility] Address: [address] [place] [address] Result Comment: <8 m IU/mL: No serological evidence of immunity to Hepatitis B Virus. >/= 8 to <12 mIU/mL: No serological evidence of immunity to Hepatitis B Virus. >/= 12 mIU/mL: Consistent with serological evidence of immunity to Hepatitis B Virus. Performed By: #### 2 4328, 2132-04 #### [employer] [facility] CLIA [id number] 1 [place] [address] [place] HBV surface Ab Ser Qlon 06-05 HBV surface Ab Ql (S) Positive Normal [facility] Comment on above: Order Comment: Speckojo pyle Type: BLOOD SPECIMEN Ordering Facility: [facility] Address: [address] [place] [address] Result Comment: Cons istent with serological evidence of immunity to Hepatitis B Virus. Performed By: #### 2 4328, 1987-12, 2132-04 #### [facility] CLIA [id number] 1 [place] [address] [place] HBV surface Ag Ser Qlon 06-05 HBV surface Ag Ql (S) Negative Normal Negative [facility] Comment on above: Order Comment: Shruthi pyle Type: BLOOD SPECIMEN Ordering Facility: [facility] Address: [address] [place] [address] Performed By: #### 2 4328, 1987-12, 2132-04 #### [facility] CLIA [id number] 1 [place] [address] [place] Hepatic function 2000 panelo n 06-28-2024 Albumin [Mass/Vol] 4.0 g/dL Normal 3.9-4.9 [facility] Comment on above: Order Comment: Shruthi pyle Type: BLOOD SPECIMEN Ordering Facility: [facility] Address: [address] [place] [address] Performed By: #### 3 05227, 1987-12, 41574-7 #### [facility] CLIA [id number] [address] [place] [address] [place] ALP [Catalytic activity/Vol] 66 U/L Normal 34-123 [facility] Comment on above: Order Comment: Shruthi pyle Type: BLOOD SPECIMEN Ordering Facility: [facility] Address: [address] [place] [address] Performed By: #### 3 05227, 1987-12, 52826-7 #### [facility] CLIA [id number] [address] [place] [address] [place] ALT [Catalytic activity/Vol] 9 U/L Normal 7-38 [facility] Comment on above: Order Comment: Speci men Type: BLOOD SPECIMEN Ordering Facility: [facility] Address: [address] [place] [address] Performed By: #### 3 7, 1987-12, #### [facility] CLIA [id number] [address] [place] [address] [place] AST [Catalytic activity/Vol] 16 U/L Normal 13-35 [facility] Comment on above: Order Comment: Speci men Type: BLOOD SPECIMEN Ordering Facility: [facility] Address: [address] [place], [place] [address] [address] Performed By: #### 3 227, 1987-12, #### [facility] CLIA [id number] [address] [place] [address] [place] Bilirubin [Mass/Vol] 0.2 mg/dL Normal 0.2-1.3 [facility] Comment on above: Order Comment: Speci men Type: BLOOD SPECIMEN Ordering Facility: [facility] Address: [address] [place] [address] Performed By: #### 3 7, 1987-12, #### [facility] CLIA [id number] [address] [place] [address] [place] Bilirubin.conjugated [Mass/Vol] mg/dL Normal <0.2 [facility] Comment on above: Order Comment: Speci men Type: BLOOD SPECIMEN Ordering Facility: [facility] Address: [address] [place] [address] Performed By: #### 3 227, 1987-12, #### [facility] CLIA [id number] [address] [place] [id number] [place] Protein [Mass/Vol] 8.2 g/dL High 6.3-8.0 [facility] Comment on above: Order Comment: Speci men Type: BLOOD SPECIMEN [facility]ing Facility: [facility] Address: [address], [place] [address] Performed By: #### 3 0522-7, 1987-, 80052-1 #### [facility] CLIA [id number] [address] [place] [address] [place] CNPNon 05-03-2024 CNPN Telephone (GERIWR) CHICHO WOOD ([id number]) 2000 F Date Time Provider Department 05/03/24 CE CONNER During your visit today, we recorded the following information about you: Ce Conner MD 05/03/2024 6:06 AM Signed Chicho, Both your vit di and iron are very low, I will send replacement doses for you please take each for at least 6 months Ce Craven MD, Jane, MA 05/03/2024 8:28 AM Signed Left message for return call. Shazia Ayala LPN 05/04/2024 12:43 PM Signed Patient returned call and went over results, notes from Dr Conner with understanding. Aware rx x 2 were sent to the pharmacy. Allergies As of Date: 05/03/2024 Noted Allergy Reaction SEASONAL ALLERGIES 11/03/2023 16 - Unknown Date Reviewed: 04/02/2024 Reviewed by: Le Montenegro LPN - Fully Assessed Reason for Visit: Results [95] Primary Visit Diagnosis:Iron deficiency [E61.1] Other Visit Diagnosis:Vitamin D deficiency [E55.9] Order(s):ergocalcifero l 50,000 unit capsule (VITAMIN D2, DRISDOL)Take 1 capsule by mouth two times a week. TO BE TAKEN ORALLY DIRECTED. Take 1 tablet by mouth twice weekly [id number], then decrease to 1 tablet weekly.Disp: 8 capsuleRfl: 5 ferrous sulfate 325 mg (65 mg iron) tabletTake 1 tablet by mouth two times a day with meals.Disp: 60 tabletRfl: 5 Prescriptions as of 05/04/2024 - ergocalciferol 50,000 unit capsule (VITAMIN D2, DRISDOL) Take 1 capsule by mouth two times a week. TO BE TAKEN ORALLY DIRECTED. Take 1 tablet by mouth twice weekly [id number], then decrease to 1 tablet weekly. - ferrous sulfate 325 mg (65 mg iron) tablet Take 1 tablet by mouth two times a day with meals. - pantoprazole DR (PROTONIX) 40 mg tablet TAKE 1 TABLET BY MOUTH DAILY BEFORE BREAKFAST ON EMPTY STOMACH, 1/2 HR BEFORE MEAL. - tretinoin (RETIN-A) 0.1 % cream Apply to affected area daily at bedtime. - doxycycline (VIBRA-TABS) 100 mg tablet Take 1 tablet by mouth two times a day. - famotidine (PEPCID) 20 mg tablet Take 1 tablet by mouth daily at bedtime. - montelukast (SINGULAIR) 10 mg tablet Take 1 tablet by mouth daily at bedtime. - albuterol HFA (PROVENTIL HFA, VENTOLIN HFA) 90 mcg/actuation inhaler Inhale 2 Puffs as instructed every 4 hours as needed. Problem List As Of Date 05/03/2024 Noted Resolved Allergic rhinitis [J30.9] 12/21/2012 Hydradenitis [L73.2] 12/04/2017 Other acne [L70.8] 12/04/2017 Prescriptions ordered this encounter Disp Refills Start End ERGOCALCIFEROL (VITAMIN D2) 1,250 MC* 8 ca* 5 05/03/2024 Route: ORAL Sig: Take 1 capsule by mouth two times a week. TO BE TAKEN ORALLY DIRECTED. Take 1 tablet by mouth twice weekly [id number], then decrease to 1 tablet weekly. FERROUS SULFATE 325 MG (65 MG IRON) * 60 t* 5 05/03/2024 Route: ORAL Sig: Take 1 tablet by mouth two times a day with meals. Encounter Status:Closed by SHAZIA AYALA on 05/04/24 Normal [facility] 25(OH)D3 [facility] 25-hydroxyvitamin D3 [Mass/Vol] 12.7 ng/mL Low 31.0-80.0 [facility] Comment on above: Order Comment: Speci men Type: BLOOD SPECIMEN Ordering Facility: [facility] Address: [address] [place] [address] Performed By: #### 3 0522-7, 1987-12, 35888-5 #### [facility] CLIA [id number] [address] [address] [place] Ferritin SerPl-mCncon 2023 Ferritin [Mass/Vol] 16.8 ng/mL Normal 14.7-205.1 [facility] Comment on above: Order Comment: Speci men Type: BLOOD SPECIMEN Ordering Facility: [facility] Address: [address] [place] [address] Performed By: #### 2 43210-09, 1987-12, 2132-04 #### [employer] [facility] CLIA [id number] 1 [place] [address] [place] Iron and Iron binding capaci [facility] 04-29-2024 Iron [Mass/Vol] 56 ug/dL Normal 41-186 [facility] Comment on above: Order Comment: Speci men Type: BLOOD SPECIMEN Ordering Facility: [facility] Address: [address] [place], [place] [address] Performed By: #### 2 4328, 2132-04 #### [employer] [facility] CLIA [id number] 1 [place] [address] [place] Iron binding capacity [Mass/Vol] 402 ug/dL High 232-386 [facility] Comment on above: Order Comment: Speci men Type: BLOOD SPECIMEN Ordering Facility: [facility] Address: [address] [place] [address] Performed By: #### 2 4328, 2132-04 #### [facility] CLIA [id number] [address] [place] [address] [place] Iron/TIBC [Molar ratio] 13.9 % Low 15.0-57.[address] [facility] Comment on above: Order Comment: Speci men Type: BLOOD SPECIMEN Ordering Facility: [facility] Address: [address] [place] [address] Performed By: #### 2 4323-8, 1987-, 2132-04 #### [facility] CLIA [id number] [address] [place] [address] [place] No Panel Informationon 03-10 Radiology Study observation (narrative) [facility] US Breast - left limitedon 0 03-10-2024 IMPRESSION: BENIGN Further management should be based on clinical assessment. There is no sonographic evidence of malignancy. Abimael ro/arleen:03/10/2024 15:48:56 Dip Dyer(s): Maverick Soto [facility] Ultrasound BI-RADS: Category 2: Benign Multiple national specialty organizations have released breast cancer screening guidelines for women at average risk for developing breast cancer - guidelines that are based on both evidence and opinion, yet differ on when to start and how often to screen for breast cancer. With representation from Breast Imaging, Internal Medicine, Women's Health, Family Medicine, and Medical/Surgical Oncology, the [facility] has carefully reviewed the data and reached the following consensus: 1) All women should engage in shared decision-making with their providers to decide when to start and how often to screen; 2) All women should have the opportunity to start screening mammography at age 40; 3) For women ages 45-55, we recommend annual screening mammograms; 4) For women ages 55 and over, we support both the transition from an annual to a biennial interval if this aligns more with patient's values and preferences, or continuation with annual screening; 5) All women should discuss with their providers when to stop screening mammograms. Gum Machine Operator: Arleen Transcribe Date/Time: Mar 10 2024 2:33P Dictated by : ABIMAEL GARCIA MD This examination was interpreted and the report reviewed and electronically signed by: ABIMAEL GARCIA MD on Mar 10 2024 3:48PM [facility] DIVISION OF RADIOLOGY * * *Final Report* * * DATE OF EXAM: Mar 10 2024 2:50PM [id number] - [facility] US BREAST LTD LT / PROCEDURE REASON: multiple diagnoses * * * * Physician Interpretation * * * * #[id number] - [facility] US BREAST LTD LT LIMITED ULTRASOUND OF LEFT BREAST: 03/10/2024 HISTORY: Multiple Diagnoses. RESULT: No prior exams were available for comparison. Color flow and real-time ultrasound of the left breast 12 o'clock region were performed. Miller scale images of the real-time examination were reviewed. There is no sonographic correlate for the area of pain There is no sonographic correlate for the palpable area of concern. DIVISION OF RADIOLOGY Provider, [facility] - 03/10/2024 * * *Final Report* * * DATE OF EXAM: Mar 10 2024 2:50PM WRU 0593 - [facility] US BREAST LTD LT / PROCEDURE REASON: multiple diagnoses * * * * Physician Interpretation * * * * #[id number] - [facility] US BREAST LTD LT LIMITED ULTRASOUND OF LEFT BREAST: 03/10/2024 HISTORY: Multiple Diagnoses. RESULT: No prior exams were available for comparison. Color flow and real-time ultrasound of the left breast 12 o'clock region were performed. Miller scale images of the real-time examination were reviewed. There is no sonographic correlate for the area of pain There is no sonographic correlate for the palpable area of concern. IMPRESSION IMPRESSION: BENIGN Further management should be based on clinical assessment. There is no sonographic evidence of malignancy. Abimael ro/arleen:03/10/2024 15:48:56 Dip Dyer(s): Ashli Vicente [facility] Ultrasound BI-RADS: Category 2: Benign Multiple national specialty organizations have released breast cancer screening guidelines for women at average risk for developing breast cancer - guidelines that are based on both evidence and opinion, yet differ on when to start and how often to screen for breast cancer. With representation from Breast Imaging, Internal Medicine, Women's Health, Family Medicine, and Medical/Surgical Oncology, the [facility] has carefully reviewed the data and reached the following consensus: 1) All women should engage in shared decision-making with their providers to decide when to start and how often to screen; 2) All women should have the opportunity to start screening mammography at age 40; 3) For women ages 45-55, we recommend annual screening mammograms; 4) For women ages 55 and over, we support both the transition from an annual to a biennial interval if this aligns more with patient's values and preferences, or continuation with annual screening; 5) All women should discuss with their providers when to stop screening mammograms. Gum Machine Operator: Arleen Transcribe Date/Time: Mar 10 2024 2:33P Dictated by : ABIMAEL GARCIA MD This examination was interpreted and the report reviewed and electronically signed by: ABIMAEL GARCIA MD on Mar 10 2024 3:48PM EST [facility] US Breast - right limitedon 03-10-2024 IMPRESSION: BENIGN Further management should be based on clinical assessment. There is no sonographic evidence of malignancy. Abimael ro/arleen:03/10/2024 15:12:26 Dip Dyer(s): Maverick Soto [facility] Ultrasound BI-RADS: Category 2: Benign Multiple national specialty organizations have released breast cancer screening guidelines for women at average risk for developing breast cancer - guidelines that are based on both evidence and opinion, yet differ on when to start and how often to screen for breast cancer. With representation from Breast Imaging, Internal Medicine, Women's Health, Family Medicine, and Medical/Surgical Oncology, the [facility] has carefully reviewed the data and reached the following consensus: 1) All women should engage in shared decision-making with their providers to decide when to start and how often to screen; 2) All women should have the opportunity to start screening mammography at age 40; 3) For women ages 45-55, we recommend annual screening mammograms; 4) For women ages 55 and over, we support both the transition from an annual to a biennial interval if this aligns more with patient's values and preferences, or continuation with annual screening; 5) All women should discuss with their providers when to stop screening mammograms. Gum Machine Operator: Arleen Transcribe Date/Time: Mar 10 2024 2:32P Dictated by : ABIMAEL GARCIA MD This examination was interpreted and the report reviewed and electronically signed by: ABIMAEL GARCIA MD on Mar 10 2024 3:12PM EST DIVISION OF RADIOLOGY * * *Final Report* * * DATE OF EXAM: Mar 10 2024 2:50PM [id number] [id number] - [facility] US BREAST LTD RT / PROCEDURE REASON: multiple diagnoses * * * * Physician Interpretation * * * * #[id number] - [facility] US BREAST LTD RT LIMITED ULTRASOUND OF RIGHT BREAST: 03/10/2024 HISTORY: Multiple Diagnoses. RESULT: No prior exams were available for comparison. Color flow and real-time ultrasound of the right breast 12 o'clock region were performed. Miller scale images of the real-time examination were reviewed. There is no sonographic correlate for the area of pain There is no sonographic correlate for the palpable area of concern. DIVISION OF RADIOLOGY Provider, [facility] - 03/10/2024 * * *Final Report* * * DATE OF EXAM: Mar 10 2024 2:50PM WRU 0594 - [facility] US BREAST LTD RT / PROCEDURE REASON: multiple diagnoses * * * * Physician Interpretation * * * * #[id number] - [facility] US BREAST LTD RT LIMITED ULTRASOUND OF RIGHT BREAST: 03/10/2024 HISTORY: Multiple Diagnoses. RESULT: No prior exams were available for comparison. Color flow and real-time ultrasound of the right breast 12 o'clock region were performed. Miller scale images of the real-time examination were reviewed. There is no sonographic correlate for the area of pain There is no sonographic correlate for the palpable area of concern. IMPRESSION IMPRESSION: BENIGN Further management should be based on clinical assessment. There is no sonographic evidence of malignancy. Abimael ro/arleen:03/10/2024 15:12:26 Dip Dyer(s): Ashli Vicente [facility] Ultrasound BI-RADS: Category 2: Benign Multiple national specialty organizations have released breast cancer screening guidelines for women at average risk for developing breast cancer - guidelines that are based on both evidence and opinion, yet differ on when to start and how often to screen for breast cancer. With representation from Breast Imaging, Internal Medicine, Women's Health, Family Medicine, and Medical/Surgical Oncology, the [facility] has carefully reviewed the data and reached the following consensus: 1) All women should engage in shared decision-making with their providers to decide when to start and how often to screen; 2) All women should have the opportunity to start screening mammography at age 40; 3) For women ages 45-55, we recommend annual screening mammograms; 4) For women ages 55 and over, we support both the transition from an annual to a biennial interval if this aligns more with patient's values and preferences, or continuation with annual screening; 5) All women should discuss with their providers when to stop screening mammograms. Gum Machine Operator: Arleen Transcribe Date/Time: Mar 10 2024 2:32P Dictated by : ABIMAEL GARCIA MD This examination was interpreted and the report reviewed and electronically signed by: ABIMAEL GARCIA MD on Mar 10 2024 3:12PM EST [facility] US Breast - right limitedOrd ered By: [facility] Provider on 03-10-2024 [facility] CBC W Auto Differential pane l (Bld)on 11-04-2023 Basophils (Bld) [#/Vol] 0.09 10*3/uL <0.11 k/uL [facility] Basophils/100 WBC (Bld) 0.8 % [facility] Differential cell count method Nom (Bld) Auto [facility] Eosinophils (Bld) [#/Vol] 0.15 10*3/uL <0.46 k/uL [facility] Eosinophils/100 WBC (Bld) 1.3 % [facility] Erythrocyte distribution width (RBC) [Ratio] 13.2 % 11.5 - 15.0 % [facility] Hematocrit (Bld) [Volume fraction] 38.5 % 36.0 - 46.0 % [facility] Hemoglobin (Bld) [Mass/Vol] 12.2 g/dL 11.5 - 15.5 g/dL [facility] Immature granulocytes (Bld) [#/Vol] 0.03 10*3/uL <0.10 k/uL [facility] Immature granulocytes/100 WBC (Bld) 0.3 % [facility] Lymphocytes (Bld) [#/Vol] 2.10 10*3/uL 1.00 - 4.00 k/uL [facility] Lymphocytes/100 WBC (Bld) 18.6 % [facility] MCH (RBC) [Entitic mass] 27.7 pg 26. 0 - 34.0 pg [facility] MCHC (RBC) [Mass/Vol] 31.7 g/dL 30.5 - 36.0 g/dL [facility] MCV (RBC) [Entitic vol] 87.5 fL 80.0 - 100.0 fL [facility] Monocytes (Bld) [#/Vol] 0.52 10*3/uL <0.87 k/uL [facility] Monocytes/100 WBC (Bld) 4.6 % C [facility] Neutrophils (Bld) [#/Vol] 8.41 10*3/uL High 1.45 - 7.50 k/uL [facility] Neutrophils/100 WBC (Bld) 74.4 % [facility] Nucleated RBC (Bld) [#/Vol] <0.01 k/uL [facility] Nucleated RBC/100 WBC (Bld) [Ratio] 0.0 /100 WBC [facility] Platelet mean volume (Bld) [Entitic vol] 11.4 fL 9.0 - 12.7 fL [facility] Platelets (Bld) [#/Vol] 343 10*3/uL 150 - 400 k/uL [facility] RBC (Bld) [#/Vol] 4.40 10*6/uL 3.90 - 5.2 0 m/uL [facility] WBC (Bld) [#/Vol] 11.30 10*3/uL High 3.70 - 11 .00 k/uL [facility] UA DIP, URINE (POC)on 2023 BILIRUBIN UA (POCT) Negative Negative [facility] CLARITY UA (POCT) Clear [facility] COLOR UA (POCT) Yellow [facility] GLUCOSE UA (POCT) Negative Negative mg/dL [facility] Hemoglobin Ql (U) Negative Negative [facility] KETONE UA (POCT) Negative Negative mg/dL [facility] LEUKOCYTES UA (POCT) Negative Negative [facility] NITRITE UA (POCT) Negative Negative [facility] PH UA (POCT) 6.0 4.5 - 8.0 [facility] Protein Ql (U) Negative Negative mg/dL [facility] SPECIFIC GRAVITY UA (POCT) >=1.030 1.005 - 1.030 [facility] UROBILINOGEN UA (POCT) 0.2 E.U./dL Fidelina l E.U./dL [facility] UA DIP, URINE (POC)on 2021 BILIRUBIN UA (POCT) Negative Negative [facility] CLARITY UA (POCT) Clear [facility] COLOR UA (POCT) Yellow [facility] GLUCOSE UA (POCT) Negative Negative mg/dL [facility] HEMOGLOBIN/BLOOD UA (POCT) Trace-intact Abnormal Negative [facility] KETONE UA (POCT) Negative Negative mg/dL [facility] LEUKOCYTES UA (POCT) Negative Negative [facility] NITRITE UA (POCT) Negative Negative [facility] PH UA (POCT) 5.5 4.5 - 8.0 [facility] Protein Ql (U) Negative Negative mg/[facility] SPECIFIC GRAVITY UA (POCT) >=1.030 1.005 - 1.030 [facility] UROBILINOGEN UA (POCT) 0.2 E.U./dL Fidelina l E.U./dL [facility] UA DIP, URINE (POC)on 2021 BILIRUBIN UA (POCT) Negative Negative [facility] CLARITY UA (POCT) Clear [facility] COLOR UA (POCT) Yellow [facility] GLUCOSE UA (POCT) Negative Negative mg/dL [facility] HEMOGLOBIN/BLOOD UA (POCT) Trace-intact Abnormal Negative [facility] KETONE UA (POCT) Trace Negative mg/dL [facility] LEUKOCYTES UA (POCT) Negative Negative [facility] NITRITE UA (POCT) Negative Negative [facility] PH UA (POCT) 5.0 4.5 - 8.0 [facility] Protein Ql (U) Negative Negative mg/dL [facility] SPECIFIC GRAVITY UA (POCT) >=1.030 1.005 - 1.030 [facility] UROBILINOGEN UA (POCT) 0.2 E.U./dL Fidelina l E.U./dL [facility] Vital Signs Date Time Vital Sign Value Performing Clinician Facility 04-07-2025 08:36-0400 Body height 152.4 cm Rocio Londono DO Work Phone: [facility] 04-07-2025 08:36-0400 Body mass index (BMI) [Ratio] 31.43 kg/m2 Rocio Londono DO Work Phone: [facility] 04-07-2025 08:36-0400 Body temperature 97.59 [degF] Rocio Bry DO Work Phone: [facility] 04-07-2025 08:36-0400 Body weight 73 kg Rocio Bry DO Work Phone: [facility] 04-07-2025 08:36-0400 Diastolic blood pressure 74 mm[Hg] Rocio Bry DO Work Phone: [facility] 04-07-2025 08:36-0400 Heart rate 56 /min Rocio Bry DO Work Phone: [facility] 04-07-2025 08:36-0400 Respiratory rate 16 /min Rocio Bry DO Work Phone: [facility] 04-07-2025 08:36-0400 SaO2% (BldA) [Mass fraction] 100 % Rocio Bry DO Work Phone: [facility] 04-07-2025 08:36-0400 Systolic blood pressure 106 mm[Hg] Rocio Bry DO Work Phone: [facility] 03-07-2025 14:32-0400 Body mass index (BMI) [Ratio] 31.25 kg/m2 Ce Conner MD Work Phone: [facility] 03-07-2025 14:32-0400 Body weight 72.58 kg Ce Conner MD Work Phone: [facility] 03-07-2025 14:32-0400 Diastolic blood pressure 78 mm[Hg] Ce Conner MD Work Phone: [facility] 03-07-2025 14:32-0400 Heart rate 68 /min Ce Conner MD Work Phone: [facility] 03-07-2025 14:32-0400 Respiratory rate 12 /min Ce Conner MD Work Phone: [facility] 03-07-2025 14:32-0400 SaO2% (BldA) [Mass fraction] 98 % Ce Conner MD Work Phone: 4(310)377-522411 [place] [address] 03-07-2025 14:32-0400 Systolic blood pressure 116 mm[Hg] Ce Conner MD Work Phone: 6(614)693-599828 [place] [address] 03-02-2025 23:06-0400 Body temperature 98.3 [degF] Dr. Ce Conner MD Work Phone: 8(400)251-006871 [place] [address] 03-02-2025 23:06-0400 Diastolic blood pressure 69 mm[Hg] Dr. Ce Conner MD Work Phone: 5(610)095-066971 [place] [address] 03-02-2025 23:06-0400 Heart rate 56 /min Dr. Ce Conner MD Work Phone: 7(094)665-472571 [place] [address] 03-02-2025 23:06-0400 Respiratory rate 18 /min Dr. Ce Conner MD Work Phone: 9(054)135-520671 [place] [address] 03-02-2025 23:06-0400 SaO2% (BldA) [Mass fraction] 99 % Dr. Ce Conner MD Work Phone: 7(272)261-211171 [place] [address] 03-02-2025 23:06-0400 Systolic blood pressure 104 mm[Hg] Dr. Ce Conner MD Work Phone: 8(735)791-375671 [place] [address] 03-02-2025 19:26-0400 Body height 152.[address] eC Conner MD Work Phone: 2(408)791-642271 [place] [address] 03-02-2025 19:26-0400 Body mass index (BMI) [Ratio] 30.9 kg/m2 Dr. Ce Conner MD Work Phone: 7(425)602-092671 [place] [address] 03-02-2025 19:26-0400 Body weight 71.[address] Ce Conner MD Work Phone: 8(859)085-502971 [place] [address] 02-16-2025 18:13-0400 Body mass index (BMI) [Ratio] 30.7 kg/m2 Deni Adams MD Work Phone: 2(216)316-734811 [place] [address] 02-16-2025 18:13-0400 Body temperature 99.61 [degF] Deni Adams MD Work Phone: [facility] 02-16-2025 18:13-0400 Body weight 71.3 kg Deni Adams MD Work Phone: [facility] 02-16-2025 18:13-0400 Diastolic blood pressure 82 mm[Hg] Deni Adams MD Work Phone: [facility] 02-16-2025 18:13-0400 Heart rate 77 /min Deni Adams MD Work Phone: [facility] 02-16-2025 18:13-0400 Respiratory rate 18 /min Deni Adams MD Work Phone: 0(429)378-980911 [place] [address] 02-16-2025 18:13-0400 SaO2% (BldA) [Mass fraction] 99 % Deni Adams MD Work Phone: 7(965)259-487811 [place] [address] 02-16-2025 18:13-0400 Systolic blood pressure 110 mm[Hg] Deni Adams MD Work Phone: 2(574)957-108411 [place] [address] 11-26-2024 13:50-0400 Body temperature 97.6 [degF] Dr. Ce Conner MD Work Phone: 0(085)910-468436 [place] [address] 11-26-2024 13:50-0400 Diastolic blood pressure 74 mm[Hg] Dr. Ce Conner MD Work Phone: 4(240)865-460136 [place] [address] 11-26-2024 13:50-0400 Heart rate 66 /min Dr. Ce Conner MD Work Phone: 5(664)953-971336 [place] [address] 11-26-2024 13:50-0400 Respiratory rate 18 /min Dr. Ce Conner MD Work Phone: 6(156)389-558636 [place] [address] 11-26-2024 13:50-0400 SaO2% (BldA) [Mass fraction] 100 % Dr. Ce Conner MD Work Phone: 2(757)708-055936 [place] [address] 11-26-2024 13:50-0400 Systolic blood pressure 96 mm[Hg] Dr. Ce Conner MD Work Phone: 7(784)634-952736 [place] [address] 11-26-2024 12:01-0400 Body height 152.[address] Ce Conner MD Work Phone: [facility] 11-26-2024 12:01-0400 Body mass index (BMI) [Ratio] 31.4 kg/m2 Dr. Ce Conner MD Work Phone: [facility] 11-26-2024 12:01-0400 Body weight [address] Ce Conner MD Work Phone: 9(748)406-318136 [place] [address] 11-19-2024 13:21-0400 Body mass index (BMI) [Ratio] 31.33 kg/m2 Ce Conner MD Work Phone: [facility] 11-19-2024 13:21-0400 Body weight 72.76 kg Ce Conner MD Work Phone: [facility] 11-19-2024 13:21-0400 Diastolic blood pressure 65 mm[Hg] Ce Conner MD Work Phone: [facility] 11-19-2024 13:21-0400 Heart rate 65 /min Ce Conner MD Work Phone: [facility] 11-19-2024 13:21-0400 Respiratory rate 16 /min Ce Conner MD Work Phone: [facility] 11-19-2024 13:21-0400 Systolic blood pressure 97 mm[Hg] Ce Conner MD Work Phone: [facility] 10-13-2024 13:36-0400 Body mass index (BMI) [Ratio] 31.43 kg/m2 Heaven Maciel MD Work Phone: [facility] 10-13-2024 13:36-0400 Body weight 73 kg Heaven Maciel MD Work Phone: [facility] 10-13-2024 13:36-0400 Diastolic blood pressure 75 mm[Hg] Heaven Maciel MD Work Phone: [facility] 10-13-2024 13:36-0400 Heart rate 63 /min Heaven Maciel MD Work Phone: [facility] 10-13-2024 13:36-0400 SaO2% (BldA) [Mass fraction] 99 % Heaven Maciel MD Work Phone: [facility] 10-13-2024 13:36-0400 Systolic blood pressure 112 mm[Hg] Heaven Maciel MD Work Phone: [facility] 09-13-2024 16:28-0500 Body mass index (BMI) [Ratio] 31.76 kg/m2 Ce Conner MD Work Phone: [facility] 09-13-2024 16:28-0500 Body temperature 98.71 [degF] Ce Conner MD Work Phone: [facility] 09-13-2024 16:28-0500 Body weight 73.75 kg Ce Conner MD Work Phone: [facility] 09-13-2024 16:28-0500 Diastolic blood pressure 66 mm[Hg] Ce Conner MD Work Phone: [facility] 09-13-2024 16:28-0500 Heart rate 83 /min Ce Conner MD Work Phone: [facility] 09-13-2024 16:28-0500 Respiratory rate 16 /min Ce Conner MD Work Phone: [facility] 09-13-2024 16:28-0500 Systolic blood pressure 99 mm[Hg] Ce Conner MD Work Phone: [facility] 09-04-2024 23:23-0500 Body temperature 98.1 [degF] Dr. Ce Conner MD Work Phone: [facility] 09-04-2024 23:23-0500 Diastolic blood pressure 68 mm[Hg] Dr. Ce Conner MD Work Phone: [facility] 09-04-2024 23:23-0500 Heart rate 56 /min Dr. Ce Conner MD Work Phone: 4(234)506-181236 [place] [address] 09-04-2024 23:23-0500 Respiratory rate 16 /min Dr. Ce Conner MD Work Phone: 9(532)938-116571 [place] [address] 09-04-2024 23:23-0500 SaO2% (BldA) [Mass fraction] 99 % Dr. Ce Conner MD Work Phone: 8(387)697-484271 [place] [address] 09-04-2024 23:23-0500 Systolic blood pressure 113 mm[Hg] Dr. Ce Conner MD Work Phone: 1(235)950-131971 [place] [address] 09-04-2024 20:36-0500 Body mass index (BMI) [Ratio] 31.5 kg/m2 Dr. Ce Conner MD Work Phone: 4(946)891-029271 [place] [address] 09-04-2024 20:36-0500 Body weight 73.[address] Ce Conner MD Work Phone: 7(749)542-597571 [place] [address] 07-23-2024 16:39-0500 Body mass index (BMI) [Ratio] 32.15 kg/m2 Ce Conner MD Work Phone: 6(978)465-193111 [place] [address] 07-23-2024 16:39-0500 Body temperature 100.2 [degF] Ce Conner MD Work Phone: 8(562)825-113711 [place] [address] 07-23-2024 16:39-0500 Body weight 74.66 kg Ce Conner MD Work Phone: 7(911)673-906328 [place] [address] 07-23-2024 16:39-0500 Diastolic blood pressure 78 mm[Hg] Ce Conner MD Work Phone: 1(060)510-706311 [place] [address] 07-23-2024 16:39-0500 Heart rate 132 /min Ce Conner MD Work Phone: 9(198)885-686011 [place] [address] 07-23-2024 16:39-0500 SaO2% (BldA) [Mass fraction] 99 % Ce Conner MD Work Phone: 8(860)992-027911 [place] [address] 07-23-2024 16:39-0500 Systolic blood pressure 102 mm[Hg] Ce Conner MD Work Phone: 5(542)315-168211 [place] [address] 04-02-2024 13:23-0400 Body mass index (BMI) [Ratio] 33.28 kg/m2 Ce Conner MD Work Phone: [facility] 04-02-2024 13:23-0400 Body weight 77.29 kg Ce Conner MD Work Phone: [facility] 04-02-2024 13:23-0400 Diastolic blood pressure 62 mm[Hg] Ce Conner MD Work Phone: [facility] 04-02-2024 13:23-0400 Heart rate 102 /min Ce Conner MD Work Phone: [facility] 04-02-2024 13:23-0400 SaO2% (BldA) [Mass fraction] 99 % Ce Conner MD Work Phone: [facility] 04-02-2024 13:23-0400 Systolic blood pressure 112 mm[Hg] Ce Conner MD Work Phone: [facility] 02-04-2024 19:56-0400 Body mass index (BMI) [Ratio] 34.83 kg/m2 Mo De Santiago FOUNDER[employer] Work Phone: [facility] 02-04-2024 19:56-0400 Body temperature 98.6 [degF] Mo Jonnathan [employer]OUNDER.[employer] Work Phone: [facility] 02-04-2024 19:56-0400 Body weight 80.9 kg Mo De Santiago [employer]OUNDER.[employer] Work Phone: [facility] 02-04-2024 19:56-0400 Diastolic blood pressure 78 mm[Hg] Mo Pendlecayetano FOUNDER.[employer] Work Phone: [facility] 02-04-2024 19:56-0400 Heart rate 64 /min Mo De Santiago FOUNDER.[employer] Work Phone: [facility] 02-04-2024 19:56-0400 Respiratory rate 16 /min Mo Pendrolando FOUNDER.[employer] Work Phone: [facility] 02-04-2024 19:56-0400 SaO2% (BldA) [Mass fraction] 99 % Mo De Santiago [employer]OUNDER.[employer] Work Phone: [facility] 02-04-2024 19:56-0400 Systolic blood pressure 122 mm[Hg] Mo De Santiago [employer]OUNDER.[employer] Work Phone: [facility] 11-03-2023 15:10-0400 Body weight 81.19 kg Afia Older [employer]OUNDER.[employer] Work Phone: [facility] 11-03-2023 15:10-0400 Diastolic blood pressure 68 mm[Hg] Afia Older [employer]OUNDER.[employer] Work Phone: [facility] 11-03-2023 15:10-0400 Heart rate 77 /min Afia Older [employer]OUNDER.[employer] Work Phone: [facility] 11-03-2023 15:10-0400 Respiratory rate 16 /min Afia Older FOUNDER.[employer] Work Phone: [facility] 11-03-2023 15:10-0400 SaO2% (BldA) [Mass fraction] 100 % Afia Older FOUNDER.[employer] Work Phone: [facility] 11-03-2023 15:10-0400 Systolic blood pressure 110 mm[Hg] Afia Older [employer]OUNDER.[employer] Work Phone: [facility] 10-23-2022 09:28-0400 Body weight 83.92 kg Lou Older FOUNDER.[employer] Work Phone: [facility] 10-23-2022 09:28-0400 Diastolic blood pressure 70 mm[Hg] Lou Older FOUNDER.[employer] Work Phone: [facility] 10-23-2022 09:28-0400 Heart rate 68 /min Lou Older FOUNDER.[employer] Work Phone: [facility] 10-23-2022 09:28-0400 Respiratory rate 16 /min Lou Older [employer]OUNDER.[employer] Work Phone: [facility] 10-23-2022 09:28-0400 Systolic blood pressure 122 mm[Hg] Lou Older FOUNDER.[employer] Work Phone: [facility] 10-20-2022 14:59-0400 Body height 152.4 cm [facility] 10-20-2022 14:59-0400 Body mass index (BMI) [Ratio] 36.6 kg/m2 [facility] 10-20-2022 14:59-0400 Body temperature 96.8 [degF] [facility] 10-20-2022 14:59-0400 Body weight 85.13 kg [facility] 10-20-2022 14:59-0400 Diastolic blood pressure 80 mm[Hg] [facility] 10-20-2022 14:59-0400 Heart rate 93 /min [facility] 10-20-2022 14:59-0400 Respiratory rate 18 /min [facility] 10-20-2022 14:59-0400 SaO2% (BldA) [Mass fraction] 100 % [facility] 10-20-2022 14:59-0400 Systolic blood pressure 137 mm[Hg] [facility] 09-09-2022 11:05-0500 Body height 152.4 cm Ce Conner MD Work Phone: [facility] 09-09-2022 11:05-0500 Body temperature 97.59 [degF] Ce Conner MD Work Phone: [facility] 09-09-2022 11:05-0500 Body weight 81.65 kg Ce Conner MD Work Phone: [facility] 09-09-2022 11:05-0500 Diastolic blood pressure 62 mm[Hg] Ce Conner MD Work Phone: [facility] 09-09-2022 11:05-0500 Heart rate 64 /min Ce Conner MD Work Phone: [facility] 09-09-2022 11:05-0500 Respiratory rate 12 /min Ce Conner MD Work Phone: [facility] 09-09-2022 11:05-0500 SaO2% (BldA) [Mass fraction] 100 % Ce Conner MD Work Phone: [facility] 09-09-2022 11:05-0500 Systolic blood pressure 110 mm[Hg] Ce Conner MD Work Phone: [facility] 04-24-2022 17:41-0400 Body temperature 98.29 [degF] Isabelle Athy PA-C Work Phone: [facility] 04-24-2022 17:41-0400 Body weight 85.37 kg Isabelle Athy PA-C Work Phone: [facility] 04-24-2022 17:41-0400 Diastolic blood pressure 84 mm[Hg] Isabelle Athy PA-C Work Phone: [facility] 04-24-2022 17:41-0400 Heart rate 74 /min Isabelle Athy PA-C Work Phone: [facility] 04-24-2022 17:41-0400 Respiratory rate 18 /min Isabelle Athy PA-C Work Phone: [facility] 04-24-2022 17:41-0400 SaO2% (BldA) [Mass fraction] 100 % Isabelle Athy PA-C Work Phone: [facility] 04-24-2022 17:41-0400 Systolic blood pressure 126 mm[Hg] Isabelle Athy PA-C Work Phone: [facility] 03-12-2022 14:52-0400 Body height 152.4 cm Ce Conner MD Work Phone: [facility] 03-12-2022 14:52-0400 Body temperature 99.61 [degF] Ce Conner MD Work Phone: [facility] 03-12-2022 14:52-0400 Body weight 83.46 kg Ce Conner MD Work Phone: [facility] 03-12-2022 14:52-0400 Diastolic blood pressure 70 mm[Hg] Ce Conner MD Work Phone: [facility] 03-12-2022 14:52-0400 Heart rate 60 /min Ce Conner MD Work Phone: [facility] 03-12-2022 14:52-0400 Respiratory rate 12 /min Ce Conner MD Work Phone: [facility] 03-12-2022 14:52-0400 SaO2% (BldA) [Mass fraction] 99 % Ce Conner MD Work Phone: [facility] 03-12-2022 14:52-0400 Systolic blood pressure 126 mm[Hg] Ce Conner MD Work Phone: [facility] 12-17-2021 15:27-0400 Body weight 84.82 kg Kaitlynn Keith MD Work Phone: [facility] 12-17-2021 15:27-0400 Diastolic blood pressure 74 mm[Hg] Kaitlynn Keith MD Work Phone: [facility] 12-17-2021 15:27-0400 Systolic blood pressure 114 mm[Hg] Kaitlynn Keith MD Work Phone: [facility] 12-13-2021 18:26-0400 Body temperature 98.6 [degF] Berenice Manolo [employer]OUNDER[employer] Work Phone: [facility] 12-13-2021 18:26-0400 Body weight 85.28 kg Berenice Manolo FOUNDER.[employer]ER Work Phone: [facility] 12-13-2021 18:26-0400 Diastolic blood pressure 84 mm[Hg] Berenice Manolo FOUNDER.[employer]AKER Work Phone: [facility] 12-13-2021 18:26-0400 Heart rate 85 /min Berenice Manolo FOUNDER.[employer] Work Phone: [facility] 12-13-2021 18:26-0400 Respiratory rate 21 /min Berenice Manolo FOUNDER.[employer] BRE[employer]ER Work Phone: [facility] 12-13-2021 18:26-0400 SaO2% (BldA) [Mass fraction] 99 % Berenice French FOUNDER.[employer]AKER Work Phone: [facility] 12-13-2021 18:26-0400 Systolic blood pressure 112 mm[Hg] Berenice French ELIZABETH.FREIGHT BREAKER Work Phone: [facility] Encounters Encounter Date Encounter Type Care Provider Facility Start: 04-07-2025 End: 04-07-2025 Office consultation new/estab patient 60 min Rocio Londono DO Work Phone: Allergy Comment on above: Pollen-food allergy, subsequent encounter (Primary Dx); Peanut allergy; Seasonal allergic rhinitis due to pollen; Chronic rhinitis; Mild intermittent asthma without complication (HCC) Start: 04-07-2025 End: 04-07-2025 ambulatory ROCIO LONDONO Facility:[facility] Start: 03-07-2025 End: 03-07-2025 ambulatory CE CONNER Facility:[facility] Start: 03-07-2025 Encounter for allerg y testing CE CONNER [facility] Start: 03-07-2025 End: 03-07-2025 Office outpatient visit 25 minutes Ce Conner MD Work Phone: [facility] [place] Comment on above: Hydradenitis (Primar y Dx); Obstructive sleep apnea syndrome; Gastroesophageal reflux disease without esophagitis; Mild intermittent asthma without complication (HCC); Tree nut allergy; Vitamin D deficiency; Encounter for immunization; Encounter for allergy testing Start: 03-07-2025 End: 03-07-2025 Patient encounter status Ce Conner MD Work Phone: [facility] Start: 03-02-2025 End: 03-02-2025 Emergency department patient visit Dr. Ce Conner MD Work Phone: -Emergency Department Work Phone: Start: 03-02-2025 End: 03-02-2025 Patient encounter procedure Carmen DELGADO Work Phone: [facility] Comment on above: Allergic reaction, i nitial encounter (Primary Dx) Start: 03-02-2025 End: 03-02-2025 ambulatory [facility] Facility:[facility] Start: 03-01-2025 End: 03-01-2025 ambulatory [facility] Facility:[facility] Start: 02-16-2025 End: 02-16-2025 Office outpatient visit 15 minutes Deni Adams MD Work Phone: [facility] Comment on above: Sore throat (Primary Dx) Start: 02-16-2025 End: 02-16-2025 ambulatory [facility] Facility:[facility] Start: 02-07-2025 End: 02-07-2025 Patient encounter procedure Lula MANRIQUE -[facility] Work Phone: Start: 02-07-2025 End: 02-07-[address] Ce Conner MD Work Phone: [facility] Start: 01-17-2025 End: 01-17-2025 ambulatory [facility] Facility:[facility] Start: 12-28-2024 End: 12-28-2024 Patient encounter procedure Lula MANRIQUE -[facility] Work Phone: Start: 12-28-2024 End: 12-28-[address] Ce Conner MD Work Phone: [facility] Work Phone: Start: 12-08-2024 Encounter for other preprocedural examination Gabriel Larios [facility] Start: 11-26-2024 End: 01-26-2025 Follow-up encounter Ce Conner MD Work Phone: [facility] [place] Comment on above: Results; Forms (Medi meka Statement for [employer] Agent) Start: 11-26-2024 ambulatory Gabriel Larios Facility :[facility] Start: 11-26-2024 Non-patient / Non-visit Gabrieljalen Humphries cheo DO -[facility] Start: 11-26-2024 End: 11-26-2024 Admission to same day surgery center Gabrielrichard Larios DO -Endoscopy Work Phone: Start: 11-26-2024 End: 11-26-2024 ambulatory Gabrielbishop Larios Facility:[facility] Start: 11-19-2024 End: 11-19-2024 ambulatory [facility] Facility:[facility] Start: 11-19-2024 End: 11-19-2024 Office outpatient visit 25 minutes Ce Conner MD Work Phone: [facility] [place] Comment on above: Cystic acne (Primary Dx); Anxiety and depression; Screening for depression; Encounter for screening examination for other mental health and behavioral disorders; Hydradenitis; Anemia, unspecified type; Hypomagnesemia; Vitamin D deficiency; Iron deficiency anemia, unspecified iron deficiency anemia type; Gastro-esophageal reflux disease without esophagitis Start: 11-19-2024 End: 11-19-2024 ambulatory [facility] Facility:[facility] Start: 10-13-2024 End: 10-13-2024 ambulatory HEAVEN MACIEL Facility:[facility] Start: 10-13-2024 End: 10-13-2024 Patient encounter procedure Heaven Maciel MD Work Phone: Allergy Comment on above: Adverse reaction to food, initial encounter (Primary Dx); Mild intermittent asthma without complication; Allergic rhinitis, unspecified seasonality, unspecified trigger Start: 10-07-2024 End: 10-07-2024 Follow-up encounter Ce Conner MD Work Phone: Geriatrics Comment on above: Iron deficiency; Vitamin D deficiency Start: 10-07-2024 End: 10-07-2024 Emergency department patient visit SRINIVAS AGUDELOHAM Facility:[facility] Start: 10-07-2024 End: 10-07-2024 Emergency department patient visit OLIVIA [facility]: [facility]24 End: 10-04-2024 ambulatory [facility] Facility:[facility] Start: 10-01-2024 End: 10-01-2024 Patient encounter procedure Lula MANRIQUE -[facility] Work Phone: Start: 10-01-2024 End: 10-01-2024 ambulatory [facility] Facility[facility] Start: 09-13-2024 End: 09-13-2024 ambulatory CE CONNER Facility:[facility] Start: 09-13-2024 End: 09-13-2024 Office outpatient visit 25 minutes Ce Conner MD Work Phone: [facility] [place] Comment on above: Hydradenitis (Primar y Dx); Allergic rhinitis, unspecified seasonality, unspecified trigger; Gastroesophageal reflux disease with esophagitis, unspecified whether hemorrhage; H/O Graves' disease; Hyperthyroidism; Indigestion; Vitamin D deficiency; Anemia, unspecified type; Vitamin B12 deficiency Start: 09-09-2024 End: 09-10-2024 ambulatory Ce Conner MD Work Phone: [facility] [place] Start: 09-09-2024 End: 09-10-2024 Follow-up encounter Ce Conner MD Work Phone: [facility] [place] Comment on above: Follow Up Start: 09-04-2024 End: 09-04-2024 Emergency department patient visit Dr. Mariana Domingo DO -Emergency Department Work Phone: Start: 09-04-2024 End: 09-04-2024 ambulatory Chloe Radford RN NURSE SANFORIZER Comment on above: Abdominal Pain; Ches t Pain Start: 08-11-2024 End: 10-09-2024 Telephone encounter Heaven Maciel MD Work Phone: Allergy Comment on above: Appointment Start: 07-26-2024 End: 07-27-2024 Emergency department patient visit [facility] Facility:[facility] Start: 07-23-2024 End: 07-23-2024 Emergency department patient visit [facility] Facility:[facility] Start: 07-23-2024 End: 07-23-2024 Office outpatient visit 25 minutes Ce Conner MD Work Phone: [facility] [place] Comment on above: Food poisoning (Prim zia Dx); Abdominal pain, unspecified abdominal location; Fever and chills; Tremors of nervous system; Weight loss; Palpitations Start: 07-23-2024 End: 07-23-2024 ambulatory Ce Conner MD Work Phone: [facility] [place] Comment on above: Abdominal Pain Start: 06-28-2024 End: 06-28-2024 ambulatory CE CONNER Facility:[facility] Start: 05-31-2024 End: 05-31-2024 ambulatory Ce Conner MD Work Phone: [facility] [place] Comment on above: Blood work results Start: 05-03-2024 End: 05-04-2024 Telephone encounter Ce Conner MD Work Phone: Geriatrics Comment on above: Results Start: 04-29-2024 End: 05-18-2024 ambulatory Ce Conner MD Work Phone: [facility] [place] Comment on above: Medical Statement Fo rm Start: 04-26-2024 End: 04-26-2024 Refill Ce Conner MD Work Phone: [facility] [place] Comment on above: Med Change Request Start: 04-20-2024 End: 04-20-2024 Orders Only Heaven Maciel MD Work Phone: Allergy Comment on above: Asthma, unspecified asthma severity, unspecified whether complicated, unspecified whether persistent (Primary Dx) Start: 04-02-2024 End: 04-02-2024 Office outpatient visit 25 minutes Ce Conner MD Work Phone: [facility] [place] Comment on above: Iron deficiency anem ia, unspecified iron deficiency anemia type (Primary Dx); Vitamin D deficiency; Moderate persistent asthma with exacerbation; Mild intermittent asthma without complication; Cystic acne; Gastroesophageal reflux disease without esophagitis Start: 03-10-2024 End: 03-10-2024 Subsequent hospital visit by physician [facility] Work Phone: Radiology Comment on above: Breast pain [N64.4] Start: 03-03-2024 Telephone encounter Ce forrester MD Work Phone: [facility] [place] Comment on above: Results Start: 02-18-2024 End: 02-18-2024 Patient encounter procedure Afia Jackson APRN.CNP Work Phone: [facility] [place] Comment on above: Breast pain (Primary Dx); Mass of breast, unspecified laterality; Gastroesophageal reflux disease, unspecified whether esophagitis present; Nausea; Leukocytosis, unspecified type Start: 02-05-2024 ambulatory Kelsey SULLIVAN SE SANFORIZER Comment on above: Lab & Test Results Start: 02-04-2024 End: 02-04-2024 Office outpatient visit 15 minutes Mo Riverocayetano FOUNDER.FREIGHT BREAKER Work Phone: [facility] Comment on above: Viral URI (Primary D x) Start: 02-04-2024 ambulatory Alfreda mireles RN NURSE SANFORIZER Start: 02-04-2024 Patient encounter procedure Alfreda Valente RN NURSE SANFORIZER Comment on above: Clinical Update Start: 01-26-2024 Refill Lou luis FOUNDER.FREIGHT BREAKER Work Phone: [facility] [place] Comment on above: Refill Request Start: 2024 ambulatory Afia Jackson FOUNDER .FREIGHT BREAKER Work Phone: [facility] [place] Start: 2024 Patient encounter procedure Afia Jackson FOUNDER.FREIGHT BREAKER Work Phone: [facility] [place] Comment on above: Doctor s appointment 01/07/24 Start: 11-05-2023 Telephone encounter Afia Jackson FOUNDER.FREIGHT BREAKER Work Phone: [facility] [place] Comment on above: Results Start: 11-03-2023 End: 11-03-2023 Patient encounter procedure Afia Jackson FOUNDER.FREIGHT BREAKER Work Phone: [facility] [place] Comment on above: Mild intermittent as thma without complication (Primary Dx); Gastroesophageal reflux disease without esophagitis; Insomnia, unspecified type; Urine frequency; LLQ pain; Other fatigue; Weight gain; Snoring; Constipation, unspecified constipation type; Bloating; Painful menstruation Start: 11-22-2022 Refill Ce Alvarado Work Phone: [facility] [place] Comment on above: Refill Request Start: 10-23-2022 End: 10-23-2022 Patient encounter procedure Lou Jackson FOUNDER.FREIGHT BREAKER Work Phone: [facility] [place] Comment on above: Gastroesophageal ref lux disease without esophagitis (Primary Dx) Start: 10-20-2022 End: 10-20-2022 Emergency department patient visit [facility] Start: 10-20-2022 ambulatory Rachel Dunham RN NURS E SANFORIZER Comment on above: Chest Pain Start: 10-10-2022 Telephone encounter Ce forrester MD Work Phone: [facility] [place] Comment on above: Patient Question; Pa tient Update Start: 09-06-2022 End: 09-06-2022 Patient encounter procedure Ce Conner MD Work Phone: [facility] [place] Comment on above: COVID-19 virus infec tion (Primary Dx) Start: 04-24-2022 End: 04-24-2022 Patient encounter procedure Isabelle Bragg PA-C Work Phone: [facility] Comment on above: Rash (Primary Dx) Start: 03-12-2022 End: 03-12-2022 Patient encounter procedure Ce Conner MD Work Phone: [facility] [place] Comment on above: Class 2 obesity with out serious comorbidity with body mass index (BMI) of 35.0 to 35.9 in adult, unspecified obesity type (Primary Dx); Persistent asthma without complication, unspecified asthma severity; Mild intermittent asthma without complication; Hydradenitis Start: 03-12-2022 ambulatory Viri Duncan RN NURSE SANFORIZER Comment on above: Asthma; Covid19 Conc helio Start: 03-03-2022 ambulatory Dominique ellison RN NURSE SANFORIZER Comment on above: Abdominal Pain Start: 12-18-2021 Telephone encounter Kaitlynn Keith MD Work Phone: OB/Gynecology Comment on above: Results Start: 12-17-2021 End: 12-17-2021 Patient encounter procedure Kaitlynn Keith MD Work Phone: OB/Gynecology Comment on above: Urinary frequency (P rimary Dx); Vaginal discharge; Screening for cervical cancer Start: 12-15-2021 Telephone encounter oM botello APRN.CNP Work Phone: [facility] Comment on above: Results Start: 12-13-2021 End: 12-13-2021 Patient encounter procedure Berenice French FOUNDER.FREIGHT BREAKER Work Phone: [facility] Comment on above: Urinary frequency (P rimary Dx); Bilateral low back pain without sciatica, unspecified chronicity Start: 12-13-2021 ambulatory Ce Alvarado Work Phone: [facility] [place] Comment on above: urinary symptoms Procedures Date Procedure Procedure Detail Performing Clinician Start: 04-07-2025 ALLERGEN SKIN TEST-FOOD Rocio Bry DO Work Phone: Start: 04-07-2025 ALLERGEN SKIN TEST-I NHALENT 40 Rocio Bry DO Work Phone: Start: 02-16-2025 Iadna streptococcus group a amplified probe tq Deni Adams MD Work Phone: Start: 11-19-2024 Adult depression scr eening assessment Ce Conner MD Work Phone: Start: 09-04-[address] Ce Conner MD Work Phone: Start: 09-04-2024 Measurement of renal function Dr. Ce Conner MD Work Phone: Comment on above: GFR Calc Start: 03-10-2024 Us breast uni real t harsha with image limited Afia Jackson FOUNDER.FREIGHT BREAKER Work Phone: Start: 11-03-2023 Urnls dip stick/tabl et rgnt auto w/o microscopy Afia Older FOUNDER.FREIGHT BREAKER Work Phone: Start: 11-03-2023 Adult depression scr eening assessment Ce Conner MD Work Phone: Start: 10-20-2022 Plain chest X-ray Start: 12-17-2021 Urnls dip stick/tabl et rgnt auto w/o microscopy Kaitlynn Keith MD Work Phone: Start: 12-13-2021 Urnls dip stick/tabl et rgnt auto w/o microscopy Berenice Manolo FOUNDER.FREIGHT BREAKER Work Phone: Start: 12-04-2017 Adult depression scr eening assessment Berenice French APRN.CNP Work Phone: Plan of Treatment Date Care Activity Detail Author Start: 03-07-2026 Annual PCP Team C2 Tactical Analysis Technician geoffrey Disease Visit Annual PCP Team Chronic Disease Visit [facility] Start: 11-19-2025 Annual PCP Team C2 Tactical Analysis Technician geoffrey Disease Visit Annual PCP Team Chronic Disease Visit [facility] Start: 11-19-2025 Anxiety Screening Anxiety Screening [facility] Start: 11-19-2025 Covid-19 Vaccine () Covid-19 Vaccine () [facility] Comment on above: Postponed from 04/04 (Declined at this time) Start: 11-19-2025 Depression Screening Depression Scre ening [facility] Start: 09-13-2025 Annual PCP Team C2 Tactical Analysis Technician geoffrey Disease Visit Annual PCP Team Chronic Disease Visit [facility] Start: 07-23-2025 Annual PCP Team C2 Tactical Analysis Technician geoffrey Disease Visit Annual PCP Team Chronic Disease Visit [facility] Start: 07-08-2025 End: 07-08-2025 Patient encounter procedure 07/08/2025 2:00 PM EST Office Visit Allergy [address] [place] [address] Rocio Londono DO [address] [place] [address] 3 m fu Allergy Comment on above: 3 m fu Start: 06-07-2025 End: 06-07-2025 Patient encounter procedure 06/07/2025 3:00 PM EST Office Visit [facility] [place] [address] [place] [address] Ce Conner MD [address] [place] [address] follow up 3 months [facility] [place] Comment on above: follow up 3 months Start: 06-07-2025 End: 09-06-2025 25-hydroxyvitamin D3 [Mass/volume] in Serum or Plasma VITAMIN D 25 HYDROXY Lab Routine Vitamin D deficiency Expected: 06/07/2025, Expires: 09/06/2025 [facility] Comment on above: Expected: 06/07/2025 , Expires: 09/06/2025 Start: 04-07-2025 End: 07-07-2025 ALGN PNT IGE, COMPONENT REFLEX ALGN PNT IGE, COMPONENT REFLEX Lab Routine Pollen-food allergy, subsequent encounter Peanut allergy Expected: 04/07/2025, Expires: 07/07/2025 [facility] Work Phone: Comment on above: Expected: 04/07/2025 , Expires: 07/07/2025 Start: 04-04-2025 Influenza vaccination [facility] Start: 04-02-2025 Annual PCP Team C2 Tactical Analysis Technician geoffrey Disease Visit Annual PCP Team Chronic Disease Visit [facility] Start: 03-07-2025 End: 03-07-2025 Patient encounter procedure 03/07/2025 2:20 PM EDT Office Visit [facility] [place] [address] [place], [place] [id number] Ce Conner MD [address] [place] [address] 3 month F/U [facility] [place] Comment on above: 3 month F/U Start: 03-02-2025 [facility] Start: 02-18-2025 End: 02-18-2025 Patient encounter procedure 02/18/2025 1:00 PM EDT Office Visit [facility] [place] [address] [place], [place] [id number] Ce Conner MD [address] [place] [address] 3 month F/U [facility] [place] Comment on above: 3 month F/U Start: 02-17-2025 Annual PCP Team C2 Tactical Analysis Technician geoffrey Disease Visit Annual PCP Team Chronic Disease Visit [facility] Start: 01-31-2025 Influenza vaccination Influenza Vacc ine (#1) [facility] Comment on above: Postponed from 04/04 (Declined at this time) Start: 12-17-2024 PAP TESTING PAP TESTING [facility] Start: 12-17-2024 Screening for malign ant neoplasm of cervix [facility] Start: 12-06-2024 End: 12-06-2024 Patient encounter procedure 12/06/2024 10:00 AM EDT Office Visit Dermatology [address] [id number] Sid Hill PA-C [address] [place] [address] cystic acne Dermatology Comment on above: cystic acne Start: 11-26-2024 Egd transoral biopsy single/multiple EGD BIOPSY SINGLE/MULTIPLE [facility] Start: [facility]-26-[facility]24 [facility] Start: 11-19-2024 End: 02-18-2025 Magnesium [Mass/volume] in Serum or Plasma [facility] Work Phone: Comment on above: Expected: 11/19/2024 , Expires: 02/18/2025 Start: 11-02-2024 Annual PCP Team C2 Tactical Analysis Technician geoffrey Disease Visit Annual PCP Team Chronic Disease Visit [facility] Start: 11-02-2024 Anxiety Screening Anxiety Screening [facility] Start: 11-02-2024 Depression Screening Depression Scre ening [facility] Start: 10-29-2024 End: 10-29-2024 Patient encounter procedure 10/29/2024 11:20 AM EDT Office Visit [facility] [place] [address] [place] [address] Afia Jackson APRN.FREIGHT BREAKER [address] [place] [address] 6 week f/u [facility] [place] Comment on above: 6 week f/u Start: 10-28-2024 End: 10-28-2024 Patient encounter procedure 10/28/2024 3:00 PM EDT Office Visit [facility] [address] [place] [address] Cari Carrillo PA-C [address] [place] [address] rf/ [facility] Comment on above: rf/ Start: 10-15-2024 End: 10-15-2024 Patient encounter procedure 10/15/2024 10:40 AM EDT Office Visit [facility] [place] [address] [place] [address] Ce Conner MD [address] [place] [address] 6 week f/u [facility] [place] Comment on above: 6 week f/u Start: 10-13-2024 End: 10-13-2024 Patient encounter procedure 10/13/2024 1:15 PM EDT Office Visit Allergy [address] [address] Heaven Maciel MD [address] [place] [address] Food/Environmental Allergies Allergy Comment on above: Food/Environmental A llergies Start: 09-20-2024 End: 09-20-2024 Patient encounter procedure 09/20/2024 1:30 PM EST Office Visit Allergy [address] [address] Catalina Roper, DO [address] [place], [place] [id number] Moderate persistent asthma with exacerbation [J45.41] Allergy Comment on above: Moderate persistent asthma with exacerbation [J45.41] Start: 09-14-2024 End: 09-14-2024 Patient encounter procedure [facility] [place] Comment on above: gut issues and iron deficiency [facility] ER f/u 09-04-24. S ee 09/09/24 phone note. Start: 09-13-2024 End: 12-13-2024 25-hydroxyvitamin D3 [Mass/volume] in Serum or Plasma VITAMIN D 25 HYDROXY Lab Routine Vitamin D deficiency Expected: 09/13/2024, Expires: 12/13/2024 [facility] Comment on above: Expected: 09/13/2024 , Expires: 12/13/2024 Start: 09-13-2024 End: 12-13-2024 Cobalamin (Vitamin B12) [Mass/volume] in Serum or Plasma VITAMIN B12 Lab Routine Vitamin B12 deficiency Expected: 09/13/2024, Expires: 12/13/2024 [facility] Comment on above: Expected: 09/13/2024 , Expires: 12/13/2024 Start: 09-13-2024 End: 12-13-2024 Ferritin [Mass/volume] in Serum or Plasma FERRITIN Lab Routine Anemia, unspecified type Expected: 09/13/2024, Expires: 12/13/2024 [facility] Comment on above: Expected: 09/13/2024 , Expires: 12/13/2024 Start: 09-13-2024 End: 12-13-2024 Helicobacter pylori IgG Ab [Presence] in Serum or Plasma by Immunoassay H PYLORI IGG AB Lab Routine Indigestion Expected: 09/13/2024, Expires: 12/13/2024 [facility] Comment on above: Expected: 09/13/2024 , Expires: 12/13/2024 Start: 09-13-2024 End: 12-13-2024 Iron and Iron binding capacity panel - Serum or Plasma IRON AND TIBC Lab Routine Anemia, unspecified type Expected: 09/13/2024, Expires: 12/13/2024 [facility] Comment on above: Expected: 09/13/2024 , Expires: 12/13/2024 Start: 09-13-2024 End: 12-13-2024 THYROGLOBULIN ANTIBODY THYROGLOBULIN ANTIBODY Lab Routine Hyperthyroidism Expected: 09/13/2024, Expires: 12/13/2024 [facility] Work Phone: Comment on above: Expected: 09/13/2024 , Expires: 12/13/2024 Start: 09-13-2024 End: 12-13-2024 THYROID PEROXIDASE ANTIBODY THYROID PEROXIDASE ANTIBODY Lab Routine Hyperthyroidism Expected: 09/13/2024, Expires: 12/13/2024 [facility] Comment on above: Expected: 09/13/2024 , Expires: 12/13/2024 Start: 09-04-2024 [facility] Start: 09-04-2024 [facility] Start: 08-12-2024 End: 08-12-2024 Patient encounter procedure 08/12/2024 3:00 PM EST Office Visit Allergy [address] [address] Heaven Maciel MD [address] [place] [address] Moderate persistent asthma with exacerbation [J45.41] Allergy Comment on above: Moderate persistent asthma with exacerbation [J45.41] Start: 07-23-2024 End: 07-23-2024 Patient encounter procedure 07/23/2024 4:20 PM EST Office Visit [facility] [place] [address] [place] [address] Ce Conner MD [address] [place] [address] abdominal pain; see nurse triage note [facility] [place] Comment on above: abdominal pain; see nurse triage note Start: 07-23-2024 End: 10-22-2024 C reactive protein [Mass/volume] in Serum or Plasma C-REACTIVE PROTEIN Lab Routine Weight loss Expected: 07/23/2024, Expires: 10/22/2024 [facility] Comment on above: Expected: 07/23/2024 , Expires: 10/22/2024 Start: 07-23-2024 End: 10-22-2024 CBC W Auto Differential panel - Blood COMPLETE BLOOD COUNT AND DIFFERENTIAL Lab Routine Weight loss Expected: 07/23/2024, Expires: 10/22/2024 [facility] Comment on above: Expected: 07/23/2024 , Expires: 10/22/2024 Start: 07-23-2024 End: 10-22-2024 Comprehensive metabolic 2000 panel - Serum or Plasma COMPREHENSIVE METABOLIC PANEL Lab Routine Weight loss Expected: 07/23/2024, Expires: 10/22/2024 [facility] Comment on above: Expected: 07/23/2024 , Expires: 10/22/2024 Start: 07-23-2024 End: 10-22-2024 Erythrocyte sedimentation rate SEDIMENTATION RATE, WESTERGREN Lab Routine Weight loss Expected: 07/23/2024, Expires: 10/22/2024 [facility] Comment on above: Expected: 07/23/2024 , Expires: 10/22/2024 Start: 07-23-2024 End: 10-22-2024 THYROGLOBULIN ANTIBODY THYROGLOBULIN ANTIBODY Lab Routine Weight loss Expected: 07/23/2024, Expires: 10/22/2024 [facility] Comment on above: Expected: 07/23/2024 , Expires: 10/22/2024 Start: 07-23-2024 End: 10-22-2024 THYROID PEROXIDASE ANTIBODY THYROID PEROXIDASE ANTIBODY Lab Routine Weight loss Expected: 07/23/2024, Expires: 10/22/2024 [facility] Comment on above: Expected: 07/23/2024 , Expires: 10/22/2024 Start: 07-23-2024 End: 10-22-2024 Thyrotropin [Units/volume] in Serum or Plasma THYROID STIMULATING HORMONE Lab Routine Weight loss Expected: 07/23/2024, Expires: 10/22/2024 [facility] Comment on above: Expected: 07/23/2024 , Expires: 10/22/2024 Start: 07-23-2024 End: 10-22-2024 Thyroxine (T4) free [Mass/volume] in Serum or Plasma T4 FREE/FREE THYROXINE Lab Routine Tremors of nervous system Palpitations Expected: 07/23/2024, Expires: 10/22/2024 [facility] Comment on above: Expected: 07/23/2024 , Expires: 10/22/2024 Start: 07-23-2024 End: 10-22-2024 Urinalysis complete panel - Urine URINALYSIS WITH MICROSCOPIC, REFLEX CULTURE Lab Routine Fever and chills Expected: 07/23/2024, Expires: 10/22/2024 [facility] Work Phone: Comment on above: Expected: 07/23/2024 , Expires: 10/22/2024 Start: 06-07-2024 End: 06-07-2024 Patient encounter procedure 06/07/2024 11:40 AM EST Office Visit [facility] [place] [address] [place], [place] [address] Ce Conner MD [address] [facility] [place], [place] [id number] 6 week follow up [facility] [place] Comment on above: 6 week follow up Start: 05-24-2024 End: 05-24-2024 Patient encounter procedure 05/24/2024 2:40 PM EDT Office Visit [facility] [place] [address] [place] [address] Ce Conner MD [address] [place] [address] 6 week follow up [facility] [place] Comment on above: 6 week follow up Start: 05-12-2024 End: 05-12-2024 Patient encounter procedure 05/12/2024 9:30 AM EDT Office Visit Allergy [address] [id number] Heaven Maciel MD [address] [place] [address] Moderate persistent asthma with exacerbation [J45.41] Allergy Comment on above: Moderate persistent asthma with exacerbation [J45.41] Start: 05-12-2024 End: 05-12-2024 ambulatory Pulmonary Medicine Comment on above: Moderate persistent asthma with exacerbation [J45.41] Moderate persiste nt asthma with exacerbation [J45.41] Start: 04-04-2024 Covid-19 Vaccine () Covid-19 Vaccine () [facility] Start: 04-04-2024 Covid-19 Vaccine () Covid-19 Vaccine () [facility] Start: 04-04-2024 Influenza vaccination [facility] Start: 04-02-2024 End: 07-02-2024 25-hydroxyvitamin D3 [Mass/volume] in Serum or Plasma VITAMIN D 25 HYDROXY Lab Routine Vitamin D deficiency Expected: 04/02/2024, Expires: 07/02/2024 [facility] Comment on above: Expected: 04/02/2024 , Expires: 07/02/2024 Start: 04-02-2024 End: 07-02-2024 Ferritin [Mass/volume] in Serum or Plasma FERRITIN Lab Routine Iron deficiency anemia, unspecified iron deficiency anemia type Expected: 04/02/2024, Expires: 07/02/2024 [facility] Comment on above: Expected: 04/02/2024 , Expires: 07/02/2024 Start: 04-02-2024 End: 07-02-2024 Iron and Iron binding capacity panel - Serum or Plasma IRON AND TIBC Lab Routine Iron deficiency anemia, unspecified iron deficiency anemia type Expected: 04/02/2024, Expires: 07/02/2024 [facility] Work Phone: Comment on above: Expected: 04/02/2024 , Expires: 07/02/2024 Start: 03-29-2024 End: 03-29-2024 Patient encounter procedure 03/29/2024 1:20 PM EDT Office Visit OB/Gynecology [address] [place] [address] Kaitlynn Bolton MD [address] [place] [address] PH balance OB/Gynecology Comment on above: PH balance Start: 03-17-2024 End: 03-17-2024 Patient encounter procedure 03/17/2024 3:20 PM EDT Office Visit [facility] [place] [address] [place] [address] Afia Jackson APRN.FREIGHT BREAKER [address] [place] [address] 4 week follow up [facility] [place] Comment on above: 4 week follow up Start: 03-10-2024 End: 03-10-2024 Patient encounter procedure Mammogram Comment on above: Breast pain [N64.4] talked w contact Mot her pt to call back, pt needs diagnostic mamm canceled(due to age per Radiologist only) and Ultrasound scheduled in ROOM 2!, Ultrasound first and then possible mammogram per Radiologist reading, Breast pain [N64.4] Start: 03-05-2024 End: 03-05-2024 Patient encounter procedure 03/05/2024 4:00 PM EDT Office Visit [facility] [place] [address] [facility] [place] [address] Ce Conner MD [address] [place] [address] follow up [facility] [place] Comment on above: follow up Start: 02-18-2024 End: 02-18-2024 Patient encounter procedure 02/18/2024 3:20 PM EDT Office Visit [facility] [place] [address] [facility] [place] [address] Afia Jackson APRN.FREIGHT BREAKER [address] [place] [address] follow up okay per Afia [facility] [place] Comment on above: follow up okay per Merna oy Start: 02-18-2024 End: 05-19-2024 CBC W Auto Differential panel - [facility] [facility] Work Phone: Comment on above: Expected: 02/18/2024 , Expires: 05/19/2024 Start: 02-18-2024 End: 05-19-2024 Comprehensive metabolic 2000 panel - Serum or Plasma [facility] Comment on above: Expected: 02/18/2024 , Expires: 05/19/2024 Start: 11-03-2023 End: 02-02-2024 Comprehensive metabolic 2000 panel - Serum or Plasma [facility] Work Phone: Comment on above: Expected: 11/03/2023 , Expires: 02/02/2024 Start: 11-03-2023 End: 02-02-2024 Thyrotropin [Units/volume] in Serum or Plasma [facility] Work Phone: Comment on above: Expected: 11/03/2023 , Expires: 02/02/2024 Start: 11-03-2023 End: 02-02-2024 Thyroxine (T4) free [Mass/volume] in Serum or Plasma [facility] Work Phone: Comment on above: Expected: 11/03/2023 , Expires: 02/02/2024 Start: 08-04-2023 Behavioral Health Screening Behavioral Health Screening [facility] Start: 04-04-2023 Covid-19 Vaccine ( season) Covid-19 Vaccine ( season) [facility] Start: 04-04-2023 Influenza vaccination INFLUENZA (Sea son Ended) [facility] Start: 03-12-2023 ANNUAL PCP TEAM MELLOWING MACHINE OPERATOR GEOFFREY DISEASE VISIT ANNUAL PCP TEAM CHRONIC DISEASE VISIT [facility] Start: 10-20-2022 [facility] Start: 08-10-2022 ANNUAL PCP TEAM MELLOWING MACHINE OPERATOR GEOFFREY DISEASE VISIT ANNUAL PCP TEAM CHRONIC DISEASE VISIT [facility] Start: 08-10-2022 GC (GONORRHEA) SCREE TIMOTEO (18-24) GC (GONORRHEA) SCREENING (18-24) [facility] Comment on above: Postponed from 01/07 (Postponed - Not Clinically Indicated) Start: 08-04-2022 DEPRESSION ASSESSMENT DEPRESSION ASS ESSMENT [facility] Start: 04-04-2022 Influenza vaccination INFLUENZA (#1) [facility] Start: 10-11-2021 COVID-19 VACCINE (3 - Booster for Pfizer series) COVID-19 VACCINE (3 - Booster for Pfizer series) [facility] Start: 07-08-2021 COVID-19 VACCINE (3 - Booster for Pfizer series) COVID-19 VACCINE (3 - Booster for Pfizer series) [facility] Start: 06-15-2020 Urine microalbumin profile [facility] Start: 01-08-2020 PAP TESTING PAP TESTING [facility] Start: 12-04-2018 Adult depression screening assessment DEPRESSION SCREENING [facility] Start: 2017 Anxiety Screening Anxiety Screening [facility] Start: 2017 CHLAMYDIA SCREENING (18-24) CHLAMYDIA SCREENING (18-24) [facility] Start: 2017 Depression Screening Depression Scre ening [facility] Start: 2017 GC (GONORRHEA) SCREE TIMOTEO (18-24) GC (GONORRHEA) SCREENING (18-24) [facility] Start: 2017 HEPATITIS C SCREENING HEPATITIS C SC ISAC [facility] Start: 2017 HIV SCREENING HIV SCREENING [facility] Start: 2017 HIV screening HIV Screening [facility] Start: 2017 SPIROMETRY SPIROMETRY [facility] Start: 2015 Meningococcal B Vacc ine: Consider Based On Risk (1 of 2 - Patient Seeks Protection) Meningococcal B Vaccine: Consider Based On Risk (1 of 2 - Patient Seeks Protection) [facility] Start: 2013 PEDS TO ADULT TRANSI TION ANNUAL ASSESSMENT PEDS TO ADULT TRANSITION ANNUAL ASSESSMENT [facility] Start: 2011 PEDS TO ADULT TRANSI TION INITIAL DISCUSSION PEDS TO ADULT TRANSITION INITIAL DISCUSSION [facility] Start: 2009 MENINGOCOCCAL B: Consider based on risk (1 of 2 - Risk Bexsero 2-dose series) MENINGOCOCCAL B: Consider based on risk (1 of 2 - Risk Bexsero 2-dose series) [facility] Start: 2005 PNEUMOCOCCAL (1 - PCV) PNEUMOCOCCAL (1 - PCV) [facility] Bacteria identified in Urine by Culture URINE CULTURE Microbiology Routine Urinary frequency Ordered: 12/13/2021 [facility] Work Phone: Comment on above: Ordered: 12/13/2021 BACTERIAL VAGINOSIS AMPLIFICATION BACTERIAL VAGINOSIS AMPLIFICATION Lab Routine Vaginal discharge 12/17/2021 4:11 PM EDT [facility] Work Phone: C reactive protein [Mass/volume] in Serum or Plasma [facility] CHUCKY / TRICHOMONA S AMPLIFICATION CHUCKY / TRICHOMONAS AMPLIFICATION Lab Routine Vaginal discharge 12/17/2021 4:11 PM EDT [facility] Work Phone: Celiac disease screen [facility] Cobalamin (Vitamin B 12) [Mass/volume] in Serum or Plasma [facility] COVID & INFLUENZA A/ B & RSV NAAT, ROUTINE COVID & INFLUENZA A/B & RSV NAAT, ROUTINE Microbiology Routine Viral URI 02/04/2024 8:06 PM EDT [facility] Work Phone: ECG COMPLETE ECG COMPLETE ECG Routine Palpitations Ordered: 07/23/2024 [facility] Comment on above: Ordered: 07/23/2024 End: 11-02-2024 HOME SLEEP APNEA TEST (HSAT) HOME SLEEP APNEA TEST (HSAT) Procedures Routine Other fatigue Weight gain Snoring Insomnia, unspecified type 1 Occurrences starting 11/03/2023 until 11/02/2024 [facility] Work Phone: Comment on above: 1 Occurrences starti ng 11/03/2023 until 11/02/2024 Intracutaneous tests w/allergenic extracts INTRACU/DERM TESTS-IMMEDIA RX Procedures Routine Seasonal allergic rhinitis due to pollen Ordered: 04/07/2025 [facility] Comment on above: Ordered: 04/07/2025 End: 04-11-2023 LUNG VOLUMES LUNG VOLUMES PFT Routine Persistent asthma without complication, unspecified asthma severity 1 Occurrences starting 03/12/2022 until 04/11/2023 [facility] Work Phone: Comment on above: 1 Occurrences starti ng 03/12/2022 until 04/11/2023 End: 03-19-2025 MG Breast - bilateral Diagnostic SANJAY DIAGNOSTIC BILATERAL Radiology Routine Breast pain Mass of breast, unspecified laterality 1 Occurrences starting 02/18/2024 until 03/19/2025 [facility] Comment on above: 1 Occurrences starti ng 02/18/2024 until 03/19/2025 End: 05-20-2025 NITRIC OXIDE, EXHALED NITRIC OXIDE, EXHALED PFT Routine Asthma, unspecified asthma severity, unspecified whether complicated, unspecified whether persistent 1 Occurrences starting 04/20/2024 until 05/20/2025 [facility] Comment on above: 1 Occurrences starti ng 04/20/2024 until 05/20/2025 PAP FLUID CERVICAL SCREENING PAP FLUID CERVICAL SCREENING Lab Routine Screening for cervical cancer 12/17/2021 4:11 PM EDT [facility] Work Phone: Patient Education [facility] Work Phone: Patient referral [facility] Work Phone: End: 03-07-2026 Polysomnogram POLYSOMNOGRAM (PSG) Procedures Routine Obstructive sleep apnea syndrome 1 Occurrences starting 03/07/2025 until 03/07/2026 [facility] Work Phone: Comment on above: 1 Occurrences starti ng 03/07/2025 until 03/07/2026 Retinol [Mass/volume ] in Serum or Plasma [facility] End: 04-11-2023 SPIROMETRY - BASELINE AND POST DILATOR SPIROMETRY - BASELINE AND POST DILATOR PFT Routine Persistent asthma without complication, unspecified asthma severity 1 Occurrences starting 03/12/2022 until 04/11/2023 [facility] Work Phone: Comment on above: 1 Occurrences starti ng 03/12/2022 until 04/11/2023 End: 05-20-2025 SPIROMETRY - BASELINE AND POST DILATOR SPIROMETRY - BASELINE AND POST DILATOR PFT Routine Asthma, unspecified asthma severity, unspecified whether complicated, unspecified whether persistent 1 Occurrences starting 04/20/2024 until 05/20/2025 [facility] Work Phone: Comment on above: 1 Occurrences starti ng 04/20/2024 until 05/20/2025 End: 11-12-2025 SPIROMETRY - BASELINE AND POST DILATOR SPIROMETRY - BASELINE AND POST DILATOR PFT Routine Mild intermittent asthma without complication 1 Occurrences starting 10/13/2024 until 11/12/2025 [facility] Work Phone: Comment on above: 1 Occurrences starti ng 10/13/2024 until 11/12/2025 End: 03-19-2025 US Breast - left limited US BREAST LTD LEFT Radiology Routine Breast pain Mass of breast, unspecified laterality 1 Occurrences starting 02/18/2024 until 03/19/2025 [facility] Comment on above: 1 Occurrences starti ng 02/18/2024 until 03/19/2025 End: 03-19-2025 US Breast - right limited US BREAST LTD RIGHT Radiology Routine Breast pain Mass of breast, unspecified laterality 1 Occurrences starting 02/18/2024 until 03/19/2025 [facility] Comment on above: 1 Occurrences starti ng 02/18/2024 until 03/19/2025 End: 08-22-2025 US Thyroid gland US THYROID/PARATHYROID Radiology Routine Food poisoning Fever and chills Weight loss 1 Occurrences starting 07/23/2024 until 08/22/2025 [facility] Comment on above: 1 Occurrences starti ng 07/23/2024 until 08/22/2025 Vitamin B12 measurement [facility] Vitamin D, 25-hydrox y measurement [facility] Immunizations Immunization Date Immunization Notes Care Provider Ghazala awad 08-10-2021 influenza, injectabl e, quadrivalent, contains preservative Berenicehéctor French FOUNDER.[employer]REIGHT [employer] Work Phone: [facility] 08-10-2021 influenza virus vacc ine, unspecified formulation Afia Jackson APRN.[employer]REIGHT BREAKER Work Phone: [facility] 04-29-2017 influenza, injectabl e, quadrivalent, contains preservative Berenice Manolo FOUNDER.FREIGHT BREAKER Work Phone: [facility] 04-25-2016 influenza, injectabl e, quadrivalent, preservative free Berenice Manolo FOUNDER.FREIGHT BREAKER Work Phone: [facility] 10-05-2015 Human Papillomavirus 9-valent vaccine Berenice Manolo FOUNDER.FREIGHT BREAKER Work Phone: [facility] 05-15-2015 Human Papillomavirus 9-valent vaccine Berenice Manolo FOUNDER.FREIGHT BREAKER Work Phone: [facility] 05-15-2015 influenza, injectabl e, quadrivalent, preservative free Berenice French FOUNDER.FREIGHT BREAKER Work Phone: [facility] 03-07-2015 HPV, unspecified formulation Berenice French FOUNDER.FREIGHT BREAKER Work Phone: [facility] 03-07-2015 meningococcal polysaccharide (groups A, C, Y and W-135) diphtheria toxoid conjugate vaccine (MCV4P) Berenice French FOUNDER.FREIGHT BREAKER Work Phone: [facility] 06-15-2010 meningococcal polysaccharide (groups A, C, Y and W-135) diphtheria toxoid conjugate vaccine (MCV4P) Berenice French FOUNDER.FREIGHT BREAKER Work Phone: [facility] 06-15-2010 tetanus toxoid, redu mateo diphtheria toxoid, and acellular pertussis vaccine, adsorbed Berenicehéctor French FOUNDER.FREIGHT BREAKER Work Phone: [facility] 06-12-2009 hepatitis A vaccine, pediatric/adolescent dosage, 2 dose schedule Berenice French FOUNDER.FREIGHT BREAKER Work Phone: [facility] 06-12-2009 varicella virus vaccine Jarrod a Manolo FOUNDER.FREIGHT BREAKER Work Phone: [facility] 05-31-2008 varicella virus vaccine Jarrod a Manolo FOUNDER.FREIGHT BREAKER Work Phone: [facility] 04-22-2008 hepatitis A vaccine, unspecified formulation Berenice Manolo FOUNDER.FREIGHT BREAKER Work Phone: [facility] 04-04-2004 diphtheria, tetanus toxoids and acellular pertussis vaccine, unspecified formulation Berenice Manolo FOUNDER.FREIGHT BREAKER Work Phone: [facility] 04-04-2004 measles, mumps and rubella virus vaccine Berenice Manolo FOUNDER.FREIGHT BREAKER Work Phone: [facility] 04-04-2004 poliovirus vaccine, inactivated Berenice Manolo FOUNDER.FREIGHT BREAKER Work Phone: [facility] 05-14-2001 diphtheria, tetanus toxoids and acellular pertussis vaccine, unspecified formulation Berenice Manolo FOUNDER.FREIGHT BREAKER Work Phone: [phone] [place] [address] 05-14-2001 haemophilus influenz ae type b vaccine, conjugate unspecified formulation Berenice Manolo FOUNDER.FREIGHT BREAKER Work Phone: [facility] 05-14-2001 hepatitis B vaccine, pediatric or pediatric/adolescent dosage Berenice Manolo FOUNDER.FREIGHT BREAKER Work Phone: [facility] 05-14-2001 measles, mumps and rubella virus vaccine Berenice Manolo FOUNDER.FREIGHT BREAKER Work Phone: [facility] 02-27-2000 diphtheria, tetanus toxoids and acellular pertussis vaccine, unspecified formulation Berenice Manolo FOUNDER.FREIGHT BREAKER Work Phone: [facility] 02-27-2000 poliovirus vaccine, unspecified formulation Berenice Manolo FOUNDER.FREIGHT BREAKER Work Phone: [facility] 1999 hepatitis B vaccine, pediatric or pediatric/adolescent dosage Berenice Manolo FOUNDER.FREIGHT BREAKER Work Phone: [facility] 1999 diphtheria, tetanus toxoids and acellular pertussis vaccine, unspecified formulation Berenice Manolo FOUNDER.FREIGHT BREAKER Work Phone: [facility] 1999 haemophilus influenz ae type b vaccine, conjugate unspecified formulation Berenice Manolo FOUNDER.FREIGHT BREAKER Work Phone: [facility] 1999 hepatitis B vaccine, pediatric or pediatric/adolescent dosage Berenice Manolo FOUNDER.FREIGHT BREAKER Work Phone: [facility] 1999 poliovirus vaccine, unspecified formulation Berenice Manolo FOUNDER.FREIGHT BREAKER Work Phone: [facility] 1999 diphtheria, tetanus toxoids and acellular pertussis vaccine Berenice Manolo FOUNDER.FREIGHT BREAKER Work Phone: [facility] 1999 haemophilus influenz ae type b vaccine, PRP-T conjugate Berenice Manolo FOUNDER.FREIGHT BREAKER Work Phone: [facility] 1999 trivalent poliovirus vaccine, live, oral Berenice Manolo FOUNDER.FREIGHT BREAKER Work Phone: [facility] 1999 diphtheria, tetanus toxoids and acellular pertussis vaccine, unspecified formulation Berenice Manolo FOUNDER.FREIGHT BREAKER Work Phone: [facility] 1999 haemophilus influenz ae type b vaccine, conjugate unspecified formulation Berenice Manolo FOUNDER.FREIGHT BREAKER Work Phone: [facility] 1999 poliovirus vaccine, unspecified formulation Berenice Manolo FOUNDER.FREIGHT BREAKER Work Phone: [facility] Payers Date Payer Category Payer Medicaid [id number] 2024 Self-pay [id number] 2016 [facility] PPO [id number] 2016 Unknown [employer] PPO [id number] 2016-Present [phone] [address] [place] [address] PPO [id number] 2016 Unknown [employer] PPO [id number] 2016-Present [phone] [address] [place] [address] PPO [id number] 2016 Unknown [id number] 2008 Unknown [id number] 1999 Unknown [id number] Unknown [id number] Unknown [id number] Unknown [id number] Unknown [id number] Unknown [id number] Unknown [id number] Unknown [id number] Unknown [id number] Unknown [id number] Social History Date Type Detail Facility Start: 12-04-2017 Tobacco smoking status NHIS Never smoked tobacco [facility] Work Phone: Start: 12-04-2017 End: 11-03-2023 Tobacco use and exposure Smokeless tobacco non-user [facility] Work Phone: Start: 12-13-2021 End: 04-07-2025 Alcohol intake Current non-drinker of alcohol (finding) [facility] Start: 2000 Sex Assigned At Not on file [facility] Start: 12-02-2021 End: 03-12-2022 Exposure to SARS-CoV-2 (event) Not sure [facility] Start: 03-12-2022 Tobacco smoking status WVIS Occasional tobacco smoker [facility] Work Phone: History of tobacco use Cigarette Smoker [facility] Work Phone: Start: 10-20-2022 Tobacco smoking status WVIS Unknown if ever smoked [facility] Start: 2000 Sex Assigned At Female [facility] Start: 11-03-2023 End: 03-02-2025 Tobacco smoking status WVIS Ex-smoker [facility] Work Phone: History of tobacco use Current smoker [facility] Work Phone: Start: 12-17-2022 End: 11-03-2023 History of Social function [facility] Work Phone: Start: 12-17-2022 End: 11-03-2023 Tobacco use panel [facility] Work Phone: Start: 02-05-2017 Adult Depression Screening Assessment 0 [facility] Work Phone: How often to you hav e a drink containing alcohol? Never [facility] NEGATED: Highlighted row [facility] NEGATED: Highlighted row Not [facility] Goals Date Patient Goal Desired Activity /State Functional Status Date Assessment Result Facility 04-07-2025 Total score [AUDIT-C] 0 04/07/20 8:35 AM EDT Suyapa Phillips MA [facility] Mental Status Date Assessment Result Facility 11-26-2024 Cognitive function Level Of Cons ciousness Sedated [facility] Work Phone: 11-26-2024 Cognitive function Voice/Name [facility] Work Phone: Clinical Notes 12-13-2021 to 04-07-2025 Patient InstructionsRocio Londono, - 04/07/2025 10:42 AM EDTRocio Londono, - 04/07/2025 8:26 AM Ce Grubbs MD - 03/07/2025 5:33 PM EDTPatient Instructions Note Date & Type Note Facility 04-07-2025 Instructions Rocio Londono, - 04/07/2025 11:03 AM EDT We discussed your concerns about potential allergies and recent symptoms: - You reported a tingling sensation in your throat after consuming a drink containing almond milk, brown sugar syrup, and cinnamon powder. This occurred approximately one month ago and lasted over 8 hours. You have tolerated almond milk and other ingredients in the drink in the past without issues. - A food panel completed by your primary care provider showed a slightly elevated IgE level to peanuts (0.53) but negative results for all tree nuts. - Skin testing today revealed: - Positive result for peanuts. - Negative result for cinnamon. - Positive results for multiple environmental allergens, including ragweed, trees, and grasses. We discussed the following plan for your allergies: - Peanut Allergy: - I have prescribed an EpiPen due to the positive peanut test. Use the EpiPen if you experience symptoms such as full-body hives, difficulty breathing, or nausea/vomiting. EpiPen teach completed. - Blood work has been ordered to determine which peanut protein you may be allergic to. This will help us assess whether your reaction is more likely to be severe or related to oral allergy syndrome. - Depending on the blood work results, we may schedule an in-office peanut challenge to confirm whether you can safely consume peanut products. - Environmental Allergies: - Start taking Zyrtec (generic: cetirizine) 10 mg once daily to help manage your symptoms during allergy season (spring to fall). This has been sent to your preferred [facility] pharmacy in [place]. - Use Flonase nasal spray daily to reduce nasal symptoms. Instructions for use: - Tilt your head slightly downward and spray into each nostril while aiming slightly outward. - Avoid sniffing deeply after spraying to prevent the medication from dripping into your throat. - It may take up to 3 weeks to notice improvement. We discussed your history of asthma: - You reported mild asthma symptoms, including wheezing, particularly during the aeknyl-hr-lfowyz transition or after exposure to outdoor allergens. You use an albuterol inhaler as needed, which you report using infrequently. - Improving control of your allergies with Zyrtec and Flonase may help reduce asthma symptoms. We discussed your concerns about oral irritation with certain foods: - You mentioned throat irritation with foods like bananas and apples, which may be related to oral allergy syndrome due to cross-reactivity with environmental allergens. Heating these foods may reduce symptoms. Follow-up plan: - Return in 3 months to assess how you are responding to allergy treatments. - If the blood work indicates a less severe peanut allergy, we will schedule an in-office peanut challenge sooner. - If you experience any severe allergic reactions, use your EpiPen and call 911 immediately. All prescriptions, including Zyrtec, Flonase, and the EpiPen, have been sent to your preferred pharmacy. If the EpiPen is prohibitively expensive, you may wait to fill it until after the blood work results are available. Please let us know if you have any additional questions or concerns. documented in this encounter [facility] 04-07-2025 Note HNO ID: [id number] Author: ROCIO LONDONO DO Service: ? Author Type: Physician Type: Progress Notes Filed: 04/07/2025 11:24 Note Text: NHALANT 40 PERCUTANEOUS AND INTRADERMAL TESTING/ Mean Wheal AND Flare Diameter (mm) Patient has been identified by name and date of : Yes . Skin test applied by : Radha Rosenberg Interpreted By: Dr. Rocio Londono D.O. * Clinical significant reactions are regarded as a wheal diameter greater than or equal to 3 mm with a flare diameter greater or equal to 6mm. ALLERGENS Time applied: 905 Time read: 09 Negative Control: 50%Glycerin/50%Cocas P: W = 0mm F = 0 mm Cat Hair 10,000 BAU/ml P: W = 0 mm F = 0 mm UF Dog 1:650 P: W = 0 mm F = 0 mm Cockroach Mix 1:20 P: W = 0 mm F = 3 mm Mite Df 10,000 AU/ml P: W = 3 mm F = 10 mm Mite Dp 10,000AU/ml P: W = 4 mm F = 10 mm Alternaria Alternata 1:20 P: W = 4 mm F = 10 mm Aspergillus Fumigatus 1:20 P: W = 0 mm F = 0 mm Cladosporium sphearospermum 1:20 P: W = 0 mm F = 0 mm Epicoccum Nigrum 1:10 P: W = 6 mm F = 10 mm Fusarium Solani 1:40 P: W = 0 mm F = 5 mm Bipolaris Sorokiniana 1:20 P: W = 0 mm F = 4 mm Penicillium Mix 1:20 P: W = 0 mm F = 4 mm Jeff, White 1:20 P: W = 6 mm F = 10 mm Beech, [place] 1:20 P: W = 9 mm F = 18 mm Birch Mix 1:20 P: W = 11 mm F = 25 mm Maple Mix 1:20 P: W = 4 mm F = 20 mm [place] ,Eastern 1:20 P: W = 4 mm F = 10 mm Burnet, Shagbark 1:20 P: W = 9 mm F = 17 mm [place] Tree, Red 1:20 P: W = 3 mm F = 6 mm [place], Red 1:20 P: W = 12 mm F = 20 mm [place], [place]/Eastern 1:20 P: W = 0 mm F = 0 mm [place] Pollen, Black 1:20 P: W = 6 mm F = 10 mm [place], Black 1:20 P: W = 0 mm F = 0 mm B[place] Grass 10,000 BAU/ml P : W = 3 mm F = 10 mm [place], /Rosemary 100,000 BAU/ml P: W = 15 mm F = 20 mm Fescue, [place] 100,000 BAU/ml P: W = 12 mm F = 20 mm Jonathan Grass 1:20 P: W = 0 mm F = 10 mm Orchard Grass 100,000 BAU/ml P: W = 11 mm F = 23 mm Perennial [place], 100,000 BAU/ml P: W = 11 mm F = 25 mm Adam 100,000 BAU/ml P: W = 10 mm F = 20 mm Cocklebur 1:20 P: W = 4 mm F = 7 mm [place]ela, sheep 1:20 P: W = 3 mm F = 6 mm Plantain, Malawian 1:20 P: W = 0 mm F = 3 mm Lambs Quarters 1:20 P: W = 3 mm F = 6 mm Cisneros Elder, Burweed 1:20 P: W = 0 mm F = 5 mm Mugwort, Common 1:20 P: W = 0 mm F = 5 mm Pigweed, Rough 1:20 P: W = 3 mm F = 7 mm Ragweed, Mix 1:20 P: W = 0 mm F = 3 mm HISTAMINE, positive control(Histamine base 6mg/ml) P: W = 7 mm F = 20 mm INTRADERMAL MIXES Negative Control - HSA ID: W = 0 mm F= 0 mm Cat Hair 100 BAU/ml ID: W = 0 mm F= 0 mm Ragweed Mix, 1:500 ID: W = 12 mm F= 35 mm Patient has been identified by name and date of : Yes . Skin test applied by : Radha Rosenberg Interpreted By: Dr. Rocio Londono D.O. * Clinical significant reactions are regarded as a wheal diameter greater than or equal to 3 mm with a flare diameter greater or equal to 6mm. ALLERGENS: Control Wheal Flare Negative: 50% GLYCERIN/50% cocas; P: W = 0 mm F = 3 mm HISTAMINE, POSITIVE CONTROL (HISTAMINE BASE 6MG/ML) P: W = 7 mm F = 20 mm ALLERGENS: LEGUME Time applied: 905* Time read: 920 Peanut 1:20 P: W = 5 mm F = 9 mm ALLERGENS: OTHER Time applied: 905 Time read: 920 Cinnamon 1:20 P: W = 0 mm F = 3 mm Pt. instructed regarding epipen storage, use, and administration. Return demonstration done per patient. Written instructions given to patient. Radha Rosenberg [facility] [place] 04-07-2025 History of Presen t illness Narrative NHALANT 40 PERCUTANEOUS & INTRADERMAL TESTING/ Mean Wheal & Flare Diameter (mm) Patient has been identified by name and date of : Yes . Skin test applied by : Radha Rosenberg Interpreted By: Dr. Rocio Londono D.O. * Clinical significant reactions are regarded as a wheal diameter greater than or equal to 3 mm with a flare diameter greater or equal to 6mm. ALLERGENS Time applied: 905 Time read: 920 Negative Control: 50%Glycerin/50%Cocas P: W = 0mm F = 0 mm Cat Hair 10,000 BAU/ml P: W = 0 mm F = 0 mm UF Dog 1:650 P: W = 0 mm F = 0 mm Cockroach Mix 1:20 P: W = 0 mm F = 3 mm Mite Df 10,000 AU/ml P: W = 3 mm F = 10 mm Mite Dp 10,000AU/ml P: W = 4 mm F = 10 mm Alternaria Alternata 1:20 P: W = 4 mm F = 10 mm Aspergillus Fumigatus 1:20 P: W = 0 mm F = 0 mm Cladosporium sphearospermum 1:20 P: W = 0 mm F = 0 mm Epicoccum Nigrum 1:10 P: W = 6 mm F = 10 mm Fusarium Solani 1:40 P: W = 0 mm F = 5 mm Bipolaris Sorokiniana 1:20 P: W = 0 mm F = 4 mm Penicillium Mix 1:20 P: W = 0 mm F = 4 mm Jeff, White 1:20 P: W = 6 mm F = 10 mm Beech, [place] 1:20 P: W = 9 mm F = 18 mm Birch Mix 1:20 P: W = 11 mm F = 25 mm Maple Mix 1:20 P: W = 4 mm F = 20 mm [place] ,Eastern 1:20 P: W = 4 mm F = 10 mm Burnet, Shagbark 1:20 P: W = 9 mm F = 17 mm [place] Tree, Red 1:20 P: W = 3 mm F = 6 mm [place], Red 1:20 P: W = 12 mm F = 20 mm [place], [place]/Eastern 1:20 P: W = 0 mm F = 0 mm [place] Pollen, Black 1:20 P: W = 6 mm F = 10 mm [place], Black 1:20 P: W = 0 mm F = 0 mm [place] Grass 10,000 BAU/ml P : W = 3 mm F = 10 mm [place], /January 100,000 BAU/ml P: W = 15 mm F = 20 mm [place], [place] 100,000 BAU/ml P: W = 12 mm F = 20 mm [place] Grass 1:20 P: W = 0 mm F = 10 mm Orchard Grass 100,000 BAU/ml P: W = 11 mm F = 23 mm Perennial [place], 100,000 BAU/ml P: W = 11 mm F = 25 mm Adam 100,000 BAU/ml P: W = 10 mm F = 20 mm Cocklebur 1:20 P: W = 4 mm F = 7 mm [place], sheep 1:20 P: W = 3 mm F = 6 mm Plantain, Malawian 1:20 P: W = 0 mm F = 3 mm Lambs Quarters 1:20 P: W = 3 mm F = 6 mm Cisneros Elder, Burweed 1:20 P: W = 0 mm F = 5 mm Mugwort, Common 1:20 P: W = 0 mm F = 5 mm Pigweed, Rough 1:20 P: W = 3 mm F = 7 mm Ragweed, Mix 1:20 P: W = 0 mm F = 3 mm HISTAMINE, positive control(Histamine base 6mg/ml) P: W = 7 mm F = 20 mm INTRADERMAL MIXES Negative Control - HSA ID: W = 0 mm F= 0 mm Cat Hair 100 BAU/ml ID: W = 0 mm F= 0 mm Ragweed Mix, 1:500 ID: W = 12 mm F= 35 mm Patient has been identified by name and date of : Yes . Skin test applied by : Radha Rosenberg Interpreted By: Dr. Rocio Londono D.O. * Clinical significant reactions are regarded as a wheal diameter greater than or equal to 3 mm with a flare diameter greater or equal to 6mm. ALLERGENS: Control Wheal Flare Negative: 50% GLYCERIN/50% cocas; P: W = 0 mm F = 3 mm HISTAMINE, POSITIVE CONTROL (HISTAMINE BASE 6MG/ML) P: W = 7 mm F = 20 mm ALLERGENS: LEGUME Time applied: 905* Time read: 920 Peanut 1:20 P: W = 5 mm F = 9 mm ALLERGENS: OTHER Time applied: 905 Time read: 920 Cinnamon 1:20 P: W = 0 mm F = 3 mm Pt. instructed regarding epipen storage, use, and administration. Return demonstration done per patient. Written instructions given to patient. Radha Rosenberg Images from the original note were not included. ALLERGY & IMMUNOLOGY CONSULT 04/07/2025 Recording using [employer] software for draft documentation of the visit was discussed with the patient/authorized scheduling representative; all questions welcomed and answered. Patient/authorized scheduling representative agreed to proceed Patient Name: Chicho Wood PRIMARY CARE PHYSICIAN: Ce Conner MD REASON FOR CONSULT: Concern for tree nut allergy REQUESTING PHYSICIAN: Ce Conner MD My final recommendations will be communicated to the requesting health care provider by way of the shared medical record for internal providers or letter via the [employer] for external providers. CHIEF COMPLAINT: Tingling sensation in throat after [employer] latte with almond milk HISTORY OF PRESENT ILLNESS: The patient is a 25-year-old female with a history of GERD and mild asthma, presenting for evaluation of a possible tree nut allergy. Approximately one month ago, the patient experienced a tingling and numbing sensation in her throat after consuming a drink containing almond milk, brown sugar syrup, and cinnamon powder from [employer]. She had previously consumed all these ingredients without issues. The sensation persisted for over 8 hours. She sought medical attention at a clinic and was referred to the ER, where she was monitored for potential throat swelling and given a liquid medication, she cannot recall the name of medication. She denies any prior episodes of throat tingling, as well as any full-body rash, dyspnea, emesis, lip, eye, or tongue swelling, or lightheadedness during this incident. She has since avoided almond milk and tree nuts and has not experienced similar symptoms. She denies issues with other tree nuts, including cashews, pistachios, walnuts, pecans, and hazelnuts, and has consumed peanut products without issues, though she does not like peanuts. However, it has been several months since her last peanut exposure. A recent food panel showed a peanut IgE level of 0.53, with all other tree nuts and foods negative. She has avoided all tree nuts and peanut products since episode and would like to verify that she does not have a peanut allergy as well. She reports seasonal allergies, particularly during the spring to summer transition, with symptoms not well-controlled by as needed OTC medications. She has mild asthma, primarily triggered by outdoor allergens such as tree pollen and grass, and uses an albuterol inhaler as needed for wheezing. She denies frequent use of inhalers, oral steroids, or recent ER visits for asthma exacerbations. She also reports GERD and experiences throat irritation when eating certain foods, such as bananas and apples, despite taking medications for her gastrointestinal issues. She denies issues with egg, cow milk, or soy products. She lives in a home with both solid surfaces and carpet, with a forced air heating and AC system. She has used nasal sprays in the past with minimal relief of nasal symptoms but cannot recall the name of the nasal spray. PAST MEDICAL HISTORY Diagnosis Date Asthma (HCC) ACTIVE PROBLEM LIST Allergic Rhinitis Hydradenitis Other Acne PAST SURGICAL HISTORY Procedure Laterality Date NONE FAMILY HISTORY Problem Relation Age of Onset Asthma Mother Allergic Rhinitis Mother Thyroid Mother Hypertension Mother Eczema Father Allergic Rhinitis Father Hyperlipidemia Father Allergic Rhinitis Brother Asthma Maternal Grandmother Allergic Rhinitis Maternal Grandmother Kidney Disease Maternal Grandmother Hypertension Maternal Grandmother Thyroid Maternal Grandmother Allergic Rhinitis Maternal Grandfather Kidney Disease Maternal Grandfather failure Allergic Rhinitis Paternal Grandmother Hyperlipidemia Paternal Grandmother Allergic Rhinitis Paternal Grandfather Hyperlipidemia Paternal Grandfather SOCIAL HISTORY[1] Patient Entered Data ALLERGIES: ALLERGIES Allergen Reactions Seasonal Allergies Unknown CURRENT OUTPATIENT MEDICATIONS: albuterol HFA (PROVENTIL HFA, VENTOLIN HFA) 90 mcg/actuation inhaler Inhale 2 puffs as instructed every 4 hours as needed. montelukast (SINGULAIR) 10 mg tablet Take 1 tablet by mouth daily at bedtime. pantoprazole DR (PROTONIX) 40 mg tablet Take 1 tablet by mouth once daily. sulfamethoxazole-trimethoprim (BACTRIM DS) 800-160 mg per tablet Take 1 tablet by mouth every 12 hours. ferrous sulfate 325 mg (65 mg iron) tablet Take 1 tablet by mouth once daily. ergocalciferol 50,000 unit capsule (VITAMIN D2, DRISDOL) Take 1 capsule by mouth two times a week. TO BE TAKEN ORALLY DIRECTED. Take 1 tablet by mouth twice weekly [id number], then decrease to 1 tablet weekly. PHYSICAL EXAM: [facility] 10/22/2024 Physical Exam GENERAL: alert, oriented, cooperative with exam HEAD: atraumatic, normocephalic EARS: external ears normal, bilateral canals clear, TMs normal with good light reflex, NOSE: nares patent with bilateral pale, boggy nasal turbinates; congestion, no significant discharge, MOUTH: mucus membranes moist, oropharynx clear without erythema CV: heart sounds normal, regular rate and rhythm CHEST/LUNGS: respirations easy and regular, good air entry bilaterally, clear to auscultation SKIN: warm, well perfused, no rashes Data/Diagnostics: I personally reviewed and interpreted relevant prior results, notable as below: Labs: Rast Food Panel 1 and 2 Peanut IgE 0.53 kU/l All others negative Allergen Skin Testing 04/07/2025 I personally reviewed this patient's testing and interpreted it as follows: Sensitized to molds, trees, grasses, weeds, and peanut. Histamine/saline controls appropriate Please see procedure note and nursing documentation for full details. Assessment/Plan: #Oral Allergy Syndrome #Peanut Allergy -About one month ago patient had a [employer] drink that included almond milk and cinnamon after which she described a tingling sensation in throat that lasted for 8 hours. She has tolerated these ingredients in the past. -She has a food panel that was negative for all tree nuts but positive for peanut. She has previously tolerated peanut products but it has been several months since last exposure -Given patients concern regarding peanut allergy, SPT placed today and was also positive. -Plan to obtain peanut IgE with components - depending on results will plan an in office challenge to peanut if more likely to be oral allergy syndrome -EpiPen sent to pharmacy but okay to wait until after blood work results to picker medication. -Okay to consume tree nuts as IgE levels negative and reaction was likely not due to a true IgE mediated food allergy -She has many pollen sensitizations which indicates she likely has oral allergy syndrome which may be contributing to her throat irritation with foods like apples and bananas. #Seasonal Allergic Rhinitis -Multiple sensitizations to trees, grasses, weeds -Symptoms predominately during spring to summer transition -Okay to use cetirizine daily during symptomatic months and then as needed during the rest of the year -Recommend starting Flonase 2 sprays each nostril daily given symptoms and physical exam findings -Discussed proper nasal spray techniques. Educated on daily use for benefit #Mild Intermittent Asthma -Okay to continue albuterol as needed -Controlling environmental allergies may help control asthma symptoms as well -Can consider adding controller medications if the future if symptoms flare Follow up in 3 months to evaluate symptoms of allergic rhinitis or sooner for peanut OFC. Patient advised to call or return sooner should current symptoms worsen or fail to improve or if new symptoms or problems arise. It was my pleasure to participate in the care of this patient. Total time spent on the date of encounter, including [id number]-[id number] and xke-gump-fk-face activities (e.g, medical record review, domumentation, and care coordination), was 45 minutes. Rocio Londono DO Allergy/Immunology [facility] General [1] Social History Tobacco Use Smoking status: Former Types: Cigarettes Smokeless tobacco: Never Vaping Use Vaping status: Former Substance Use Topics Alcohol use: No Drug use: No documented in this encounter [facility] 04-07-2025 Note HNO ID: [id number] Author: ROCIO LONDONO DO Service: ? Author Type: Physician Type: Progress Notes Filed: 04/07/2025 11:23 Note Text: ALLERGY AND IMMUNOLOGY CONSULT 04/07/2025 Recording using [employer] software for draft documentation of the visit was discussed with the patient/authorized scheduling representative; all questions welcomed and answered. Patient/authorized scheduling representative agreed to proceed Patient Name: Chicho Wood PRIMARY CARE PHYSICIAN: Ce Conner MD REASON FOR CONSULT: Concern for tree nut allergy REQUESTING PHYSICIAN: Ce Conner MD My final recommendations will be communicated to the requesting health care provider by way of the shared medical record for internal providers or letter via the [employer] for external providers. CHIEF COMPLAINT: Tingling sensation in throat after [employer] latte with almond milk HISTORY OF PRESENT ILLNESS: The patient is a 25-year-old female with a history of GERD and mild asthma, presenting for evaluation of a possible tree nut allergy. Approximately one month ago, the patient experienced a tingling and numbing sensation in her throat after consuming a drink containing almond milk, brown sugar syrup, and cinnamon powder from [employer]. She had previously consumed all these ingredients without issues. The sensation persisted for over 8 hours. She sought medical attention at a clinic and was referred to the ER, where she was monitored for potential throat swelling and given a liquid medication, she cannot recall the name of medication. She denies any prior episodes of throat tingling, as well as any full-body rash, dyspnea, emesis, lip, eye, or tongue swelling, or lightheadedness during this incident. She has since avoided almond milk and tree nuts and has not experienced similar symptoms. She denies issues with other tree nuts, including cashews, pistachios, walnuts, pecans, and hazelnuts, and has consumed peanut products without issues, though she does not like peanuts. However, it has been several months since her last peanut exposure. A recent food panel showed a peanut IgE level of 0.53, with all other tree nuts and foods negative. She has avoided all tree nuts and peanut products since episode and would like to verify that she does not have a peanut allergy as well. She reports seasonal allergies, particularly during the spring to summer transition, with symptoms not well-controlled by as needed OTC medications. She has mild asthma, primarily triggered by outdoor allergens such as tree pollen and grass, and uses an albuterol inhaler as needed for wheezing. She denies frequent use of inhalers, oral steroids, or recent ER visits for asthma exacerbations. She also reports GERD and experiences throat irritation when eating certain foods, such as bananas and apples, despite taking medications for her gastrointestinal issues. She denies issues with egg, cow milk, or soy products. She lives in a home with both solid surfaces and carpet, with a forced air heating and AC system. She has used nasal sprays in the past with minimal relief of nasal symptoms but cannot recall the name of the nasal spray. PAST MEDICAL HISTORY Diagnosis Date Asthma (HCC) ACTIVE PROBLEM LIST Allergic Rhinitis Hydradenitis Other Acne PAST SURGICAL HISTORY Procedure Laterality Date NONE FAMILY HISTORY Problem Relation Age of Onset Asthma Mother Allergic Rhinitis Mother Thyroid Mother Hypertension Mother Eczema Father Allergic Rhinitis Father Hyperlipidemia Father Allergic Rhinitis Brother Asthma Maternal Grandmother Allergic Rhinitis Maternal Grandmother Kidney Disease Maternal Grandmother Hypertension Maternal Grandmother Thyroid Maternal Grandmother Allergic Rhinitis Maternal Grandfather Kidney Disease Maternal Grandfather failure Allergic Rhinitis Paternal Grandmother Hyperlipidemia Paternal Grandmother Allergic Rhinitis Paternal Grandfather Hyperlipidemia Paternal Grandfather SOCIAL HISTORY[1] Patient Entered Data ALLERGIES: ALLERGIES Allergen Reactions Seasonal Allergies Unknown CURRENT OUTPATIENT MEDICATIONS: albuterol HFA (PROVENTIL HFA, VENTOLIN HFA) 90 mcg/actuation inhaler Inhale 2 puffs as instructed every 4 hours as needed. montelukast (SINGULAIR) 10 mg tablet Take 1 tablet by mouth daily at bedtime. pantoprazole DR (PROTONIX) 40 mg tablet Take 1 tablet by mouth once daily. sulfamethoxazole-trimethoprim (BACTRIM DS) 800-160 mg per tablet Take 1 tablet by mouth every 12 hours. ferrous sulfate 325 mg (65 mg iron) tablet Take 1 tablet by mouth once daily. ergocalciferol 50,000 unit capsule (VITAMIN D2, DRISDOL) Take 1 capsule by mouth two times a week. TO BE TAKEN ORALLY DIRECTED. Take 1 tablet by mouth twice weekly [id number], then decrease to 1 tablet weekly. PHYSICAL EXAM: [facility] 10/22/2024 Physical Exam GENERAL: alert, oriented, cooperati (more content not included)... [facility] [place] 03-07-2025 Note HNO ID: [id number] Author: CE CONNER MD Service: ? Author Type: Physician Type: Progress Notes Filed: 03/07/2025 17:36 Note Text: Reason for Visit Follow up HPI Chicho Wood is a 25-year-old female presenting for evaluation of a potential tree nut allergy, management of hidradenitis suppurativa (HS), and sleep disturbances. Chicho recently underwent a RAST food panel to evaluate for celiac disease, which returned normal results except for a positive peanut allergy. Following the test, she consumed a coffee with almond milk at work and experienced a tingling and numb sensation in her throat and part of her tongue, which persisted for hours. She sought medical attention at a clinic and was referred to the ER, where she was advised to undergo further testing for tree nut allergies. She expresses anxiety about this potential allergy, noting she has never had issues with almonds before. She also reports ongoing issues with HS, describing her condition as severe. She is currently on a waitlist for laser surgery, which she has been on for approximately 6 months. She is taking sulfamethoxazole (Bactrim) BID, which has reduced the frequency of flare-ups. Chicho reports difficulty maintaining a consistent sleep schedule due to her variable work hours at [employer]. She struggles with both falling asleep and staying asleep, often waking multiple times during the night. Despite varying sleep durations, she frequently feels exhausted during the day. She notes a cessation of snoring in recent years, which was previously observed by family members. She has a family history of obstructive sleep apnea, with her mother and two aunts affected. She reports a significant weight loss from 178 lbs to 160 lbs, attributing this to a lack of appetite and irregular eating habits, often consuming only one meal a day with snacks. She denies intentional dieting but mentions her mother's influence on her eating habits. She is currently taking [id number] iron supplements but often forgets to take her vitamin D supplements. Recent lab results indicate low levels of vitamin D and vitamin A. Social History Tobacco Use Smoking status: Former Types: Cigarettes Smokeless tobacco: Never Vaping Use Vaping status: Former Substance Use Topics Alcohol use: No Drug use: No Past medical history, appointments, medications, allergies reviewed. Pertinent Lab/Diagnostic Studies are reviewed and discussed today Current Outpatient Medications: ferrous sulfate 325 mg (65 mg iron) tablet ergocalciferol 50,000 unit capsule (VITAMIN D2, DRISDOL) albuterol HFA (PROVENTIL HFA, VENTOLIN HFA) 90 mcg/actuation inhaler montelukast (SINGULAIR) [address] (PROTONIX) 40 mg tablet sulfamethoxazole-trimethoprim (BACTRIM DS) 800-160 mg per tablet Health Maintenance HIV Screening DTaP,Tdap,Td Vaccine(7 - Td or Tdap) Cervical Cancer Screening@ Review Of Systems Constitutional: (+) chills, (+) decreased appetite, (+) fatigue, (+) generalized weakness Respiratory: (-) snoring Skin: (+) skin lesions, (-) cystic acne Neurological: (+) insomnia Psychiatric: (+) anxiety Physical Exam BP 116/78 Pulse 68 Resp 12 Wt 72.6 kg (160 lb) LMP 10/22/2024 (Exact Date) SpO2 98% BMI 31.25 kg/m? GENERAL: NAD, alert and oriented. SKIN: unremarkable, no rash or skin lesions. HEAD: normocephalic. EYES: PERRLA, EOMI, conjunctiva clear. EARS: external ears normal, canals clear, TM's normal. LUNGS: Clear to auscultation bilaterally, no wheezes/rhonchi/rales. HEART: Regular rate and rhythm, no murmurs. No ectopy. EXTREMITIES: Normal, No deformities, No skin discoloration, No edema. NEURO: Awake, alert and oriented x3, cranial nerves II-XII grossly intact, normal gait, no involuntary motions. Labs: - RAST Food Panel: Peanut allergy (abnormal). All other tested allergens normal. - Nutritional Labs: - Vitamin A: Low - Vitamin D: Low - Vitamin B12: Normal Assessment and Plan 1. Hydradenitis (L73.2) Severe hidradenitis suppurativa with ongoing flare-ups. Currently on sulfamethoxazole (Bactrim) twice daily, which has shown some improvement. On the waitlist for laser surgery with [inaudible], but the wait time is over a year due to limited availability. - Continue sulfamethoxazole (Bactrim) as prescribed. - Follow up with accreditation specialist for further management. 2. Obstructive sleep apnea syndrome (G47.33) Patient reports difficulty staying asleep and feeling exhausted during the day. Family history of obstructive sleep apnea. No current snoring reported. - Ordered home sleep study ([facility]) to evaluate for obstructive sleep apnea. 3. Gastroesophageal reflux disease without esophagitis (K21.9) - to continue the protonix 4. Mild intermittent asthma without complication (HCC) (J45.20) under control at this time with the current regimen of singulair 5. (more content not included)... [facility] [place] 03-07-2025 History of Presen t illness Narrative Reason for Visit Follow up HPI Chicho Wood is a 25-year-old female presenting for evaluation of a potential tree nut allergy, management of hidradenitis suppurativa (HS), and sleep disturbances. Chicho recently underwent a RAST food panel to evaluate for celiac disease, which returned normal results except for a positive peanut allergy. Following the test, she consumed a coffee with almond milk at work and experienced a tingling and numb sensation in her throat and part of her tongue, which persisted for hours. She sought medical attention at a clinic and was referred to the ER, where she was advised to undergo further testing for tree nut allergies. She expresses anxiety about this potential allergy, noting she has never had issues with almonds before. She also reports ongoing issues with HS, describing her condition as severe. She is currently on a waitlist for laser surgery, which she has been on for approximately 6 months. She is taking sulfamethoxazole (Bactrim) BID, which has reduced the frequency of flare-ups. Chicho reports difficulty maintaining a consistent sleep schedule due to her variable work hours at [employer]. She struggles with both falling asleep and staying asleep, often waking multiple times during the night. Despite varying sleep durations, she frequently feels exhausted during the day. She notes a cessation of snoring in recent years, which was previously observed by family members. She has a family history of obstructive sleep apnea, with her mother and two aunts affected. She reports a significant weight loss from 178 lbs to 160 lbs, attributing this to a lack of appetite and irregular eating habits, often consuming only one meal a day with snacks. She denies intentional dieting but mentions her mother's influence on her eating habits. She is currently taking cuqh-ehj-jwayphq iron supplements but often forgets to take her vitamin D supplements. Recent lab results indicate low levels of vitamin D and vitamin A. Social History Tobacco Use Smoking status: Former Types: Cigarettes Smokeless tobacco: Never Vaping Use Vaping status: Former Substance Use Topics Alcohol use: No Drug use: No Past medical history, appointments, medications, allergies reviewed. Pertinent Lab/Diagnostic Studies are reviewed and discussed today Current Outpatient Medications: ferrous sulfate 325 mg (65 mg iron) tablet ergocalciferol 50,000 unit capsule (VITAMIN D2, DRISDOL) albuterol HFA (PROVENTIL HFA, VENTOLIN HFA) 90 mcg/actuation inhaler montelukast (SINGULAIR) [address] (PROTONIX) 40 mg tablet sulfamethoxazole-trimethoprim (BACTRIM DS) 800-160 mg per tablet Health Maintenance HIV Screening DTaP,Tdap,Td Vaccine(7 - Td or Tdap) Cervical Cancer Screening@ Review Of Systems Constitutional: (+) chills, (+) decreased appetite, (+) fatigue, (+) generalized weakness Respiratory: (-) snoring Skin: (+) skin lesions, (-) cystic acne Neurological: (+) insomnia Psychiatric: (+) anxiety Physical Exam BP 116/78 Pulse 68 Resp 12 Wt 72.6 kg (160 lb) LMP 10/22/2024 (Exact Date) SpO2 98% BMI 31.25 kg/m GENERAL: NAD, alert and oriented. SKIN: unremarkable, no rash or skin lesions. HEAD: normocephalic. EYES: PERRLA, EOMI, conjunctiva clear. EARS: external ears normal, canals clear, TM's normal. LUNGS: Clear to auscultation bilaterally, no wheezes/rhonchi/rales. HEART: Regular rate and rhythm, no murmurs. No ectopy. EXTREMITIES: Normal, No deformities, No skin discoloration, No edema. NEURO: Awake, alert and oriented x3, cranial nerves II-XII grossly intact, normal gait, no involuntary motions. Labs: - [facility] Food Panel: Peanut allergy (abnormal). All other tested allergens normal. - Nutritional Labs: - Vitamin A: Low - Vitamin D: Low - Vitamin B12: Normal Assessment and Plan 1. Hydradenitis (L73.2) Severe hidradenitis suppurativa with ongoing flare-ups. Currently on sulfamethoxazole (Bactrim) twice daily, which has shown some improvement. On the waitlist for laser surgery with [inaudible], but the wait time is over a year due to limited availability. - Continue sulfamethoxazole (Bactrim) as prescribed. - Follow up with accreditation specialist for further management. 2. Obstructive sleep apnea syndrome (G47.33) Patient reports difficulty staying asleep and feeling exhausted during the day. Family history of obstructive sleep apnea. No current snoring reported. - Ordered home sleep study ([employer]) to evaluate for obstructive sleep apnea. 3. Gastroesophageal reflux disease without esophagitis (K21.9) - to continue the protonix 4. Mild intermittent asthma without complication (HCC) (J45.20) under control at this time with the current regimen of singulair 5. Tree nut allergy (Z91.018) Recent episode of throat tingling and numbness after consuming almond milk, leading to ER visit. Previous RAST food panel showed peanut allergy but no testing for tree nuts. - Referral to ball maker for comprehensive tree nut allergy testing. 6. Vitamin D deficiency (E55.9) Consistently low vitamin D levels. Patient forgets to take vitamin D supplements regularly. - Recommended vitamin D 5000 IU with vitamin K daily after food to improve absorption. - Advised taking fish oil to aid in vitamin D absorption. 7. Encounter for immunization (Z23) 8. Encounter for allergy testing (Z01.82) Voice recognition software was used to compose this office note. Please excuse any unintended typographical errors. Recording using [employer] software for draft documentation of the visit was discussed with the patient/authorized scheduling representative; all questions welcomed and answered. Patient/authorized scheduling representative agreed to proceed Ce Conner MD documented in this encounter [facility] 03-07-2025 Instructions Ce Conner MD - 03/07/2025 3:09 PM EDT We discussed your peanut allergy and possible tree nut allergy: - Your recent blood work showed an allergy to peanuts. You experienced throat tingling and numbness after consuming almond milk, which led to an ER visit. Although peanuts and tree nuts are different, you may need further testing to determine if you have a tree nut allergy. - I recommend scheduling an appointment with an ball maker for comprehensive allergy testing, including tree nuts. We discussed your hidradenitis suppurativa (HS): - You are currently on sulfamethoxazole (Bactrim) twice daily, which has helped reduce flare-ups. Please continue taking this medication as prescribed. - You are on the waitlist for laser surgery with your current provider. Unfortunately, the wait time may exceed a year due to limited availability. If your symptoms worsen or you need additional support, let me know. We discussed your vitamin deficiencies: - Your recent blood work showed low levels of vitamin D and vitamin A. I recommend taking: - Vitamin D (5,000 IU) with vitamin K daily after a meal to improve absorption. You can purchase this over the counter. - Fish oil supplements, which may help with inflammation and improve vitamin D absorption. - You are already taking iron supplements. Continue these as directed. We discussed your sleep concerns: - You reported difficulty falling and staying asleep, inconsistent work schedules, and feeling exhausted during the day. You also have a family history of sleep apnea. - I recommend a home sleep study to evaluate for obstructive sleep apnea. This will help us determine if further treatment is needed. Additional instructions: - Take your vitamin D, fish oil, and other medications (including Bactrim) together after dinner to help establish a routine and improve adherence. - Follow up with an ball maker for allergy testing and with your accreditation specialist as needed for HS management. Please let me know if you have any new or worsening symptoms or if you need assistance scheduling appointments. documented in this encounter [facility] 03-02-2025 Note HNO ID: [id number] Author: CARMEN BHAKTA PA Service: ? Author Type: Physician St[employer] Straw Hat Washer Type: Progress Notes Filed: 03/02/2025 19:20 Note Text: 25-year-old female presents for possible allergic reaction. Patient drank a latte at [employer] today that had almond milk in it and she felt a little bit of a tingling sensation in her throat. Symptoms are still present. She states that she did allergy test recently and did have an allergy to possibly peanuts. She has tolerated peanuts and almonds in the past. She denies any difficulty breathing or swallowing. No throat swelling. No tightness in the throat. No chest pain or shortness of breath. No vomiting or diarrhea. Airway is intact on exam. At this time, due to tingling, I did recommend evaluation in the emergency room. Patient is in no acute distress,, but would possibly benefit from some monitoring. Patient declines EMS, her mom will take her to the ER now. [facility] 03-02-2025 History of Presen t illness Narrative 25-year-old female presents for possible allergic reaction. Patient drank a latte at [employer] today that had almond milk in it and she felt a little bit of a tingling sensation in her throat. Symptoms are still present. She states that she did allergy test recently and did have an allergy to possibly peanuts. She has tolerated peanuts and almonds in the past. She denies any difficulty breathing or swallowing. No throat swelling. No tightness in the throat. No chest pain or shortness of breath. No vomiting or diarrhea. Airway is intact on exam. At this time, due to tingling, I did recommend evaluation in the emergency room. Patient is in no acute distress,, but would possibly benefit from some monitoring. Patient declines EMS, her mom will take her to the ER now. documented in this encounter [facility] 02-16-2025 Note HNO ID: [id number] Author: DENI ADAMS MD Service: ? Author Type: Physician Type: Progress Notes Filed: 02/16/2025 18:34 Note Text: [facility] Wood is a 25 year old female. Patient presents with: Sore Throat: X 2 days Patient presents with sore throat for 3 days. She is also developing rhinorrhea and cough. She has felt hot and cold but had no overt fevers. Denies nausea, vomiting, diarrhea. She has taken nothing for symptoms. She has a history of seasonal allergies. Sore Throat Review of Systems HENT: Positive for sore throat. Objective BP 110/82 Pulse 77 Temp 37.6 ?C (99.6 ?F) Resp 18 Wt 71.3 kg (157 lb 3 oz) LMP 10/22/2024 (Exact Date) SpO2 99% BMI 30.70 kg/m? Physical Exam Constitutional: General: She is not in acute distress. HENT: Right Ear: Tympanic membrane and ear canal normal. Left Ear: Tympanic membrane and ear canal normal. Nose: Congestion present. Right Sinus: No maxillary sinus tenderness or frontal sinus tenderness. Left Sinus: No maxillary sinus tenderness or frontal sinus tenderness. Mouth/Throat: Mouth: Mucous membranes are moist. Pharynx: Posterior oropharyngeal erythema present. No oropharyngeal exudate. Eyes: Extraocular Movements: Extraocular movements intact. Conjunctiva/sclera: Conjunctivae normal. Pupils: Pupils are equal, round, and reactive to light. Cardiovascular: Rate and Rhythm: Normal rate and regular rhythm. Heart sounds: No murmur heard. Pulmonary: Effort: No respiratory distress. Breath sounds: No wheezing, rhonchi or rales. Musculoskeletal: Cervical back: Neck supple. Lymphadenopathy: Cervical: No cervical adenopathy. Neurological: Mental Status: She is alert. {ASSESSMENT/PLAN: 1. Sore throat - ICD9: 462, ICD10: J02.9 - STREP A MOLECULAR (POC) - negative - suspect viral URI - Supportive care treatment with rest, cold medicine, and analgesia. - Viral URI contagiousness recommendations: avoid exposure to others until fever free for 24 hours without fever reducing medication. An additional 5 days of limiting contact can include covering coughs/masking, social distance, and hand hygiene. Deni Adams MD Differential Diagnoses - viral URI is more likely for the following reason(s): suggested by HANDP - seasonal allergies - streptococcal pharyngitis is less likely for the following reason(s): laboratory studies not suggestive Procedures [facility] 02-16-2025 History of Presen t illness Narrative [facility] Wood is a 25 year old female. Patient presents with: Sore Throat: X 2 days Patient presents with sore throat for 3 days. She is also developing rhinorrhea and cough. She has felt hot and cold but had no overt fevers. Denies nausea, vomiting, diarrhea. She has taken nothing for symptoms. She has a history of seasonal allergies. Sore Throat Review of Systems HENT: Positive for sore throat. Objective BP 110/82 Pulse 77 Temp 37.6 C (99.6 F) Resp 18 Wt 71.3 kg (157 lb 3 oz) LMP 10/22/2024 (Exact Date) SpO2 99% BMI 30.70 kg/m Physical Exam Constitutional: General: She is not in acute distress. HENT: Right Ear: Tympanic membrane and ear canal normal. Left Ear: Tympanic membrane and ear canal normal. Nose: Congestion present. Right Sinus: No maxillary sinus tenderness or frontal sinus tenderness. Left Sinus: No maxillary sinus tenderness or frontal sinus tenderness. Mouth/Throat: Mouth: Mucous membranes are moist. Pharynx: Posterior oropharyngeal erythema present. No oropharyngeal exudate. Eyes: Extraocular Movements: Extraocular movements intact. Conjunctiva/sclera: Conjunctivae normal. Pupils: Pupils are equal, round, and reactive to light. Cardiovascular: Rate and Rhythm: Normal rate and regular rhythm. Heart sounds: No murmur heard. Pulmonary: Effort: No respiratory distress. Breath sounds: No wheezing, rhonchi or rales. Musculoskeletal: Cervical back: Neck supple. Lymphadenopathy: Cervical: No cervical adenopathy. Neurological: Mental Status: She is alert. {ASSESSMENT/PLAN: 1. Sore throat - ICD9: 462, ICD10: J02.9 - STREP A MOLECULAR (POC) - negative - suspect viral URI - Supportive care treatment with rest, cold medicine, and analgesia. - Viral URI contagiousness recommendations: avoid exposure to others until fever free for 24 hours without fever reducing medication. An additional 5 days of limiting contact can include covering coughs/masking, social distance, and hand hygiene. Deni Adams MD Differential Diagnoses - viral URI is more likely for the following reason(s): suggested by H&P - seasonal allergies - streptococcal pharyngitis is less likely for the following reason(s): laboratory studies not suggestive Procedures documented in this encounter [facility] 01-03-2025 Telephone encounter Note Form printed and routed to PCP's desk to review and complete. Update pt via [employer] once complete on picker instructions. Tara Parra MA [facility] 01-03-2025 Miscellaneous Notes Form printed and routed to PCP's desk to review and complete. Update pt via [employer] once complete on picker instructions. Tara Parra MA documented in this encounter [facility] 11-26-2024 Evaluation note Diagnosis Onset Date Resolution Chest pain, unspecified acute A pril 2024 11:25am Gastritis acute November 26 11:25am GERD (gastroesophageal reflux disease) chronic November 26, 2024 11:25am GERD (gastroesophageal reflux disease) chronic December 28, 2024 2 :38pm [facility] Work Phone: 1(273) 551-679204-25-2025 Evaluation note* Diagnosis Onset Date Resolution Status Admit Date Chest pain, unspecified acute A pril 2024 11:25am Gastritis acute November 26 11:25am GERD (gastroesophageal reflu x disease) chronic November 26, 2024 11:25am GERD (gastroesophageal reflu x disease) chronic December 28, 2024 2 :38pm Gastritis acute February 07, 2025 3:38pm GERD (gastroesophageal reflu x disease) chronic February 07, 2025 3 :38pm [facility] Work Phone: 1(664) 787-769504-25-2025 [facility] Medical Records Department [address] [place] [id number] History Physical Exam 11/26/24 1311 MR#: [id number] Acct: [id number] Name: CHICHO WOOD Rep #: [id number] : 2000 24 From: Gabriel Friend DO PCP: Dr. Ce Conner MD Status:[facility] Location: [place] [address] HPI - General General Date of Admission: 11/26/24 Date of Service: 11/26/24 Chief Complaint: GERD and Abdominal pain HPI Narrative CHICHO WOOD, is a 24 F who presents to the office today for establishment with I for complaints of treatment failure of GERD and possible stomach ulcer. She had ER visits:09/04/24-qssbsor03 qd to omepr20 qd+sucralfate q6h+KCL; gastritis GERD; 07/27/24-abd pain, KCL+dicyclomine+ondansetron 07/23/24-food poisoning, cipro+ondansetron; c/o constant reflux, water brash. PMHx:asthma, hidradenitis supurative, anemia, hypothroid, Grave's, fmr smkr, no etoh. Today, she reports some occasional difficulty with swallowing. She mentions that at night, she struggles to swallow her own saliva when lying flat. She continues to have reflux and heartburn, worse at bedtime. She has adjusted her eating times so that her last meal is at least an hour or two before bed and she avoids spicy foods and red sauces. She describes the heartburn as midsternal and epigastric that goes straight through to her back. She also has some abdominal bloating but is unsure of cause. She reports previous bouts of constipation but has increased her fiber and fluid intake so that she moves them daily without straining. She denies difficulty chewing, excessive gas, lower abdominal pain, cramping, diarrhea, hematochezia, and melena. She reports taking pantoprazole in the AM and at bedtime. She states that she finished her sucralfate and ciprofloxacin treatments from the ER visits. [facility] Medical History Wears glasses Hidradenitis Gastric reflux Non-smoker Chest pain Anemia GERD (gastroesophageal reflux disease) Asthma Home Medications ???Medication ???Instructions ???Recorded ???Last Taken ???Type albuterol sulfate 90 mcg/actuation 2 puff inhalation Q4H PRN PRN Unknown History aerosol inhaler shortness of breath or wheezing ergocalciferol (vitamin D2) 1,250 1,250 mcg PO .TWICE WEEKLY Unknown History mcg (50,000 unit) capsule ferrous sulfate 325 mg (65 mg 325 mg PO DAILY 11/22/24 11/25/24 History iron) tablet magnesium 250 mg tablet 250 mg PO DAILY 11/22/24 11/25/24 History pantoprazole 40 mg tablet,delayed 40 mg PO DAILY 11/22/24 11/25/24 History release Allergy/AdvReac Type Severity Reaction Status Date / Time No Known Allergies Allergy Verified 11/26/24 11:34 Social History Smoking Status: Former smoker alcohol intake: never substance use type: does not use ROS Constitutional Constitutional: Denies fatigue, fever(s), poor appetite, weight gain or weight loss Gastrointestinal Gastrointestinal: Denies belching, bloating, change in bowel habits, change in stool character, chewing difficulty, coffee ground emesis, constipation, cramping, diarrhea, dyspepsia, dysphagia, early satiety, excessive flatus, fecal incontinence, heartburn, hematemesis, hematochezia, hemorrhoids, loose stools, melena, nausea, odynophagia, rectal bleeding, tenesmus, vomiting or weight changes Vital Signs Vital Signs Vital Signs: 11/26/24 12:01 11/26/24 12:01 11/26/24 12:22 Temperature 98.8 F 98.8 F Temperature Source Temporal Pulse Rate 50 L 50 L Respiratory Rate 17 17 Respiratory Pattern Normal Blood Pressure 107/70 107/70 Blood Pressure Mean 82 Blood Pressure Source Monitor Blood Pressure Position Semi-Fowlers Blood Pressure Location Left Arm Pulse Ox 100 100 Oxygen Delivery Method Room Air Room Air Weight Weight: 160 lb 14.999 oz Body Mass Index (BMI) 31.4 Physical Exam Const alert, oriented x3, no apparent distress and healthy appearing General Appearance: cooperative GI normal to inspection, nondistended, normoactive bowel sounds, soft to palpation, non-tender and non- distended Percussion: normal to percussion Rectal Exam: deferred Results Lab / Micro Data Labs: Laboratory Results - last 24 hr 11/26/24 : Urine Test Negative Assessment Plan Assessment/Plan (1) Gastritis: QUALIFIERS: Gastritis type: superficial Chronicity: acute Gastritis bleeding: without bleeding Qualified Code(s): K29.00 - Acute gastritis without bleeding (2) Chest pain, unspecified: (3) GERD (gastroesophageal reflux disease): QUALIFIERS: Esophagitis presence: esophagitis presence not specified Qualified Code(s): K21.9 - Gastro-esophageal reflux disease (more content not included)... [facility]04-18-2025 NoteHNO ID: [id number] Author: CE CONNER MD Service: ? Author Type: Physician Type: Progress Notes Filed: 11/19/2024 16:21 Note Text: Reason for Visit Follow up. JEFF Valentino is a 24-year-old female, with a history of hidradenitis suppurativa, GERD, and iron deficiency anemia, presenting for follow-up. Chicho reports severe hidradenitis suppurativa flare-ups since the start of the semester, which she attributes to increased stress from returning to school after a gap year and working two jobs. She experiences painful flare-ups under her arms, groin, and occasionally in the crease of her back, which have become so severe that they affect her mobility and ability to attend in-person classes. She notes that the drainage from the affected areas has worsened, necessitating the use of bandages every night, which has led to skin discoloration. She has not seen her accreditation specialist, Dr. Ibanez, in a while due to difficulty scheduling appointments. She also reports experiencing hormonal acne, particularly around her menstrual cycle, and is considering contraceptive pills to manage it. She has been trying to manage her symptoms through dietary changes, including eliminating certain foods and keeping a food journal since September, but has not noticed significant improvement. Chicho reports fatigue, poor focus, and disrupted sleep patterns, including waking up in the middle of the night and waking up very early after going to bed late. She has been taking vitamin D supplements irregularly, sometimes once a week instead of the prescribed twice a week, and has not been taking her iron supplements due to a dislike of taking multiple pills. She has been trying to incorporate iron-rich foods into her diet instead. She also reports experiencing anxiety and is considering medication for it. She is currently taking pantoprazole for GERD, which she reports is working well to manage her symptoms. She has an upcoming upper endoscopy scheduled on the . She denies any issues with her thyroid and reports that her urine and glucose levels were normal. She denies experiencing fever, chills, or changes in stool or breathing. Social History Tobacco Use Smoking status: Former Types: Cigarettes Smokeless tobacco: Never Vaping Use Vaping status: Former Substance Use Topics Alcohol use: No Drug use: No Past medical history, appointments, medications, allergies reviewed. Pertinent Lab/Diagnostic Studies are reviewed and discussed today Current Outpatient Medications: ferrous sulfate 325 mg (65 mg iron) tablet ergocalciferol 50,000 unit capsule (VITAMIN D2, DRISDOL) albuterol HFA (PROVENTIL HFA, VENTOLIN HFA) 90 mcg/actuation inhaler pantoprazole DR (PROTONIX) 40 mg tablet DULoxetine (CYMBALTA) 20 mg capsule budesonide-formoterol (SYMBICORT) 80-4.5 mcg/actuation inhaler doxycycline monohydrate (MONODOX) 100 mg capsule tretinoin (RETIN-A) 0.1 % cream montelukast (SINGULAIR) 10 mg tablet Health Maintenance Spirometry HIV Screening DTaP,Tdap,Td Vaccine(7 - Td or Tdap) Cervical Cancer Screening@ Review Of Systems Constitutional: (+) fatigue, (-) fever, (-) chills Respiratory: (-) shortness of breath Gastrointestinal: (+) reflux Skin: (+) painful lumps under arms, (+) facial acne Psychiatric: (+) anxiety, (+) sleep disturbance Physical Exam BP 97/65 Pulse 65 Resp 16 Wt 72.8 kg (160 lb 6.4 oz) LMP 10/22/2024 (Exact Date) BMI 31.33 kg/m? GENERAL: NAD, alert and oriented. SKIN:,eft under arm area has significant hyperpigmentaiont, areas of oozing and ulceration. HEAD: Normocephalic. EYES: PERRLA, EOMI, conjunctiva clear. EARS: External ears normal, canals clear, TM's normal. NOSE/SINUSES: Nares normal. Septum midline. OROPHARYNX: Lips, mucosa, and tongue normal, good dentition. No oral lesions noted. NECK: Supple, no lymphadenopathy, normal thyroid, no carotid bruits. LUNGS: Clear to auscultation bilaterally, no wheezes/rhonchi/rales. HEART: Regular rate and rhythm, no murmurs. No ectopy. EXTREMITIES: Normal, no deformities, no skin discoloration, no edema. NEURO: Awake, alert and oriented x3, cranial nerves II-XII grossly intact, normal gait, no involuntary motions. Labs: (October) - Hemoglobin: 10.9 g/dL (mild anemia) - Urinalysis: Normal - Glucose: Normal - GFR: Normal - Iron: Low - Thyroid Function Tests: Normal - Thyroid Antibodies: Negative - Vitamin D: Very low Assessment and Plan 1. Anxiety and depression (F41.9) Screening for depression (Z13.31) Encounter for screening examination for other mental health and behavioral disorders (Z13.39) Anxiety is contributing to stress and potential depression. Discussed the interrelation between anxiety and depression. - Initiated Cymbalta, small dose, 30 pills. Advised to take in the morning or evening based on tolerance. - Monitor response to medication and adjust as necessary. (more content not included)...[facility]04-18-2025 History of Present illness Narrative* Ce Conner MD - 11/19/2024 4:19 PM EDT Reason for Visit Follow up. JEFF Valetnino is a 24-year-old female, with a history of hidradenitis suppurativa, GERD, and iron deficiency anemia, presenting for follow-up. Chicho reports severe hidradenitis suppurativa flare-ups since the start of the semester, which she attributes to increased stress from returning to school after a gap year and working two jobs. She experiences painful flare-ups under her arms, groin, and occasionally in the crease of her back, which have become so severe that they affect her mobility and ability to attend in-person classes. She notes that the drainage from the affected areas has worsened, necessitating the use of bandages every night, which has led to skin discoloration. She has not seen her accreditation specialist, Dr. Ibanez, in a while due to difficulty scheduling appointments. She also reports experiencing hormonal acne, particularly around her menstrual cycle, and is considering contraceptive pills to manage it. She has been trying to manage her symptoms through dietary changes, including eliminating certain foods and keeping a food journal since September, but has not noticed significant improvement. Chicho reports fatigue, poor focus, and disrupted sleep patterns, including waking up in the middle of the night and waking up very early after going to bed late. She has been taking vitamin D supplements irregularly, sometimes once a week instead of the prescribed twice a week, and has not been taking her iron supplements due to a dislike of taking multiple pills. She has been trying to incorporate iron-rich foods into her diet instead. She also reports experiencing anxiety and is considering medication for it. She is currently taking pantoprazole for GERD, which she reports is working well to manage her symptoms. She has an upcoming upper endoscopy scheduled on the . She denies any issues with her thyroid and reports that her urine and glucose levels were normal. She denies experiencing fever, chills, or changes in stool or breathing. Social History Tobacco Use Smoking status: Former Types: Cigarettes Smokeless tobacco: Never Vaping Use Vaping status: Former Substance Use Topics Alcohol use: No Drug use: No Past medical history, appointments, medications, allergies reviewed. Pertinent Lab/Diagnostic Studies are reviewed and discussed today Current Outpatient Medications: ferrous sulfate 325 mg (65 mg iron) tablet ergocalciferol 50,000 unit capsule (VITAMIN D2, DRISDOL) albuterol HFA (PROVENTIL HFA, VENTOLIN HFA) 90 mcg/actuation inhaler pantoprazole DR (PROTONIX) 40 mg tablet DULoxetine (CYMBALTA) 20 mg capsule budesonide-formoterol (SYMBICORT) 80-4.5 mcg/actuation inhaler doxycycline monohydrate (MONODOX) 100 mg capsule tretinoin (RETIN-A) 0.1 % cream montelukast (SINGULAIR) 10 mg tablet Health Maintenance Spirometry HIV Screening DTaP,Tdap,Td Vaccine(7 - Td or Tdap) Cervical Cancer Screening@ Review Of Systems Constitutional: (+) fatigue, (-) fever, (-) chills Respiratory: (-) shortness of breath Gastrointestinal: (+) reflux Skin: (+) painful lumps under arms, (+) facial acne Psychiatric: (+) anxiety, (+) sleep disturbance Physical Exam BP 97/65 Pulse 65 Resp 16 Wt 72.8 kg (160 lb 6.4 oz) LMP 10/22/2024 (Exact Date) BMI 31.33 kg/m GENERAL: NAD, alert and oriented. SKIN:,eft under arm area has significant hyperpigmentaiont, areas of oozing and ulceration. HEAD: Normocephalic. EYES: PERRLA, EOMI, conjunctiva clear. EARS: External ears normal, canals clear, TM's normal. NOSE/SINUSES: Nares normal. Septum midline. OROPHARYNX: Lips, mucosa, and tongue normal, good dentition. No oral lesions noted. NECK: Supple, no lymphadenopathy, normal thyroid, no carotid bruits. LUNGS: Clear to auscultation bilaterally, no wheezes/rhonchi/rales. HEART: Regular rate and rhythm, no murmurs. No ectopy. EXTREMITIES: Normal, no deformities, no skin discoloration, no edema. NEURO: Awake, alert and oriented x3, cranial nerves II-XII grossly intact, normal gait, no involuntary motions. Labs: (October) - Hemoglobin: 10.9 g/dL (mild anemia) - Urinalysis: Normal - Glucose: Normal - GFR: Normal - Iron: Low - Thyroid Function Tests: Normal - Thyroid Antibodies: Negative - Vitamin D: Very low Assessment and Plan 1. Anxiety and depression (F41.9) Screening for depression (Z13.31) Encounter for screening examination for other mental health and behavioral disorders (Z13.39) Anxiety is contributing to stress and potential depression. Discussed the interrelation between anxiety and depression. - Initiated Cymbalta, small dose, 30 pills. Advised to take in the morning or evening based on tolerance. - Monitor response to medication and adjust as necessary. 2. Cystic acne (L70.0) Experiencing hormonal acne, particularly around menstrual cycles. - Referred to dermatology for specialized treatment. 3. Hydradenitis (L73.2) Severe flare-ups causing significant pain and mobility issues. Noted drainage and discoloration from bandages. - Referred to Ethan Madsen and Dr. Naranjo at [facility]. - Advised use of Tylenol 1000 mg BID for pain management. 4. Anemia, unspecified type (D64.9) Iron deficiency anemia, unspecified iron deficiency anemia type (D50.9) Mild anemia with hemoglobin at 10.9 g/dL. Not taking prescribed iron supplements. - Recommended eowv-emd-cqombiy iron syrup, to be taken with food for better absorption. - Encouraged consumption of iron-rich foods. 5. Hypomagnesemia (E83.42) Experiencing fatigue and poor focus, potentially related to low magnesium levels. - Recommended magnesium glycinate supplement. - Ordered serum magnesium level. 6. Vitamin D deficiency (E55.9) Very low vitamin D levels. Inconsistent adherence to prescribed vitamin D supplementation. - Advised daily intake of 2000 IU vitamin D supplements. 7. Gastro-esophageal reflux disease without esophagitis (K21.9) Currently managed with pantoprazole, experiencing mild to severe symptoms intermittently. - Continue pantoprazole with refills provided for six months. - Scheduled for upper endoscopy on the . Voice recognition software was used to compose this office note. Please excuse any unintended typographical errors. Recording using [employer] software for draft documentation of the visit was discussed with the patient/authorized scheduling representative; all questions welcomed and answered. Patient/authorized scheduling representative agreed to proceed Ce Conner MD documented [facility] encounter[facility] Instructions* Patient Instructions* Ce Conner MD - 11/19/2024 2:07 PM EDT We discussed your anemia and vitamin deficiencies: - You are mildly anemic, which may be contributing to your fatigue. Please continue incorporating iron-rich foods like spinach and salmon into your diet. If you prefer not to take iron pills, you cantry an damf-zoy-rkjembr iron syrup. Take it with food to improve absorption. - Your vitamin D levels are very low. Please switch to taking 2,000 IU of vitamin D daily as a supplement. Take it with food for better absorption. - You may also try magnesium glycinate (available over the counter) to help with energy, focus, andsleep. This preparation is gentler on the stomach compared to other forms of magnesium. We discussed your hiatal hernia and reflux: - Continue taking pantoprazole as prescribed. I have sent in a refill for six months. You can take it as a 30-day or 90-day supply, depending on your preference. - Avoid greasy foods and pork, as they may worsen your symptoms. A plant-based diet with vegetables, fruits, chicken, and fish is recommended. Your current diet, including rice bowls with vegetables and light cheese, sounds appropriate. We discussed your hidradenitis suppurativa (HS) and skin concerns: - Your HS symptoms, including drainage and pain, are likely due to inflammation. I recommend scheduling an appointment with a accreditation specialist to address your HS and acne. [facility] or [facility] in [place] are options. If they require a referral, let us know, and we willsend it. - For pain management, you can take Tylenol (1,000 mg twice daily) as needed. Avoid NSAIDs like Motrin, as they may worsen your reflux. - Keep using bandages for drainage as needed. We discussed your anxiety and fatigue: - Anxiety and stress may be contributing to your symptoms, including HS flares. If you are open to it, I recommend trying Cymbalta, which can help with anxiety, depression, and some types of pain. Start with a small dose and take it in the morning or evening, depending on how it affects you. If it does not help or causes side effects, you can stop it. - Continue your current efforts to manage stress, including maintaining a healthy diet and journaling. Follow-up and next steps: - You have an upper endoscopy scheduled for the . Please follow up with the nurse practitioner who prescribed pantoprazole to confirm whether you should continue it long-term. - Consider checking your magnesium levels if fatigue persists, though you can safely take magnesiumglycinate even if your levels are normal. - Focus on scheduling a dermatology appointment to address your HS and acne. This is a nelson step in managing your symptoms. Please let me know if you have any questions or if your symptoms worsen. documented in this encounterMer[facility]03-12-2025 Instructions* Patient Instructions* Heaven Maciel MD - 10/13/2024 2:29 PM EDT Use fluticasone nasal spray/generic Flonase 2 sprays to each nostril once a day on a regular basis You may also take obyq-hlc-lortzsc loratidine (Claritin) 10 mg, cetirizine (Zyrtec) 10 mg, levocetirizine (xyzal) 5 mg OR fexofenadine (Bell) 180 mg once daily as needed for itching, sneezing or runny nose. Use azei-uap-yucbsku olopatadine/Patanol, Pataday eyedrops as needed Avoid use of antihistamines for 5 days prior to the completion of allergy skin tests. documented in this encounterMer[facility]03-12-2025 NoteHNO ID: [id number] Author: HEAVEN MACIEL MD Service: ? Author Type: Physician Type: Progress Notes Filed: 10/16/2024 20:17 Note Text: ASSESSMENT/PLAN: -Adverse reaction food: Patient was reassured that her symptoms are not consistent with IgE-mediated food allergies. She should continue to follow-up with gastroenterology for management of her GERD. She should continue to follow-up with dermatology for management of hidradenitis suppurativa. -Chronic rhinitis, investigation into allergic component of her symptoms: Depending on patient's preference, allergy skin tests may be completed to inhalant allergens at a future visit. Start fluticasone nasal spray/generic Flonase 2 sprays to each nostril once daily The patient may also take prec-hfk-ekzsxgh loratidine (Claritin) 10 mg, cetirizine (Zyrtec) 10 mg, levocetirizine (xyzal) 5 mg OR fexofenadine (Bell) 180 mg once daily as needed for itching, sneezing or runny nose. She may use qchv-dyf-twmkgvb olopatadine eyedrops as needed -Intermittent asthma: Start Symbicort 80-4.5 1 to 2 puffs every 4 hours as needed. Use with spacer and rinse mouth out after use. Maximum of 12 puffs/day. AeroChamber spacer provided at today's visit and proper use was reviewed with the patient. - Discussed medication dosage, usage, side effects, and goals of treatment in detail. - Follow-up at patient's convenience for the completion of allergy skin tests to inhalant allergens (20 or 34) and spirometry- patient will return sooner should new symptoms or problems arise. Heaven Maicel MD Allergy AND Immunology This is a consultation requested by Ce Conner MD for an allergy and immunology evaluation. My final recommendations will be communicated back to the requesting healthcare provider(s) by way of shared medical record or via [place] mail. Chicho Wood is a 24 year old female who presents for further evaluation of possible food allergies. She complains of frequent heartburn symptoms which awaken her from sleep. Takes famotidine 20 mg at bedtime. Recently started Protonix 40 mg daily. To have an EGD completed under the supervision of gastroenterology. She is concerned that food allergies may be contributing to her symptoms. Notes thickened secretions and increased GERD symptoms associated with cows milk ingestion. Has a history of hidradenitis suppurativa for which she sees dermatology. Questions whether or not allergies may be contributing to this skin condition. Complains of nasal congestion, sneezing, rhinorrhea and itching and watery eyes. Associated symptoms include facial pressure. Symptoms are perennial with exacerbation in the spring and fall. Symptoms have been present for several years but have worsened since she moved 1 year ago. Dust exposure is a trigger for symptoms. Had allergy testing completed in childhood. No prior subcutaneous allergy immunotherapy. History of intermittent asthma. Primary triggers are exercise and upper respiratory infection. Notes occasional wheezing, chest tightness and shortness of breath. Last used albuterol for acute symptoms 1 month ago. Previously on Singulair. Denies prior use of a daily controller inhaler. Last treated with systemic steroids for an asthma exacerbation as a child. Denies emergency room visits or hospitalizations for asthma. REVIEW OF SYSTEMS: All other review of systems negative except for those listed above. PAST MEDICAL HISTORY Diagnosis Date Asthma MEDICATIONS: aluminum-magnesium hydroxide-simethicone 200-200-20 mg/5 mL suspension Take 10 mL by mouth between meals and at bedtime as needed for up to 7 days. ferrous sulfate 325 mg (65 mg iron) tablet Take 1 tablet by mouth once daily. ergocalciferol 50,000 unit capsule (VITAMIN D2, DRISDOL) Take 1 capsule by mouth two times a week. TO BE TAKEN ORALLY DIRECTED. Take 1 tablet by mouth twice weekly [id number], then decrease to 1 tablet weekly. sucralfate (CARAFATE) 1 gram tablet Take 1 g by mouth every 6 hours. For 2 weeks doxycycline monohydrate (MONODOX) 100 mg capsule Take 1 capsule by mouth two times a day. penicillin V potassium 500 mg tablet Take 500 mg by mouth. (Patient not taking: Reported on 09/13/2024) propranolol (INDERAL) 40 mg tablet Take 1 tablet by mouth three times a day. (Patient not taking: Reported on 09/13/2024) pantoprazole DR (PROTONIX) 40 mg tablet TAKE 1 TABLET BY MOUTH DAILY BEFORE BREAKFAST ON EMPTY STOMACH, 1/2 HR BEFORE MEAL. tretinoin (RETIN-A) 0.1 % cream Apply to affected area daily at bedtime. famotidine (PEPCID) 20 mg tablet Take 1 tablet by mouth daily at bedtime. (Patient not taking: Reported on 04/02/2024) montelukast (SINGULAIR) 10 mg tablet Take 1 tablet by mouth daily at bedtime. (Patient not taking: Reported on 07/23/2024) albuterol HFA (PROVENTIL HFA, VENTOLIN HFA) 90 mcg/actuation inhaler Inhale 2 Puffs as instru (more content not included)...[facility] 10-13-2024 History of Present illness Narrative* Heaven Maciel MD - 10/13/2024 1:21 PM EDT ASSESSMENT/PLAN: -Adverse reaction food: Patient was reassured that her symptoms are not consistent with IgE-mediated food allergies. She should continue to follow-up with gastroenterology for management of her GERD. She should continue to follow-up with dermatology for management of hidradenitis suppurativa. -Chronic rhinitis, investigation into allergic component of her symptoms: Depending on patient's preference, allergy skin tests may be completed to inhalant allergens at a future visit. Start fluticasone nasal spray/generic Flonase 2 sprays to each nostril once daily The patient may also take vsrh-hxk-hgaeyuc loratidine (Claritin) 10 mg, cetirizine (Zyrtec) 10 mg, levocetirizine (xyzal) 5 mg OR fexofenadine (Bell) 180 mg once daily as needed for itching, sneezing or runny nose. She may use mvgu-kgn-tbaizap olopatadine eyedrops as needed -Intermittent asthma: Start Symbicort 80-4.5 1 to 2 puffs every 4 hours as needed. Use with spacer and rinse mouth out after use. Maximum of 12 puffs/day. AeroChamber spacer provided at today's visit and proper use was reviewed with the patient. - Discussed medication dosage, usage, side effects, and goals of treatment in detail. - Follow-up at patient's convenience for the completion of allergy skin tests to inhalant allergens(20 or 34) and spirometry- patient will return sooner should new symptoms or problems arise. Heaven Maciel MD Allergy & Immunology This is a consultation requested by Ce Conner MD for an allergy and immunology evaluation. My final recommendations will be communicated back to the requesting healthcare provider(s) by way of shared medical record or via U.S. mail. Chicho Wood is a 24 year old female who presents for further evaluation of possible food allergies. She complains of frequent heartburn symptoms which awaken her from sleep. Takes famotidine 20 mg at bedtime. Recently started Protonix 40 mg daily. To have an EGD completed under the supervisionof gastroenterology. She is concerned that food allergies may be contributing to her symptoms. Notes thickened secretions and increased GERD symptoms associated with cows milk ingestion. Has a history of hidradenitis suppurativa for which she sees dermatology. Questions whether or not allergies may be contributing to this skin condition. Complains of nasal congestion, sneezing, rhinorrhea and itching and watery eyes. Associated symptoms include facial pressure. Symptoms are perennial with exacerbation in the spring and fall. Symptomshave been present for several years but have worsened since she moved 1 year ago. Dust exposure is a trigger for symptoms. Had allergy testing completed in childhood. No prior subcutaneous allergy immunotherapy. History of intermittent asthma. Primary triggers are exercise and upper respiratory infection. Notes occasional wheezing, chest tightness and shortness of breath. Last used albuterol for acute symptoms 1 month ago. Previously on Singulair. Denies prior use of a daily controller inhaler. Last treated with systemic steroids for an asthma exacerbation as a child. Denies emergency room visits or hospitalizations for asthma. REVIEW OF SYSTEMS: All other review of systems negative except for those listed above. PAST MEDICAL HISTORY Diagnosis Date Asthma MEDICATIONS: aluminum-magnesium hydroxide-simethicone 200-200-20 mg/5 mL suspension Take 10 mL by mouth between meals and at bedtime as needed for up to 7 days. ferrous sulfate 325 mg (65 mg iron) tablet Take 1 tablet by mouth once daily. ergocalciferol 50,000 unit capsule (VITAMIN D2, DRISDOL) Take 1 capsule by mouth two times a week. TO BE TAKEN ORALLY DIRECTED. Take 1 tablet by mouth twice weekly [id number], then decrease to 1 tablet weekly. sucralfate (CARAFATE) 1 gram tablet Take 1 g by mouth every 6 hours. For 2 weeks doxycycline monohydrate (MONODOX) 100 mg capsule Take 1 capsule by mouth two times a day. penicillin V potassium 500 mg tablet Take 500 mg by mouth. (Patient not taking: Reported on 09/13/2024) propranolol (INDERAL) 40 mg tablet Take 1 tablet by mouth three times a day. (Patient not taking: Reported on 09/13/2024) pantoprazole DR (PROTONIX) 40 mg tablet TAKE 1 TABLET BY MOUTH DAILY BEFORE BREAKFAST ON EMPTY STOMACH, 1/2 HR BEFORE MEAL. tretinoin (RETIN-A) 0.1 % cream Apply to affected area daily at bedtime. famotidine (PEPCID) 20 mg tablet Take 1 tablet by mouth daily at bedtime. (Patient not taking: Reported on 04/02/2024) montelukast (SINGULAIR) 10 mg tablet Take 1 tablet by mouth daily at bedtime. (Patient not taking: Reported on 07/23/2024) albuterol HFA (PROVENTIL HFA, VENTOLIN HFA) 90 mcg/actuation inhaler Inhale 2 Puffs as instructed every 4 hours as needed. ALLERGIES: Allergies As of Date: 10/13/2024 Allergen Noted Reaction SEASONAL ALLERGIES 11/03/2023 Unknown Fully Assessed 10/13/2024 PAST SURGICAL HISTORY Procedure Laterality Date NONE FAMILY HISTORY: Allergic rhinitis:yes: mom, dad, brother, MGM, MGF, PGM, and PGF. Asthma: yes: mom and MGM. Eczema: yes: dad. Cystic fibrosis: no. Immunodeficiency: no. 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 Pets in the home: There are no pets in the home Outdoor animals: 4 cats Tobacco smoke: none currently History of exposure, for 4 years. Physical Exam: GENERAL APPEARANCE:Well appearing, alert, in no acute distress, well-hydrated, well nourished. HEENT: NCAT. EYES: conjunctiva and sclera normal. EARS: External ears normal. Canals clear. TM's normal. NOSE/SINUS: pallor and moderate edema of the nasal mucosa with scant clear secretions bilaterally THROAT: no erythema NECK:neck supple, no adenopathy HEART:RRR with normal S1 and S2 ,no murmurs, no gallops, no rubs LUNGS: clear to auscultation bilaterally, no wheezes, rales or rhonchi EXTREMITIES:Extremities normal, No deformities, No skin discoloration, and No edema SKIN: Skin color, texture, turgor normal. No rashes or lesions. ALLERGY SKIN TESTS: Completed on 10/13/2024 Deferred due to patient preference/cost concerns. * Steph Crandall RN - 10/13/2024 1:17 PM EDT Patient states that she noticed that when she ingests dairy she feels like she needs to clear her throat more. Patient also states that she believes she has seasonal allergies, but that it happens every time that the seasons change. Patient also reports skin flare ups, she believes that this could either be related to food or stress. Patient has hidradenitis and GERD. documented in this encounterMer[facility]03-12-[facility]25 NoteHNO ID: [id number] Author: STEPH CRANDALL RN Service: ? Author Type: Registered Nurse Type: Progress Notes Filed: 10/16/2024 20:17 Note Text: Patient states that she noticed that when she ingests dairy she feels like she needs to clear her throat more. Patient also states that she believes she has seasonal allergies, but that it happens every time that the seasons change. Patient also reports skin flare ups, she believes that this could either be related to food or stress. Patient has hidradenitis and GERD.[facility]03-06-2025 Telephone encounter Note* Telephone Encounter - Le Montenegro LPN - 10/07/2024 2:11 PM EST Patient updated via active [facility] Le Montenegro LPN October 07, 2024 2:11 PM [facility]03-06-[facility] Miscellaneous Notes* Telephone Encounter - Le Montenegro LPN - 10/07/2024 2:11 PM EST Patient updated via active [employer] Le Montenegro LPN October 07, 2024 2:11 PM * Telephone Encounter - Ce Conner MD - 10/07/2024 1:09 PM EST Li, You do have some inflammation in your body. It could be from the hidradenitis. In addition your vitamin D D levels are really low and your iron levels are low. I will send you supplements for the same. The rest of your labs are actually normal. Vitamin B12 is normal. Glucose blood counts liver kidneys are not concerning. Regards, Ce Conner MD documented in this encounterMer[facility]03-06-2025 Telephone encounter Note * Telephone Encounter - Ce Conner MD - 10/07/2024 1:09 PM EST Li, You do have some inflammation in your body. It could be from the hidradenitis. In addition your vitamin D D levels are really low and your iron levels are low. I will send you supplements for the same. The rest of your labs are actually normal. Vitamin B12 is normal. Glucose blood counts liver kidneys are not concerning. RegardsCe MD [facility]02-28-[facility] Evaluation note* Diagnosis Onset Date Resolution Status Admit Date Gastritis acute October 01, 2024 7:27am GERD (gastroesophageal reflu x disease) chronic October 01, 025 7:27am Chest pain, unspecified acute A pril 2024 11:25am Gastritis acute November 26 11:25am GERD (gastroesophageal reflu x disease) chronic November 26, 2024 11:25am Gastritis acute December 28, 2024 2:38pm GERD (gastroesophageal reflu x disease) chronic December 28, 2024 2 :38pm [employer] Work Phone: [phone]) 844-429402-10-2025 NoteHNO ID: [id number] Author: CE CONNER MD Service: ? Author Type: Physician Type: Progress Notes Filed: 09/13/2024 17:41 Note Text: Reason for Visit Patient presents with: ER F/U: [facility] 07/23/24- N/V AND diarrhea, [facility] 07/27/24 abdominal pain; [facility] 09/04/24 abdominal pain Chicho Wood is a 24 year old female who presents here today for Above Complaints.. 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 She had fullness in the face and difficulty breathing, has a h/o asthma and used to have allergies before. A couple nights ago she had tight ness in the chest area. Her family moved recently near the [employer], since then she has developed cystic acne She has constant reflux, feels burn in her chest, water brash, she feels like food is coming up the symptoms are getting worse. She was increased from Prilosec at 20 mg to 40 mg and now in the 40 is not working well for her. 07/23/24: yesterday was the last day of work, and school, went for [employer] green party, she ate a lot of food, vegetarian egg roll, sweet and sour meat balls, fruits. She was vomited a couple times and diarrhea. She has lose watery diarrhea. Mother almost going away and her mother reported that she has been having a little tremor for the past 2 or 3 months, patient is reporting 20 pound weight loss over the past 6 months and she is not trying to lose weight. She also has severe regurgitation and palpitations when she eats which is making her afraid to eat, she noticed she is having palpitations on and off and finds it hard to go up the stairs. Today her blood pressure is normal but her pulse is 132 and she has a fever of 100.2 dehydration with 2 episodes of diarrhea and some vomiting should not give a pulse rate of 132. This along with the tremors which are very fine and mother's history of Graves' disease diagnosis at the age of 26 is very concerning for her to have or would be developing some kind of a thyroid storm. Initially we wanted to do the workup here but we looked at the time and we are past 515 today, I do not think patient would be able to go and get her blood work done downstairs and we were not able to get the EKG so we decided to send her to the ER. 09/13/24: A couple weeks ago she was in the ER, for abdominal pain, dcd on Carafate, she took it for a week now, feel better but she still has burning in the night in the chest and the back. She was referred to GI. On the protonix currently along with the carafate. Notes increased eruptions of her HS with the carafate. Needs egd but was not able to get in with Dr Larios. Discussed basic foundations of health. No problem-specific Assessment AND Plan notes found for this encounter. PAST MEDICAL HISTORY Diagnosis Date Asthma PAST SURGICAL HISTORY Procedure Laterality Date NONE FAMILY HISTORY Problem Relation Age of Onset Thyroid Mother Hypertension Mother Hyperlipidemia Father Kidney Disease Maternal Grandmother Hypertension Maternal Grandmother Thyroid Maternal Grandmother Kidney Disease Maternal Grandfather failure Hyperlipidemia Paternal Grandmother Hyperlipidemia Paternal Grandfather Social History Tobacco Use Smoking status: Former Types: Cigarettes Smokeless tobacco: Never Vaping Use Vaping status: Former Substance Use Topics Alcohol use: No Drug use: No Past medical history, appointments, medications, allergies reviewed. Pertinent Lab/Diagnostic Studies are reviewed and discussed today Current Outpatient Medications: sucralfate (CARAFATE) [address] (PROTONIX) 40 mg tablet tretinoin (RETIN-A) 0.1 % cream albuterol HFA (PROVENTIL HFA, VENTOLIN HFA) 90 mcg/actuation inhaler penicillin V potassium 500 mg tablet propranolol (INDERAL) 40 mg tablet ergocalciferol 50,000 unit capsule (VITAMIN D2, DRISDOL) ferrous sulfate 325 mg (65 mg iron) tablet famotidine (PEPCID) 20 mg tablet montelukast (SINGULAIR) 10 mg tablet Review of Systems CONSTITUTIONAL: No fevers, chills night sweats, unintended weight loss CARDIOVASCULAR: No chest pain, dyspnea, palpitations, orthopnea, PND, ankle edema. PULM: No dyspnea, unexplained cough. GI: No dysphagia/odynophagia, problematic reflux, constipation, diarrhea, changes in stool habits, hematochezia, melena. : No new urinary complaints, including dysuria, gross hematuria or pyuria. NEURO: No new balance problems, peripheral weakness/paresthesias or numbness of concern. Physical Exam BP 99/66 Pulse 83 Temp 37.1 ?C (98.7 ?F) (Temporal) Resp 16 Wt 73.8 kg (162 lb 9.6 oz) LMP 08/26/2024 (Exact Date) BMI 31.76 kg/m? General appearance: Well appearing (more content not included)...[facility]02-10-2025 History of Present illness Narrative* Ce Conner MD - 09/13/2024 4:35 PM EST Reason for Visit Patient presents with: ER F/U: [facility] 07/23/24- N/V & diarrhea, [facility] 07/27/24 abdominal pain; [facility] 09/04/24 abdominal pain Chicho Wood is a 24 year old female who presents here today for Above Complaints.. 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 She had fullness in the face and difficulty breathing, has a h/o asthma and used to have allergies before. A couple nights ago she had tight ness in the chest area. Her family moved recently near the [employer], since then she has developed cystic acne She has constant reflux, feels burn in her chest, water brash, she feels like food is coming up thesymptoms are getting worse. She was increased from Prilosec at 20 mg to 40 mg and now in the 40 is not working well for her. 07/23/24: yesterday was the last day of work, and school, went for [employer] green party, she ate a lot of food, vegetarian egg roll, sweet and sour meat balls, fruits. She was vomited a couple times and diarrhea. She has lose watery diarrhea. Mother almost going away and her mother reported that she has been having a little tremor for the past 2 or 3 months, patient is reporting 20 pound weight loss over the past 6 months and she is not trying to lose weight. She also has severe regurgitation and palpitations when she eats which is making her afraid to eat, she noticed she is having palpitations on and off and finds it hard to go up the stairs. Today her blood pressure is normal but her pulse is 132 and she has a fever of 100.2 dehydration with 2 episodes of diarrhea and some vomiting should not give a pulse rate of 132. This along with the tremors which are very fine and mother's history of Graves' disease diagnosis at the age of 26 is very concerning for her to have or would be developing some kind of a thyroid storm. Initially we wanted to do the workup here but we looked at the time and we are past 515 today, I donot think patient would be able to go and get her blood work done downstairs and we were not able to get the EKG so we decided to send her to the ER. 09/13/24: A couple weeks ago she was in the ER, for abdominal pain, dcd on Carafate, she took it for a week now, feel better but she still has burning in the night in the chest and the back. She was referred to GI. On the protonix currently along with the carafate. Notes increased eruptions of her HS with the carafate. Needs egd but was not able to get in with Dr Ric. Discussed basic foundations of health. No problem-specific Assessment & Plan notes found for this encounter. PAST MEDICAL HISTORY Diagnosis Date Asthma PAST SURGICAL HISTORY Procedure Laterality Date NONE FAMILY HISTORY Problem Relation Age of Onset Thyroid Mother Hypertension Mother Hyperlipidemia Father Kidney Disease Maternal Grandmother Hypertension Maternal Grandmother Thyroid Maternal Grandmother Kidney Disease Maternal Grandfather failure Hyperlipidemia Paternal Grandmother Hyperlipidemia Paternal Grandfather Social History Tobacco Use Smoking status: Former Types: Cigarettes Smokeless tobacco: Never Vaping Use Vaping status: Former Substance Use Topics Alcohol use: No Drug use: No Past medical history, appointments, medications, allergies reviewed. Pertinent Lab/Diagnostic Studies are reviewed and discussed today Current Outpatient Medications: sucralfate (CARAFATE) [address] (PROTONIX) 40 mg tablet tretinoin (RETIN-A) 0.1 % cream albuterol HFA (PROVENTIL HFA, VENTOLIN HFA) 90 mcg/actuation inhaler penicillin V potassium 500 mg tablet propranolol (INDERAL) 40 mg tablet ergocalciferol 50,000 unit capsule (VITAMIN D2, DRISDOL) ferrous sulfate 325 mg (65 mg iron) tablet famotidine (PEPCID) 20 mg tablet montelukast (SINGULAIR) 10 mg tablet Review of Systems CONSTITUTIONAL: No fevers, chills night sweats, unintended weight loss CARDIOVASCULAR: No chest pain, dyspnea, palpitations, orthopnea, PND, ankle edema. PULM: No dyspnea, unexplained cough. GI: No dysphagia/odynophagia, problematic reflux, constipation, diarrhea, changes in stool habits, hematochezia, melena. : No new urinary complaints, including dysuria, gross hematuria or pyuria. NEURO: No new balance problems, peripheral weakness/paresthesias or numbness of concern. Physical Exam BP 99/66 Pulse 83 Temp 37.1 C (98.7 F) (Temporal) Resp 16 Wt 73.8 kg (162 lb 9.6 oz) LMP 08/26/2024 (Exact Date) BMI 31.76 kg/m General appearance: Well appearing, alert, in no acute distress, well nourished. Skin: new lesions in the arm pit Head: Normocephalic, no masses, lesions, tenderness or abnormalities Eyes: Anicteric sclera. Pupils are equally round and reactive to light. Extraocular movements are intact. Lungs: Lungs clear to auscultation. No wheezing, rhonchi, rales Heart: RRR without murmur, gallop, or rubs. Extremities: No deformities, edema, skin discoloration, clubbing or cyanosis. Good capillary refill. ASSESSMENT/PLAN: - DOXYCYCLINE MONOHYDRATE 100 MG CAPSULE - CONSULT TO DERMATOLOGY 2. Allergic rhinitis, unspecified seasonality, unspecified trigger - ICD9: 477.9, ICD10: J30.9 3. Gastroesophageal reflux disease with esophagitis, unspecified whether hemorrhage - ICD9: 530.11,ICD10: K21.00 - CONSULT TO GASTROENTEROLOGY 4. H/O Graves' disease - ICD9: V12.29, ICD10: Z86.39 5. Hyperthyroidism - ICD9: 242.90, ICD10: E05.90 - THYROGLOBULIN ANTIBODY - THYROID PEROXIDASE ANTIBODY 6. Indigestion - ICD9: 536.8, ICD10: K30 - H PYLORI IGG AB 7. Vitamin D deficiency - ICD9: 268.9, ICD10: E55.9 - VITAMIN D 25 HYDROXY 8. Anemia, unspecified type - ICD9: 285.9, ICD10: D64.9 - IRON AND TIBC - FERRITIN 9. Vitamin B12 deficiency - ICD9: 266.2, ICD10: E53.8 - VITAMIN B12 Ce Conner MD [facility] Telephone encounter Note * Telephone Encounter - Juana Duval RN - 09/09/2024 12:17 PM EST Patient reports she was seen in [facility] ER on 09-04-24 with CP, SOB, abd pain. Results were inconclusive for gastritis, or ulcer, or H pylori. Patient was prescribed sulcrafate 4 times day, and pantoprazole was increased to twice daily. Patient just started the medication yesterday and has only taken 2 doses, has not taken it yet today and it is noon now. Reports she is having the same symptoms and has been continuing to have Chest tightness, SOB, abdominal burning- she has been having these since before she went to ER. Advised patient she needs to try to take the medications to see if they will work to relieve these symptoms. Scheduled hosp f/u with pcp. Pt reports ER referred her to GI and she has a call out to Dr. Larios at [facility] to schedule a f/u appt. Advised patient if she develops severe CP, SOB, abdominal pain needs to return to ER. Patient agreeable. [facility]02-06-[facility] Miscellaneous Notes* Telephone Encounter - Juana Duval RN - 09/09/2024 12:17 PM EST Patient reports she was seen in [facility] ER on 09-04-24 with CP, SOB, abd pain. Results were inconclusive for gastritis, or ulcer, or H pylori. Patient was prescribed sulcrafate 4 times day, and pantoprazole was increased to twice daily. Patient just started the medication yesterday and has only taken 2 doses, has not taken it yet today and it is noon now. Reports she is having the same symptoms and has been continuing to have Chest tightness, SOB, abdominal burning- she has been having these since before she went to ER. Advised patient she needs to try to take the medications to see if they will work to relieve these symptoms. Scheduled hosp f/u with pcp. Pt reports ER referred her to GI and she has a call out to Dr. Larios at [facility] to schedule a f/u appt. Advised patient if she develops severe CP, SOB, abdominal pain needs to return to ER. Patient agreeable. [facility] Telephone encounter Note * Telephone Encounter - Chloe Radford RN - 09/04/2024 7:44 PM EST Reason for Call: Abdominal pain and chest pain Patient called stating she is having severe generalized pain 8/10 upper abdomen onset 6:30 pm this evening 09/04/2024. This spreads into back, chest and into throat. Admits to abdominal bloating. She states she is having pain in the center of her chest 6/10 spreading outward. Outcome: Go to ED Now Patient verbalized understanding of recommendation and care advise. She will seek care at [facility]. She was instructed while on your way to the ED, if symptoms worsen candy puller and call 911 Reason for Disposition [1] SEVERE pain (e.g., excruciating) AND [2] present > 1 hour Protocols used: Abdominal Pain - [id number] [facility]02-01-2025 Miscellaneous Notes* Telephone Encounter - Chloe Radford RN - 09/04/2024 7:44 PM EST Reason for Call: Abdominal pain and chest pain Patient called stating she is having severe generalized pain 8/10 upper abdomen onset 6:30 pm this evening 09/04/2024. This spreads into back, chest and into throat. Admits to abdominal bloating. She states she is having pain in the center of her chest /10 spreading outward. Outcome: Go to ED Now Patient verbalized understanding of recommendation and care advise. She will seek care at [facility]. She was instructed while on your way to the ED, if symptoms worsen candy puller and call 911 Reason for Disposition [1] SEVERE pain (e.g., excruciating) AND [2] present > 1 hour Protocols used: Abdominal Pain - [id number] documented in this encounterMer[facility]01-10-[facility]25 Telephone encounter Note * Telephone Encounter - Fanny Farnsworth - 08/13/2024 7:52 AM EST Patient no showed appointment with Dr. Maciel so all of this can be scheduled together when she reschedules. [facility]01-10-2025 Miscellaneous Notes* Telephone Encounter - Fanny Farnsworth - 08/13/2024 7:52 AM EST Patient no showed appointment with Dr. Maciel so all of this can be scheduled together when she reschedules. * Telephone Encounter - Kelly Reyez 08/11/2024 1:46 PM EST LVM to call back and schedule testing. PSS: [facility] does not have any openings, but the [facility] has availability for tomorrow prior to appointment. Thanks * Telephone Encounter - Heaven Maciel MD - 08/11/2024 1:24 PM EST [facility] clerical pool: Please try to add patient on for a storm and FeNO prior to her appt with me tomorrow at 3 pm. (Orders previously placed.) Heaven Maciel MD documented in this encounterMer[facility]01-[facility]25 Telephone encounter Note * Telephone Encounter - Kelly Reyez - 08/11/2024 1:46 PM EST LVM to call back and schedule testing. PSS: [facility] does not have any openings, but the [facility] has availability for tomorrow prior to appointment. Thanks [facility]01-08-[facility] Telephone encounter Note* Telephone Encounter - Heaven Mcaiel MD - 08/11/2024 1:24 PM EST [facility] clerical pool: Please try to add patient on for a storm and FeNO prior to her appt with me tomorrow at 3 pm. (Orders previously placed.) Heaven Maciel MD [facility] Work Phone: 1(652) 291-639012-20-2024 NoteHNO ID: [id number] Author: CE CONNER MD Service: ? Author Type: Physician Type: Progress Notes Filed: 07/23/2024 17:34 Note Text: Reason for Visit Patient presents with: Abdominal Pain: Lower abdominal 1 day, pressure, n/v Chicho Wood is a 24 year old female who presents here today for Above Complaints.. 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 She had fullness in the face and difficulty breathing, has a h/o asthma and used to have allergies before. A couple nights ago she had tight ness in the chest area. Her family moved recently near the [employer], since then she has developed cystic acne She has constant reflux, feels burn in her chest, water brash, she feels like food is coming up the symptoms are getting worse. She was increased from Prilosec at 20 mg to 40 mg and now in the 40 is not working well for her. 07/23/24: yesterday was the last day of work, and school, went for [employer] green party, she ate a lot of food, vegetarian egg roll, sweet and sour meat balls, fruits. She was vomited a couple times and diarrhea. She has lose watery diarrhea. Mother almost going away and her mother reported that she has been having a little tremor for the past 2 or 3 months, patient is reporting 20 pound weight loss over the past 6 months and she is not trying to lose weight. She also has severe regurgitation and palpitations when she eats which is making her afraid to eat, she noticed she is having palpitations on and off and finds it hard to go up the stairs. Today her blood pressure is normal but her pulse is 132 and she has a fever of 100.2 dehydration with 2 episodes of diarrhea and some vomiting should not give a pulse rate of 132. This along with the tremors which are very fine and mother's history of Graves' disease diagnosis at the age of 26 is very concerning for her to have or would be developing some kind of a thyroid storm. Initially we wanted to do the workup here but we looked at the time and we are past 515 today, I do not think patient would be able to go and get her blood work done downstairs and we were not able to get the EKG so we decided to send her to the ER. No problem-specific Assessment AND Plan notes found for this encounter. PAST MEDICAL HISTORY Diagnosis Date Asthma PAST SURGICAL HISTORY Procedure Laterality Date NONE FAMILY HISTORY Problem Relation Age of Onset Thyroid Mother Hypertension Mother Hyperlipidemia Father Kidney Disease Maternal Grandmother Hypertension Maternal Grandmother Thyroid Maternal Grandmother Kidney Disease Maternal Grandfather failure Hyperlipidemia Paternal Grandmother Hyperlipidemia Paternal Grandfather Social History Tobacco Use Smoking status: Former Types: Cigarettes Smokeless tobacco: Never Vaping Use Vaping status: Former Substance Use Topics Alcohol use: No Drug use: No Past medical history, appointments, medications, allergies reviewed. Pertinent Lab/Diagnostic Studies are reviewed and discussed today Current Outpatient Medications: penicillin V potassium 500 mg tablet ferrous sulfate 325 mg (65 mg iron) tablet pantoprazole DR (PROTONIX) 40 mg tablet tretinoin (RETIN-A) 0.1 % cream albuterol HFA (PROVENTIL HFA, VENTOLIN HFA) 90 mcg/actuation inhaler ergocalciferol 50,000 unit capsule (VITAMIN D2, DRISDOL) famotidine (PEPCID) 20 mg tablet montelukast (SINGULAIR) 10 mg tablet Review of Systems CONSTITUTIONAL: No fevers, chills night sweats, unintended weight loss CARDIOVASCULAR: No chest pain, dyspnea, palpitations, orthopnea, PND, ankle edema. PULM: No dyspnea, unexplained cough. GI: No dysphagia/odynophagia, problematic reflux, constipation, diarrhea, changes in stool habits, hematochezia, melena. : No new urinary complaints, including dysuria, gross hematuria or pyuria. NEURO: No new balance problems, peripheral weakness/paresthesias or numbness of concern. Physical Exam BP 102/78 (BP Site: Left Arm) Pulse (!) 132 Temp 37.9 ?C (100.2 ?F) Wt 74.7 kg (164 lb 9.6 oz) LMP 12/13/2021 SpO2 99% BMI 32.15 kg/m? General appearance: Well appearing, alert, in no acute distress, well nourished. Skin: lower part of the face is filled with acne which is cystic Head: Normocephalic, no masses, lesions, tenderness or abnormalities Eyes: Anicteric sclera. Pupils are equally round and reactive to light. Extraocular movements are intact. Lungs: Lungs clear to auscultation. No wheezing, rhonchi, rales Heart: RRR without murmur, gallop, or rubs. Extremities: No deformities, edema, skin discoloration, clubbing or cyanosis. Good capillary refill. ASSESSMENT/PLAN: 1. Food po (more content not included)...[facility]12-20-2024 History of Present illness Narrative* Ce Conner MD - 07/23/2024 4:51 PM EST Reason for Visit Patient presents with: Abdominal Pain: Lower abdominal 1 day, pressure, n/v Adonayungallo Wood is a 24 year old female who presents here today for Above Complaints.. 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 She had fullness in the face and difficulty breathing, has a h/o asthma and used to have allergies before. A couple nights ago she had tight ness in the chest area. Her family moved recently near the [employer], since then she has developed cystic acne She has constant reflux, feels burn in her chest, water brash, she feels like food is coming up thesymptoms are getting worse. She was increased from Prilosec at 20 mg to 40 mg and now in the 40 is not working well for her. 07/23/24: yesterday was the last day of work, and school, went for [employer] green party, she ate a lot of food, vegetarian egg roll, sweet and sour meat balls, fruits. She was vomited a couple times and diarrhea. She has lose watery diarrhea. Mother almost going away and her mother reported that she has been having a little tremor for the past 2 or 3 months, patient is reporting 20 pound weight loss over the past 6 months and she is not trying to lose weight. She also has severe regurgitation and palpitations when she eats which is making her afraid to eat, she noticed she is having palpitations on and off and finds it hard to go up the stairs. Today her blood pressure is normal but her pulse is 132 and she has a fever of 100.2 dehydration with 2 episodes of diarrhea and some vomiting should not give a pulse rate of 132. This along with the tremors which are very fine and mother's history of Graves' disease diagnosis at the age of 26 is very concerning for her to have or would be developing some kind of a thyroid storm. Initially we wanted to do the workup here but we looked at the time and we are past 515 today, I donot think patient would be able to go and get her blood work done downstairs and we were not able to get the EKG so we decided to send her to the ER. No problem-specific Assessment & Plan notes found for this encounter. PAST MEDICAL HISTORY Diagnosis Date Asthma PAST SURGICAL HISTORY Procedure Laterality Date NONE FAMILY HISTORY Problem Relation Age of Onset Thyroid Mother Hypertension Mother Hyperlipidemia Father Kidney Disease Maternal Grandmother Hypertension Maternal Grandmother Thyroid Maternal Grandmother Kidney Disease Maternal Grandfather failure Hyperlipidemia Paternal Grandmother Hyperlipidemia Paternal Grandfather Social History Tobacco Use Smoking status: Former Types: Cigarettes Smokeless tobacco: Never Vaping Use Vaping status: Former Substance Use Topics Alcohol use: No Drug use: No Past medical history, appointments, medications, allergies reviewed. Pertinent Lab/Diagnostic Studies are reviewed and discussed today Current Outpatient Medications: penicillin V potassium 500 mg tablet ferrous sulfate 325 mg (65 mg iron) tablet pantoprazole DR (PROTONIX) 40 mg tablet tretinoin (RETIN-A) 0.1 % cream albuterol HFA (PROVENTIL HFA, VENTOLIN HFA) 90 mcg/actuation inhaler ergocalciferol 50,000 unit capsule (VITAMIN D2, DRISDOL) famotidine (PEPCID) 20 mg tablet montelukast (SINGULAIR) 10 mg tablet Review of Systems CONSTITUTIONAL: No fevers, chills night sweats, unintended weight loss CARDIOVASCULAR: No chest pain, dyspnea, palpitations, orthopnea, PND, ankle edema. PULM: No dyspnea, unexplained cough. GI: No dysphagia/odynophagia, problematic reflux, constipation, diarrhea, changes in stool habits, hematochezia, melena. : No new urinary complaints, including dysuria, gross hematuria or pyuria. NEURO: No new balance problems, peripheral weakness/paresthesias or numbness of concern. Physical Exam BP 102/78 (BP Site: Left Arm) Pulse (!) 132 Temp 37.9 C (100.2 F) Wt 74.7 kg (164 lb 9.6 oz) LMP 12/13/2021 SpO2 99% BMI 32.15 kg/m General appearance: Well appearing, alert, in no acute distress, well nourished. Skin: lower part of the face is filled with acne which is cystic Head: Normocephalic, no masses, lesions, tenderness or abnormalities Eyes: Anicteric sclera. Pupils are equally round and reactive to light. Extraocular movements are intact. Lungs: Lungs clear to auscultation. No wheezing, rhonchi, rales Heart: RRR without murmur, gallop, or rubs. Extremities: No deformities, edema, skin discoloration, clubbing or cyanosis. Good capillary refill. ASSESSMENT/PLAN: 1. Food poisoning - ICD9: 005.9, ICD10: A05.9 (primary diagnosis) Likely food poisoning 2. Abdominal pain, unspecified abdominal location - ICD9: 789.00, ICD10: R10.9 3. Fever and chills - ICD9: 780.60, ICD10: R50.9 - URINALYSIS WITH MICROSCOPIC, REFLEX CULTURE - US THYROID/PARATHYROID - CONSULT TO ENDOCRINOLOGY 4. Tremors of nervous system - ICD9: 781.0, ICD10: R25.1 I am thinking about Graves' disease and thyroid storm in her. - CONSULT TO ENDOCRINOLOGY - PROPRANOLOL 40 MG TABLET - T4 FREE/FREE THYROXINE 5. Weight loss - ICD9: 783.21, ICD10: R63.4 - THYROID STIMULATING HORMONE - THYROGLOBULIN ANTIBODY - THYROID PEROXIDASE ANTIBODY - COMPLETE BLOOD COUNT AND DIFFERENTIAL - COMPREHENSIVE METABOLIC PANEL - SEDIMENTATION RATE, WESTERGREN - C-REACTIVE PROTEIN - US THYROID/PARATHYROID - CONSULT TO ENDOCRINOLOGY - PROPRANOLOL 40 MG TABLET 6. Palpitations - ICD9: 785.1, ICD10: R00.2 - ECG COMPLETE - CONSULT TO ENDOCRINOLOGY - PROPRANOLOL 40 MG TABLET - T4 FREE/FREE THYROXINE Ce Conner MD documented [facility] encounter[facility] Telephone encounter Note * Telephone Encounter - Cathy Acosta RN - 07/23/2024 10:25 AM EST Patient call in for abdominal pain/bloating since 10 pm last night. Patient states that she thinks it is due to things she had ate last night. Patient also reports diarrhea and vomiting. Nurse Triage assessment completed with protocol recommending for disposition of see PCP in 4 hours.Patient scheduled to see Dr. Conner today at 4:20. Advised patient that testing would not be able toget done today if ordered due to the time of day of appointment. Advised patient that she may have to go to ER to get testing done. Patient and patient's mother choosing to come into appointment today. Care advice reviewed with patient, patient stated understanding. Patient advised to contact office or seek evaluation in ER if symptoms persist or gets worse. Reason for Disposition [1] MILD-MODERATE pain AND [2] constant AND [3] present > 2 hours Answer Assessment - Initial Assessment Questions 1. LOCATION: Pressure all over; Patient states that it hurts everywhere, upper, lower, and on the sides. 2. RADIATION: Shoots towards back 3. ONSET: Pain began around 10 pm last night 4. SUDDEN: Browder like Gerd at first then she started vomiting; Gradual 5. PATTERN Constant 6. SEVERITY: Patient rates pain 7.5 out of 10. States that pain is not as bad as it was. 7. RECURRENT SYMPTOM: Yes, patient states that she deals with GERD. Patient thought it was that at first but then she started feeling a lot of pressure. 8. CAUSE: Patient thinks she ate a lot of food yesterday and a lot of unfamiliar food a at work 9. RELIEVING/AGGRAVATING FACTORS: Nothing makes it better; Has a hard time walking around; Patient has been laying on her side which helps a little bit; Movement makes it worse 10. OTHER SYMPTOMS: Back Pain; Diarrhea (3 am-6 am); Feels bloated and Looks bloated; Vomited starting at 3 am and started at 5:30 Protocols used: Abdominal Pain - [id number] [facility] Miscellaneous Notes* Telephone Encounter - Cathy Acosta RN - 07/23/2024 10:25 AM EST Patient call in for abdominal pain/bloating since 10 pm last night. Patient states that she thinks it is due to things she had ate last night. Patient also reports diarrhea and vomiting. Nurse Triage assessment completed with protocol recommending for disposition of see PCP in 4 hours.Patient scheduled to see Dr. Conner today at 4:20. Advised patient that testing would not be able toget done today if ordered due to the time of day of appointment. Advised patient that she may have to go to ER to get testing done. Patient and patient's mother choosing to come into appointment today. Care advice reviewed with patient, patient stated understanding. Patient advised to contact office or seek evaluation in ER if symptoms persist or gets worse. Reason for Disposition [1] MILD-MODERATE pain AND [2] constant AND [3] present > 2 hours Answer Assessment - Initial Assessment Questions 1. LOCATION: Pressure all over; Patient states that it hurts everywhere, upper, lower, and on the sides. 2. RADIATION: Shoots towards back 3. ONSET: Pain began around 10 pm last night 4. SUDDEN: Browder like Gerd at first then she started vomiting; Gradual 5. PATTERN Constant 6. SEVERITY: Patient rates pain 7.5 out of 10. States that pain is not as bad as it was. 7. RECURRENT SYMPTOM: Yes, patient states that she deals with GERD. Patient thought it was that at first but then she started feeling a lot of pressure. 8. CAUSE: Patient thinks she ate a lot of food yesterday and a lot of unfamiliar food a at work 9. RELIEVING/AGGRAVATING FACTORS: Nothing makes it better; Has a hard time walking around; Patient has been laying on her side which helps a little bit; Movement makes it worse 10. OTHER SYMPTOMS: Back Pain; Diarrhea (3 am-6 am); Feels bloated and Looks bloated; Vomited starting at 3 am and started at 5:30 Protocols used: Abdominal Pain - [id number] documented in this encounterMer[facility]10-[facility]-2024 Telephone encounter Note * Telephone Encounter - Renetta Leon MA - 05/18/2024 8:53 AM EDT Faxed as requested. Renetta Leon MA [facility]10-[facility] Miscellaneous Notes* Telephone Encounter - Renetta Leon MA - 05/18/2024 8:53 AM EDT Faxed as requested. Renetta Leon MA * Telephone Encounter - Estefany Palencia RN - 05/14/2024 10:36 AM EDT Patient returns call and reports she was told form could be faxed to employer. Patient asking for form to be faxed to [employer] at [phone]. Estefany Palencia RN * Telephone Encounter - Le Montenegro LPN - 04/30/2024 11:05 AM EDT Called and spoke to patient, will come by office to picker form Le Montenegro LPN April 30, 2024 11:06 AM * Telephone Encounter - Consuelo Mcginnis MA - 04/29/2024 12:45 PM EDT Last OV was 04/02/24. Form printed and placed on PCP desk for review. documented in this encounterMer[facility]10-11-2024 Telephone encounter Note * Telephone Encounter - Estefany Palencia RN - 05/14/2024 10:36 AM EDT Patient returns call and reports she was told form could be faxed to employer. Patient asking for form to be faxed to [employer] at [phone]. Estefany Palencia RN [facility]10-01-2024 Telephone encounter Note* Telephone Encounter - Shazia Ayala LPN - 05/04/2024 12:43 PM EDT Patient returned call and went over results, notes from Dr Conner with understanding. Aware rx x 2 were sent to the pharmacy. [facility]-01[facility] Miscellaneous Notes* Telephone Encounter - Shazia Ayala LPN - 05/04/2024 12:43 PM EDT Patient returned call and went over results, notes from Dr Conner with understanding. Aware rx x 2 were sent to the pharmacy. * Telephone Encounter - Consuelo Mcginnis MA - 05/03/2024 8:28 AM EDT Left message for return call. * Telephone Encounter - Ce Conner MD - 05/03/2024 6:03 AM EDT Shaunice, Both your vit di and iron are very low, I will send replacement doses for you please take each for at least 6 months Ce Craven MD documented in this encounterMer[facility]09-30-2024 Telephone encounter Note * Telephone Encounter - Consuelo Mcginnis MA - 05/03/2024 8:28 AM EDT Left message for return call. [facility] Telephone encounter Note* Telephone Encounter - Ce Conner MD - 05/03/2024 6:03 AM EDT Shaunice, Both your vit di and iron are very low, I will send replacement doses for you please take each for at least 6 months Merissa, Ce Conner MD [facility]09-27-2024 Telephone encounter Note* Telephone Encounter - Le Montenegro LPN - 04/30/2024 11:05 AM EDT Called and spoke to patient, will come by office to picker form Le Montenegro LPN April 30, 2024 11:06 AM [facility]09-26-[facility] Telephone encounter Note* Telephone Encounter - Consuelo Mcginnis MA - 04/29/2024 12:45 PM EDT Last OV was 04/02/24. Form printed and placed on PCP desk for review. [facility] Telephone encounter Note* Telephone Encounter - Allyn Peterson LPN - 04/26/2024 3:36 PM EDT Asking for 90 day supply. Patient has been identified by name and date of : Yes Patient phones for refill(s): Requested Prescriptions Pending Prescriptions Disp Refills pantoprazole DR (PROTONIX) 40 mg tablet [Pharmacy Med Name: PANTOPRAZOLE SOD DR 40 MG TAB] 90 tablet 1 Sig: TAKE 1 TABLET BY MOUTH DAILY BEFORE BREAKFAST ON EMPTY STOMACH, 1/2 HR BEFORE MEAL. Date of last office visit in primary care: 04/02/2024 Date of next office visit in primary care: 05/24/2024 Please advise. Thank you. Allyn Peterson LPN. [facility]-23-[facility] Miscellaneous Notes* Telephone Encounter - Allyn Peterson LPN - 04/26/2024 3:36 PM EDT Asking for 90 day supply. Patient has been identified by name and date of : Yes Patient phones for refill(s): Requested Prescriptions Pending Prescriptions Disp Refills pantoprazole DR (PROTONIX) 40 mg tablet [Pharmacy Med Name: PANTOPRAZOLE SOD DR 40 MG TAB] 90 tablet 1 Sig: TAKE 1 TABLET BY MOUTH DAILY BEFORE BREAKFAST ON EMPTY STOMACH, 1/2 HR BEFORE MEAL. Date of last office visit in primary care: 04/02/2024 Date of next office visit in primary care: 05/24/2024 Please advise. Thank you. Allyn Peterson LPN. documented in this encounterMer[facility]08-30-2024 History of Present illness Narrative* Ce Conner MD - 04/02/2024 1:39 PM EDT Reason for Visit Patient presents with: Recheck: Gerd and iron Chicho Wood is a 24 year old female who presents here today for Above Complaints.. 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 She had fullness in the face and difficulty breathing, has a h/o asthma and used to have allergies before. A couple nights ago she had tight ness in the chest area. Her family moved recently near the [employer], since then she has developed cystic acne She has constant reflux, feels burn in her chest, water brash, she feels like food is coming up thesymptoms are getting worse. She was increased from Prilosec at 20 mg to 40 mg and now in the 40 is not working well for her. No problem-specific Assessment & Plan notes found for this encounter. PAST MEDICAL HISTORY No date: Asthma PAST SURGICAL HISTORY No date: NONE FAMILY HISTORY Problem Relation Age of Onset Thyroid Mother Hypertension Mother Hyperlipidemia Father Kidney Disease Maternal Grandmother Hypertension Maternal Grandmother Thyroid Maternal Grandmother Kidney Disease Maternal Grandfather failure Hyperlipidemia Paternal Grandmother Hyperlipidemia Paternal Grandfather Social History Tobacco Use Smoking status: Former Types: Cigarettes Smokeless tobacco: Never Vaping Use Vaping status: Former Substance Use Topics Alcohol use: No Drug use: No Past medical history, appointments, medications, allergies reviewed. Pertinent Lab/Diagnostic Studies are reviewed and discussed today Current Outpatient Medications: omeprazole (PRILOSEC) 40 mg capsule montelukast (SINGULAIR) 10 mg tablet albuterol HFA (PROVENTIL HFA, VENTOLIN HFA) 90 mcg/actuation inhaler famotidine (PEPCID) 20 mg tablet Review of Systems CONSTITUTIONAL: No fevers, chills night sweats, unintended weight loss CARDIOVASCULAR: No chest pain, dyspnea, palpitations, orthopnea, PND, ankle edema. PULM: No dyspnea, unexplained cough. GI: No dysphagia/odynophagia, problematic reflux, constipation, diarrhea, changes in stool habits, hematochezia, melena. : No new urinary complaints, including dysuria, gross hematuria or pyuria. NEURO: No new balance problems, peripheral weakness/paresthesias or numbness of concern. Physical Exam BP 112/62 (BP Site: Left Arm) Pulse 102 Wt 77.3 kg (170 lb 6.4 oz) LMP 12/13/2021 SpO2 99% BMI 33.28 kg/m General appearance: Well appearing, alert, in no acute distress, well nourished. Skin: lower part of the face is filled with acne which is cystic Head: Normocephalic, no masses, lesions, tenderness or abnormalities Eyes: Anicteric sclera. Pupils are equally round and reactive to light. Extraocular movements are intact. Lungs: Lungs clear to auscultation. No wheezing, rhonchi, rales Heart: RRR without murmur, gallop, or rubs. Extremities: No deformities, edema, skin discoloration, clubbing or cyanosis. Good capillary refill. ASSESSMENT/PLAN: 1. Iron deficiency anemia, unspecified iron deficiency anemia type - ICD9: 280.9, ICD10: D50.9 (primary diagnosis) - IRON AND TIBC - FERRITIN 2. Vitamin D deficiency - ICD9: 268.9, ICD10: E55.9 - VITAMIN D 25 HYDROXY 3. Moderate persistent asthma with exacerbation - ICD9: 493.92, ICD10: J45.41 - Mild intermittent asthma stable - Avoidance of triggers recommended - CONSULT TO ALLERGY/IMMUNOLOGY 4. Mild intermittent asthma without complication - ICD9: 493.90, ICD10: J45.20 Continue with Singulair 5. Cystic acne - ICD9: 706.1, ICD10: L70.0 - CONSULT TO DERMATOLOGY 6. Gastroesophageal reflux disease without esophagitis - ICD9: 530.81, ICD10: K21.9 Trial of Protonix. If she does not get better in 6 weeks we would like to send her to GI to scope her. Ce Conner MD documented in this encounterMer[facility]08-07-2024 History of Present illness Narrative* Ashli Vicente RT(R) - 03/10/2024 2:30 PM EDT Radiology Service Progress Note PATIENT NAME: Chicho Wood DATE OF SERVICE: March 10, 2024 TIME: 2:57 PM PATIENT IDENTITY VERIFICATION COMPLETED USING TWO (2) IDENTIFIERS: Name and Date of confirmedby patient verbally. FALL SCREENING: Has the patient had 2 falls in the last year or 1 fall with injury or currently using an Ambulatory Assistive Device (Walker, Cane, Wheelchair, Crutches, etc.)? No PATIENT GENDER DATA: Female. status: : No status: N/A PATIENT RELEVANT IMPLANT DATA REVIEWED: Not Applicable PATIENT PRESENTS WITH AN IMPLANTABLE OR ATTACHED MILKING WORKER: No RADIOLOGY DEPARTMENT: Ultrasound PERIPHERAL IV DATA: Not applicable SIGNED BY: Ashli Vicente RDMS March 10, 2024 2:57 PM documented in this encounterMer[facility]08-01-2024 Telephone encounter Note * Telephone Encounter - Aby Berrios RN - 03/04/2024 9:20 AM EDT Pts mother called and is notified of providers results. She voices understanding and will let her daughter know. Aby Berrios RN [facility]08-01-2024 Miscellaneous Notes* Telephone Encounter - Aby Berrios RN - 03/04/2024 9:20 AM EDT Pts mother called and is notified of providers results. She voices understanding and will let her daughter know. Aby Berrios RN * Telephone Encounter - Afia Jackson APRN.CNP - 03/04/2024 7:55 AM EDT Copied from my my chart message with results. No concerns on blood work. White blood count is in normal range and no change in liver enzymes. Thank you Afia Jackson APRN.CNP * Telephone Encounter - Aneglla Valerio RN - 03/03/2024 7:05 PM EDT Patient's mother/with patient calling for lab results done 02/18/24. Angella Valerio RN documented in this encounterMercy [facility]08-01-2024 Telephone encounter Note * Telephone Encounter - Aifa Jackson APRN.CNP - 03/04/2024 7:55 AM EDT Copied from my my chart message with results. No concerns on blood work. White blood count is in normal range and no change in liver enzymes. Thank you Afia Jackson APRN.CNP [facility]07-31-[facility] Telephone encounter Note* Telephone Encounter - Angella Valerio RN - 03/03/2024 7:05 PM EDT Patient's mother/with patient calling for lab results done 02/18/24. Angella Valerio RN [facility]07-17-2024 History of Present illness Narrative* Afia Jackson APRN.FREIGHT BREAKER - 02/18/2024 3:38 PM EDT CC: Patient presents with: Follow Up HPI Chicho Wood is a 24 year old female who presents today for follow up but has multiple concerns. GERD: Has been on PPI for a year but still with daily heartburn even with dietary changes. Even water can bring it on. This past Friday had a terrible episode where her abdomen felt it was on fire and felt like things were difficult to swallow. These symptoms were for only that day, but was also n auseated which the nausea lasted a few days. Denies fever, chills, abdominal cramping, vomiting, diarrhea, constipation, chest pressure, shortness of breath, palpitations, or edema. On February 06 felt she was having sharp pains in her breasts along with lumps that lasted a few days but both have resolved. Has never had a mammogram and denies family history of breast CA. Denies nipple drainage, nipple changes, or abnormal change in weight. Not sexually active and denies chance of . Has fatigue but typically due to her HS. White count was slightly elevated a few months ago withoutfurther evaluation. REVIEW OF SYSTEMS See HPI PAST MEDICAL HISTORY Diagnosis Date Asthma PAST SURGICAL HISTORY Procedure Laterality Date NONE ALLERGIES Seasonal Allergies MEDICATIONS omeprazole (PRILOSEC) 20 mg capsule Take 1 capsule by mouth once daily. montelukast (SINGULAIR) 10 mg tablet Take 1 tablet by mouth daily at bedtime. albuterol HFA (PROVENTIL HFA, VENTOLIN HFA) 90 mcg/actuation inhaler Inhale 2 Puffs as instructed every 4 hours as needed. FAMILY HISTORY Problem Relation Age of Onset Thyroid Mother Hypertension Mother Hyperlipidemia Father Kidney Disease Maternal Grandmother Hypertension Maternal Grandmother Thyroid Maternal Grandmother Kidney Disease Maternal Grandfather failure Hyperlipidemia Paternal Grandmother Hyperlipidemia Paternal Grandfather Social History Tobacco Use Smoking status: Former Types: Cigarettes Smokeless tobacco: Never Vaping Use Vaping Use: Former Substance Use Topics Alcohol use: No Drug use: No PHYSICAL EXAM BP (P) 108/72 (BP Site: Left Arm, BP Position: Sitting, BP Cuff Size: Large Adult) Pulse (P) 72 Wt (P) 78 kg (172 lb) LMP 12/13/2021 BMI (P) 33.59 kg/m General Appearance: well appearing, in no acute distress, alert Eyes: conjunctiva pink and moist, no icterus, sclera white, non-injected Lungs: Lungs clear to auscultation. No wheezing, rhonchi, rales. Heart: RRR without murmur, gallop, or rubs. No ectopy Abdomen: Abdomen soft, non-tender. Bowel sounds normal. No masses, organomegaly Breast: breasts symmetric, no dominant or suspicious mass, no skin or nipple changes, no axillary adenopathy, does have small amounts of HS inflammation to bilateral axillary region. Health maintenance reviewed with patient: Spirometry Never done HIV Screening Never done DTaP,Tdap,Td Vaccine(7 - Td or Tdap) due on 06/15/2020 Covid-19 Vaccine(3 - 2022- season) due on 04/04/2023 Behavioral Health Screening Never done Influenza Vaccine(1) due on 04/04/2024 Annual PCP Team Chronic Disease Visit due on 11/02/2024 Cervical Cancer Screening due on 12/17/2024 Hepatitis B Vaccine Completed HPV Vaccine Completed Hepatitis C Screening Completed DATA REVIEWED: Most recent labs ASSESSMENT/PLAN: 1. Breast pain - ICD9: 611.71, ICD10: N64.4 (primary diagnosis) Assessment normal - [facility] DI[facility]NO[facility] BILATERAL - US BREAST LTD RIGHT - US BREAST LTD LEFT 2. Mass of breast, unspecified laterality - ICD9: 611.72, ICD10: N63.0 As above - SANJAY DIAGNOSTIC BILATERAL - US BREAST LTD RIGHT - US BREAST LTD LEFT 3. Gastroesophageal reflux disease, unspecified whether esophagitis present - ICD9: 530.81, ICD10: K21.9 - increasing omeprazole and adding pepcid Follow up in 4 weeks - Discussed lifestyle modifications including losing weight, limiting caffeine, no meals three hours before sleep, and head of bed elevation 4. Nausea - ICD9: 787.02, ICD10: R11.0 Possibly from GERD or other cause - COMPLETE BLOOD COUNT AND DIFFERENTIAL - COMPREHENSIVE METABOLIC PANEL 5. Leukocytosis, unspecified type - ICD9: 288.60, ICD10: D72.829 Needs revaluated. - COMPLETE BLOOD COUNT AND DIFFERENTIAL - COMPREHENSIVE METABOLIC PANEL Prescription instructions reviewed with patient as applicable. Potential red flag symptoms discussed with the patient. Reviewed appropriate action plan to take if red flag symptoms occur. Patient agreeable to treatment plan. Afia Jackson APRN.CNP documented in this encounterMer[facility]07-04-2024 Telephone encounter Note * Telephone Encounter - Kelsey Torres RN - 02/05/2024 3:11 PM EDT Reason for Call: Patient calling with lab result. Patient denies any new or worsening symptoms of which a provider is not aware:Yes Outcome: caller informed that Covid, Influenza, and RSV lab results are negative per 02/05/24 note from ELIZABETH He at 0803. [facility]07-04-2024 Miscellaneous Notes* Telephone Encounter - Kelsey Torres RN - 02/05/2024 3:11 PM EDT Reason for Call: Patient calling with lab result. Patient denies any new or worsening symptoms of which a provider is not aware:Yes Outcome: caller informed that Covid, Influenza, and RSV lab results are negative per 02/05/24 note from ELIZABETH He at 0803. documented in this encounterMercy [facility]07-03-2024 Telephone encounter Note * Telephone Encounter - Alfreda Valente RN - 02/04/2024 10:58 PM EDT Reason for Call: Requesting Covid Lab results Outcome: Advised it can take up to 24 hours for results to come back, advised to call office when open for results. GO TO THE EMERGENCY ROOM OR CALL 911 IF: * You develop any new symptoms * Your condition worsens * You are concerned or anxious about your condition for any other reason. If you have any questions, you can call Nurse patient monitor back. [facility]07-03-2024 Miscellaneous Notes* Telephone Encounter - Alfreda Valente RN - 02/04/2024 10:58 PM EDT Reason for Call: Requesting Covid Lab results Outcome: Advised it can take up to 24 hours for results to come back, advised to call office when open for results. GO TO THE EMERGENCY ROOM OR CALL 911 IF: * You develop any new symptoms * Your condition worsens * You are concerned or anxious about your condition for any other reason. If you have any questions, you can call Nurse patient monitor back. documented in this encounterMercy [facility]07-03-2024 History of Present illness Narrative* Mo De Santiago APRN.SANDEEP - 02/04/2024 7:57 PM EDT Subjective HPI Nontoxic-appearing female presents to urgent care with chief complaint of upper respiratory tract like infection. Duration of symptoms 1 week. Associated symptoms sore throat, nasal congestion, nasaldischarge and nonproductive cough. Patient denies the use of any [id number] medications or home remedies for symptom management. Patient states recent sick contacts with similar signs and symptoms. Patient states symptoms are improving. Wants to be tested for COVID due to family coming into town. Patient denies any productive cough, fever, chest pain, shortness of breath, pleuritic pain, rash, abdominal pain, nausea, vomiting or change in bowel or bladder habit. Denies chance of . Is not breast-feeding. Past medical history prescription medications allergies reviewed. BP 122/78 Pulse 64 Temp 37 C (98.6 F) (Tympanic) Resp 16 Wt 80.9 kg (178 lb 5.6 oz) LMP 12/13/2021 SpO2 99% BMI 34.83 kg/m .Patient presents with: Cough: Cough x 1 week PAST MEDICAL HISTORY Diagnosis Date Asthma PAST SURGICAL HISTORY Procedure Laterality Date NONE ALLERGIES Seasonal Allergies MEDICATIONS omeprazole (PRILOSEC) 20 mg capsule Take 1 capsule by mouth once daily. montelukast (SINGULAIR) 10 mg tablet Take 1 tablet by mouth daily at bedtime. albuterol HFA (PROVENTIL HFA, VENTOLIN HFA) 90 mcg/actuation inhaler Inhale 2 Puffs as instructed every 4 hours as needed. FAMILY HISTORY Problem Relation Age of Onset Thyroid Mother Hypertension Mother Hyperlipidemia Father Kidney Disease Maternal Grandmother Hypertension Maternal Grandmother Thyroid Maternal Grandmother Kidney Disease Maternal Grandfather failure Hyperlipidemia Paternal Grandmother Hyperlipidemia Paternal Grandfather Social History Tobacco Use Smoking status: Former Types: Cigarettes Smokeless tobacco: Never Vaping Use Vaping Use: Former Substance Use Topics Alcohol use: No Drug use: No Review of Systems Constitutional: Negative for chills, fever and malaise/fatigue. HENT: Positive for congestion. Negative for ear discharge, ear pain, sinus pain and sore throat. Eyes: Negative for blurred vision, pain, discharge and redness. Respiratory: Positive for cough. Negative for hemoptysis, sputum production, shortness of breath, wheezing and stridor. Cardiovascular: Negative for chest pain. Gastrointestinal: Negative for abdominal pain, diarrhea, nausea and vomiting. Musculoskeletal: Negative for myalgias. Skin: Negative for itching and rash. Neurological: Negative for dizziness and headaches. Objective Physical Exam Constitutional: General: She is not in acute distress. Appearance: She is not diaphoretic. HENT: Head: Normocephalic. Jaw: No trismus, tenderness, swelling or pain on movement. Nose: Congestion present. Mouth/Throat: Mouth: Mucous membranes are moist. Pharynx: Oropharynx is clear. Uvula midline. No pharyngeal swelling, oropharyngeal exudate, posterior oropharyngeal erythema or uvula swelling. Eyes: Conjunctiva/sclera: Conjunctivae normal. Pupils: Pupils are equal, round, and reactive to light. Cardiovascular: Rate and Rhythm: Normal rate and regular rhythm. Heart sounds: Normal heart sounds. Pulmonary: Effort: Pulmonary effort is normal. No tachypnea, accessory muscle usage or respiratory distress. Breath sounds: Normal breath sounds. No stridor. No wheezing, rhonchi or rales. Abdominal: General: There is no distension. Palpations: Abdomen is soft. Tenderness: There is no abdominal tenderness. There is no guarding or rebound. Musculoskeletal: Cervical back: Normal range of motion and neck supple. No edema, erythema, rigidity or tenderness. No pain with movement. Normal range of motion. Lymphadenopathy: Cervical: No cervical adenopathy. Skin: General: Skin is warm and dry. Neurological: Mental Status: She is alert and oriented to person, place, and time. ASSESSMENT/PLAN: 1. Viral URI - ICD9: 465.9, ICD10: J06.9 - Discussed viral etiology and rationale for treatment. - Symptomatic treatment with prn analgesia - Supportive care with fluids and rest - COVID & INFLUENZA A/B & RSV NAAT, ROUTINE Symptoms progressively improving. No evidence of bacterial infection noted. Patient was educated onsupportive therapies. Patient will follow up with primary care provider as needed. Patient was instructed to immediately proceed to emergency room for any new, worsening, or symptoms lasting longer than anticipated. The patient's clinical presentation is otherwise unremarkable at this time. Based on exam and clinical finding, the patient is stable for discharge. Plan of care was discussed with patient. Patient verbalizes understanding and agrees to plan of care. This note was generated using [employer] software. It may contain errors in wording, punctuation, or spelling. Mo De Santiago APRN.SANDEEP documented in this encounterMer[facility]06-[facility]24 Telephone encounter Note * Telephone Encounter - Gala Tong OCCA - 01/26/2024 2:30 PM EDT Prescription Refill Information The patient has been identified by name and date of : Yes Caregiver verified no other encounters exist for this prescription request: Yes Caregiver confirmed with patient/requestor that no other refills are due, in the near future, with this provider at this time: Yes The last office visit in the department: 11/03/2023 Does the patient have a future office visit with this provider/department: Yes, 02/18/2024 Requested Prescriptions Pending Prescriptions Disp Refills omeprazole (PRILOSEC) 20 mg capsule 90 capsule 3 Sig: Take 1 capsule by mouth once daily. YADIRA Anderson January 26, 2024 2:30 PM [facility]06-24-2024 Miscellaneous Notes* Telephone Encounter - Gala Tong OCCA - 01/26/2024 2:30 PM EDT Prescription Refill Information The patient has been identified by name and date of : Yes Caregiver verified no other encounters exist for this prescription request: Yes Caregiver confirmed with patient/requestor that no other refills are due, in the near future, with this provider at this time: Yes The last office visit in the department: 11/03/2023 Does the patient have a future office visit with this provider/department: Yes, 02/18/2024 Requested Prescriptions Pending Prescriptions Disp Refills omeprazole (PRILOSEC) 20 mg capsule 90 capsule 3 Sig: Take 1 capsule by mouth once daily. YADIRA Anderson January 26, 2024 2:30 PM documented in this encounterMercy [facility]04-04-2024 Miscellaneous Notes* Telephone Encounter - Consuelo Mcginnis MA - 11/06/2023 12:27 PM EDT SELENE brown. [employer] message sent. * Telephone Encounter - Consuelo Mcginnis MA - 11/05/2023 2:02 PM EDT Tried calling patient, SELENE full. * Telephone Encounter - Consuelo Mcginnis MA - 11/05/2023 1:56 PM EDT ----- Message from Afia Jackson APRN.FREIGHT BREAKER sent at 11/05/2023 12:52 PM EDT ----- Results overall in acceptable ranges but white count just a smidgen elevated. Any concerns for infection? Urinary issues? Continued abdominal pain? Thank you Afia Jackson APRN.FREIGHT BREAKER documented in this encounterMercy Health [facility]04-01-2024 Instructions* Patient Instructions* Afia Jackson APRN.CNP - 11/03/2023 3:45 PM EDT Start Pepcid/famotidine 20mg before bed. Restart your montelukast. documented in this encounterMercy Health [facility]04-01-2024 History of Present illness Narrative* Afia Jackson APRN.CNP - 11/03/2023 3:19 PM EDT CC: Patient presents with: Physical HPI Chicho Wood is a 23 year old female who presents today for annual physical exam but has multiple concerns. Asthma: No longer taking montelukast and has not needed albuterol inhaler but has noticed lately wheezing in the afternoon that will self resolve. Denies cough, shortness of breath, chest pain, edemaor palpitations. GERD: Uncontrolled fully with current treatment. Takes PPI in the morning but when she goes to bed she has heartburn and can feel the acid in her throat. Also with left lower abdominal pain and sometimes difficult to swallow even her saliva. Has had difficulty staying asleep for the past few months. Did have trouble like this [place]. Did start 2 new jobs but works in mornings and evenings. Wakes up often feeling anxious and was told by her mother that she snores. Also with fatigue during the day and not feeling rested in the morning. Also with always feeling bloated, abnormal facial hair for the past few years, facial acne worsening over the last few months, weight gain, and painful cramping with nausea during her menses for the past 5 months. Reports she is a virgin with no chance of . Has a BM every other day that can be hard to pass. Some burning with urination after she bathes, and feels she has urgency with urination. REVIEW OF SYSTEMS General: no fevers, no chills, no night sweats, no recurrent infections, no change in appetite, andno significant changes in weight Respiratory: no cough, no shortness of breath, no hemoptysis Cardiovascular: no chest pain, no chest pressure, no palpitations, and no swelling Neurologic: No weakness, numbness,dizziness, memory loss, syncope. PAST MEDICAL HISTORY Diagnosis Date Asthma PAST SURGICAL HISTORY Procedure Laterality Date NONE ALLERGIES Seasonal Allergies MEDICATIONS montelukast (SINGULAIR) 10 mg tablet Take 1 tablet by mouth daily at bedtime. omeprazole (PRILOSEC) 20 mg capsule Take 1 capsule by mouth once daily. albuterol HFA (PROVENTIL HFA, VENTOLIN HFA) 90 mcg/actuation inhaler Inhale 2 Puffs as instructed every 4 hours as needed. FAMILY HISTORY Problem Relation Age of Onset Thyroid Mother Hypertension Mother Hyperlipidemia Father Kidney Disease Maternal Grandmother Hypertension Maternal Grandmother Thyroid Maternal Grandmother Kidney Disease Maternal Grandfather failure Hyperlipidemia Paternal Grandmother Hyperlipidemia Paternal Grandfather Social History Tobacco Use Smoking status: Former Types: Cigarettes Smokeless tobacco: Never Vaping Use Vaping Use: Former Substance Use Topics Alcohol use: No Drug use: No PHYSICAL EXAM BP 110/68 Pulse 77 Resp 16 Wt 81.2 kg (179 lb) LMP 12/13/2021 SpO2 100% BMI 34.96 kg/m General Appearance: well appearing, in no acute distress, alert Pysch: mood and affect broad and appropriate Skin: Skin color, texture, turgor normal for age; Eyes: conjunctiva pink and moist, no icterus, sclera white, non-injected Neck: Thyroid normal size and symmetric without palpable nodules, Neck supple, No adenopathy Lymph nodes: No cervical lymphadenopathy and No supraclavicular lymphadenopathy Lungs: Lungs clear to auscultation. No wheezing, rhonchi, rales. Heart: RRR without murmur, gallop, or rubs. No ectopy Abdomen: Abdomen soft, non-tender. Bowel sounds normal. No masses, organomegaly Pneumococcal Vaccine(1 of 2 - PCV) Never done Meningococcal B Vaccine: Consider Based On Risk(1 of 2 - Patient Seeks Protection) Never done Spirometry Never done HIV Screening Never done DTaP,Tdap,Td Vaccine(7 - Td or Tdap) due on 06/15/2020 Covid-19 Vaccine( season) due on 04/04/2023 Depression Assessment due on 08/04/2023 Annual PCP Team Chronic Disease Visit due on 12/18/2023 Influenza Vaccine(Season Ended) due on 04/04/2024 Pap Testing due on 12/17/2024 Hepatitis B Vaccine Completed HPV Vaccine Completed Hepatitis C Screening Completed ASSESSMENT/PLAN: 1. Mild intermittent asthma without complication - ICD9: 493.90, ICD10: J45.20 (primary diagnosis) - Mild intermittent asthma stable - restarting montelukast - Avoidance of triggers recommended - ALBUTEROL SULFATE HFA 90 MCG/ACTUATION AEROSOL INHALER 2. Gastroesophageal reflux disease without esophagitis - ICD9: 530.81, ICD10: K21.9 - continue PPI - starting pepcid before bed - Discussed lifestyle modifications including losing weight, limiting caffeine, no meals three hours before sleep, and head of bed elevation 3. Insomnia, unspecified type - ICD9: 780.52, ICD10: G47.00 - possible from underlying sleep apnea to GERD, to possible other cause like anxiety - HOME SLEEP APNEA TEST (HSAT) 4. Urine frequency - ICD9: 788.41, ICD10: R35.0 acute - Urine dip negative - possible from constipation. Need to increase water and fiber intake with regular walking - UA DIP, URINE (POC) - COMP METABOLIC PANEL - CBC + DIFF 5. LLQ pain - ICD9: 789.04, ICD10: R10.32 - assessment normal. Possibly from slight constipation, see above - UA DIP, URINE (POC) - COMP METABOLIC PANEL - CBC + DIFF 6. Other fatigue - ICD9: 780.79, ICD10: R53.83 - unsure on cause - HOME SLEEP APNEA TEST (HSAT) - TSH BLD - T4 FREE/FREE THYROX - COMP METABOLIC PANEL - CBC + DIFF 7. Weight gain - ICD9: 783.1, ICD10: R63.5 - HOME SLEEP APNEA TEST (HSAT) - TSH BLD - T4 FREE/FREE THYROX - COMP METABOLIC PANEL - CBC + DIFF 8. Snoring - ICD9: 786.09, ICD10: R06.83 - HOME SLEEP APNEA TEST (HSAT) 9. Constipation, unspecified constipation type - ICD9: 564.00, ICD10: K59.00 See #4 10. Bloating - ICD9: 787.3, ICD10: R14.0 GERD versus constipation versus other etiology. See #2 and #4 11. Painful menstruation - ICD9: 625.3, ICD10: N94.6 Will discuss further at follow up. May need US and/or see gynecology. Prescription instructions reviewed with patient as applicable. Potential red flag symptoms discussed with the patient. Reviewed appropriate action plan to take if red flag symptoms occur. Patient agreeable to treatment plan. Afia Jackson APRN.CNP documented in this encounterMercy [facility]04-21-2023 Miscellaneous Notes* Telephone Encounter - Kelly Jung RN - 11/22/2022 2:49 PM EDT Medication refill requested by Patient Please review and advise. Requested Prescriptions Pending Prescriptions Disp Refills omeprazole (PRILOSEC) 20 mg capsule Sig: Take 1 capsule by mouth once daily. Last encounter with this provider: 10/23/2022 Next appt: 12/17/2022 Allergies: No Known Allergies Last 1 Encounter BP Readings: Date: BP: 10/23/2022 122/70 PNEUMOCOCCAL(1 - PCV) Never done MENINGOCOCCAL B: Consider based on risk(1 of 2 - Risk Bexsero 2-dose series) Never done GC (GONORRHEA) SCREENING (18-) Never done HEPATITIS C SCREENING Never done HIV SCREENING Never done CHLAMYDIA SCREENING (18-24) Never done DTAP,TDAP,TD(7 - Td or Tdap) due on 06/15/2020 COVID-19 VACCINE(3 - Booster for Pfizer series) due on 07/08/2021 DEPRESSION ASSESSMENT Never done WBC (k/uL) Date Value 09/06/2022 7.51 Hemoglobin (g/dL) Date Value 09/06/2022 12.6 Platelet Count (k/uL) Date Value 09/06/2022 297 Glucose (mg/dL) Date Value 09/06/2022 89 BUN (mg/dL) Date Value 09/06/2022 5 (L) Creatinine (mg/dL) Date Value 09/06/2022 0.75 Sodium (mmol/L) Date Value 09/06/2022 136 Potassium (mmol/L) Date Value 09/06/2022 4.0 Calcium, Total (mg/dL) Date Value 09/06/2022 9.4 Alkaline Phosphatase (U/L) Date Value 09/06/2022 55 Bilirubin, Total (mg/dL) Date Value 09/06/2022 0.4 AST (U/L) Date Value 09/06/2022 17 ALT (U/L) Date Value 09/06/2022 9 Cholesterol, Total (mg/dL) Date Value 09/06/2022 146 Triglyceride (mg/dL) Date Value 09/06/2022 48 TSH (uU/mL) Date Value 06/25/2021 1.800 Current Outpatient Medications on File Prior to Visit Medication Sig omeprazole (PRILOSEC) 20 mg capsule Take 20 mg by mouth once daily. albuterol HFA (PROVENTIL HFA, VENTOLIN HFA) 90 mcg/actuation inhaler Inhale 2 Puffs as instructed every 4 hours as needed. documented in this encounterMercy [facility]03-22-2023 Instructions* Patient Instructions* Lou Jackson APRN.FREIGHT BREAKER - 10/23/2022 9:45 AM EDT To treat gastroesophageal reflux: 1. Continue with Omeprazole (Prilosec) until completed. Okay to take Pepcid over the counter as needed while on Prilosec. 2. Eat 6 small meals a day instead of 2 or 3 big ones. This is to keep some food in your stomach sothe acid has something to work on. Eat slowly. Don't lie down for 2 to 3 hours after eating. Avoid eating or drinking anything right before going to bed. 3. Elevate head of bed on blocks approximately 4-6 inches. It is not sufficient to just use a wedgepillow. Bending at waist increases intra-abdominal pressure, which will increase reflux. 4. Minimize/eliminate chocolate, coffee, peppermint, fruit juices, tomatoes, greasy and spicy foods. All of these either stimulate stomach acid production, or are acidic themselves. 5. Weight loss is always beneficial. Abdominal weight increases intra-abdominal pressure, which increases gastroesophageal reflux symptoms. 6. Don't smoke. This causes the stomach to make more acid. 7. Let Dr. Conner know in 3-4 weeks if your symptoms have not improved or sooner if symptoms worsen documented in this encounterMercy [facility]03-22-2023 History of Present illness Narrative* Lou Jackson APRN.CNP - 10/23/2022 9:30 AM EDT CC: Patient presents with: Recheck: [facility] ER follow up, gerd HPI Chicho Wood is a 22 year old female who presents today for above. Patient was evaluated at [facility] 10/20 for chest pain. Labs, EKG and chest x-ray were normal. Symptoms attributed to GERD and she was started on Prilosec 20 mg daily. Today she reports no improvement in symptoms but has only been taking Prilosec for a few days. Denies new or worsening symptoms. She stopped drinking caffeine and does not drink alcohol or smoke. Sheis under stress at school. She has a history of GERD but symptoms were never this intense or lastedthis long. Associated with reflux, burning in the chest, neck and upper back, bloating, excessive belching. She denies dysphagia, odynophagia, choking/coughing when she eats or drinks, early satiety,nausea, vomiting, diarrhea, constipation, black/bloody stools, fever, chills, night sweats, unintentional weight loss. REVIEW OF SYSTEMS See HPI PAST MEDICAL HISTORY Diagnosis Date Asthma PAST SURGICAL HISTORY Procedure Laterality Date NONE ALLERGIES Patient has no known allergies. MEDICATIONS omeprazole (PRILOSEC) 20 mg capsule Take 20 mg by mouth once daily. rifAMPin (RIFADIN) 300 mg capsule Take 2 capsules by mouth once daily. albuterol HFA (PROVENTIL HFA, VENTOLIN HFA) 90 mcg/actuation inhaler Inhale 2 Puffs as instructed every 4 hours as needed. clindamycin (CLEOCIN) 300 mg capsule Take 300 mg by mouth twice daily. Clindamycin Phosphate (CLEOCIN T) 1 % lotion APPLY A THIN LAYER TO AFFECTED AREA TWICE A DAY THEN NEEDED ergocalciferol 50,000 unit capsule (VITAMIN D2, DRISDOL) Take 1 capsule by mouth one time a week. FAMILY HISTORY Problem Relation Age of Onset Thyroid Mother Hypertension Mother Hyperlipidemia Father Kidney Disease Maternal Grandmother Hypertension Maternal Grandmother Thyroid Maternal Grandmother Kidney Disease Maternal Grandfather failure Hyperlipidemia Paternal Grandmother Hyperlipidemia Paternal Grandfather Social History Tobacco Use Smoking status: Some Days Types: Cigarettes Smokeless tobacco: Never Substance Use Topics Alcohol use: No Drug use: No PHYSICAL EXAM BP 122/70 Pulse 68 Resp 16 Wt 83.9 kg (185 lb) LMP 12/13/2021 BMI 36.13 kg/m General Appearance: well appearing, in no acute distress, alert Lungs: Lungs clear to auscultation. No wheezing, rhonchi, rales. Heart: RRR without murmur, gallop, or rubs. No ectopy Abdomen: Soft, non-distended. mild epigastric abdominal tenderness with palpation. No guarding or rebound tenderness. Negative Mcdonald's sign. Bowel sounds normal and active. No masses, organomegaly but difficult exam due to body habitus DATA REVIEWED: [facility] ER report ASSESSMENT/PLAN: 1. Gastroesophageal reflux disease without esophagitis - ICD9: 530.81, ICD10: K21.9 - Discussed lifestyle modifications including losing weight, limiting caffeine, no meals three hours before sleep, and head of bed elevation - Continue treatment with Prilosec 20 mg every day - can take Pepcid as needed - follow-up with PCP in 3-4 weeks if symptoms persist or sooner if worsening Prescription instructions reviewed with patient as applicable. Potential red flag symptoms discussed with the patient. Reviewed appropriate action plan to take if red flag symptoms occur. Patient agreeable to treatment plan. Lou Jackson APRN.CNP documented in this encounterMercy Health [facility]03-19-2023 Miscellaneous Notes* Telephone Encounter - Rachel Dunham RN - 10/20/2022 2:25 PM EDT Reason for Call: pt with chest pain and difficulty breathing Outcome: Advised to dial 911 now, agreeable Reason for Disposition [1] Chest pain lasts > 5 minutes AND [2] described as crushing, pressure-like, or heavy Protocols used: Chest [id number] documented in this encounterMercy Health [facility]03-15-2023 Miscellaneous Notes* Telephone Encounter - Consuelo Mcginnis Ma - 10/16/2022 11:27 AM EDT Left message on mothers VM to return call. * Telephone Encounter - Ce Conner MD - 10/12/2022 12:43 PM EST Labs from sep, looks normal. The lipids were normal and the kidney numbers are normal Some elevation of the c reactive protein and esr which is likely due to her hydradenitis Ce Conner MD * Telephone Encounter - Cathy Acosta RN - 10/10/2022 2:39 PM EST Patient's mother Mariela calls and is asking if provider can look at the labs were done on 09/06/2022. Labs were ordered by dermatology and [facility]. Mariela reports that at last appointment patient and provider had discussed how patient was fatigued and tired as of late. Mother asking if provider got the chance to look at labs or if there are any other labs that providerwants to order due to patient's fatigue and tiredness? Please review and advise, Cathy Acosta RN documented in this encounterMercy Health [facility]02-03-2023 History of Present illness Narrative* Ce Conner MD - 09/06/2022 3:44 PM EST Reason for Visit No chief complaint on file. Chicho Wood is a 22 year old female who presents here today for Above Complaints.. Health Maintenance PNEUMOCOCCAL(1 - PCV) MENINGOCOCCAL B: Consider based on risk(1 of 2 - Risk Bexsero 2-dose series) GC (GONORRHEA) SCREENING (18-24) HEPATITIS C SCREENING HIV SCREENING CHLAMYDIA SCREENING (18-24) DTAP,TDAP,TD(7 - Td or Tdap) COVID-19 VACCINE(3 - Booster for Pfizer series) INFLUENZA(1) DEPRESSION ASSESSMENT HPI 2 weeks ago the wholes house got covid , was a common cold type of presentation. They have been exhausted ever since. Patient feels wiped out , has no energy, she is back to college and cannot finish the day Before covid, she felt fine and not she is not feeling. Seen Dr Ibanez for her Hydradenitis , and was suggested laser treatment that she would like to try ,but is on year long back log. She was ordered labs which she will get done today in the other building. No problem-specific Assessment & Plan notes found for this encounter. PAST MEDICAL HISTORY Diagnosis Date Asthma PAST SURGICAL HISTORY Procedure Laterality Date NONE FAMILY HISTORY Problem Relation Age of Onset Thyroid Mother Hypertension Mother Hyperlipidemia Father Kidney Disease Maternal Grandmother Hypertension Maternal Grandmother Thyroid Maternal Grandmother Kidney Disease Maternal Grandfather failure Hyperlipidemia Paternal Grandmother Hyperlipidemia Paternal Grandfather Social History Tobacco Use Smoking status: Some Days Types: Cigarettes Smokeless tobacco: Never Substance Use Topics Alcohol use: No Drug use: No Past medical history, appointments, medications, allergies reviewed. Pertinent Lab/Diagnostic Studies are reviewed and discussed today Current Outpatient Medications: rifAMPin (RIFADIN) 300 mg capsule albuterol HFA (PROVENTIL HFA, VENTOLIN HFA) 90 mcg/actuation inhaler clindamycin (CLEOCIN) 300 mg capsule Clindamycin Phosphate (CLEOCIN T) 1 % lotion ergocalciferol 50,000 unit capsule (VITAMIN D2, DRISDOL) Review of Systems CONSTITUTIONAL: No fevers, chills night sweats, unintended weight loss CARDIOVASCULAR: No chest pain, dyspnea, palpitations, orthopnea, PND, ankle edema. PULM: No dyspnea, unexplained cough. GI: No dysphagia/odynophagia, problematic reflux, constipation, diarrhea, changes in stool habits, hematochezia, melena. : No new urinary complaints, including dysuria, gross hematuria or pyuria. NEURO: No new balance problems, peripheral weakness/paresthesias or numbness of concern. Physical Exam LMP 12/13/2021 General appearance: Well appearing, alert, in no acute distress, well nourished. Skin: Skin color, texture, turgor normal, no suspicious rashes or lesions Head: Normocephalic, no masses, lesions, tenderness or abnormalities Eyes: Anicteric sclera. Pupils are equally round and reactive to light. Extraocular movements are intact. Lungs: Lungs clear to auscultation. No wheezing, rhonchi, rales Heart: RRR without murmur, gallop, or rubs. ASSESSMENT/PLAN: 1. COVID-19 virus infection - ICD9: 079.89, ICD10: U07.1 Reassured patient that It may take a few more weeks for her to feel better but she has will eventually feel better. Ce Conner MD documented in this encounterMercy Health [facility]09-21-2022 History of Present illness Narrative* Isabelle Bragg PA-C - 04/24/2022 6:15 PM EDT Images from the original note were not included. This note was created using [employer]. Jose Wood is a 22 year old female. HPI Patient presents with a itchy rash on her legs and left side of her face. Her face has been itchy for 3 days. She had noted some swelling to that side of the face as well. Her leg started to itch thepast day and she started breaking out in some hives on her legs that come and go. She states she does have sensitive skin. Does have a history of hidradenitis. No fever or chills. She was just at thedentist today and they did not think she had any infections in her teeth. No otc meds used. Review of Systems Constitutional: Negative. HENT: Negative. Eyes: Negative. Respiratory: Negative. Cardiovascular: Negative. Gastrointestinal: Negative. Genitourinary: Negative. Skin: Positive for rash. All other systems reviewed and are negative. PAST MEDICAL HISTORY Diagnosis Date Asthma Current Outpatient Medications Medication Sig Dispense Refill albuterol HFA (PROVENTIL HFA, VENTOLIN HFA) 90 mcg/actuation inhaler Inhale 2 Puffs as instructed every 4 hours as needed. 1 Each 4 clindamycin (CLEOCIN) 300 mg capsule Take 300 mg by mouth twice daily. Clindamycin Phosphate (CLEOCIN T) 1 % lotion APPLY A THIN LAYER TO AFFECTED AREA TWICE A DAY THEN NEEDED predniSONE (DELTASONE) 20 mg tablet Take 2 tablets by mouth once daily for 5 days. 10 tablet 0 cetirizine (ZYRTEC) 10 mg tablet Take 1 tablet by mouth once daily for 7 days. 7 tablet 0 rifAMPin (RIFADIN) 300 mg capsule Take 2 capsules by mouth once daily. 60 capsule 5 ergocalciferol 50,000 unit capsule (VITAMIN D2, DRISDOL) Take 1 capsule by mouth one time a week. 12 capsule 0 No current facility-administered medications for this visit. PAST SURGICAL HISTORY Procedure Laterality Date NONE FAMILY HISTORY Problem Relation Age of Onset Thyroid Mother Hypertension Mother Hyperlipidemia Father Kidney Disease Maternal Grandmother Hypertension Maternal Grandmother Thyroid Maternal Grandmother Kidney Disease Maternal Grandfather failure Hyperlipidemia Paternal Grandmother Hyperlipidemia Paternal Grandfather Social History Tobacco Use Smoking status: Some Days Types: Cigarettes Smokeless tobacco: Never Substance Use Topics Alcohol use: No Drug use: No Objective BP 126/84 Pulse 74 Temp 36.8 C (98.3 F) Resp 18 Wt 85.4 kg (188 lb 3.2 oz) LMP 12/13/2021 SpO2 100% BMI 36.76 kg/m Physical Exam Vitals reviewed. Constitutional: Appearance: Normal appearance. HENT: Head: Normocephalic and atraumatic. Comments: Some mild swelling to the left lateral cheek. There is a scab present. No induration. Some small papillary areas on the angle of the jaw. Skin: General: Skin is warm and dry. Comments: Multiple pink papules on the inner thighs. No signs of infection. Neurological: Mental Status: She is alert. Assessment and Plan ASSESSMENT/PLAN: 1. Rash - ICD9: 782.1, ICD10: R21 Likely allergic/hives type rash. Given prednisone and Zyrtec. If not improving follow-up with PCP. Patient agreeable. Isabelle Bragg PA-C documented in this encounterMer[facility] History of Present illness Narrative* Ce Conner MD - 03/12/2022 3:01 PM EDT Reason for Visit Patient presents with: Same Day Appointment: asthma symptoms with activity Chicho Wood is a 22 year old female who presents here today for Above Complaints. Health Maintenance MENINGOCOCCAL B: Consider based on risk(1 of 2 - Risk Bexsero 2-dose series) HEPATITIS C SCREENING HIV SCREENING CHLAMYDIA SCREENING (18-24) DEPRESSION SCREENING DTAP,TDAP,TD(7 - Td or Tdap) COVID-19 VACCINE(3 - Booster for Pfizer series) HPI Asthma: think she has worsening asthma recently. Last night she felt a little sob, like when she dies down she felt a lower back pain. She has been feeling breathless, when she is up and about she is ok, but when she sits down she has asthma. She has been feeling fatigued recently, sometimes she gets tightness in the chest and finding it hard to breathe. Normally when she is walking she does not notice it much. She is not as active as she was in the past. The last time she used her inhaler was last night, does not use it much often. She is eating differently, notices she does not eat much in the day. Since the past week she has been noticing worsening symptoms after she started walking for exercise. Hydradenitis suppuritiva: She has been on Rifadin for the past year or so. She has not been consistently taking the medication, busy with college work, it is hard to keep with daily medications She also notes that she had groin lesions that made her condition more painful to move so she did not move as much and could not keep up with what she had to do . Waiting to see Dr ibanez but has apt in June for this. No problem-specific Assessment & Plan notes found for this encounter. PAST MEDICAL HISTORY Diagnosis Date Asthma PAST SURGICAL HISTORY Procedure Laterality Date NONE FAMILY HISTORY Problem Relation Age of Onset Thyroid Mother Hypertension Mother Hyperlipidemia Father Kidney Disease Maternal Grandmother Hypertension Maternal Grandmother Thyroid Maternal Grandmother Kidney Disease Maternal Grandfather failure Hyperlipidemia Paternal Grandmother Hyperlipidemia Paternal Grandfather Social History Tobacco Use Smoking status: Some Days Types: Cigarettes Smokeless tobacco: Never Substance Use Topics Alcohol use: No Drug use: No Past medical history, appointments, medications, allergies reviewed. Pertinent Lab/Diagnostic Studies are reviewed and discussed today Current Outpatient Medications: clindamycin (CLEOCIN) 300 mg capsule Clindamycin Phosphate (CLEOCIN T) 1 % lotion rifAMPin (RIFADIN) 300 mg capsule ergocalciferol 50,000 unit capsule (VITAMIN D2, DRISDOL) albuterol HFA (PROVENTIL HFA, VENTOLIN HFA) 90 mcg/actuation inhaler Review of Systems CONSTITUTIONAL: No fevers, chills night sweats, unintended weight loss CARDIOVASCULAR: No chest pain, dyspnea, palpitations, orthopnea, PND, ankle edema. PULM: No dyspnea, unexplained cough. GI: No dysphagia/odynophagia, problematic reflux, constipation, diarrhea, changes in stool habits, hematochezia, melena. : No new urinary complaints, including dysuria, gross hematuria or pyuria. NEURO: No new balance problems, peripheral weakness/paresthesias or numbness of concern. Physical Exam BP 126/70 (BP Site: Left Arm, BP Position: Sitting, BP Cuff Size: Large Adult) Pulse 60 Temp 37.6 C (99.6 F) Resp 12 Ht 152.4 cm (5') Wt 83.5 kg (184 lb) LMP 12/13/2021 SpO2 99% BMI 35.94 kg/m General appearance: Well appearing, alert, in no acute distress, well nourished. Skin: Skin color, texture, turgor normal, no suspicious rashes or lesions Axillary left: patient has hydradenitis in the left side, with a central coalesed mass which is a little painful and she is doing Head: Normocephalic, no masses, lesions, tenderness or abnormalities Eyes: Anicteric sclera. Pupils are equally round and reactive to light. Extraocular movements are intact. Lungs: Lungs clear to auscultation. No wheezing, rhonchi, rales Heart: RRR without murmur, gallop, or rubs. Extremities: No deformities, edema, skin discoloration, clubbing or cyanosis. Good capillary refill. ASSESSMENT/PLAN: 1. Persistent asthma without complication, unspecified asthma severity - ICD9: 493.90, ICD10: J45.909 (primary diagnosis) She could some asthma flare but not sure will do some blood test - LUNG VOLUMES - SPIROMETRY - BASELINE AND POST DILATOR 2. Mild intermittent asthma without complication - ICD9: 493.90, ICD10: J45.20 - ALBUTEROL SULFATE HFA 90 MCG/ACTUATION AEROSOL INHALER 3. Hydradenitis - ICD9: 705.83, ICD10: L73.2 Current has lesions and needs her rifampin Refilled medication for her Ce Conner MD documented in this encounterMer[facility]08-09-2022 Miscellaneous Notes* Telephone Encounter - Viri Duncan RN - 03/12/2022 4:22 AM EDT Reason for call: patient believes she is having asthma exacerbation Outcome: [facility] advised. Patient wants an appointment. Conferenced to the Appointment Center for scheduling. Reason for Disposition MILD difficulty breathing (e.g., minimal/no SOB at rest, SOB with walking, pulse <100) [1] MILD asthma attack (e.g., no SOB at rest, mild SOB with walking, speaks normally in sentences, mild wheezing) AND [2] persists > 24 hours on appropriate treatment Answer Assessment - Initial Assessment Questions 1. COVID-19 DIAGNOSIS: denies 2. COVID-19 EXPOSURE: denies 3. ONSET: 2 hours ago 5. COUGH: denies 6. FEVER: has felt hot but no thermometer available 7. RESPIRATORY STATUS: short of breath when trying to sleep only. She is able to ambulate normally and speaks normally on the phone 8. [id number]: new onset 9. HIGH RISK DISEASE: asthma 10. VACCINE: yes 11. BOOSTER: denies 12. : denies 13. OTHER SYMPTOMS: fatigue, headache 14. O2 SATURATION MONITOR: NA Protocols used: Asthma [id number], Coronavirus (COVID-19) Diagnosed or [id number] documented in this encounterMer[facility]07-31-2022 Miscellaneous Notes* Telephone Encounter - Dominique Porras RN - 03/03/2022 9:38 PM EDT Reason for Call: Abdominal pain. Patient also had unexpected vaginal bleeding yesterday. Outcome: Recommended patient see a health care provider within 24 hours. Patient to call her OBGYN tomorrow when office is open. Reason for Disposition suspected (e.g., missed last menstrual period) Answer Assessment - Initial Assessment Questions 1. LOCATION: Lower abdomen 3. ONSET: Pain began today 5. PATTERN: Pain comes and goes 6. SEVERITY: 10/11 7. RECURRENT SYMPTOM: Patient has had pain like this in the past with menstrual cramps but hasn't had this type of pain in awhile 8. CAUSE: Unsure 10. OTHER SYMPTOMS: Patient had unexpected vaginal bleeding yesterday but no vaginal bleeding notedtoday 11. : Denies chance of . Patient states she is supposed to get her period the second week of march. Protocols used: ABDOMINAL PAIN - [id number] documented in this encounterMer[facility]05-17-2022 Miscellaneous Notes* Telephone Encounter - Martina Foreman RN - 12/18/2021 4:21 PM EDT Patient given result * Telephone Encounter - Jillian Coe RN - 12/18/2021 8:53 AM EDT Left message for patient to call office. Jillian Coe RN * Telephone Encounter - Jillian Coe RN - 12/18/2021 8:53 AM EDT ----- Message from Kaitlynn Keith MD sent at 12/18/2021 7:36 AM EDT ----- Notify patient that her vaginal swabs are negative. Recommend taking the OTC probiotics that I reviewed with her and also eliminating things from diet. documented in this encounterMer[facility]05-16-2022 Instructions* Patient Instructions* Kaitlynn Keith MD - 12/17/2021 3:54 PM EDT DIETARY GUIDELINES FOR INTERSTITIAL CYSTITIS FOOD CATEGORY PERMITTED FOODS FOODS TO AVOID OR USE CAUTIOUSLY Fruits Blueberries, melons other than cantaloupe and pears All other fruits and juices made from them Vegetables Potatoes, homegrown tomatoes, and vegetables other than those listed on the right Clark beans, estrella beans, onions, rhubarb, tofu, and store-bought tomatoes Milk/Dairy White chocolate, cottage cheese, [place] cheese, milk Aged cheese, sour cream, eggs, yogurt, chocolate Carbohydrates/Grains Pasta, rice, and breads other than those listed on the right [place] and sourdoughbreads Meats/Fish Poultry, fish and meats other than those listed on the right Aged, canned and cured, processed and smoked meats and fish, anchovies, caviar, chicken livers, corned beef and meats that contain nitrates or nitrites Nuts Almonds, cashews and pine nuts Most other nuts Beverages Bottled or spring water, decaffeinated, acid-free coffee and tea, some herbal teas Alcoholic beverages, beer and wine, carbonated drinks, coffee, tea and cranberry juice Seasonings Garlic and seasonings other than below Mayonnaise, miso, spicy foods (especially Qatari, Bolivian, Cuban and Azeri foods.) *Adapted with permission from the [employer] On Course for Better Health documented in this encounterMercy Health [facility]05-16-2022 History of Present illness Narrative* Kaitlynn Keith MD - 12/17/2021 3:23 PM EDT Chicho Wood is a 21 year old female who presents for concerns regarding urinary frequency. Pt denies fever or chills. Pt reports has noticed more clear discharge and vaginal odor recently. Pt reports is not sexually active and has never been. Pt reports has started using pads over tampons. No changes in soap or detergents. Pt was seen recently for UTI symptoms but was negative. Pt reports menses are regular. Has no other concerns today. OB History T0 L0 SAB0 IAB0 Ectopic0 Multiple0 Live Births0 [place] History LMP: 07/19/2021, Having periods Age at Menarche: Age at First : Age at Menopause: [place] Hewer History Comments: Sexual Activity: Never; No partner data on record Contraception: No contraception data on record PAST MEDICAL HISTORY Diagnosis Date Asthma PAST SURGICAL HISTORY Procedure Laterality Date NONE FAMILY HISTORY Problem Relation Age of Onset Thyroid Mother Hypertension Mother Hyperlipidemia Father Kidney Disease Maternal Grandmother Hypertension Maternal Grandmother Thyroid Maternal Grandmother Kidney Disease Maternal Grandfather failure Hyperlipidemia Paternal Grandmother Hyperlipidemia Paternal Grandfather Social History Tobacco Use Smoking status: Never Smoker Smokeless tobacco: Never Used Substance Use Topics Alcohol use: No Drug use: No Current Outpatient Medications Medication Sig naproxen (NAPROSYN) 500 mg tablet Take 1 tablet by mouth twice daily with meals for 14 days. Take with food. clindamycin (CLEOCIN) 300 mg capsule Take 300 mg by mouth twice daily. Clindamycin Phosphate (CLEOCIN T) 1 % lotion APPLY A THIN LAYER TO AFFECTED AREA TWICE A DAY THEN NEEDED rifAMPin (RIFADIN) 300 mg capsule TAKE TWO BY MOUTH EVERY MORNING ergocalciferol 50,000 unit capsule (VITAMIN D2, DRISDOL) Take 1 capsule by mouth one time a week. albuterol HFA (PROVENTIL HFA, VENTOLIN HFA) 90 mcg/actuation inhaler Inhale 2 Puffs as instructed every 4 hours as needed. No current facility-administered medications for this visit. Allergies As of Date: 12/17/2021 (No Known Allergies) Fully Assessed 12/13/2021 REVIEW OF SYSTEMS Abdomen: no pain Bladder: urinary frequency. No dysuria.. Expanded ROS: GENERAL: Negative for fever Allergies and current medication updated:Yes EXAM: BP 114/74 Wt 187 lb (84.8kg) LMP 12/13/2021 GENERAL: pleasant, female in no apparent distress HEENT: Normocephalic and atraumatic NECK: full range of motion DERMATOLOGY: Normal, without lesions, non-icteric and non-hirsute PELVIC: external genitalia normal, normal Bartholin's glands, urethra, Corydon's glands, no vulvar lesions, no cervical lesions, good vaginal support, normal appearing perineal body and perianal region, small amount of clear discharge , scant blood in vault. NEURO: alert and oriented x3,exam grossly non-focal EXTREMITIES: normal ASSESSMENT AND PLAN: Encounter Diagnosis ICD-10-CM 1. Urinary frequency R35.0 2. Vaginal discharge N89.8 CHUCKY / TRICHOMONAS AMPLIFICATION BACTERIAL VAGINOSIS AMPLIFICATION 3. Screening for cervical cancer Z12.4 PAP FLUID CERVICAL SCREENING 4. Discussed vaginal hygiene 5. AZO dual relief and urinary support reviewed 6. IC diet reviewed 7. Causes of Urinary symptoms reviewed- ?? BV. 8. Urine dip- trace blood- just ended menses Medical Decision Making: Problems: Moderate: New problem with uncertain prognosis Data: Unique test(s) ordered: 3+ Medical Decision Making Level: 4 - Moderate Kaitlynn Otoole MD documented in this encounterMercy [facility]05-14-2022 Miscellaneous Notes* Telephone Encounter - Evette Uriarte - 12/15/2021 12:50 PM EDT Patient given results and verbalized understanding of instructions given. Evette Uriarte * Telephone Encounter - Mo De Santiago APRN.CNP - 12/15/2021 10:54 AM EDT No bacterial infection noted on urine culture follow-up with PCP if symptoms or not improving. Mo De Santiago APRN.CNP documented in this encounterMercy [facility]05-13-2022 Miscellaneous Notes* Telephone Encounter - Afia Jackson APRN.CNP - 12/14/2021 7:30 AM EDT Noted and agree that patient needed urgently evaluated. Afia Jackson APRN.CNP * Telephone Encounter - Kelly Jung RN - 12/13/2021 3:56 PM EDT Protocol Recommended: See PCP within 24 hours. Patient at [facility]. Patient states she will go to [facility] for evaluation. Reason for Disposition Side (flank) or lower back pain present Answer Assessment - Initial Assessment Questions 1. SYMPTOM: Patient and her mother on phone together. Patient's mother is concerned about patient'surinary frequency. Patient reports she has had this for a few months now and has appt with Material Control Supervisor on 12/17. Patient also has been experiencing fatigue for months as well as new low back pain forone week. Patient was seen in office in August for cystitis and was treated. 2. ONSET: as above 3. PAIN: mild to moderate 4. CAUSE:Patient unsure of cause 5. OTHER SYMPTOMS:Denies fever, blood in urine, or pain with urination Protocols used: URINARY [id number] documented in this encounterMercy Health [facility]05-12-2022 Instructions* Patient Instructions* Berenice French APRN.CNP - 12/13/2021 6:43 PM EDT Appears to be muscle strain Stretches Naproxen take with food Follow up for no resolution or worsening pain with Dr. Conner or DAIRY PROCESSING SUPERVISOR Report immediately to ER for foot drop, bowel or bladder loss, numbness or tingling of legs/feet orany new or worsening concerns if unable to get into PMD documented in this encounterMercy Health [facility]05-12-2022 History of Present illness Narrative* Berenice French APRN.CNP - 12/13/2021 6:38 PM EDT Images from the original note were not included. Subjective The history is provided by the patient. No high school foreign language tutor was used. JEFF Wood is a 21 year old female who presents today for CC of lower back pain for 2 months. She states has also noticed an increase in frequency of urination. She denies any fever, chills, body aches, abdominal pain, unusual vaginal discharge, itching or odor, no pelvic pain, periods are regular. BP 112/84 Pulse 85 Temp 37 C (98.6 F) Resp 21 Wt 85.3 kg (188 lb) LMP 07/19/2021 SpO2 99% BMI 36.11 kg/m Social History Tobacco Use Smoking status: Never Smoker Smokeless tobacco: Never Used Substance Use Topics Alcohol use: No Drug use: No PAST MEDICAL HISTORY Diagnosis Date Asthma I have confirmed and edited as necessary, the PMS[facility] Review of Systems Constitutional: Negative for chills and fever. Gastrointestinal: Negative for abdominal pain, diarrhea, nausea and vomiting. Genitourinary: Positive for dysuria. Negative for flank pain, frequency, hematuria and urgency. Denies vaginal discharge, itching, or odor Musculoskeletal: Positive for back pain. Objective Physical Exam Vitals and nursing note reviewed. Constitutional: Appearance: Normal appearance. Cardiovascular: Pulses: Dorsalis pedis pulses are 2+ on the right side and 2+ on the left side. Posterior tibial pulses are 2+ on the right side and 2+ on the left side. Pulmonary: Effort: Pulmonary effort is normal. Abdominal: General: Bowel sounds are normal. There is no abdominal bruit. Palpations: Abdomen is not rigid. There is no mass or pulsatile mass. Tenderness: There is no abdominal tenderness. There is no guarding or rebound. Negative signs include Mcdonald's sign and McBurney's sign. Musculoskeletal: Cervical back: Normal. Thoracic back: Normal. Lumbar back: Tenderness present. No swelling, deformity, signs of trauma, lacerations, spasms or bony tenderness. Normal range of motion. Negative right straight leg raise test and negative left straight leg raise test. No scoliosis. Back: Skin: General: Skin is warm and dry. Neurological: Mental Status: She is alert and oriented to person, place, and time. Sensory: Sensation is intact. Deep Tendon Reflexes: Reflexes are normal and symmetric. Psychiatric: Mood and Affect: Affect normal. Component Latest Ref Rng & Units 12/13/2021 GLUCOSE UA (POCT) Negative mg/dL Negative BILIRUBIN UA (POCT) Negative Negative KETONE UA (POCT) Negative mg/dL Trace SPECIFIC GRAVITY UA (POCT) 1.005 - 1.030 >=1.030 HEMOGLOBIN/BLOOD UA (POCT) Negative Trace-intact (A) PH UA (POCT) 4.5 - 8.0 5.0 PROTEIN UA (POCT) Negative mg/dL Negative UROBILINOGEN UA (POCT) Normal E.U./dL 0.2 NITRITE UA (POCT) Negative Negative LEUKOCYTES UA (POCT) Negative Negative COLOR UA (POCT) Yellow CLARITY UA (POCT) Clear ASSESSMENT/PLAN: 1. Urinary frequency - ICD9: 788.41, ICD10: R35.0 (primary diagnosis) Urine dip negative, trace blood Will send for culture and treat based on culture - UA DIP, URINE (POC) - URINE CULTURE 2. Bilateral low back pain without sciatica, unspecified chronicity - ICD9: 724.2, ICD10: M54.50 Appears to be lower back muscle strain Naproxen as ordered Stretches Follow up with pcp if no improvement. Medical Decision Making: Problems: Moderate: New problem with uncertain prognosis Risk: Moderate: Drug management Medical Decision Making Level: 4 - Moderate Diagnosis and treatment plan were discussed and questions were answered to the patient's satisfaction. Pt acknowledged understanding of concepts and follow up plan. Specific signs and symptoms that would indicate the need for higher level of care were discussed indetail warranting prompt ER evaluation. Berenice French APRN.SANDEEP [facility]Mc[facility]* Diagnosis Urinary frequency- Primary Bilateral low back pain without sciatica, unspecified chronicity documented [facility]* Diagnosis Urinary frequency- Primary Vaginal discharge Leukorrhea, not specified as infective Screening for cervical cancer Screening for malignant neoplasm of the cervix documented in this encounter [facility] note* Diagnosis Class 2 obesity without serious comorbidity with body mass index (BMI) of 35.0 to 35.9 in adult, unspecified obesity type- Primary Persistent asthma without complication, unspecified asthma severity Mild intermittent asthma without complication Unspecified asthma Hydradenitis Hidradenitis documented in this encounter [facility] note* Diagnosis Rash- Primary Rash and other nonspecific skin eruption documented in this encounter [facility] note* Diagnosis COVID-19 virus infection- Primary documented in this encounter [facility] noteNo assessment information availableWSycamore [facility] Work Phone: Evaluation note* Diagnosis Gastroesophageal reflux disease without esophagitis- Primary Esophageal reflux documented in this encounter [facility] note* Diagnosis Mild intermittent asthma without complication- Primary Unspecified asthma Gastroesophageal reflux disease without esophagitis Esophageal reflux Insomnia, unspecified type Urine frequency Urinary frequency LLQ pain Abdominal pain, left lower quadrant Other fatigue Weight gain Abnormal weight gain Snoring Other dyspnea and respiratory abnormality Constipation, unspecified constipation type Bloating Flatulence, eructation, and gas pain Painful menstruation Dysmenorrhea documented in this encounter [facility] note* Diagnosis Viral URI- Primary Acute upper respiratory infections of unspecified site [facility] encounter [facility]* Diagnosis Breast pain- Primary Mastodynia Mass of breast, unspecified laterality Gastroesophageal reflux disease, unspecified whether esophagitis present Nausea Nausea alone Leukocytosis, unspecified type documented in this encounter [facility]* Diagnosis Breast pain Mastodynia Mass of breast, unspecified laterality documented in this encounter [facility]* Diagnosis Annual physical exam- Primary Routine general medical examination at a health care facility Hydradenitis Hidradenitis Other acne Acute bronchitis with chronic obstructive pulmonary disease (COPD) (HCC) (HCC) Obstructive chronic bronchitis with acute bronchitis Iron deficiency anemia, unspecified iron deficiency anemia type- Primary Vitamin D deficiency Unspecified vitamin D deficiency Moderate persistent asthma with exacerbation Unspecified asthma, with exacerbation Mild intermittent asthma without complication Unspecified asthma Cystic acne Other acne Gastroesophageal reflux disease without esophagitis Esophageal reflux documented in this encounter [facility]* Diagnosis Annual physical exam- Primary Routine general medical examination at a health care facility Hydradenitis Hidradenitis Other acne Acute bronchitis with chronic obstructive pulmonary disease (COPD) (HCC) (HCC) Obstructive chronic bronchitis with acute bronchitis Asthma, unspecified asthma severity, unspecified whether complicated, unspecified whether persistent- Primary documented in this [facility] Diagnosis Annual physical exam- Primary Routine general medical examination at a health care facility Hydradenitis Hidradenitis Other acne Acute bronchitis with chronic obstructive pulmonary disease (COPD) (HCC) (HCC) Obstructive chronic bronchitis with acute bronchitis Iron deficiency- Primary Iron deficiency anemia, unspecified Vitamin D deficiency Unspecified vitamin D deficiency documented [facility] this [facility] Diagnosis Annual physical exam- Primary Routine general medical examination at a health care facility Hydradenitis Hidradenitis Other acne Acute bronchitis with chronic obstructive pulmonary disease (COPD) (HCC) (HCC) Obstructive chronic bronchitis with acute bronchitis Food poisoning- Primary Food poisoning, unspecified Abdominal pain, unspecified abdominal location Fever and chills Fever, unspecified Tremors of nervous system Abnormal involuntary movements Weight loss Loss of weight Palpitations documented [facility] Diagnosis Annual physical exam- Primary Routine general medical examination at a health care facility Hydradenitis Hidradenitis Other acne Acute bronchitis with chronic obstructive pulmonary disease (COPD) (HCC) (HCC) Obstructive chronic bronchitis with acute bronchitis Hydradenitis- Primary Hidradenitis Allergic rhinitis, unspecified seasonality, unspecified trigger Gastroesophageal reflux disease with esophagitis, unspecified whether hemorrhage H/O Graves' disease Personal history of other endocrine, metabolic, and immunity disorders Hyperthyroidism Thyrotoxicosis without mention of goiter or other cause, without mention of thyrotoxic crisis or storm Indigestion Dyspepsia and other specified disorders of function of stomach Vitamin D deficiency Unspecified vitamin D deficiency Anemia, unspecified type Vitamin B12 deficiency Other B-complex deficiencies [facility] Diagnosis Annual physical exam- Primary Routine general medical examination at a health care facility Hydradenitis Hidradenitis Other acne Acute bronchitis with chronic obstructive pulmonary disease (COPD) (HCC) (HCC) Obstructive chronic bronchitis with acute bronchitis Iron deficiency Iron deficiency anemia, unspecified Vitamin D deficiency Unspecified vitamin D deficiency [facility] Diagnosis Annual physical exam- Primary Routine general medical examination at a health care facility Hydradenitis Hidradenitis Other acne Acute bronchitis with chronic obstructive pulmonary disease (COPD) (HCC) (HCC) Obstructive chronic bronchitis with acute bronchitis Adverse reaction to food, initial encounter- Primary Mild intermittent asthma without complication Unspecified asthma Allergic rhinitis, unspecified seasonality, unspecified trigger [facility] Diagnosis Annual physical exam- Primary Routine general medical examination at a health care facility Hydradenitis Hidradenitis Other acne Acute bronchitis with chronic obstructive pulmonary disease (COPD) (HCC) Obstructive chronic bronchitis with acute bronchitis Cystic acne- Primary Other acne Anxiety and depression Dysthymic disorder Screening for depression Encounter for screening examination for other mental health and behavioral disorders Hydradenitis Hidradenitis Anemia, unspecified type Hypomagnesemia Disorders of magnesium metabolism Vitamin D deficiency Unspecified vitamin D deficiency Iron deficiency anemia, unspecified iron deficiency anemia type Gastro-esophageal reflux disease without esophagitis Esophageal reflux [facility]* Diagnosis Annual physical exam- Primary Routine general medical examination at a health care facility Hydradenitis Hidradenitis Other acne Acute bronchitis with chronic obstructive pulmonary disease (COPD) (HCC) Obstructive chronic bronchitis with acute bronchitis Sore throat- Primary Acute pharyngitis documented [facility] this [facility]* Diagnosis Annual physical exam- Primary Routine general medical examination at a health care facility Hydradenitis Hidradenitis Other acne Acute bronchitis with chronic obstructive pulmonary disease (COPD) (HCC) Obstructive chronic bronchitis with acute bronchitis Allergic reaction, initial encounter- Primary documented [facility]* Diagnosis Annual physical exam- Primary Routine general medical examination at a health care facility Hydradenitis Hidradenitis Other acne Acute bronchitis with chronic obstructive pulmonary disease (COPD) (HCC) Obstructive chronic bronchitis with acute bronchitis Hydradenitis- Primary Hidradenitis Obstructive sleep apnea syndrome Obstructive sleep apnea (adult) (pediatric) Gastroesophageal reflux disease without esophagitis Esophageal reflux Mild intermittent asthma without complication (HCC) Unspecified asthma Tree nut allergy Allergy to other foods Vitamin D deficiency Unspecified vitamin D deficiency Encounter for immunization Need for other specified prophylactic vaccination against single bacterial disease Encounter for allergy testing Diagnostic skin and sensitization tests [facility] Diagnosis Annual physical exam- Primary Routine general medical examination at a health care facility Hydradenitis Hidradenitis Other acne Acute bronchitis with chronic obstructive pulmonary disease (COPD) (HCC) Obstructive chronic bronchitis with acute bronchitis Pollen-food allergy, subsequent encounter- Primary Peanut allergy Allergy to peanuts Seasonal allergic rhinitis due to pollen Chronic rhinitis Mild intermittent asthma without complication (HCC) Unspecified asthma documented in this encounter [facility] for referral (narrative)* Outpatient Procedure (Routine) - Authorized Specialty Diagnoses / Procedures Referred By Jerrod ambrose Referred To [facility] Diagnoses Persistent asthma without complication, unspecified asthma severity Procedures SPIROMETRY - BASELINE AND POST DILATOR BRNCDILAT RSPSE SPMTRY PRE&POST-BRNCDILAT ADMN Ce Conner MD [address] [place] [address] [address] Referral ID Status Reason Start Date Expiration Date Visits Requested Visits Authorized [id number] Authorized Auto-Generat ed Referral 03/12/2022 04/11/2023 1 1 * Outpatient Procedure (Routine) - Pending Review Specialty Diagnoses / Procedures Referred By Jerrod ambrose Referred To [facility] Diagnoses Persistent asthma without complication, unspecified asthma severity Procedures LUNG VOLUMES Ce Conner MD [address] [place] [address] Respiratory [place] [address] [place] [address] Referral ID Status Reason Start Date Expiration Date Visits Requested Visits Authorized [id number] Pending Review Auto-Generat ed Referral 03/12/2022 04/11/2023 1 1 [facility] for referral (narrative)* Diagnostic Procedure Only (Routine) - Pending Review Specialty Diagnoses / Procedures Referred By Contac t Referred To Contact [facility] Diagnoses Other fatigue Weight gain Snoring Insomnia, unspecified type Procedures HOME SLEEP APNEA TEST (HSAT) SLEEP STD AIRFLOW HRT RATE&O2 SAT EFFORT UNATT Afia Jackson APRN.CNP [address] [place] [address] [address] Referral ID Status Reason Start Date Expiration Date Visits Requested Visits Authorized [id number] Pending Review Auto-Generat ed Referral 11/03/2023 11/02/2024 1 1 [facility] for referral (narrative)* Diagnostic Procedure Only (Routine) - Authorized Specialty Diagnoses / Procedures [facility] Diagnoses Breast pain Mass of breast, unspecified laterality Procedures US BREAST LTD LEFT US BREAST UNI REAL TIME WITH IMAGE LIMITED Afia Jackson APRN.CNP [address] [place] [address] Br Imaging [address] [place] [address] Referral ID Status Reason Start Date Expiration Date Visits Requested Visits Authorized [id number] Authorized Auto-Generat ed Referral 02/18/2024 03/19/2025 1 1 * Diagnostic Procedure Only (Routine) - Authorized Specialty Diagnoses / Procedures [facility] Diagnoses Breast pain Mass of breast, unspecified laterality Procedures US BREAST LTD RIGHT US BREAST UNI REAL TIME WITH IMAGE LIMITED Afia Jackson APRN.CNP [address] [place] [address] Br Imaging [address] [place] [address] Referral ID Status Reason Start Date Expiration Date Visits Requested Visits Authorized [id number] Authorized Auto-Generat ed Referral 02/18/2024 03/19/2025 1 1 * Diagnostic Procedure Only (Routine) - Authorized Specialty Diagnoses / Procedures Referred By Contac t Referred To Contact [facility] Diagnoses Breast pain Mass of breast, unspecified laterality Procedures SANJAY DIAGNOSTIC BILATERAL DIAGNOSTIC MAMMOGRAPHY COMPUTER-AIDED DETCJ BI Afia Jackson APRN.FREIGHT BREAKER [address] [place] [address] Br Imaging [address] [place] [address] Referral ID Status Reason Start Date Expiration Date Visits Requested Visits Authorized [id number] Authorized Auto-Generat ed Referral 02/18/2024 03/19/2025 1 1 [facility] for referral (narrative)* Diagnostic Procedure Only (Routine) - Closed Specialty Diagnoses / Procedures Referred By Contac t Referred To Contact BR IM[facility] Diagnoses Breast pain Mass of breast, unspecified laterality Procedures US BREAST LTD LEFT US BREAST UNI REAL TIME WITH IMAGE LIMITED Afia Jackson APRN.FREIGHT BREAKER [address] [place] [address] Br Imaging [address] [place] [address] Referral ID Status Reason Start Date Expiration Date V isits Requested Visits Authorized [id number] Closed Auto-Generate d Referral 02/18/2024 03/19/2025 1 1 * Diagnostic Procedure Only (Routine) - Closed Specialty Diagnoses / Procedures Referred By Danyac t Referred To Contact [facility] IM[facility] Diagnoses Breast pain Mass of breast, unspecified laterality Procedures US BREAST LTD RIGHT US BREAST UNI REAL TIME WITH IMAGE LIMITED Afia Jackson APRN.CNP [address] [place] [address] Br Imaging [address] [place] [phone] Referral ID Status Reason Start Date Expiration Date V isits Requested Visits Authorized [id number] Closed Auto-Generate d Referral 02/18/2024 03/19/2025 1 1 [facility] for referral (narrative)* Outpatient Procedure (Routine) - New Request Specialty Diagnoses / Procedures Referred By Jerrod t Referred To [facility] Diagnoses Asthma, unspecified asthma severity, unspecified whether complicated, unspecified whether persistent Procedures NITRIC OXIDE, EXHALED NITRIC OXIDE GAS DETERMINATION Heaven Maciel MD [address] [place] [address] Res[address] [place] [address] [place] [address] Referral ID Status Reason Start Date Expiration Date Visits Requested Visits Authorized [id number] New Request Auto-Generat ed Referral 04/20/2024 05/20/2025 1 1 * Outpatient Procedure (Routine) - New Request Specialty Diagnoses / Procedures Referred By Jerrod t Referred To Contact [facility] Diagnoses Asthma, unspecified asthma severity, unspecified whether complicated, unspecified whether persistent Procedures SPIROMETRY - BASELINE AND POST DILATOR BRNCDILAT RSPSE SPMTRY PRE&POST-BRNCDILAT ADMN Heaven Maciel MD [address] [place] [address] Respiratory [place] [address] [place] [address] Referral ID Status Reason Start Date Expiration Date Visits Requested Visits Authorized [id number] New Request Auto-Generat ed Referral 04/20/2024 05/20/2025 1 1 [facility] for referral (narrative)No reason for referral information availableKindred Hospital Services Work Phone: Reason for visit Narrative* Diagnostic Procedure Only (Routine) - Closed Specialty Diagnoses / Procedures Referred By Contjanessa t Referred To Contact BR IMAGING Diagnoses Breast pain Mass of breast, unspecified laterality Procedures US BREAST LTD RIGHT US BREAST UNI REAL TIME WITH IMAGE LIMITED Afia Jackson APRN.FREIGHT BREAKER [address] [place] [address] Br Imaging [address] [place] [address] Referral ID Status Reason Start Date Expiration Date V isits Requested Visits Authorized [id number] Closed Auto-Generate d Referral 02/18/2024 03/19/2025 1 1 [facility] Chief Complaint and Reason for Visit Chief Complaint CHEST PAIN Chief Complaint Admit Date abd pain September 04, 2024 8 :34pm POSSIBLE ULCER October 01, 2024 7:27am FU December 28, 2024 2:38p m Reason for Visit Admit Date Gastritis October 01, 2024 7:27am GERD (gastroesophageal reflux disease) F ebruary 2024 7:27am Chest pain, unspecified November 26, 2024 11:25am Gastritis November 26, 2024 11: 25am GERD (gastroesophageal reflux disease) A 2024 11:25am Gastritis December 28, 2024 2:38p m GERD (gastroesophageal reflux disease) M ay 2024 2:38pm Chief Complaint Admit Date December 28, 2024 2:38p m DISCUSS MEDICATION PANTOPROZOLE February 3:38pm Reason for Visit Admit Date Chest pain, unspecified November 26, 2024 11:25am Gastritis November 26, 2024 11: 25am GERD (gastroesophageal reflux disease) A 2024 11:25am GERD (gastroesophageal reflux disease) M ay 2024 2:38pm Chief Complaint Admit Date December 28, 2024 2:38p m DISCUSS MEDICATION PANTOPROZOLE February 3:38pm Allergic Reaction March 02, 2025 7:25 pm Reason for Visit Admit Date Chest pain, unspecified November 26, 2024 11:25am Gastritis November 26, 2024 11: 25am GERD (gastroesophageal reflux disease) A 2024 11:25am GERD (gastroesophageal reflux disease) M ay 2024 2:38pm Gastritis February 07, 2025 3:38p m GERD (gastroesophageal reflux disease) J larry 2024 3:38pm Advance Directives No Advanced Directives Records Found Advance Directive Response Recorded Date/ Time Living Will No October 20, 2022 3:40pm Power of Burn Crew Member No October 20 3:40pm Advance Directive Response Recorded Date/ Time Living Will No September 04 9:45pm Do you have a Healthcare Power of Burn Crew Member? No September 04, 2024 9:45pm Living Will No November 22, 2024 2:27pm Do you have a Healthcare Power of Burn Crew Member? No November 22, 2024 2:27pm Advance Directive Response Recorded Date/ Time Living Will No November 22, 2024 2:27pm Do you have a Healthcare Power of Burn Crew Member? No November 22, 2024 2:27pm Advance Directive Response Recorded Date/ Time Living Will No November 22, 2024 2:27pm Do you have a Healthcare Power of Burn Crew Member? No November 22, 2024 2:27pm Do you have a Healthcare Power of Burn Crew Member? No March 02, 2025 8:36pm Reason for Referral Specialty Diagnoses / Procedures Referred By Contac t Referred To Contact Dermatology Diagnoses Cystic acne Procedures CONSULT TO DERMATOLOGY Ce Conner MD [address] [place] [address] Referral ID Status Reason Start Date Expiration Date Visits Requested Visits Authorized [id number] Ref Not Required PCP Requested Referral 04/02/2024 04/02/2025 1 1 Specialty Diagnoses / Procedures Referred By Contac t Referred To Contact Allergy Diagnoses Moderate persistent asthma with exacerbation Procedures CONSULT TO ALLERGY/IMMUNOLOGY OFFICE/OUTPATIENT [facility] 60 MINUTES Ce Conner MD [facility] [place] [address] Referral ID Status Reason Start Date Expiration Date Visits Requested Visits Authorized [id number] Authorized PCP Requested Referral 04/02/2024 04/02/2025 1 1 Specialty Diagnoses / Procedures Referred By Contac t Referred To Contact Endocrinology Diagnoses Fever and chills Tremors of nervous system Weight loss Palpitations Procedures CONSULT TO ENDOCRINOLOGY OFFICE/OUTPATIENT [facility] 60 MINUTES Ce Conner MD [address] [place] [address] Referral ID Status Reason Start Date Expiration Date Visits Requested Visits Authorized [id number] Authorized PCP Requested Referral 4 07/23/2025 1 1 Specialty Diagnoses / Procedures Referred By Contac t Referred [facility] Diagnoses Palpitations Procedures ECG COMPLETE ECG ROUTINE ECG W/LEAST 12 LDS W/I&R Ce Conner MD [address] [place] [address] [facility] [address] [place] [address] Referral ID Status Reason Start Date Expiration Date Visits Requested Visits Authorized [id number] New Request Auto-Generat ed Referral 4 07/23/2025 1 1 Specialty Diagnoses / Procedures Referred By Contac t Referred To Contact [facility] IM[facility] Diagnoses Food poisoning Fever and chills Weight loss Procedures US THYROID/PARATHYROID US SOFT TISSUE HEAD & NECK REAL TIME IMGE DOCCe Freed MD [address] [place] [address] [place] [address] Referral ID Status Reason Start Date Expiration Date Visits Requested Visits Authorized [id number] New Request Auto-Generat ed Referral 4 08/22/2025 1 1 Summary Purpose Family History No Family History Records FoundNo Family History Records FoundNo Family History Records FoundNo Family History Records Found Additional Source Comments Source Comments (unrecognize d section and content) In the event this informatio n is protected by the Federal Confidentiality of Alcohol and Drug Abuse Patient Records regulations: The Federal rules restrict any use of the information to criminally investigate or prosecute any alcohol or drug abuse patient.[facility] the event this information is protected by the Federal Confidentiality of Alcohol and Drug Abuse Patient Records regulations: The Federal rules restrict any use of the information to criminally investigate or prosecute any alcohol or drug abuse patient.[facility] the event this information is protected by the Federal Confidentiality of Alcohol and Drug Abuse Patient Records regulations: The Federal rules restrict any use of the information to criminally investigate or prosecute any alcohol or drug abuse patient.[facility] the event this information is protected by the Federal Confidentiality of Alcohol and Drug Abuse Patient Records regulations: The Federal rules restrict any use of the information to criminally investigate or prosecute any alcohol or drug abuse patient.[facility] the event this information is protected by the Federal Confidentiality of Alcohol and Drug Abuse Patient Records regulations: The Federal rules restrict any use of the information to criminally investigate or prosecute any alcohol or drug abuse patient.[facility] the event this information is protected by the Federal Confidentiality of Alcohol and Drug Abuse Patient Records regulations: The Federal rules restrict any use of the information to criminally investigate or prosecute any alcohol or drug abuse patient.[facility] the event this information is protected by the Federal Confidentiality of Alcohol and Drug Abuse Patient Records regulations: The Federal rules restrict any use of the information to criminally investigate or prosecute any alcohol or drug abuse patient.[facility] the event this information is protected by the Federal Confidentiality of Alcohol and Drug Abuse Patient Records regulations: The Federal rules restrict any use of the information to criminally investigate or prosecute any alcohol or drug abuse patient.[facility] the event this information is protected by the Federal Confidentiality of Alcohol and Drug Abuse Patient Records regulations: The Federal rules restrict any use of the information to criminally investigate or prosecute any alcohol or drug abuse patient.[facility] the event this information is protected by the Federal Confidentiality of Alcohol and Drug Abuse Patient Records regulations: The Federal rules restrict any use of the information to criminally investigate or prosecute any alcohol or drug abuse patient.[facility] Hospital[facility] the event this information is protected by the Federal Confidentiality of Alcohol and Drug Abuse Patient Records regulations: The Federal rules restrict any use of the information to criminally investigate or prosecute any alcohol or drug abuse patient.[facility] Hospital[facility] the event this information is protected by the Federal Confidentiality of Alcohol and Drug Abuse Patient Records regulations: The Federal rules restrict any use of the information to criminally investigate or prosecute any alcohol or drug abuse patient.[facility] Hospital[facility] the event this information is protected by the Federal Confidentiality of Alcohol and Drug Abuse Patient Records regulations: The Federal rules restrict any use of the information to criminally investigate or prosecute any alcohol or drug abuse patient.[facility] Hospital[facility] the event this information is protected by the Federal Confidentiality of Alcohol and Drug Abuse Patient Records regulations: The Federal rules restrict any use of the information to criminally investigate or prosecute any alcohol or drug abuse patient.[facility] HospitalIn the event this information is protected by the Federal Confidentiality of Alcohol and Drug Abuse Patient Records regulations: The Federal rules restrict any use of the information to criminally investigate or prosecute any alcohol or drug abuse patient.[facility] Hospital[facility] the event this information is protected by the Federal Confidentiality of Alcohol and Drug Abuse Patient Records regulations: The Federal rules restrict any use of the information to criminally investigate or prosecute any alcohol or drug abuse patient.[facility] Hospital[facility] the event this information is protected by the Federal Confidentiality of Alcohol and Drug Abuse Patient Records regulations: The Federal rules restrict any use of the information to criminally investigate or prosecute any alcohol or drug abuse patient.[facility] HospitalIn the event this information is protected by the Federal Confidentiality of Alcohol and Drug Abuse Patient Records regulations: The Federal rules restrict any use of the information to criminally investigate or prosecute any alcohol or drug abuse patient.[facility] HospitalIn the event this information is protected by the Federal Confidentiality of Alcohol and Drug Abuse Patient Records regulations: The Federal rules restrict any use of the information to criminally investigate or prosecute any alcohol or drug abuse patient.[facility] HospitalIn the event this information is protected by the Federal Confidentiality of Alcohol and Drug Abuse Patient Records regulations: The Federal rules restrict any use of the information to criminally investigate or prosecute any alcohol or drug abuse patient.[facility] Hospital[facility] the event this information is protected by the Federal Confidentiality of Alcohol and Drug Abuse Patient Records regulations: The Federal rules restrict any use of the information to criminally investigate or prosecute any alcohol or drug abuse patient.[facility] HospitalIn the event this information is protected by the Federal Confidentiality of Alcohol and Drug Abuse Patient Records regulations: The Federal rules restrict any use of the information to criminally investigate or prosecute any alcohol or drug abuse patient.[facility] HospitalIn the event this information is protected by the Federal Confidentiality of Alcohol and Drug Abuse Patient Records regulations: The Federal rules restrict any use of the information to criminally investigate or prosecute any alcohol or drug abuse patient.[facility] HospitalIn the event this information is protected by the Federal Confidentiality of Alcohol and Drug Abuse Patient Records regulations: The Federal rules restrict any use of the information to criminally investigate or prosecute any alcohol or drug abuse patient.[facility] HospitalIn the event this information is protected by the Federal Confidentiality of Alcohol and Drug Abuse Patient Records regulations: The Federal rules restrict any use of the information to criminally investigate or prosecute any alcohol or drug abuse patient.[facility] HospitalIn the event this information is protected by the Federal Confidentiality of Alcohol and Drug Abuse Patient Records regulations: The Federal rules restrict any use of the information to criminally investigate or prosecute any alcohol or drug abuse patient.[facility] HospitalIn the event this information is protected by the Federal Confidentiality of Alcohol and Drug Abuse Patient Records regulations: The Federal rules restrict any use of the information to criminally investigate or prosecute any alcohol or drug abuse patient.[facility] HospitalIn the event this information is protected by the Federal Confidentiality of Alcohol and Drug Abuse Patient Records regulations: The Federal rules restrict any use of the information to criminally investigate or prosecute any alcohol or drug abuse patient.[facility] HospitalIn the event this information is protected by the Federal Confidentiality of Alcohol and Drug Abuse Patient Records regulations: The Federal rules restrict any use of the information to criminally investigate or prosecute any alcohol or drug abuse patient.[facility] HospitalIn the event this information is protected by the Federal Confidentiality of Alcohol and Drug Abuse Patient Records regulations: The Federal rules restrict any use of the information to criminally investigate or prosecute any alcohol or drug abuse patient.[facility] HospitalIn the event this information is protected by the Federal Confidentiality of Alcohol and Drug Abuse Patient Records regulations: The Federal rules restrict any use of the information to criminally investigate or prosecute any alcohol or drug abuse patient.[facility] HospitalIn the event this information is protected by the Federal Confidentiality of Alcohol and Drug Abuse Patient Records regulations: The Federal rules restrict any use of the information to criminally investigate or prosecute any alcohol or drug abuse patient.[facility] HospitalIn the event this information is protected by the Federal Confidentiality of Alcohol and Drug Abuse Patient Records regulations: The Federal rules restrict any use of the information to criminally investigate or prosecute any alcohol or drug abuse patient.[facility] HospitalIn the event this information is protected by the Federal Confidentiality of Alcohol and Drug Abuse Patient Records regulations: The Federal rules restrict any use of the information to criminally investigate or prosecute any alcohol or drug abuse patient.[facility] HospitalIn the event this information is protected by the Federal Confidentiality of Alcohol and Drug Abuse Patient Records regulations: The Federal rules restrict any use of the information to criminally investigate or prosecute any alcohol or drug abuse patient.[facility] HospitalIn the event this information is protected by the Federal Confidentiality of Alcohol and Drug Abuse Patient Records regulations: The Federal rules restrict any use of the information to criminally investigate or prosecute any alcohol or drug abuse patient.[facility] HospitalIn the event this information is protected by the Federal Confidentiality of Alcohol and Drug Abuse Patient Records regulations: The Federal rules restrict any use of the information to criminally investigate or prosecute any alcohol or drug abuse patient.[facility] HospitalIn the event this information is protected by the Federal Confidentiality of Alcohol and Drug Abuse Patient Records regulations: The Federal rules restrict any use of the information to criminally investigate or prosecute any alcohol or drug abuse patient.[facility] HospitalIn the event this information is protected by the Federal Confidentiality of Alcohol and Drug Abuse Patient Records regulations: The Federal rules restrict any use of the information to criminally investigate or prosecute any alcohol or drug abuse patient.[facility] HospitalIn the event this information is protected by the Federal Confidentiality of Alcohol and Drug Abuse Patient Records regulations: The Federal rules restrict any use of the information to criminally investigate or prosecute any alcohol or drug abuse patient.[facility] HospitalIn the event this information is protected by the Federal Confidentiality of Alcohol and Drug Abuse Patient Records regulations: The Federal rules restrict any use of the information to criminally investigate or prosecute any alcohol or drug abuse patient.[facility] HospitalIn the event this information is protected by the Federal Confidentiality of Alcohol and Drug Abuse Patient Records regulations: The Federal rules restrict any use of the information to criminally investigate or prosecute any alcohol or drug abuse patient.[facility] HospitalIn the event this information is protected by the Federal Confidentiality of Alcohol and Drug Abuse Patient Records regulations: The Federal rules restrict any use of the information to criminally investigate or prosecute any alcohol or drug abuse patient.[facility] HospitalIn the event this information is protected by the Federal Confidentiality of Alcohol and Drug Abuse Patient Records regulations: The Federal rules restrict any use of the information to criminally investigate or prosecute any alcohol or drug abuse patient.[facility] Reason for Visit (unrecogniz ed section and content) Reason Comments UTI lower back pain, jayson quency x 2 months Reason Comments urinary symptoms Reason Comments Results Reason Comments UTI Reason Comments Abdominal Pain Reason Comments Asthma Covid19 Concern Reason Comments Same Day Appointment asthma symptoms wit h activity Reason Comments Hives ASHTYN legs x1 daysPoss ible insect bite x3 days on L side of face, swollen Reason Comments Follow Up fatigue post covid 3 weeks ago Reason Comments Chest Pain Reason Comments Recheck [facility] ER follow up, [facility] Reason Comments Patient Question Patient Update Reason Onset Date Comments Refill Request 11/22/2022 Reason Comments Physical Reason Onset Date Comments Refill Request 01/26/2024 Reason Comments Cough Cough x 1 week Reason Comments Clinical Update Reason Comments Lab & Test Results Reason Comments Follow Up Reason Comments Recheck Gerd and iron Reason Comments Med Change Request Reason Comments Abdominal Pain Lower abdominal 1 da y, pressure, n/v Reason Comments Abdominal Pain Chest Pain Reason Comments Follow Up Reason Comments ER F/U [facility] 07/23/24- N/V & diarrhea, [facility] 07/27/24 abdominal pain; [facility] 09/04/24 abdominal pain Reason Comments Appointment Reason Comments Allergic Rhinitis Food Allergy New Patient Reason Comments 4 month f/u Reason Onset Date Comments Results 11/26/2024 Forms 11/26/2024 [facility]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 Reason Comments Sore Throat X 2 days Reason Comments Tree nuts allergy Specialty Diagnoses / Procedures Referred By Contac t Referred To Contact Allergy Diagnoses Tree nut allergy Procedures OFFICE/OUTPATIENT [facility] 60 MINUTES Ce Conner MD [address] [place] [address] Phone: tel: fax: Referral ID Status Reason Start Date Expiration Date V isits Requested Visits Authorized [id number] Closed PCP Requested Referral 03/07/2025 03/07/2026 1 1 Care Teams (unrecognized sec tion and content) Community Liaison Relationship Specialty Start Date End Date Ce Conner MD [address] [place] [address] PCP - General Internal Medicine 12/04/17 Community Liaison Relationship Specialty Start Date End Date Ce Conner MD [address] [place] [address] PCP - General Internal Medicine 12/04/17 Community Liaison Relationship Specialty Start Date End Date Ce Conner MD [address] [place] [address] PCP - General Internal Medicine 12/04/17 Community Liaison Relationship Specialty Start Date End Date Ce Conner MD [address] [place] [address] PCP - General Internal Medicine 12/04/17 Community Liaison Relationship Specialty Start Date End Date Ce Conner MD [address] [place] [address] PCP - General Internal Medicine 12/04/17 Community Liaison Relationship Specialty Start Date End Date Ce Conner MD [address] [place] [address] PCP - General Internal Medicine 12/04/17 Community Liaison Relationship Specialty Start Date End Date Ce Conner MD [address] [place] [address] PCP - General Internal Medicine 12/04/17 Team Status: Active Member Role Status Dates Dr. Ce Conner MD Primary Care Provider Active Team Status: Inactive Member Role Status Dates Dr. Ce Conner MD Primary Care Provider Active Dr. Breezy Castillo DO Emergency Provider Active Community Liaison Relationship Specialty Start Date End Date Ce Conner MD [address] [place] [address] PCP - General Internal Medicine 12/04/17 Community Liaison Relationship Specialty Start Date End Date Ce Conner MD [address] [place] [address] PCP - General Internal Medicine 12/04/17 Community Liaison Relationship Specialty Start Date End Date Ce Conner MD [address] [place] [address] PCP - General Internal Medicine 12/04/17 Community Liaison Relationship Specialty Start Date End Date Ce Conner MD [address] [place] [address] PCP - General Internal Medicine 12/04/17 Community Liaison Relationship Specialty Start Date End Date Ce Conner MD [address] [place] [address] PCP - General Internal Medicine 12/04/17 Community Liaison Relationship Specialty Start Date End Date Ce Conner MD [address] [place] [address] PCP - General Internal Medicine 12/04/17 Community Liaison Relationship Specialty Start Date End Date Ce Conner MD [address] [place] [address] PCP - General Internal Medicine 12/04/17 Community Liaison Relationship Specialty Start Date End Date Ce Conner MD [address] [place] [address] PCP - General Internal Medicine 12/04/17 Community Liaison Relationship Specialty Start Date End Date Ce Conner MD [address] [place] [address] PCP - General Internal Medicine 12/04/17 Community Liaison Relationship Specialty Start Date End Date Ce Conner MD [address] [place] [address] PCP - General Internal Medicine 12/04/17 Community Liaison Relationship Specialty Start Date End Date Ce Conner MD [address] [place] [address] PCP - General Internal Medicine 12/04/17 Community Liaison Relationship Specialty Start Date End Date Ce Conner MD [address] [place] [address] PCP - General Internal Medicine 12/04/17 Community Liaison Relationship Specialty Start Date End Date Ce Conner MD [address] [place] [address] PCP - General Internal Medicine 12/04/17 Community Liaison Relationship Specialty Start Date End Date Ce Conner MD [address] [place] [address] PCP - General Internal Medicine 12/04/17 Community Liaison Relationship Specialty Start Date End Date Ce Conner MD [address] [place] [address] PCP - General Internal Medicine 12/04/17 Community Liaison Relationship Specialty Start Date End Date Ce Conner MD [address] [place] [address] PCP - General Internal Medicine 12/04/17 Community Liaison Relationship Specialty Start Date End Date Ce Conner MD [address] [place] [address] PCP - General Internal Medicine 12/04/17 Community Liaison Relationship Specialty Start Date End Date Ce Conner MD [address] [place] [address] PCP - General Internal Medicine 12/04/17 Renetta Pickering PA-C [address] [place] [address] [employer] [facility] 07/11/24 Afia aJckson APRN.[employer]REIGHT [employer]ER [address] [place] [address] [employer] Internal [facility] 07/11/24 Jacquelyn Coelho PA-C [address] [place] [address] [employer] [facility] 07/11/24 Community Liaison Relationship Specialty Start Date End Date Ce Conner MD [address] [place] [address] PCP - General Internal Medicine 12/04/17 Renetta Pickering PA-C [address] [place] [address] [employer] [facility] 07/11/24 Afia Jackson APRN.[employer]REIGHT BREAKER [address] [place] [address] [employer] Internal Medicine 07/11/24 Jacquelyn Coleho PA-C [address] [place] [address] [employer] [facility] 07/11/24 Community Liaison Relationship Specialty Start Date End Date Ce Conner MD [address] [place] [address] PCP - General Internal Medicine 12/04/17 Renetta Pickering PA-C [address] [place] [address] [facility] Afia Jackson APRN.FREIGHT BREAKER [address] [place] [address] [employer] Operator Internal Medicine 07/11/24 Jacquelyn Coelho PA-C [address] [place] [address] [facility] 07/11/24 Community Liaison Relationship Specialty Start Date End Date Ce Conner MD [address] [place] [address] PCP - General Internal Medicine 12/04/17 Renetta Pickering PA-C [address] [place] [address] [facility] 07/11/24 Afia Jackson APRN.FREIGHT BREAKER [address] [place] [address] [employer] Internal Medicine 07/11/24 Jacquelyn Coelho PA-C [address] [place] [address] [facility] 07/11/24 Community Liaison Relationship Specialty Start Date End Date Ce Conner MD [address] [place] [address] PCP - General Internal Medicine 12/04/17 Renetta Pickering PA-C [address] [place] [address] [employer] [facility] 07/11/24 Afia Jackson APRN.FREIGHT BREAKER [address] [place] [address] [employer] Internal [facility] 07/11/24 Jacquelyn Coelho PA-C [address] [place] [address] [employer] [facility] 07/11/24 Community Liaison Relationship Specialty Start Date End Date Ce Conner MD [address] [place] [address] PCP - General Internal Medicine 12/04/17 Renetta Pickering PA-C [address] [place] [address] [employer] [facility] 07/11/24 Afia Jackson APRN.FREIGHT BREAKER [address] [place] [address] [employer] Internal Medicine 07/11/24 Jacquelyn Coelho PA-C [address] [place] [address] [employer]isting [employer] [facility] 07/11/24 Community Liaison Relationship Specialty Start Date End Date Ce Conner MD [address] [place] [address] PCP - General Internal Medicine 12/04/17 Renetta Pickering PA-C [address] [place] [address] [employer] [facility] 07/11/24 Afia Jackson APRN.FREIGHT BREAKER [address] [place] [address] [employer] Internal [facility] 07/11/24 Jacquelyn Coelho PA-C [address] [place] [address] [facility] 07/11/24 Community Liaison Relationship Specialty Start Date End Date Ce Conner MD [address] [place] [address] PCP - General Internal Medicine 12/04/17 Renetta Pickering PA-C [address] [place] [address] [facility] Family [facility] 07/11/24 Afia Jackson APRN.FREIGHT BREAKER [address] [place] [address] [facility] Internal Medicine 07/11/24 Jacquelyn Coelho PA-C [address] [place] [address] [facility] 07/11/24 Community Liaison Relationship Specialty Start Date End Date Ce Conner MD [address] [place] [address] PCP - General Internal Medicine 12/04/17 Aifa Jackson APRN.FREIGHT BREAKER [address] [place] [address] [facility] Internal Medicine 07/11/24 Team Status: Inactive Member Role Status Dates Dr. Ce Conner MD Primary Care Provider Active Start: September 04, 2024 End: September 04, 2024 Dr. Mariana Domingo DO Attending Provider Active Start: September 04, 2024 End: September 04, 2024 Dr. Mariana Domingo DO Referring Provider Active Start: September 04, 2024 End: September 04, 2024 Dr. Mariana Domingo DO Emergency Provider Active Start: September 04, 2024 End: September 04, 2024 Team Status: Inactive Member Role Status Dates Dr. Ce Conner MD Primary Care Provider Active Start: October 01, 2024 End: October 01, 2024 Dr. Ce Conner MD Referring Provider Active Start: October 01, 2024 End: October 01, 2024 BURTON Boateng Attending Provider Active S tart: October 01, 2024 End: October 01, 2024 Team Status: Inactive Member Role Status Dates Dr. Ce Conner MD Primary Care Provider Active Start: November 26, 2024 End: November 26, 2024 Dr. Ce Conner MD Referring Provider Active Start: November 26, 2024 End: November 26, 2024 Dr. Gabriel Larios DO Attending Provider Active Start: November 26, 2024 End: November 26, 2024 Team Status: Active Member Role Status Dates Dr. Ce Conner MD Primary Care Provider Active Start: November 26, 2024 Dr. Ce Conner MD Referring Provider Active Start: November 26, 2024 Dr. Gabriel Larios DO Attending Provider Active Start: November 26, 2024 Dr. Gabriel Larios DO Other Provider Active St art: November 26, 2024 Team Status: Inactive Member Role Status Dates Dr. Ce Conner MD Primary Care Provider Active Start: December 28, 2024 End: December 28, 2024 Dr. Ce Conner MD Referring Provider Active Start: December 28, 2024 End: December 28, 2024 BURTON Boateng Attending Provider Active S tart: December 28, 2024 End: December 28, 2024 Community Liaison Relationship Specialty Start Date End Date Ce Conner MD [address] [place] [address] PCP - General Internal Medicine 12/04/17 Older, Afia, FOUNDER.[employer]RE[employer] BREAKER [address] [place], [place] [address] [employer] [facility] 07/11/24 Team Status: Active Member Role/Relationship Status Dates Dr. Ce Conner MD Primary Care Provider Active Team Status: Inactive Member Role/Relationship Status Dates Dr. Ce Conner MD Primary Care Provider Active Start: November 26, 2024 End: November 26, 2024 Dr. Ce Conner MD Referring Provider Active Start: November 26, 2024 End: November 26, 2024 Dr. Gabriel Larios DO Attending Provider Active Start: November 26, 2024 End: November 26, 2024 Team Status: Active Member Role/Relationship Status Dates Dr. Ce Conner MD Primary Care Provider Active Start: November 26, 2024 Dr. Ce Conner MD Referring Provider Active Start: November 26, 2024 Dr. Gabriel Larios DO Attending Provider Active Start: November 26, 2024 Dr. Gabriel Larios DO Other Provider Active St art: November 26, 2024 Team Status: Inactive Member Role/Relationship Status Dates Dr. Ce Conner MD Primary Care Provider Active Start: December 28, 2024 End: December 28, 2024 Dr. Ce Conner MD Referring Provider Active Start: December 28, 2024 End: December 28, 2024 BURTON Boateng Attending Provider Active S tart: December 28, 2024 End: December 28, 2024 Team Status: Inactive Member Role/Relationship Status Dates Dr. Ce Conner MD Primary Care Provider Active Start: February 07, 2025 End: February 07, 2025 Dr. Ce Conner MD Referring Provider Active Start: February 07, 2025 End: February 07, 2025 BURTON Boateng Attending Provider Active S tart: February 07, 2025 End: February 07, 2025 Community Liaison Relationship Specialty Start Date End Date Ce Conner MD [address] [facility] [place] [address] PCP - General Internal Medicine 12/04/17 Afia Jackson APRN.FREIGHT BREAKER [address] [place] [address] [facility] Internal [facility] 07/11/24 Team Status: Inactive Member Role/Relationship Status Dates Dr. Ce Conner MD Primary Care Provider Active Start: March 02, 2025 End: March 02, 2025 Dr. Ramin Ny DO Emergency Provider Active Start: March 02, 2025 End: March 02, 2025 Community Liaison Relationship Specialty Start Date End Date Ce Conner MD [address] [place], [place] [address] PCP - General Internal Medicine 12/04/17 Afia Jackson APRN.FREIGHT BREAKER [address] [place] [address] [facility] 07/11/24 Goals (unrecognized section and content) Goals may be documented in a n alternate section INFORMATION SOURCE (unrecogn ized section and content) DATE CREATED AUTHOR 10/11/2024 [facility] DATE CREATED AUTHOR AUTHOR'S ORGANIZ ATION 10/15/2024 [facility] DATE CREATED AUTHOR AUTHOR'S ORGANIZ ATION 03/12/2025 [facility] DATE CREATED AUTHOR AUTHOR'S ORGANIZ ATION 04/09/2025 [facility] FOR RECORDS PERTAINING TO PATIENTS WHO ARE OR HAVE BEEN ENROLLED IN A CHEMICAL DEPENDENCY/SUBSTANCEABUSE PROGRAM, SOME INFORMATION MAY BE OMITTED. This clinical summary was aggregated from multiple sources. Caution should be exercised in using it in the provision of clinical care. This summary normalizes information from multiple sources, and as a consequence, information in this document may materially change the coding, format and clinical context of patient data. In addition, data may be omitted in some cases. CLINICAL DECISIONS SHOULD BE BASED ON THE PRIMARY CLINICAL RECORDS. [employer] provides no warranty or guarantee of the accuracy or completeness of information in this document.
[2025-04-15 01:01] VITALS: BP 110/80; PULSE 66; RESP 14; TEMP 36.3; O2SAT 100
== END 2025-04-15 01:02 | disposition home or self-care (01) ==
PROVIDERS: Emergency Provider Emergency Medicine; PCP Internal Medicine; Visit Provider Emergency Medicine
DX: K29.70 Gastritis, unspecified, without bleeding (principal); Z87.891 Personal history of nicotine dependence; L73.2 Hidradenitis suppurativa; K21.9 Gastro-esophageal reflux disease without esophagitis; Z79.899 Other long term (current) drug therapy
CPT/HCPCS: 99284